=== PATIENT | female | born 1985 | race Hispanic/Latino ===

== ENCOUNTER 2019-03-11 15:58 | Outpatient (CLI) | payer BC, MEDICAID ==
[2019-03-11] MEDS ORDERED: LACTATED RINGERS 500 ML IV ONE (16:21)
[2019-03-11 16:31] VITALS: BP 105/54
[2019-03-11 16:58] LABS: Bacteria,Urine 1+ /HPF (Negative); Bilirubin,Urine NEG (Negative); Blood,Urine NEG (Negative); Calcium Oxalate Crystals,Urine FEW; Color,Urine Yellow (Yellow); Mucus,Urine FEW /HPF; Protein,Urine <15 mg/dL mg/dL (Negative); Urobilinogen,Urine < 2.0 mg/dL (<2.0)
== END 2019-03-11 18:40 | disposition home or self-care (01) ==
LOC: EDSEX → EDBD → TRG 15:58
PROVIDERS: ATTEND Obstetrics & Gynecology
DX: O26.813 Pregnancy related exhaustion and fatigue, third trimester (principal); O26.893 Other specified pregnancy related conditions, third trimester; R10.9 Unspecified abdominal pain; O09.523 Supervision of elderly multigravida, third trimester; O99.333 Smoking (tobacco) complicating pregnancy, third trimester; F17.200 Nicotine dependence, unspecified, uncomplicated; Z3A.32 32 weeks gestation of pregnancy
CPT/HCPCS: 59025; 81001; J7120; 96361

== ENCOUNTER 2019-05-01 05:32 | Inpatient (IN) | payer MEDICAID ==
[2019-05-01] MEDS ORDERED: REGLAN IV ONE (05:47)
[2019-05-01] MEDS ORDERED: BICITRA PO ONE (05:47)
[2019-05-01] MEDS ORDERED: PEPCID IV ONE (05:47)
[2019-05-01] MEDS ORDERED: CLEOCIN 900 MG/50 mL 900 MG/50 ML BAG IV NR (06:00)
[2019-05-01] MEDS ORDERED: PITOCin/NS 20 UNIT/1000ML DRIP 20 UNITS/1,000 ML BAG IV SCH ×2 (06:00→10:49)
[2019-05-01] MEDS: LACTATED RINGERS 1,000 ML IV SCH ×2 (06:26→07:02)
[2019-05-01 06:42] LABS: Basophils # (Auto) 0.2 K/mm3 (0.0-0.1); Basophils % (Auto) 1.2 % (0.0-1.8); Eosinophils # (Auto) 0.1 K/mm3 (0.0-0.4); Eosinophils % (Auto) 0.9 % (0.0-4.3); Hematocrit 27.6 % (30.3-42.9); Hemoglobin 9.4 gm/dl (10.1-14.3); Lymphocytes # (Auto) 2.5 K/mm3 (1.2-5.4); Lymphocytes % (Auto) 19.5 % (13.4-35.0); Mean Corpuscular HGB Conc 34 % (30-34); Mean Corpuscular Volume 91 fl (79-97); Monocytes # (Auto) 0.5 K/mm3 (0.0-0.8); Monocytes % (Auto) 4.2 % (0.0-7.3); Red Blood Count 3.04 M/mm3 (3.65-5.03); Red Cell Distribution Width 14.2 % (13.2-15.2)
[2019-05-01] MEDS ORDERED: DEXMEDETOMIDINE IV ONE (07:10)
[2019-05-01] MEDS ORDERED: MARCAINE 0.5% INFILTRATI ONE (07:16)
--- NOTE | 2019-05-01 07:24 | Anesthesia Day of Surgery ---
Anesthesia Day of Surgery - Day of Surgery Patient Examined: Yes Patient H&P Reviewed: Yes Patient is NPO: Yes
--- NOTE | 2019-05-01 07:24 | Anesthesia Consultation ---
Anesthesia Consult and Med Hx Date of service: 05/01/19 - Airway Anesthetic Teeth Evaluation: Good, Dentures ROM Head & Neck: Adequate Mental/Hyoid Distance: Adequate Mallampati Class: Class I Intubation Access Assessment: Good - Pulmonary Exam CTA: Yes - Cardiac Exam Cardiac Exam: RRR - Pre-Operative Health Status ASA Pre-Surgery Classification: ASA2 Proposed Anesthetic Plan: Spinal - Pulmonary Hx Smoking: No Hx Asthma: No COPD: No Hx Pneumonia: No - Cardiovascular System Hx Hypertension: No - Central Nervous System Hx Seizures: No Hx Psychiatric Problems: Yes (ANXIETY/DEPRESSION) - Endocrine Hx Renal Disease: No Hx End Stage Renal Disease: No Hx Hypothyroidism: No Hx Hyperthyroidism: No - Hematic Hx Anemia: No Hx Sickle Cell Disease: No - Other Systems Hx Alcohol Use: No
[2019-05-01] MEDS ORDERED: NACL 0.9% IR ONE (07:27)
[2019-05-01] MEDS ORDERED: NACL 0.9% IV ONE (07:30)
[2019-05-01] MEDS ORDERED: GENTAMICIN IV ONE (07:30)
--- NOTE | 2019-05-01 07:35 | History and Physical Report ---
History of Present Illness Date of examination: 05/01/19 Date of admission: 05/01/19 05:32 History of present illness: Patient admitted for repeat section. Patient informed the risks of the surgery include bleeding possibly bleeding heavy enough to require blood transfusion, infection possible damage to bowel bladder ureter. Patient understands that due to her previous surgery she is an increased risks of adjacent organ damage. Patient's questions answered. Patient understands and desires to proceed. Menstrual History Regularity: regular Menses every: 28 days Duration: 6 LMP: 07/30/2018 LMP reliability: definite LMP character: normal test type: urine test Date: 08/27/2018 BC at conception: none Planned ? yes EDC Calculations LMP: 05/06/2019 Past History : 4 Term Births: 2 Premature Births: 0 Living Children: 2 Para: 2 Mult. Births: 0 Prev : 2 Aborta: 1 Elect. Ab: 0 Spont. 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 of genital herpes: no Partner hx. of genital herpes: no Rash, Viral, or Febrile illness since last LMP? no Varicella/Chicken Pox Status: Previous Disease Genetic History ADVANCED MATERNAL AGE Congenital Heart Defect: Mom: no Dad: no Lorin Disease: Mom: no Dad: no Thalassemia Mom: no Dad: no Neural Tube Defect Mom: no Dad: no Down's Syndrome Mom: no Dad: no Damon-Sachs Mom: no Dad: no Sickle Cell Disease/Trait Mom: no Dad: no Hemophilia Mom: no Dad: no Muscular Dystrophy Mom: no Dad: no Cystic Fibrosis Mom: no Dad: no [place] Chorea Mom: no Dad: no Mental Retardation Mom: no Dad: no Fragile X Mom: no Dad: no Other Genetic/Chromosomal Disorder Mom: no Dad: no Child w/other defect Mom: no Dad: no Enviromental Exposures Xray Exposure: no Medication, drug, or alcohol use since LMP: no Chemical/Other Exposure: no Exposure to Cat Liter: no Hx of Parvovirus (Fifth Disease): no Occupational Exposure to Children: none Active Medications (reviewed today): None Current Allergies: PCN (PENICILLIN V POTASSIUM) (Critical) KEFLEX (CEPHALEXIN) (Critical) L Past History Past Medical History: other (See HPI) Past Surgical History: other (See HPI) SNOUT PULLER History: other (See HPI) Family/Genetic History: other (See HPI) Social history: other (See HPI) - Obstetrical History Expected Date of Delivery: 05/06/19 Actual Gestation: 39 Week(s) 2 Day(s) : 4 Para: 2 Hx # Term Pregnancies: 2 Number of Pregnancies: 0 Spontaneous Abortions: 1 Induced : 0 Number of Living Children: 2 Medications and Allergies Allergies Allergy/AdvReac Type Severity Reaction Status Date / Time cephalexin [From Keflex] AdvReac Severe Anaphylaxis Verified 03/11/19 16:21 Penicillins AdvReac Severe Anaphylaxis Verified 03/11/19 16:20 Home Medications Medication Instructions Recorded Confirmed Last Taken Type Ferrous Sulfate [Feosol 325 MG tab] 325 mg PO BID #60 tablet 05/01/19 Unknown Rx Ibuprofen [Motrin 800 MG tab] 800 mg PO Q6H PRN #30 tablet 05/01/19 Unknown Rx Lidocain2.5%/Prilocai2.5% [Emla] 5 gm TP ONCE #1 tube 05/01/19 Unknown Rx oxyCODONE /ACETAMINOPHEN [Percocet 1 - 2 tab PO Q4H PRN #20 tablet 05/01/19 Unknown Rx 5/325 mg] Active Meds: Active Medications Acetaminophen (Tylenol) 650 mg PO Q6H TOM Stop: 05/03/19 02:01 Hydromorphone HCl (Dilaudid) 0.5 mg IV Q5M PRN PRN Reason: Breakthrough Pain Hydromorphone HCl (Dilaudid) 0.5 mg IV Q4H PRN PRN Reason: breakthrough pain > 7/10 Clindamycin HCl (Cleocin 900 Mg/50 Ml) 900 mg in 50 mls @ 100 mls/hr IV PREOP NR; Protocol Stop: 05/01/19 23:45 Oxytocin/Sodium Chloride (Pitocin/Ns 20 Unit/1000ml Drip) 20 units in 1,000 mls @ 0 mls/hr IV TITR TOM Lactated Ringer's (Lactated Ringers) 1,000 mls @ 2,250 mls/hr IV PREOP TOM Stop: 05/02/19 06:27 Last Admin: 05/01/19 07:02 Dose: 2,250 mls/hr Documented by: Gentamicin Sulfate 90 mg/ (Sodium Chloride) 102.25 mls @ 200 mls/hr IV PREOP ONE; Protocol Stop: 05/01/19 08:00 Ketorolac Tromethamine (Toradol) 15 mg IV Q6HR [facility] Stop: 05/03/19 06:01 Nalbuphine HCl (Nubain) 10 mg IV Q2H PRN PRN Reason: Pain, Moderate (4-6) Naloxone HCl (Narcan 0.4 Mg/1 Ml) 0.2 mg IV Q2MIN PRN PRN Reason: Res Rate </= 8 or 02 SAT < 92% Ondansetron HCl (Zofran) 4 mg IV Q8H PRN PRN Reason: Nausea And Vomiting Promethazine HCl (Phenergan) 25 mg PO Q6H PRN PRN Reason: Nausea And Vomiting Promethazine HCl (Phenergan) 25 mg SC Q6H PRN PRN Reason: Nausea And Vomiting Sodium Chloride (Sodium Chloride Flush Syringe 10 Ml) 10 ml IV PRN NR - Vital Signs Vital signs: Vital Signs Temp Resp 98.5 F 18 05/01/19 06:26 05/01/19 06:26 Temp Pulse Resp BP Pulse Ox 98.5 F 71 18 105/57 05/01/19 06:26 05/01/19 06:41 05/01/19 06:26 05/01/19 06:41 - Physical Exam Breasts: Positive: deferred Cardiovascular: Regular rate Lungs: Positive: Normal air movement Abdomen: Positive: normal appearance, soft Uterus: Positive: enlarged - Obstetrical FHR: auscultation normal, category 1 Results Result Diagrams: 05/01/19 06:00 Abnormal lab results 05/01/19 Range/Units 06:00 WBC 12.8 H (4.5-11.0) K/mm3 RBC 3.04 L (3.65-5.03) M/mm3 Hgb 9.4 L (10.1-14.3) gm/dl Hct 27.6 L (30.3-42.9) % Baso # 0.2 H (0.0-0.1) K/mm3 Seg Neutrophils % 74.2 H (40.0-70.0) % Seg Neutrophils # 9.5 H (1.8-7.7) K/mm3 All other labs normal. Assessment and Plan - Patient Problems (1) Uterine scar from previous delivery Current Visit: Yes Status: Acute Plan to address problem: Patient informed the risks of the surgery include bleeding possibly bleeding heavy enough to require blood transfusion, infection possible damage to bowel bladder ureter. All questions answered. Patient agrees to proceed (2) 39 weeks gestation of Current Visit: Yes Status: Acute (3) Encounter for sterilization Current Visit: Yes Status: Acute Plan to address problem: Patient desires permanent sterilization. She declined temporary contraceptives. She understands the risks of the surgery include bleeding infection possible damage to bowel bladder or ureters. She understands that this surgery would make her permanently sterile. She also understands the approximate 1% failure rate. The patient understands all the above and desires to proceed. (4) Ulcerative colitis Current Visit: Yes Status: Chronic Qualifiers: Ulcerative colitis location: unspecified ulcerative colitis location Digestive disease complication type: without complication Qualified Code(s): K51.90 - Ulcerative colitis, unspecified, without complications
[2019-05-01 07:42] LABS: Platelet Count 237 K/mm3 (140-440)
[2019-05-01] MEDS ORDERED: TYLENOL PO SCH ×2 (08:00→09:00)
[2019-05-01] MEDS ORDERED: DILAUDID IV PRN ×2 (08:30)
[2019-05-01] MEDS ORDERED: ZOFRAN IV PRN (08:30)
[2019-05-01] MEDS ORDERED: NARCAN 0.4 MG/1 ML IV PRN ×2 (08:30→10:49)
[2019-05-01] MEDS ORDERED: NUBAIN IV PRN (08:30)
[2019-05-01] MEDS ORDERED: PHENERGAN PO PRN (08:30)
[2019-05-01] MEDS ORDERED: PHENERGAN PR PRN (08:30)
[2019-05-01] MEDS ORDERED: SODIUM CHLORIDE FLUSH SYRINGE 10 ML IV PRN (09:00)
[2019-05-01] MEDS ORDERED: ZOFRAN ONE (09:02)
--- NOTE | 2019-05-01 09:09 | Operative Report ---
Operative Report Operative Report: Date of procedure: 05/01/2019 Pre-operative diagnosis: Intrauterine at 39 weeks with previous mag checo sections and desires permanent sterilization Post-operative diagnosis: Same plus pelvic adhesive disease Procedure name(s): Repeat low transverse section with bilateral tubal ligation modified [place] type Surgeon: Santosh Pompa MD Hay Farmer: Barbi Alvarez, exercise physiologist certified Anesthesia: Spinal EBL: 800 mL Complications: None Findings: H&P with thick fascial adhesions and adhesions of the anterior uterine wall with rectus muscles in a thick band of adhesion between the right rectus muscle abdomen sidewall and uterus. Patient with filmy adhesions near cornea on both fallopian tubes. Male weight 10 lbs. 3 oz. with Apgars 8 at 1 minute and 9 at 5 minutes Specimen(s): Portion of the right and left fallopian tubes Procedure: The patient was brought to the operating room. A spinal was placed without any complications. She was then placed in left lateral tilt. Prepped and draped in the usual sterile manner. After testing for adequate anesthesia l evel, a Pfannenstiel incision was made through her previous scar. This incision was taken down to the fascia. The fascia was then nicked in the midline. This incision was extended out laterally with Rod scissors. The fascia was then sharply and bluntly from the underlying rectus muscles. The rectus muscles were bluntly and sharply . The peritoneum was then entered by grasping with hemostats and lifting high. This incision was spread vertically with care not to damage the bladder below. At this time the adhesions were noted and found to be thick both cephalically and the right sidewall. Bladder blade and Watkins retractor was in place and incision. The bladder flap was then formed sharply and bluntly with Metzenbaum scissors. A transverse incision was made in lower uterine segment. This incision was extended laterally with the operators fingers. The amniotic sac was then entered bluntly with the cinder pit crane operator's fingers. The infant was delivered from the vertex position. Bulb suction on the mother's abdomen. Cord was double clamped and cut. The infant was then passed to the nursery personnel who were in attendance. The above scores were given by the nursery personnel. The placenta was then bluntly removed. The uterus was then externalized after lysing adhesions anteriorly and the left side of the uterus very thick band of adhesion was noted on the patient's right. The uterine cavity was wiped clean remaining products. The uterine incision was closed in layers. The first incision was closed in a locking manner using 0 Vicryl. This was followed by imbricating stitch also with 0 Vicryl. Attention was then switched to the patient's fallopian tubes. Each fallopian tube was identified by its fimbriated end. After lysing the ad hesions noted A portion of each tube was grabbed with the [place] clamp approximately 2-3 cm from the cornua. Each loop was double ligated with 0 plain suture. The loop were cut with Metzenbaum scissors. Each stump was found to be hemostatic and cauterized with the Bovie. Attention was then switched back to the uterine closure. This closure was hemostatic. The bladder flap was copiously irrigated and found to be hemostatic. The pelvis was copiously irrigated and found to be hemostatic. The uterus was then placed back to the patient's abdomen. Patient did have oozing from where local anterior adhesions were lysed Surgicel was placed along that side and also place along the uterine closure. The retractors were removed. The rectus muscles were inspected and found to be hemostatic. The fascia was then closed in a running manner using 0 Vicryl. This incision was hemostatic irrigation Bovie. The skin was reapproximated with 4-0 Vicryl subcuticularly. The patient tolerated procedure well. Her urine was clear. The was admitted to the [well baby] nursery. The patient was accompanied to recovery room in good condition. Instrument count correct 3
--- NOTE | 2019-05-01 09:21 | Post Anesthesia Evaluation ---
- Post Anesthesia Evaluation Patient Participated: Yes Airway Patent: Yes Stable Respiratory Function: Yes Nausea/Vomiting: No Temp > 96.8F: Yes Pain Manageable: Yes Adequeate Hydration: Yes Anesthesia Complications: No Block Receding Appropriately: Yes
[2019-05-01] MEDS ORDERED: D5LR 1,000 ML IV ONE (09:29)
[2019-05-01] MEDS ORDERED: TYLENOL PO PRN (10:49)
[2019-05-01] MEDS ORDERED: LANSINOH TP PRN (10:49)
[2019-05-01] MEDS ORDERED: SODIUM CHLORIDE FLUSH SYRINGE 10 ML IV NR (10:49)
[2019-05-01] MEDS ORDERED: ANUCORT-HC PR PRN (10:49)
[2019-05-01] MEDS ORDERED: TUCKS PAD TP PRN (10:49)
[2019-05-01] MEDS: TORADOL IV SCH (11:34)
[2019-05-01] MEDS ORDERED: TORADOL IV SCH (12:00)
[2019-05-01] MEDS: NORCO 5/325 PO PRN ×2 (15:57→21:58)
[2019-05-01] MEDS: IBUPROFEN PO PRN ×2 (15:57→21:58)
[2019-05-01] MEDS: PRENATAL VITAMIN PO SCH (16:50)
[2019-05-01] MEDS: FEOSOL PO SCH (16:51)
[2019-05-01] MEDS: D5LR 1,000 ML IV SCH (16:53)
[2019-05-01] MEDS: CLEOCIN 600 MG/50 mL 600 MG/50 ML BAG IV SCH (18:37)
[2019-05-01 22:00] LABS: Hematocrit 21.9 % (30.3-42.9); Hemoglobin 7.5 gm/dl (10.1-14.3)
[2019-05-02] MEDS: D5LR 1,000 ML IV SCH (01:07)
[2019-05-02] MEDS: CLEOCIN 600 MG/50 mL 600 MG/50 ML BAG IV SCH (01:08)
[2019-05-02] MEDS: IBUPROFEN PO PRN ×3 (03:14→16:19)
[2019-05-02] MEDS: NORCO 5/325 PO PRN ×5 (03:15→20:22)
[2019-05-02] MEDS: PRENATAL VITAMIN PO SCH (09:26)
[2019-05-02] MEDS: FEOSOL PO SCH (09:26)
--- NOTE | 2019-05-02 11:10 | Progress Note ---
Assessment and Plan - Patient Problems (1) S/P repeat low transverse Current Visit: Yes Status: Acute Plan to address problem: -post op care/ post care -ambulate today -diet advanced to regular this am -d/c home in am if remains AFVSS and pt desires d/c to home. Subjective - Subjective Date of service: 05/02/19 Principal diagnosis: POD #1 s/p RLTCS with BTL Interval history: Pt c/o gas and incisional pain. She was encouraged to ambulate. I advised that I would review her pain med and see if anything needed to be added. Upon review it is noted pt is on adequate pain meds and will con't at this time. Pt had questions regarding circumcision which again were all addressed and answered. Patient reports: appetite normal, voiding normally, pain well controlled : doing well Objective - Vital Signs Latest vital signs: Vital Signs Temp Pulse Resp BP BP Pulse Ox 05/02/19 07:35 97.9 F 80 18 109/70 98 05/02/19 03:45 98.1 F 67 20 95/62 97 05/02/19 03:43 95/62 05/01/19 23:57 98.1 F 70 20 101/58 101/58 97 05/01/19 20:25 98.4 F 82 20 115/64 98 05/01/19 16:56 97.9 F 68 18 116/69 05/01/19 15:57 18 Intake and Output 05/01/19 05/02/19 05/02/19 22:59 06:59 14:59 Intake Total 890 1480 1000 Output Total 2300 Balance -1410 1480 1000 Intake: IV 50 1000 1000 CLEOCIN 600 MG/50 mL 600 50 mg In 50 ml @ 100 mls/hr IV Q8H TOM Rx#:[id number] D5lr 1,000 ml @ 125 mls/ 1000 1000 hr IV DIRECT TOM Rx#: [id number] Oral 840 480 Output: Urine 2300 Indwelling Catheter 2300 Other: Total, Intake Amount 120 240 Total, Output Amount 1200 1 - Exam Breasts: Present: normal Cardiovascular: Present: Normal S1, Normal S2 Lungs: Present: Clear to auscultation, Normal air movement Abdomen: Present: normal appearance, soft, normal bowel sounds. Absent: distention, tenderness, guarding Uterus: Present: normal, firm, fundal height below umbilicus. Absent: tendernes s Extremities: Present: normal. Absent: tenderness, edema Incision: Present: other (pt sitting up in chair so dressing difficult to evaluate) - Labs Labs: Abnormal lab results 05/01/19 Range/Units 21:41 Hgb 7.5 L (10.1-14.3) gm/dl Hct 21.9 L (30.3-42.9) %
[2019-05-02] MEDS: MYLICON PO PRN ×2 (11:54→20:25)
[2019-05-02] MEDS: MILK OF MAGNESIA PO PRN ×2 (12:03→23:45)
[2019-05-02] MEDS: ZOFRAN IV PRN (23:38)
[2019-05-03] MEDS ORDERED: DULCOLAX PR PRN (06:18)
--- NOTE | 2019-05-03 06:26 | Event Note ---
Date: 05/03/19 Called by RN @4719 with pt c/o emesis times one at 0100 that appeared to have bile present with emesis. Pt also expressed concerns about not having flattus. Pt refusing to take anything by mouth at this time including pain meds ordered. RN states she is not getting relief with the IV toradol. I ordered fentanyl times one dose and pt to be evaluated at this time. She has extensive h/o bowel sx with "J Pouch" in place due to complications with ulcerative colitus. No other episodes of emesis noted at this time.
--- NOTE | 2019-05-03 06:54 | Progress Note ---
Assessment and Plan Received report from RN that pt had c/o nausea and was given Zofran Pt states she vomited a lg amount and did feel better for awhile. Now she c/o severe abdominal pain when asked she states its her GI pain not the pain of the C/S. Exam reveals abdominal distention, guarding, minimal bowel sounds. Consulted with She will order imaging Pt to be NPO. Phenergan po per pt request - Patient Problems (1) delivery delivered Onset Date: ~05/01/19 Current Visit: Yes Status: Acute (2) Abdominal distention Onset Date: ~05/03/19 Current Visit: Yes Status: Acute Subjective - Subjective Date of service: 05/03/19 (pt c/o severe pain in her abdomen) Principal diagnosis: POD #2 s/p RLTCS with BTL; colitis/Jpouch Patient reports: other (pt states she has not passed gas nor has she had a BM) : doing well Objective - Vital Signs Latest vital signs: Vital Signs Temp Pulse Resp BP Pulse Ox 05/03/19 00:12 98.1 F 81 20 120/86 97 05/02/19 16:20 78 99 05/02/19 16:10 97.8 F 18 102/63 05/02/19 12:28 98.2 F 91 H 18 107/70 98 05/02/19 07:35 97.9 F 80 18 109/70 98 Intake and Output 05/02/19 05/02/19 05/03/19 14:59 22:59 06:59 Intake Total 1260 500 Balance 1260 500 Intake: IV 1000 D5lr 1,000 ml @ 125 mls/ 1000 hr IV DIRECT TOM Rx#: [id number] Oral 260 500 Other: Total, Intake Amount 260 240 # Voids Indwelling Catheter 1,000 3 Void 3 1 - Exam Breasts: Present: normal Cardiovascular: Present: Regular rate Lungs: Present: Normal air movement Abdomen: Present: normal appearance, soft, distention, tenderness, guarding, abnormal bowel sounds, other (consulted with will get imaging studies done) Uterus: Present: normal Extremities: Present: normal Deep Tendon Reflex Grade: Normal +2 Incision: Present: normal, dry, intact
[2019-05-03] MEDS ORDERED: PHENERGAN PR PRN (08:00)
[2019-05-03] MEDS: PHENERGAN PO PRN ×2 (09:50→16:43)
[2019-05-03] MEDS: FEOSOL PO SCH (10:06)
[2019-05-03] MEDS: PRENATAL VITAMIN PO SCH (10:06)
[2019-05-03 10:16] LABS: BUN/Creatinine Ratio 10; Blood Urea Nitrogen 7 mg/dL (7-17); Calcium 9.4 mg/dL (8.4-10.2); Hemolysis Index 2
[2019-05-03] MEDS: PROTONIX IV SCH (10:45)
[2019-05-03] MEDS ORDERED: SUBLIMAZE IV ONE (11:00)
--- NOTE | 2019-05-03 14:36 | Cat Scan Report ---
CT ABDOMEN AND PELVIS WITH CONTRAST INDICATION / CLINICAL INFORMATION: Vomiting, bowel obstruction, generalized abdominal pain for one da y.. TECHNIQUE: Axial CT images were obtained through the abdomen and pelvis after IV contrast. All CT scans at this location are performed using CT dose reduction for ALARA by means of automated exposure control. COMPARISON: None available. FINDINGS: LOWER CHEST: No significant abnormality. LIVER: No significant abnormality. GALLBLADDER: No significant abnormality. BILE DUCTS: No significant abnormality. PANCREAS: No significant abnormality. SPLEEN: No significant abnormality. ADRENALS: No significant abnormality. RIGHT KIDNEY and URETER: No significant abnormality. LEFT KIDNEY and URETER: No significant abnormality. GI SYSTEM: The stomach and small bowel loops are moderately dilated with multiple air-fluid levels. C olectomy changes are suspected. Ileorectal anastomosis is also suspected. Please correlate with surgi holden history. There is no obvious focal transition point, mass or bowel wall thickening. A 1.7 cm ovoi d calcified structure is identified in left lower quadrant small bowel loops of uncertain significanc e. Gallstone ileus PERITONEUM: Small ascites is identified. No free air. No fluid collection. LYMPH NODES: No significant adenopathy. AORTA and ARTERIES: No significant abnormality. IVC and VEINS: No significant abnormality. URINARY BLADDER: No significant abnormality. REPRODUCTIVE ORGANS: An enlarged uterus is identified. The adnexa are unremarkable. 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 ADDITIONAL FINDINGS: 3.0 x 2.3 cm Bartholin's gland cyst on the left side is noted. SKELETAL SYSTEM: No significant abnormality. IMPRESSION: There is diffuse dilatation and fluid throughout the stomach and small bowel loops. Colectomy change s are suspected. There is no clear transition point identified on CT. It is unclear if this represent s a distal obstructive process or a severe diffuse ileus. Small ascites. uterus. Signer Name: Kevin Larsen Jr, MD Signed: 05/03/2019 2:32 PM Workstation Name: [id number]
[2019-05-03] MEDS: ZOFRAN IV PRN (15:19)
[2019-05-03] MEDS: D5LR 1,000 ML IV SCH (15:25)
[2019-05-03] MEDS: MORPHINE IV PRN ×2 (16:26→21:00)
[2019-05-03] MEDS: TORADOL IV SCH (21:03)
[2019-05-03] MEDS ORDERED: REGLAN IV PRN (22:14)
--- NOTE | 2019-05-03 22:57 | Progress Note ---
Assessment and Plan Full consult dictated 33 y/o female POD #2 . c/o N, V and Abd pain. just had loose BM around [address] dilated small bowel in it's entirety (pt s/p total colectomy and J-pouch at the age of 6 secondary to Ulcerative Colitis. NG tube just inserted Abd 3+ distention but not tender at this time. hyperactive BS low h/h low K r/o severe post-op ileus vs sbo rec: Keep NPO NG suction IVF hyradtion K supplementation PRBC transfusion f/u abd series in am will follow Selected Entries 05/03/19 05/03/19 16:36 16:37 Temperature 98.1 F Pulse Rate 76 Respiratory 20 Rate Blood Pressure 131/81 Laboratory Tests 05/01/19 05/01/19 05/03/19 06:00 21:41 07:08 WBC 12.8 H Hgb 7.5 L Hct 21.9 L Sodium 140 Potassium 3.3 L Chloride 94.2 L Carbon Dioxide 34 H Objective Vital Signs - 12hr 05/03/19 05/03/19 16:36 16:37 Temperature 98.1 F Pulse Rate 76 Respiratory 20 Rate Blood Pressure 131/81 O2 Sat by Pulse 94 Oximetry - Labs 05/01/19 21:41 05/03/19 07:08 Diabetes panel 05/03/19 Range/Units 07:08 Sodium 140 (137-145) mmol/L Potassium 3.3 L (3.6-5.0) mmol/L Chloride 94.2 L (98-107) mmol/L Carbon Dioxide 34 H (22-30) mmol/L BUN 7 (7-17) mg/dL Creatinine 0.7 (0.7-1.2) mg/dL Glucose 91 (65-100) mg/dL Calcium 9.4 (8.4-10.2) mg/dL Calcium panel 05/03/19 Range/Units 07:08 Calcium 9.4 (8.4-10.2) mg/dL Pituitary panel 05/03/19 Range/Units 07:08 Sodium 140 (137-145) mmol/L Potassium 3.3 L (3.6-5.0) mmol/L Chloride 94.2 L (98-107) mmol/L Carbon Dioxide 34 H (22-30) mmol/L BUN 7 (7-17) mg/dL Creatinine 0.7 (0.7-1.2) mg/dL Glucose 91 (65-100) mg/dL Calcium 9.4 (8.4-10.2) mg/dL Adrenal panel 05/03/19 Range/Units 07:08 Sodium 140 (137-145) mmol/L Potassium 3.3 L (3.6-5.0) mmol/L Chloride 94.2 L (98-107) mmol/L Carbon Dioxide 34 H (22-30) mmol/L BUN 7 (7-17) mg/dL Creatinine 0.7 (0.7-1.2) mg/dL Glucose 91 (65-100) mg/dL Calcium 9.4 (8.4-10.2) mg/dL
[2019-05-03] MEDS ORDERED: NACL 0.9% 500 ML 500 ML IV ONE (23:04)
--- NOTE | 2019-05-03 23:13 | Consultation ---
REASON FOR CONSULTATION: Rule out postoperative ileus versus a bowel obstruction. HISTORY OF PRESENT ILLNESS: The patient is a 33-year-old female who is 2 days status post her third . The patient began complaining of nausea, vomiting and abdominal pain, thus the reason for my consultation. A CT scan of the abdomen done today reveals dilated small bowel loops in their entirety. It is noted that the patient is status post a total colectomy and a J-pouch secondary to ulcerative colitis back when she was 6 years old. PAST MEDICAL HISTORY: Pertinent for ulcerative colitis and previously mentioned surgery. PAST SURGICAL HISTORY: Includes her total colectomy and pouch as well as 3 C-sections. ALLERGIES: ALLERGIC TO PENICILLIN AND KEFLEX, WHICH CAUSES HER HIVES. MEDICATIONS: Takes no medications. FAMILY HISTORY: Negative. SOCIAL HISTORY: Smokes 1/2 a pack a day for approximately 12 years. Denies any ethanol intake. PHYSICAL EXAMINATION: GENERAL: At this time, reveals the patient to be awake, alert, and cooperative, in no acute distress. It is noted that NG tube has just been inserted. VITAL SIGNS: Show her to be afebrile with a temperature of 98.1, blood pressure 131/81, pulse of 76, respirations 20. ABDOMEN: Examination of the abdomen reveals to be 3+ distended, but nontender at present. Bowel sounds are hyperactive. The patient also states she had a loose bowel movement approximately 2 hours ago. IMAGING STUDIES: CT scan findings as previously mentioned. LABORATORY DATA: Lab work at present includes a CBC, which shows a white count of 12.8, H and H is low at 7.5 and 21.9. Previous one was noted to be 9.4 and 27.6, presumably prior to the . Electrolytes show a low potassium of 3.3. Chloride is also low at 94. IMPRESSION AND PLAN: 1. At this time is that of a 33-year-old female status post multiple abdominal surgeries, including a total colectomy and j-pouch secondary to ulcerative colitis. 2. Three C-sections, the last one being approximately 48 hours ago. Currently, abdominal distention, rule out severe postoperative ileus versus partial or complete small bowel obstruction. The fact that the patient has had a loose stool is a good sign. Also, it is noted she has hyperactive bowel sounds and is nontender at present. We would recommend to continue keeping the patient n.p.o. on NG suction at this time. Also, IV fluid hydration as well as potassium supplementation. We would also recommend packed RBC transfusion, especially the possibility exists that the patient may need to return to surgery. I will order a followup abdominal series in the morning and monitor clinically with you. Also, repeat CBC in the morning as well as electrolytes. JOB# [id number] ANTONIO/CHELSEA
[2019-05-03] MEDS: D5W/0.45% NACL/KCL 40 MEQ 40 MEQ/1,000 ML BAG IV SCH (23:16)
[2019-05-03] MEDS: PEPCID IV SCH (23:16)
[2019-05-03] MEDS: CEPACOL X STRENGTH MM PRN (23:17)
[2019-05-04] MEDS: MORPHINE IV PRN ×6 (00:26→23:50)
[2019-05-04] MEDS ORDERED: NACL 0.9% 500 ML 500 ML IV ONE (04:30)
[2019-05-04] MEDS: CEPACOL X STRENGTH MM PRN ×2 (06:39→10:00)
--- NOTE | 2019-05-04 09:46 | XRay Report ---
ABDOMEN 4 VIEW(S) INDICATION / CLINICAL INFORMATION: sbo. COMPARISON: CT abdomen/pelvis from yesterday FINDINGS: TUBES / LINES: NG tube in the distal stomach. BOWEL GAS PATTERN: Abnormal dilated air-filled small bowel loops suggestive of a distal bowel obstruc tion. No significant air seen distally within the colon. FREE AIR / EXTRALUMINAL GAS: None seen. ADDITIONAL FINDINGS: No significant additional findings. IMPRESSION: 1. Findings most suggestive of distal small bowel obstruction. Signer Name: Stephen Broderick MD Signed: 05/04/2019 9:41 AM Workstation Name: [email or web address]
[2019-05-04] MEDS: PEPCID IV SCH ×2 (09:59→21:59)
[2019-05-04] MEDS: PROTONIX IV SCH (09:59)
[2019-05-04] MEDS: PRENATAL VITAMIN PO SCH (10:00)
[2019-05-04] MEDS: FEOSOL PO SCH (10:00)
[2019-05-04] MEDS: D5W/0.45% NACL/KCL 40 MEQ 40 MEQ/1,000 ML BAG IV SCH ×2 (11:34→20:45)
--- NOTE | 2019-05-04 12:11 | Progress Note ---
Assessment and Plan - Patient Problems (1) S/P repeat low transverse Current Visit: Yes Status: Acute (2) Nausea and vomiting Current Visit: Yes Status: Acute Plan to address problem: -current diagnosis is ileus vs SBO. Gen. sx seeing pt with thanks. -NGT still in place and pt is npo. she denies any other epiosodes of emesis and states she is feeling better. -await futher recommendations by Sx team -con't NPO for now Subjective - Subjective Date of service: 05/04/19 Principal diagnosis: POD #2 s/p RLTCS with BTL; colitis/Jpouch in place; ?SBO Interval history: Pt states that abdomen does feel better and not as bloated today. She reports having several small (5) loose stools. She has cramping but states when she does it means " I need to go tot he bathroom." Otherwise her pain is well controlled. No emesis at this time. NGT still draining this am. No fevers or chills. Pt had several questions regarding her length of stay and d/c of the baby. 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 She expressed understanding. One unit of blood has been given. The second unit had so the type and cross had to be repeated prior to starting second unit. At the time of my visit, the second unit of blood had not been hung yet. Questions regarding the baby and d/c home were also addressed and answered. Patient reports: voiding normally, pain well controlled, bowel movement, no dizzy ambulation : doing well Objective - Vital Signs Latest vital signs: Vital Signs Temp Pulse Resp BP Pulse Ox 05/04/19 11:19 20 05/04/19 07:00 98.3 F 88 18 126/80 92 05/04/19 06:30 98.3 F 82 18 125/82 93 05/04/19 06:29 98.3 F 82 18 125/82 93 05/04/19 06:00 98.3 F 79 18 113/74 93 05/04/19 05:30 97.8 F 76 18 119/75 94 07/06/19 05:00 97.8 F 84 18 118/72 95 05/04/19 04:45 98.2 F 65 18 112/74 93 05/04/19 04:27 98.2 F 88 18 112/74 94 05/04/19 00:23 98.1 F 76 18 121/72 95 05/03/19 16:37 98.1 F 20 131/81 05/03/19 16:36 76 94 Intake and Output 05/03/19 05/04/19 05/04/19 22:59 06:59 14:59 Intake Total 0 1250 Output Total 500 Balance 0 750 Intake: IV 1000 D5W/0.45% NACL/KCL 40 MEQ 1000 40 meq In 1,000 ml @ 125 mls/hr IV DIRECT TOM Rx#:[id number] Oral 0 Blood Product 0 250 Leukoreduced Rbc Part 2 0 250 Unit [id number] Output: Gastric Drainage 500 Other: Total, Intake Amount 0 Total, Output Amount 500 # Voids Void 2 1 # Bowel Movements 1 - Exam Cardiovascular: Present: Normal S1, Normal S2 Lungs: Present: Clear to auscultation, Normal air movement Abdomen: Present: normal appearance, soft, other (decreased BS). Absent: distention, tenderness, guarding Extremities: Present: normal. Absent: tenderness, edema Deep Tendon Reflex Grade: Normal +2 Incision: Present: normal, dry, intact - Labs Labs: Abnormal lab results 05/01/19 05/04/19 Range/Units 06:00 10:00 Crossmatch See Detail See Detail
[2019-05-04 16:36] LABS: Basophils % (Auto) 0.1 % (0.0-1.8); Eosinophils # (Auto) 0.1 K/mm3 (0.0-0.4); Eosinophils % (Auto) 2.1 % (0.0-4.3); Hematocrit 25.3 % (30.3-42.9); Hemoglobin 8.8 gm/dl (10.1-14.3); Lymphocytes # (Auto) 0.9 K/mm3 (1.2-5.4); Mean Corpuscular HGB Conc 35 % (30-34); Mean Corpuscular Volume 89 fl (79-97); Monocytes # (Auto) 0.5 K/mm3 (0.0-0.8); Monocytes % (Auto) 8.2 % (0.0-7.3); Platelet Count 258 K/mm3 (140-440); Red Blood Count 2.84 M/mm3 (3.65-5.03); Red Cell Distribution Width 15.8 % (13.2-15.2)
--- NOTE | 2019-05-04 16:58 | Progress Note ---
Assessment and Plan Pt states "feeling better" Abd series minimal improvement but since films were taken, pt "has had 3 loose BM's and passed gas" Abd still distended but much improved h/h up post transfusion K 3.3 begin mineral oil thru ng tube repeat cbc, bmp and abd series in am Selected Entries 05/04/19 05/04/19 14:16 16:26 Temperature 98.8 F Pulse Rate 78 Respiratory 18 Rate Blood Pressure 119/77 Laboratory Tests 05/01/19 05/01/19 05/03/19 06:00 21:41 07:08 WBC 12.8 H Hgb 7.5 L Hct 21.9 L Potassium 3.3 L 05/04/19 15:58 WBC 6.2 Hgb 8.8 L Hct 25.3 L Potassium Objective Vital Signs - 12hr 05/04/19 05/04/19 05/04/19 05:00 05:30 06:00 Temperature 97.8 F 97.8 F 98.3 F Pulse Rate 84 76 79 Respiratory 18 18 18 Rate Blood Pressure 118/72 119/75 113/74 O2 Sat by Pulse 95 94 93 Oximetry 05/04/19 05/04/19 05/04/19 06:29 06:30 07:00 Temperature 98.3 F 98.3 F 98.3 F Pulse Rate 82 82 88 Respiratory 18 18 18 Rate Blood Pressure 125/82 125/82 126/80 O2 Sat by Pulse 93 93 92 Oximetry 05/04/19 05/04/19 05/04/19 11:19 12:22 12:31 Temperature 98.9 F 98.3 F Pulse Rate 80 75 Respiratory 20 20 16 Rate Blood Pressure 116/75 111/71 O2 Sat by Pulse 93 92 Oximetry 05/04/19 05/04/19 05/04/19 12:46 13:16 13:46 Temperature 98.4 F 99.3 F 98.6 F Pulse Rate 83 76 79 Respiratory 20 18 18 Rate Blood Pressure 115/72 115/74 132/78 O2 Sat by Pulse 94 94 98 Oximetry 05/04/19 05/04/19 14:16 16:26 Temperature 98.8 F Pulse Rate 78 Respiratory 18 18 Rate Blood Pressure 119/77 O2 Sat by Pulse Oximetry - Labs 05/04/19 15:58 05/03/19 07:08
[2019-05-04 17:17] LABS: Alanine Aminotransferase 7 units/L (7-56); Albumin 2.6 g/dL (3.9-5); BUN/Creatinine Ratio 15; Blood Urea Nitrogen 12 mg/dL (7-17); Calcium 8.5 mg/dL (8.4-10.2); Hemolysis Index 5
[2019-05-04] MEDS: MINERAL OIL FEEDTUBE SCH (20:19)
[2019-05-05] MEDS: MINERAL OIL FEEDTUBE SCH ×3 (00:04→08:56)
[2019-05-05] MEDS: D5W/0.45% NACL/KCL 40 MEQ 40 MEQ/1,000 ML BAG IV SCH ×2 (03:19→11:52)
[2019-05-05] MEDS: MORPHINE IV PRN ×4 (03:22→20:42)
[2019-05-05 05:52] LABS: Basophils % (Auto) 0.1 % (0.0-1.8); Eosinophils # (Auto) 0.2 K/mm3 (0.0-0.4); Eosinophils % (Auto) 3.2 % (0.0-4.3); Hematocrit 24.6 % (30.3-42.9); Hemoglobin 8.5 gm/dl (10.1-14.3); Lymphocytes # (Auto) 1.1 K/mm3 (1.2-5.4); Lymphocytes % (Auto) 20.1 % (13.4-35.0); Mean Corpuscular HGB Conc 35 % (30-34); Mean Corpuscular Volume 89 fl (79-97); Monocytes # (Auto) 0.5 K/mm3 (0.0-0.8); Monocytes % (Auto) 9.9 % (0.0-7.3); Platelet Count 241 K/mm3 (140-440); Red Blood Count 2.77 M/mm3 (3.65-5.03); Red Cell Distribution Width 15.7 % (13.2-15.2)
[2019-05-05 06:12] LABS: BUN/Creatinine Ratio 14; Blood Urea Nitrogen 10 mg/dL (7-17); Calcium 8.4 mg/dL (8.4-10.2); Hemolysis Index 1
[2019-05-05] MEDS: PEPCID IV SCH (10:19)
[2019-05-05] MEDS: PROTONIX IV SCH (10:19)
[2019-05-05] MEDS: FEOSOL PO SCH (10:31)
[2019-05-05] MEDS: PRENATAL VITAMIN PO SCH (10:32)
--- NOTE | 2019-05-05 10:33 | XRay Report ---
ACUTE ABDOMINAL SERIES INDICATION / CLINICAL INFORMATION: SBO. COMPARISON: Yesterday. FINDINGS: Upright and supine views of the abdomen demonstrate a nasogastric tube with the tip overlying the thi rd portion of the duodenum. Dilated small bowel loops with differential air-fluid levels have not ham[place] nged significantly. There is no evidence of free air or mass effect. The accompanying chest radiograph reveals mild bibasilar subsegmental atelectasis, greater on the rig ht. IMPRESSION: High-grade distal small bowel obstruction has not changed. Signer Name: Prieto Sue MD Signed: 05/05/2019 10:28 AM Workstation Name: [id number]
--- NOTE | 2019-05-05 13:12 | Progress Note ---
Assessment and Plan - Patient Problems (1) S/P repeat low transverse Current Visit: Yes Status: Acute (2) Nausea and vomiting Current Visit: Yes Status: Acute Plan to address problem: -current diagnosis is ileus vs SBO. sx seeing pt with thanks. -NGT still in place and pt is npo. she denies any other epiosodes of emesis and states she is feeling better. -await futher recommendations by Sx team -con't NPO for now (3) SBO (small bowel obstruction) Current Visit: Yes Status: Acute Plan to address problem: cont care as per gen sx team pt stable and understands plan of care studies today were unchanged from yesterday but pt seems clinically better. await futher recommendations. Subjective - Subjective Date of service: 05/05/19 Principal diagnosis: POD #3 s/p RLTCS with BTL; colitis/Jpouch in place; ?SBO Interval history: Pt doing well stating she is feeling much better. She denies any nausea or vomiting at this time. She is ambulating and states her pain is well controlled at this time.Abdominal series this am shows no changes in SBO noted previously. Again I d/w pt and her family the course of being patient until this resolves and that from an ob/post op standpoint she is doing well but she has to be able to tolerate diet with NGT out prior to d/c home. Pt and s/o expressed understanding and questions were addressed and answered. Patient reports: appetite normal, voiding normally, pain well controlled [place]: doing well Objective - Vital Signs Latest vital signs: Vital Signs Temp Pulse Resp BP BP Pulse Ox 05/05/19 07:48 18 05/05/19 07:29 97.4 F L 72 18 123/83 05/05/19 00:24 98.0 F 70 20 112/79 95 05/04/19 16:43 98.0 F 75 18 113/69 94 05/04/19 16:26 18 05/04/19 14:16 98.8 F 78 18 119/77 05/04/19 13:46 98.6 F 79 18 132/78 98 05/04/19 13:16 99.3 F 76 18 115/74 94 Intake and Output 05/04/19 05/05/19 05/05/19 22:59 06:59 14:59 Intake Total 1000 575.278 9738 Output Total 200 100 Balance 800 820.833 900 Intake: IV 1000 798.300 2259 D5W/0.45% NACL/KCL 40 MEQ 1000 707.774 0238 40 meq In 1,000 ml @ 125 mls/hr IV DIRECT TOM Rx#:[id number] Oral 0 Output: Gastric Drainage 200 100 Other: Total, Intake Amount 0 Total, Output Amount 200 100 # Voids Void 1 1 1 # Bowel Movements 1 1 - Exam Abdomen: Present: normal appearance, soft. Absent: tenderness, guarding Uterus: Present: normal, firm, fundal height below umbilicus. Absent: boggine ss, tenderness Incision: Present: normal, dry, intact - Labs Labs: Abnormal lab results 05/04/19 05/04/19 05/04/19 Range/Units 10:00 15:58 15:58 RBC 2.84 L (3.65-5.03) M/mm3 Hgb 8.8 L (10.1-14.3) gm/dl Hct 25.3 L (30.3-42.9) % MCHC 35 H (30-34) % RDW 15.8 H (13.2-15.2) % [place] % (Auto) 8.2 H (0.0-7.3) % Lymph # 0.9 L (1.2-5.4) K/mm3 Seg Neutrophils % 74.6 H (40.0-70.0) % Potassium 3.5 L (3.6-5.0) mmol/L Carbon Dioxide 32 H (22-30) mmol/L Glucose 105 H (65-100) mg/dL Total Protein 5.5 L (6.3-8.2) g/dL Albumin 2.6 L (3.9-5) g/dL Crossmatch See Detail 05/05/19 Range/Units 05:15 RBC 2.77 L (3.65-5.03) M/mm3 Hgb 8.5 L (10.1-14.3) gm/dl Hct 24.6 L (30.3-42.9) % MCHC 35 H (30-34) % RDW 15.7 H (13.2-15.2) % [place] % (Auto) 9.9 H (0.0-7.3) % Lymph # 1.1 L (1.2-5.4) K/mm3 Seg Neutrophils % (40.0-70.0) % Potassium (3.6-5.0) mmol/L Carbon Dioxide (22-30) mmol/L Glucose (65-100) mg/dL Total Protein (6.3-8.2) g/dL Albumin (3.9-5) g/dL Crossmatch
--- NOTE | 2019-05-05 15:06 | Progress Note ---
Assessment and Plan Pt status quo. states she's had more loose stools Abd - non tender Abd series however shows minimal, if any, improvement expressed to her that we need to begin considering re-exploration. pt does not want any surgical intervention at this time. will attempt to continue with present Rx at this time f/u abd series in am If no improvement, then have recommended to her that we should obtian CT of abd with po contrast. Selected Entries 05/05/19 05/05/19 07:29 07:48 Temperature 97.4 F L Pulse Rate 72 Respiratory 18 Rate Blood Pressure 123/83 [Left] Laboratory Tests 05/05/19 05/05/19 05:15 05:15 WBC 5.4 Hgb 8.5 L Hct 24.6 L Sodium 142 Potassium 3.8 Chloride 103.2 BUN 10 Creatinine 0.7 Objective Vital Signs - 12hr 05/05/19 05/05/19 07:29 07:48 Temperature 97.4 F L Pulse Rate 72 Respiratory 18 18 Rate Blood Pressure 123/83 [Left] - Labs 05/05/19 05:15 05/05/19 05:15 Diabetes panel 05/04/19 05/05/19 Range/Units 15:58 05:15 Sodium 142 142 (137-145) mmol/L Potassium 3.5 L 3.8 (3.6-5.0) mmol/L Chloride 100.7 103.2 (98-107) mmol/L Carbon Dioxide 32 H 29 (22-30) mmol/L BUN 12 10 (7-17) mg/dL Creatinine 0.8 0.7 (0.7-1.2) mg/dL Glucose 105 H 89 (65-100) mg/dL Calcium 8.5 8.4 (8.4-10.2) mg/dL AST 14 (5-40) units/L ALT 7 (7-56) units/L Alkaline Phosphatase 86 (35-129) units/L Total Protein 5.5 L (6.3-8.2) g/dL Albumin 2.6 L (3.9-5) g/dL Calcium panel 05/04/19 05/05/19 Range/Units 15:58 05:15 Calcium 8.5 8.4 (8.4-10.2) mg/dL Albumin 2.6 L (3.9-5) g/dL Pituitary panel 05/04/19 05/05/19 Range/Units 15:58 05:15 Sodium 142 142 (137-145) mmol/L Potassium 3.5 L 3.8 (3.6-5.0) mmol/L Chloride 100.7 103.2 (98-107) mmol/L Carbon Dioxide 32 H 29 (22-30) mmol/L BUN 12 10 (7-17) mg/dL Creatinine 0.8 0.7 (0.7-1.2) mg/dL Glucose 105 H 89 (65-100) mg/dL Calcium 8.5 8.4 (8.4-10.2) mg/dL Adrenal panel 05/04/19 05/05/19 Range/Units 15:58 05:15 Sodium 142 142 (137-145) mmol/L Potassium 3.5 L 3.8 (3.6-5.0) mmol/L Chloride 100.7 103.2 (98-107) mmol/L Carbon Dioxide 32 H 29 (22-30) mmol/L BUN 12 10 (7-17) mg/dL Creatinine 0.8 0.7 (0.7-1.2) mg/dL Glucose 105 H 89 (65-100) mg/dL Calcium 8.5 8.4 (8.4-10.2) mg/dL Total Bilirubin 0.80 (0.1-1.2) mg/dL AST 14 (5-40) units/L ALT 7 (7-56) units/L Alkaline Phosphatase 86 (35-129) units/L Total Protein 5.5 L (6.3-8.2) g/dL Albumin 2.6 L (3.9-5) g/dL
[2019-05-05] MEDS: MINERAL OIL PO SCH (15:24)
[2019-05-05] MEDS ORDERED: MINERAL OIL PO SCH (16:00)
[2019-05-05] MEDS: CEPACOL X STRENGTH MM PRN (22:00)
[2019-05-06] MEDS: MORPHINE IV PRN ×2 (00:34→08:28)
[2019-05-06] MEDS: PEPCID IV SCH ×3 (00:41→22:31)
[2019-05-06] MEDS: MINERAL OIL PO SCH ×2 (00:42→10:13)
[2019-05-06] MEDS: D5W/0.45% NACL/KCL 40 MEQ 40 MEQ/1,000 ML BAG IV SCH ×2 (00:43→10:15)
[2019-05-06] MEDS: CEPACOL X STRENGTH MM PRN (00:46)
--- NOTE | 2019-05-06 09:04 | Progress Note ---
<KAILEE OSEI - Last Filed: 05/06/19 08:57> Assessment and Plan POD 5 s/p rpt c/s. Patient resting in bed, she reports feeling "the same". She denies any additional or worsening s/s or complaints. pt reports pain is well controlled with IV pain medications. She reports ambulating frequently, no dizziness or feeling gricelda with position changes or ambulation. Fundus is firm, ML, below U. Vaginal bleeding is scant. Incision is well-approximated, healing well, no s/s infection. Steri strips in place. Excess moisture noted to incision area, hygiene care provided, abd pad places to wick moisture. DWP proper hygiene and care of incision area, s/s or infection to report. Patient understands current POC per gen sx- will f/u abd series this am, if no improvement, possibly abd CT. Pt denies any needs from OB provider at this time. Will continue to monitor and await further recommendations. - Patient Problems (1) S/P repeat low transverse Current Visit: Yes Status: Acute (2) Nausea and vomiting Current Visit: Yes Status: Acute Plan to address problem: -current diagnosis is ileus vs SBO. Gen. sx seeing pt -NGT still in place and pt is npo. she denies any other epiosodes of emesis and states she is feeling better. -await futher recommendations by Sx team -con't NPO for now (3) SBO (small bowel obstruction) Current Visit: Yes Status: Acute Plan to address problem: cont care as per gen sx team pt stable and understands plan of care abd series this AM Subjective - Subjective Date of service: 05/06/19 Principal diagnosis: POD #5 s/p RLTCS with BTL; colitis/Jpouch in place; ?SBO Patient reports: voiding normally, pain well controlled, ambulating normally [place]: doing well Objective - Vital Signs Latest vital signs: Vital Signs Temp Pulse Resp BP 05/06/19 00:00 98.7 F 76 18 114/73 05/05/19 16:18 18 05/05/19 16:01 98.2 F 66 18 132/84 Intake and Output 05/05/19 05/06/19 05/06/19 23:59 07:59 15:59 Intake Total 0 1000 Output Total 200 Balance -200 1000 Intake: IV 1000 D5W/0.45% NACL/KCL 40 MEQ 1000 40 meq In 1,000 ml @ 125 mls/hr IV DIRECT TOM Rx#:[id number] Oral 0 Output: Gastric Drainage 200 Other: Total, Intake Amount 0 Total, Output Amount 200 - Exam Breasts: Present: normal Cardiovascular: Present: Regular rate, Normal S1, Normal S2 Lungs: Present: Clear to auscultation, Normal air movement Abdomen: Present: soft, distention, normal bowel sounds. Absent: tenderness Vulva: both: normal Uterus: Present: normal, firm, fundal height below umbilicus Extremities: Present: normal Incision: Present: normal, intact, other (moist, hygiene care provided, abd pad placed to incision area) <CINDY VASQUEZ - Last Filed: 05/06/19 13:41> Assessment and Plan - Patient Problems (1) Uterine scar from previous delivery Current Visit: Yes Status: Acute (2) 39 weeks gestation of Current Visit: Yes Status: Acute (3) Encounter for sterilization Current Visit: Yes Status: Acute (4) Ulcerative colitis Current Visit: Yes Status: Chronic Qualifiers: Ulcerative colitis location: unspecified ulcerative colitis location Dige stive disease complication type: without complication Qualified Code(s): K51.90 - Ulcerative colitis, unspecified, without complications Objective - Vital Signs Latest vital signs: Vital Signs Temp Pulse Resp BP Pulse Ox 05/06/19 08:04 97.8 F 60 18 131/86 96 05/06/19 00:00 98.7 F 76 18 114/73 05/05/19 16:18 18 05/05/19 16:01 98.2 F 66 18 132/84 Intake and Output 05/05/19 05/06/19 05/06/19 22:59 06:59 14:59 Intake Total 0 1000 Output Total 200 Balance -200 1000 Intake: IV 1000 D5W/0.45% NACL/KCL 40 MEQ 1000 40 meq In 1,000 ml @ 125 mls/hr IV DIRECT TOM Rx#:[id number] Oral 0 Output: Gastric Drainage 200 Other: Total, Intake Amount 0 Total, Output Amount 200 # Voids Void 1 # Bowel Movements 1 - Addendum Date: 05/06/19 Note: Discussed with the patient present condition patient understands and evaluated by surgery with possibility of additional CT scan but of no improvement surgical intervention is indicated - Discharge Diagnoses (1) Uterine scar from previous delivery Status: Acute (2) 39 weeks gestation of Status: Acute (3) Encounter for sterilization Status: Acute (4) Ulcerative colitis Status: Chronic Qualifiers: Ulcerative colitis location: unspecified ulcerative colitis location Digestive disease complication type: without complication Qualified Code(s): K51.90 - Ulcerative colitis, unspecified, without complications
[2019-05-06] MEDS: PROTONIX IV SCH (10:13)
--- NOTE | 2019-05-06 11:54 | XRay Report ---
X-RAY ABDOMEN SUPINE AND UPRIGHT WITH CHEST X-RAY CLINICAL: Follow-up small bowel obstruction. COMPARISON: 05/05/2019 FINDINGS: Pronounced distention of small bowel loops throughout the abdomen with air-fluid levels. Th e degree of distention is slightly increased compared to the last exam. A nasogastric tube tip appear s to be within the third portion of the duodenum and it is unchanged. No definite colon gas. No pneum operitoneum. IMPRESSION: High-grade distal small bowel obstruction with slightly increased distention of bowel loo ps. No signs of perforation. Signer Name: Ruslan Bullock MD Signed: 05/06/2019 11:50 AM Workstation Name: [id number]
--- NOTE | 2019-05-06 13:55 | Progress Note ---
Assessment and Plan Pt not improving. Abd exam - unchanged Abd series - unchanged pt now finally agreeing to proceed with expl lap imp - non resolving sbo proceed with expl lap today once O.R. room available. risks, indications and complications reviewed with pt and family including possibility of bowel resection. consent signed Selected Entries 05/06/19 08:04 Temperature 97.8 F Pulse Rate 60 Respiratory 18 Rate Blood Pressure 131/86 [Left] Laboratory Tests 05/05/19 05/05/19 05:15 05:15 WBC 5.4 Hgb 8.5 L Hct 24.6 L Potassium 3.8 Objective Vital Signs - 12hr 05/06/19 08:04 Temperature 97.8 F Pulse Rate 60 Respiratory 18 Rate Blood Pressure 131/86 [Left] O2 Sat by Pulse 96 Oximetry - Labs 05/05/19 05:15 05/05/19 05:15
--- NOTE | 2019-05-06 14:49 | Anesthesia Consultation ---
Anesthesia Consult and Med Hx Date of service: 05/06/19 - Airway Anesthetic Teeth Evaluation: Good, Dentures ROM Head & Neck: Adequate Mental/Hyoid Distance: Adequate Mallampati Class: Class II Intubation Access Assessment: Good - Pre-Operative Health Status ASA Pre-Surgery Classification: ASA2, Emergency Proposed Anesthetic Plan: General - Pulmonary Hx Smoking: Yes Hx Asthma: No COPD: No Hx Pneumonia: No - Cardiovascular System Hx Hypertension: No - Central Nervous System Hx Seizures: No Hx Psychiatric Problems: Yes (ANXIETY/DEPRESSION) - Gastrointestinal Hx Ulcer: No (Ulcerative Colitis) - Endocrine Hx Renal Disease: No Hx End Stage Renal Disease: No Hx Hypothyroidism: No Hx Hyperthyroidism: No - Hematic Hx Anemia: No Hx Sickle Cell Disease: No - Other Systems Hx Alcohol Use: No - Additional Comments Anesthesia Medical History Comments: S/P C/S [id number]. NOT
[2019-05-06] MEDS ORDERED: SUBLIMAZE IV PRN (14:50)
[2019-05-06] MEDS ORDERED: ZOFRAN IV PRN ×2 (14:50→18:10)
[2019-05-06] MEDS ORDERED: TYLENOL PO ONE (14:51)
[2019-05-06] MEDS ORDERED: LACTATED RINGERS 1,000 ML ONE (14:53)
[2019-05-06] MEDS ORDERED: LACTATED RINGERS 1,000 ML IV SCH (15:00)
[2019-05-06] MEDS ORDERED: NEURONTIN PO NR (15:00)
[2019-05-06] MEDS ORDERED: VERSED IV NR (15:00)
[2019-05-06] MEDS ORDERED: DIPRIVAN 10 MG/ML IV ONE (15:14)
[2019-05-06] MEDS ORDERED: TORADOL ONE (15:14)
[2019-05-06] MEDS ORDERED: DECADRON ONE (15:14)
[2019-05-06] MEDS ORDERED: SUBLIMAZE ONE ×3 (15:14→17:44)
[2019-05-06] MEDS ORDERED: ZEMURON IV ONE (15:14)
[2019-05-06] MEDS ORDERED: ZOFRAN ONE (15:14)
[2019-05-06] MEDS ORDERED: XYLOCAINE MPF 2% ONE (15:14)
[2019-05-06] MEDS ORDERED: KETALAR ONE (15:31)
[2019-05-06] MEDS ORDERED: ANCEF ONE (15:40)
[2019-05-06] MEDS ORDERED: BRIDION IV ONE (17:40)
[2019-05-06] MEDS ORDERED: DEMEROL ONE (18:04)
[2019-05-06] MEDS ORDERED: DEMEROL IV PRN (18:10)
[2019-05-06] MEDS ORDERED: HYDROGEN PEROXIDE ONE (18:11)
[2019-05-06] MEDS: DILAUDID IV PRN ×5 (18:20→22:31)
[2019-05-06] MEDS: D5W/0.45% NACL/KCL 30 MEQ 30 MEQ/1,000 ML BAG IV SCH (20:16)
--- NOTE | 2019-05-06 20:47 | Operative Report ---
PREOPERATIVE DIAGNOSIS: Rule out small-bowel obstruction. POSTOPERATIVE DIAGNOSIS: Rule out small-bowel obstruction. PROCEDURE: Emergent exploratory laparotomy and lysis of extensive adhesions. SURGEON: Jose J Sanford MD FACULTY ADMINISTRATOR: Dr. Pompa. ANESTHESIA: General. ESTIMATED BLOOD LOSS: Minimal. DRAINS: None. COMPLICATIONS: None. INDICATIONS: Case was an extremely difficult case as the patient had had a total colectomy and J-pouch as a child secondary to ulcerative colitis. There were extensive adhesions throughout the abdomen. The small bowel was plastered to the undersurface of the peritoneum throughout. Also difficult to ascertain the anatomy due to the total colectomy and it was difficult to decide for where the actual J-pouch was. Dissection had to be very cautious and adhesions were extensive. Also, area of focal inflammation with adhesion inflammation was noted near the left fallopian tube, which may or may not have been the source of the obstruction. The small bowel itself was completely dilated throughout from the ligament of Treitz all the way down to the presumed J-pouch area. No focal area of transition could be noted, but again the bowel was adhered everywhere and twisted throughout, but no transition point seen. PROCEDURE IN DETAIL: The patient was taken to the operating room, prepped and draped in usual sterile fashion. Midline was made and the abdomen was slowly entered. Again, entrance into the abdomen was quite difficult due to the adherence of the small bowel throughout the incision. A slow and tedious dissection was carried out throughout until the abdomen was slowly entered. Multiple adhesions were noted and they were slowly lysed following the dilated bowel down to the area of the recent . The small bowel in this area was noted to be dilated, although this might also have been the J-pouch region. The incision was then extended cephalad up to the ligament of Treitz. Extensive adhesions were noted throughout and these were all slowly lysed. The small bowel was then able to be followed from the ligament of Treitz down in its entirety to the J-pouch area at the rectum. The entire bowel loops were noted to be dilated throughout. No transition points or decompressed bowel noted. Once again, the bowel was run in its entirety this time from the presumed J-pouch all the way back up to the ligament of Treitz. Again, no focal points of obstruction were seen other than the previously mentioned area by the left fallopian tube, which was somewhat inflamed and had some fibrin deposits and adhesions, but the bowel distal to this was also dilated. The NG tube was then palpated and noted to be within the stomach. The entire small bowel was then irrigated copiously and suctioned dry. Checked for any iatrogenic injuries and none were noted. The fascia was then closed with interrupted #1 Vicryl sutures as well as a few retention sutures due to the extent of small bowel dilatation. The subcutaneous tissues irrigated and skin closed with azael. Fluffs and Elastoplast was placed. Abdominal binder will also be placed. The patient tolerated the procedure well and left the OR in condition; however, the patient will be transferred to the Intermediate Care Unit as we expect a prolonged postop recovery including an extensive postoperative ileus. We will also obtain a nutrition team evaluation to begin TPN as well as continue NG suction. JOB# [id number] ANTONIO/CHELSEA RAMOS
--- NOTE | 2019-05-06 22:18 | Post Anesthesia Evaluation ---
- Post Anesthesia Evaluation Patient Participated: Yes Airway Patent: Yes Stable Respiratory Function: Yes Nausea/Vomiting: No Temp > 96.8F: Yes Pain Manageable: Yes Adequeate Hydration: Yes Anesthesia Complications: No
--- NOTE | 2019-05-06 22:18 | Anesthesia Day of Surgery ---
Anesthesia Day of Surgery - Day of Surgery Patient Examined: Yes Patient H&P Reviewed: Yes Patient is NPO: Yes
[2019-05-07] MEDS: D5W/0.45% NACL/KCL 30 MEQ 30 MEQ/1,000 ML BAG IV SCH (04:16)
[2019-05-07] MEDS: DILAUDID IV PRN ×3 (04:19→19:41)
[2019-05-07 05:26] LABS: Basophils % (Auto) 0.2 % (0.0-1.8); Eosinophils % (Auto) 0.1 % (0.0-4.3); Hematocrit 29.7 % (30.3-42.9); Hemoglobin 10.2 gm/dl (10.1-14.3); Lymphocytes # (Auto) 0.7 K/mm3 (1.2-5.4); Lymphocytes % (Auto) 6.5 % (13.4-35.0); Mean Corpuscular HGB Conc 34 % (30-34); Mean Corpuscular Volume 89 fl (79-97); Monocytes # (Auto) 0.5 K/mm3 (0.0-0.8); Monocytes % (Auto) 5.2 % (0.0-7.3); Platelet Count 314 K/mm3 (140-440); Red Blood Count 3.35 M/mm3 (3.65-5.03)
[2019-05-07 05:54] LABS: Alanine Aminotransferase 7 units/L (7-56); Albumin 2.4 g/dL (3.9-5); BUN/Creatinine Ratio 13; Blood Urea Nitrogen 9 mg/dL (7-17); Calcium 8.5 mg/dL (8.4-10.2); Hemolysis Index 3
--- NOTE | 2019-05-07 09:23 | Progress Note ---
Assessment and Plan - Patient Problems (1) delivery delivered Onset Date: ~05/01/19 Current Visit: Yes Status: Acute (2) Encounter for sterilization Current Visit: Yes Status: Acute (3) SBO (small bowel obstruction) Current Visit: Yes Status: Acute Plan to address problem: NGT to LWS continue care per Dr. Sanford (4) Ulcerative colitis Current Visit: Yes Status: Chronic Qualifiers: Ulcerative colitis location: unspecified ulcerative colitis location Digestive disease complication type: with intestinal obstruction Qualified Code(s): K51.912 - Ulcerative colitis, unspecified with intestinal obstruction Subjective - Subjective Date of service: 05/07/19 Principal diagnosis: POD #6 s/p RLTCS with BTL; colitis/Jpouch in place; ?SBO; POD#1 exl.lap Interval history: Alert and appropriately responsive, resting in bed. Objective - Vital Signs Latest vital signs: Vital Signs Temp Pulse Pulse Resp BP Pulse Ox 05/07/19 06:50 61 15 127/86 97 05/07/19 06:40 66 17 127/86 98 05/07/19 06:30 72 14 127/86 98 05/07/19 06:20 68 15 127/86 97 05/07/19 06:10 70 15 127/86 98 05/07/19 06:00 62 18 127/86 98 05/07/19 05:50 68 13 114/63 97 05/07/19 05:40 67 14 114/63 97 05/07/19 05:30 66 20 114/63 97 05/07/19 05:20 70 16 114/63 96 05/07/19 05:10 66 24 114/63 96 05/07/19 05:00 67 16 114/63 96 05/07/19 04:50 67 17 129/78 94 05/07/19 04:40 68 23 129/78 96 05/07/19 04:30 68 21 129/78 96 05/07/19 04:20 54 L 22 129/78 97 05/07/19 04:19 27 H 05/07/19 04:10 62 15 129/78 98 05/07/19 04:00 97.2 F L 55 L 66 19 129/78 97 05/07/19 03:50 64 17 125/81 97 05/07/19 03:40 61 15 131/82 98 05/07/19 03:30 61 15 131/82 98 05/07/19 03:20 60 15 131/82 98 05/07/19 03:10 57 L 18 125/81 97 05/07/19 03:00 60 15 131/82 97 05/07/19 02:50 51 L 17 131/82 97 05/07/19 02:40 62 15 131/82 97 05/07/19 02:30 61 14 131/82 97 05/07/19 02:20 63 17 131/82 97 05/07/19 02:10 62 24 131/82 98 05/07/19 02:00 58 L 17 131/82 97 05/07/19 01:50 63 14 126/81 98 05/07/19 01:40 61 14 126/81 98 05/07/19 01:30 66 14 126/81 97 05/07/19 01:20 62 14 126/81 97 05/07/19 01:10 65 15 126/81 97 05/07/19 01:00 60 15 143/77 98 05/07/19 00:50 62 16 143/77 97 05/07/19 00:40 64 13 135/86 98 05/07/19 00:30 63 13 135/86 97 05/07/19 00:20 65 16 135/86 97 05/07/19 00:10 62 16 143/77 98 05/07/19 00:00 95.7 F L 65 64 17 135/86 97 05/06/19 23:50 64 15 135/86 97 05/06/19 23:40 66 15 135/86 98 05/06/19 23:30 67 13 135/86 97 05/06/19 23:20 67 13 135/86 97 05/06/19 23:10 73 13 135/86 97 05/06/19 23:00 65 17 135/86 98 05/06/19 22:50 69 15 126/81 97 05/06/19 22:40 66 23 126/81 96 05/06/19 22:31 19 05/06/19 22:30 63 16 126/81 97 05/06/19 22:20 62 19 126/81 97 05/06/19 22:10 65 15 125/82 97 05/06/19 22:00 61 19 125/82 97 05/06/19 21:50 69 15 128/79 97 05/06/19 21:40 66 16 128/79 97 05/06/19 21:30 66 16 123/87 97 05/06/19 21:20 60 16 123/87 98 05/06/19 21:12 22 98 05/06/19 21:11 97.6 F 05/06/19 21:10 64 16 123/87 97 05/06/19 21:00 65 15 123/87 97 05/06/19 20:50 67 17 117/82 98 05/06/19 20:40 67 15 117/82 98 05/06/19 20:30 64 14 128/79 98 05/06/19 20:20 66 15 128/79 97 05/06/19 20:10 66 17 128/79 98 05/06/19 20:00 66 17 128/79 95 05/06/19 19:55 97.0 F L 66 16 117/82 96 05/06/19 19:53 117/82 05/06/19 19:45 70 15 132/87 98 05/06/19 19:30 68 16 128/76 97 05/06/19 19:20 16 05/06/19 19:15 69 17 121/79 97 05/06/19 19:10 17 05/06/19 19:00 97.8 F 68 19 114/77 98 05/06/19 18:50 7 L 05/06/19 18:45 69 20 126/80 100 05/06/19 18:40 20 05/06/19 18:30 69 19 123/80 100 05/06/19 18:20 20 05/06/19 18:15 68 20 126/84 100 05/06/19 18:10 68 20 122/67 100 05/06/19 18:05 68 25 H 114/63 100 05/06/19 17:59 97.0 F L 66 16 89/45 100 05/06/19 14:30 98.1 F 55 L 22 136/87 99 05/06/19 14:25 98.1 F 55 L 22 136/87 99 Intake and Output 05/06/19 05/07/19 05/07/19 22:59 06:59 14:59 Intake Total 800 1000 Output Total 650 Balance 150 1000 Intake: IV 800 1000 D5W/0.45% NACL/KCL 30 MEQ 1000 30 meq In 1,000 ml @ 125 mls/hr IV DIRECT TOM Rx#:[id number] Output: Urine 650 Other: Voiding Method Indwelling Catheter Indwelling Catheter - Exam Breasts: Present: normal. Absent: swelling, mass, pain, , engorged Abdomen: Present: distention Vulva: both: normal (small lochia) Uterus: Present: other (unable to palpate d/t dressing) Extremities: Present: normal. Absent: tenderness, edema Incision: Present: dressed - Labs Labs: Abnormal lab results 05/07/19 05/07/19 Range/Units 05:09 05:09 RBC 3.35 L (3.65-5.03) M/mm3 Hct 29.7 L (30.3-42.9) % Lymph % (Auto) 6.5 L (13.4-35.0) % Lymph # 0.7 L (1.2-5.4) K/mm3 Seg Neutrophils % 88.0 H (40.0-70.0) % Seg Neutrophils # 9.0 H (1.8-7.7) K/mm3 Potassium 5.1 H D (3.6-5.0) mmol/L Glucose 134 H (65-100) mg/dL Total Protein 5.2 L (6.3-8.2) g/dL Albumin 2.4 L (3.9-5) g/dL
[2019-05-07] MEDS: PEPCID IV SCH ×2 (10:22→23:07)
[2019-05-07] MEDS: PROTONIX IV SCH (10:22)
[2019-05-07] MEDS: D5/0.45NS 1,000 ML IV SCH ×2 (11:57→19:47)
[2019-05-07] MEDS: MORPHINE IV PRN ×3 (11:59→23:09)
--- NOTE | 2019-05-07 12:29 | Progress Note ---
Assessment and Plan POD # 1 Pt c/o incisional pain, otherwise doing well. VSS Abd mild incisional tenderness. dressings clean and dry surgically stable pain management OOB as laure begin TPN continue present care Selected Entries 05/07/19 05/07/19 04:00 06:50 Temperature 97.2 F L Pulse Rate 61 Respiratory 15 Rate Blood Pressure 127/86 Laboratory Tests 05/07/19 05/07/19 05:09 05:09 WBC 10.3 Hgb 10.2 Hct 29.7 L Potassium 5.1 H D Objective Vital Signs - 12hr 05/07/19 05/07/19 05/07/19 00:30 00:40 00:50 Temperature Pulse Rate 63 64 62 Pulse Rate [ From Monitor] Respiratory 13 13 16 Rate Blood Pressure 135/86 135/86 143/77 O2 Sat by Pulse 97 98 97 Oximetry 05/07/19 05/07/19 05/07/19 01:00 01:10 01:20 Temperature Pulse Rate 60 65 62 Pulse Rate [ From Monitor] Respiratory 15 15 14 Rate Blood Pressure 143/77 126/81 126/81 O2 Sat by Pulse 98 97 97 Oximetry 05/07/19 05/07/19 05/07/19 01:30 01:40 01:50 Temperature Pulse Rate 66 61 63 Pulse Rate [ From Monitor] Respiratory 14 14 14 Rate Blood Pressure 126/81 126/81 126/81 O2 Sat by Pulse 97 98 98 Oximetry 05/07/19 05/07/19 05/07/19 02:00 02:10 02:20 Temperature Pulse Rate 58 L 62 63 Pulse Rate [ From Monitor] Respiratory 17 24 17 Rate Blood Pressure 131/82 131/82 131/82 O2 Sat by Pulse 97 98 97 Oximetry 05/07/19 05/07/19 05/07/19 02:30 02:40 02:50 Temperature Pulse Rate 61 62 51 L Pulse Rate [ From Monitor] Respiratory 14 15 17 Rate Blood Pressure 131/82 131/82 131/82 O2 Sat by Pulse 97 97 97 Oximetry 05/07/19 05/07/19 05/07/19 03:00 03:10 03:20 Temperature Pulse Rate 60 57 L 60 Pulse Rate [ From Monitor] Respiratory 15 18 15 Rate Blood Pressure 131/82 125/81 131/82 O2 Sat by Pulse 97 97 98 Oximetry 05/07/19 05/07/19 05/07/19 03:30 03:40 03:50 Temperature Pulse Rate 61 61 64 Pulse Rate [ From Monitor] Respiratory 15 15 17 Rate Blood Pressure 131/82 131/82 125/81 O2 Sat by Pulse 98 98 97 Oximetry 05/07/19 05/07/19 05/07/19 04:00 04:10 04:19 Temperature 97.2 F L Pulse Rate 55 L 62 Pulse Rate [ 66 From Monitor] Respiratory 19 15 27 H Rate Blood Pressure 129/78 129/78 O2 Sat by Pulse 97 98 Oximetry 05/07/19 05/07/19 05/07/19 04:20 04:30 04:40 Temperature Pulse Rate 54 L 68 68 Pulse Rate [ From Monitor] Respiratory 22 21 23 Rate Blood Pressure 129/78 129/78 129/78 O2 Sat by Pulse 97 96 96 Oximetry 05/07/19 05/07/19 05/07/19 04:50 05:00 05:10 Temperature Pulse Rate 67 67 66 Pulse Rate [ From Monitor] Respiratory 17 16 24 Rate Blood Pressure 129/78 114/63 114/63 O2 Sat by Pulse 94 96 96 Oximetry 05/07/19 05/07/19 05/07/19 05:20 05:30 05:40 Temperature Pulse Rate 70 66 67 Pulse Rate [ From Monitor] Respiratory 16 20 14 Rate Blood Pressure 114/63 114/63 114/63 O2 Sat by Pulse 96 97 97 Oximetry 05/07/19 05/07/19 05/07/19 05:50 06:00 06:10 Temperature Pulse Rate 68 62 70 Pulse Rate [ From Monitor] Respiratory 13 18 15 Rate Blood Pressure 114/63 127/86 127/86 O2 Sat by Pulse 97 98 98 Oximetry 05/07/19 05/07/19 05/07/19 06:20 06:30 06:40 Temperature Pulse Rate 68 72 66 Pulse Rate [ From Monitor] Respiratory 15 14 17 Rate Blood Pressure 127/86 127/86 127/86 O2 Sat by Pulse 97 98 98 Oximetry 05/07/19 06:50 Temperature Pulse Rate 61 Pulse Rate [ From Monitor] Respiratory 15 Rate Blood Pressure 127/86 O2 Sat by Pulse 97 Oximetry - Labs 05/07/19 05:09 05/07/19 05:09 Diabetes panel 05/07/19 Range/Units 05:09 Sodium 140 (137-145) mmol/L Potassium 5.1 H D (3.6-5.0) mmol/L Chloride 106.3 (98-107) mmol/L Carbon Dioxide 23 (22-30) mmol/L BUN 9 (7-17) mg/dL Creatinine 0.7 (0.7-1.2) mg/dL Glucose 134 H (65-100) mg/dL Calcium 8.5 (8.4-10.2) mg/dL AST 12 (5-40) units/L ALT 7 (7-56) units/L Alkaline Phosphatase 74 (35-129) units/L Total Protein 5.2 L (6.3-8.2) g/dL Albumin 2.4 L (3.9-5) g/dL Calcium panel 05/07/19 05/07/19 Range/Units 05:09 10:22 Calcium 8.5 (8.4-10.2) mg/dL Phosphorus 3.60 (2.5-4.5) mg/dL Albumin 2.4 L (3.9-5) g/dL Pituitary panel 05/07/19 Range/Units 05:09 Sodium 140 (137-145) mmol/L Potassium 5.1 H D (3.6-5.0) mmol/L Chloride 106.3 (98-107) mmol/L Carbon Dioxide 23 (22-30) mmol/L BUN 9 (7-17) mg/dL Creatinine 0.7 (0.7-1.2) mg/dL Glucose 134 H (65-100) mg/dL Calcium 8.5 (8.4-10.2) mg/dL Adrenal panel 05/07/19 Range/Units 05:09 Sodium 140 (137-145) mmol/L Potassium 5.1 H D (3.6-5.0) mmol/L Chloride 106.3 (98-107) mmol/L Carbon Dioxide 23 (22-30) mmol/L BUN 9 (7-17) mg/dL Creatinine 0.7 (0.7-1.2) mg/dL Glucose 134 H (65-100) mg/dL Calcium 8.5 (8.4-10.2) mg/dL Total Bilirubin 0.60 (0.1-1.2) mg/dL AST 12 (5-40) units/L ALT 7 (7-56) units/L Alkaline Phosphatase 74 (35-129) units/L Total Protein 5.2 L (6.3-8.2) g/dL Albumin 2.4 L (3.9-5) g/dL
[2019-05-07] MEDS ORDERED: MORPHINE ONE (15:16)
[2019-05-07] MEDS: ZOFRAN IV PRN ×2 (17:08→23:08)
[2019-05-07] MEDS ORDERED: TPN ADULT 2,400 ML IV SCH (20:00)
[2019-05-08] MEDS: MORPHINE IV PRN ×3 (03:08→16:18)
[2019-05-08 05:16] LABS: BUN/Creatinine Ratio 16; Blood Urea Nitrogen 8 mg/dL (7-17); Calcium 8.1 mg/dL (8.4-10.2); Hemolysis Index 176
[2019-05-08 05:20] LABS: Alanine Aminotransferase 5 units/L (7-56); Albumin 2.2 g/dL (3.9-5); BUN/Creatinine Ratio 13; Blood Urea Nitrogen 8 mg/dL (7-17); Calcium 7.9 mg/dL (8.4-10.2); Hemolysis Index 9
[2019-05-08] MEDS: ZOFRAN IV PRN ×2 (07:06→16:18)
[2019-05-08 07:58] LABS: Hematocrit 27.7 % (30.3-42.9); Hemoglobin 9.7 gm/dl (10.1-14.3); Mean Corpuscular HGB Conc 35 % (30-34); Mean Corpuscular Volume 87 fl (79-97); Platelet Count 307 K/mm3 (140-440); Red Cell Distribution Width 15.1 % (13.2-15.2)
[2019-05-08 08:14] LABS: Basophils % (Auto) 0.2 % (0.0-1.8); Eosinophils # (Auto) 0.1 K/mm3 (0.0-0.4); Eosinophils % (Auto) 0.9 % (0.0-4.3); Lymphocytes % (Auto) 8.8 % (13.4-35.0); Monocytes # (Auto) 0.7 K/mm3 (0.0-0.8); Monocytes % (Auto) 6.3 % (0.0-7.3)
--- NOTE | 2019-05-08 09:35 | Progress Note ---
Assessment and Plan - Patient Problems (1) Uterine scar from previous delivery Current Visit: Yes Status: Chronic (2) 39 weeks gestation of Current Visit: Yes Status: Resolved (3) Encounter for sterilization Current Visit: Yes Status: Acute (4) Ulcerative colitis Current Visit: Yes Status: Chronic Qualifiers: Ulcerative colitis location: unspecified ulcerative colitis location Digestive disease complication type: with intestinal obstruction Qualified Code(s): K51.912 - Ulcerative colitis, unspecified with intestinal obstruction (5) Abdominal distention Onset Date: ~05/03/19 Current Visit: Yes Status: Acute Plan to address problem: Patient status post exploratory laparotomy. Patient's diet advancement will be per Dr. Choudhary's orders Subjective Date of service: 05/08/19 Principal diagnosis: POD #7 s/p RLTCS with BTL; colitis/Jpouch in place; ?SBO; POD#2 exl.lap Interval history: Patient disappointed that she had to have follow-up surgery. She denies any nausea or vomiting at present. Patient does complain of incisional pain Objective - Constitutional Vitals: Vital Signs - 12hr 05/07/19 05/07/19 05/08/19 22:00 23:00 00:00 Temperature 97.0 F L Pulse Rate 81 78 82 Pulse Rate [ 60 From Monitor] Respiratory 21 32 H 26 H Rate Blood Pressure 134/82 117/79 117/79 Blood Pressure [Left] O2 Sat by Pulse 96 96 94 Oximetry 05/08/19 05/08/19 05/08/19 01:00 02:00 03:00 Temperature Pulse Rate 79 82 80 Pulse Rate [ From Monitor] Respiratory 32 H 29 H 31 H Rate Blood Pressure 126/81 128/84 129/77 Blood Pressure [Left] O2 Sat by Pulse 94 93 93 Oximetry 05/08/19 05/08/19 05/08/19 04:00 05:00 06:00 Temperature 72 F L Pulse Rate 79 74 74 Pulse Rate [ 60 From Monitor] Respiratory 23 32 H 33 H Rate Blood Pressure 129/86 126/78 129/79 Blood Pressure 129/86 [Left] O2 Sat by Pulse 93 92 95 Oximetry 05/08/19 05/08/19 07:00 08:00 Temperature 98.3 F Pulse Rate 76 82 Pulse Rate [ From Monitor] Respiratory 34 H 28 H Rate Blood Pressure 141/88 147/78 Blood Pressure [Left] O2 Sat by Pulse 96 95 Oximetry General appearance: Present: no acute distress - Respiratory Respiratory effort: normal - Breasts Breasts: deferred - Cardiovascular Rhythm: regular Extremity abnormal: edema - Gastrointestinal General gastrointestinal: Present: distended, other (bandage on clean and dry) Rectal Exam: deferred - Genitourinary Female genitourinary: deferred - Integumentary Integumentary: clear, warm, dry - Labs CBC & Chem 7: 05/08/19 11:01 05/08/19 04:30 Labs: Abnormal lab results 05/08/19 05/08/19 05/08/19 Range/Units 04:30 04:30 06:22 RBC (3.65-5.03) M/mm3 Hgb (10.1-14.3) gm/dl Hct (30.3-42.9) % MCHC (30-34) % Lymph % (Auto) (13.4-35.0) % Lymph # (1.2-5.4) K/mm3 Seg Neutrophils % (40.0-70.0) % Seg Neutrophils # (1.8-7.7) K/mm3 Sodium 133 L (137-145) mmol/L Carbon Dioxide 20 L (22-30) mmol/L Creatinine 0.6 L 0.5 L (0.7-1.2) mg/dL Glucose 109 H 108 H (65-100) mg/dL POC Glucose 114 H (70-105) Calcium 7.9 L 8.1 L (8.4-10.2) mg/dL ALT 5 L (7-56) units/L Total Protein 4.5 L (6.3-8.2) g/dL Albumin 2.2 L (3.9-5) g/dL 05/08/19 Range/Units 07:47 RBC 3.20 L (3.65-5.03) M/mm3 Hgb 9.7 L (10.1-14.3) gm/dl Hct 27.7 L (30.3-42.9) % MCHC 35 H (30-34) % Lymph % (Auto) 8.8 L (13.4-35.0) % Lymph # 1.0 L (1.2-5.4) K/mm3 Seg Neutrophils % 83.8 H (40.0-70.0) % Seg Neutrophils # 9.1 H (1.8-7.7) K/mm3 Sodium (137-145) mmol/L Carbon Dioxide (22-30) mmol/L Creatinine (0.7-1.2) mg/dL Glucose (65-100) mg/dL POC Glucose (70-105) Calcium (8.4-10.2) mg/dL ALT (7-56) units/L Total Protein (6.3-8.2) g/dL Albumin (3.9-5) g/dL Medications & Allergies - Medications Allergies/Adverse Reactions: Allergies cephalexin [From Keflex] Adverse Reaction (Severe, Verified 03/11/19 16:21) Anaphylaxis Penicillins Adverse Reaction (Severe, Verified 03/11/19 16:20) Anaphylaxis Home Medications: Home Medications Medication Instructions Recorded Confirmed Last Taken Type Ferrous Sulfate [Feosol 325 MG tab] 325 mg PO BID #60 tablet 05/01/19 Unknown Rx Ibuprofen [Motrin 800 MG tab] 800 mg PO Q6H PRN #30 tablet 05/01/19 Unknown Rx Lidocain2.5%/Prilocai2.5% [Emla] 5 gm TP ONCE #1 tube 05/01/19 Unknown Rx oxyCODONE /ACETAMINOPHEN [Percocet 1 - 2 tab PO Q4H PRN #20 tablet 05/01/19 Unknown Rx 5/325 mg] Active Medications: Generic Name Dose Route Start Last Admin Trade Name Freq PRN Reason Stop Dose Admin Acetaminophen 650 mg 05/01/19 10:49 Tylenol PO Q4H PRN Fever >100.5/BOWMAN Benzocaine/Menthol 1 each 05/03/19 22:48 05/06/19 00:46 Cepacol X Strength MM 1 each Q2HR PRN Administration Sore Throat Famotidine 20 mg 05/03/19 23:00 05/07/19 23:07 Pepcid IV 20 mg BID TOM Administration Fentanyl 50 mcg 05/06/19 14:50 Sublimaze IV Q5MIN PRN Pain , Severe (7-10) Hydrocortisone Acetate 25 mg 05/01/19 10:49 Anucort-Hc NV BID PRN Hemorrhoids Amino Acids/Electrolytes/Dextrose 2,400 mls @ 100 mls/hr 05/07/19 20:00 05/07/19 20:00 Tpn Adult IV 05/08/19 19:59 100 mls/hr DAILY@1999 TOM Administration Protocol Magnesium Hydroxide 30 ml 05/01/19 22:00 05/02/19 12:03 Milk Of Magnesia PO 30 ml QHS PRN Administration Constip Unrelieved By Senna Morphine Sulfate 2 mg 05/03/19 16:03 05/08/19 07:07 Morphine IV 2 mg Q4H PRN Administration Pain, Moderate (4-6) Multi-Ingredient Ointment 1 applic 05/01/19 10:49 Lansinoh TP PRN PRN dryness/cracking Naloxone HCl 0.1 mg 05/01/19 10:49 Narcan 0.4 Mg/1 Ml IV Q2MIN PRN Res Rate </= 8 or 02 SAT < 92% Ondansetron HCl 4 mg 05/01/19 10:49 05/08/19 07:06 Zofran IV 4 mg Q8H PRN Administration Nausea And Vomiting Pantoprazole Sodium 40 mg 05/03/19 10:00 05/07/19 10:22 Protonix IV 40 mg QDAY TOM Administration Witch Annmarie/Glycerin 1 each 05/01/19 10:49 Tucks Pad TP PRN PRN Hemorrhoids/cleansing/soothing
[2019-05-08] MEDS: PROTONIX IV SCH (10:01)
[2019-05-08] MEDS: PEPCID IV SCH ×2 (10:01→22:12)
--- NOTE | 2019-05-08 10:28 | XRay Report ---
CHEST 1 VIEW INDICATION: PICC line placement. COMPARISON: 05/06/2019 FINDINGS: Support devices: A right arm PICC has been inserted which terminates near the cavoatrial junction. A nasogastric tube is followed to the antrum of the stomach but its distal tip is cut off the field-of- view. There is poor inspiration. Heart: Within normal limits. Lungs/Pleura: No acute air space or interstitial disease. Additional findings: None. IMPRESSION: No acute findings. Right arm PICC and nasogastric tube as described. Signer Name: Kevin Larsen Jr, MD Signed: 05/08/2019 10:24 AM Workstation Name: [id number]
--- NOTE | 2019-05-08 11:10 | Progress Note ---
Assessment and Plan POD # 2 Pt feeling slightly better. slightly less pain tachypneic slightly pale Abd - dressings dry. decreased distention stable CxR essentially wnl continue IS CPT d/c irving repeat CBC Selected Entries 05/08/19 08:00 Temperature 98.3 F Pulse Rate 82 Respiratory 28 H Rate Blood Pressure 147/78 Laboratory Tests 05/08/19 05/08/19 04:30 07:47 WBC 10.9 Hgb 9.7 L Hct 27.7 L Sodium 137 Potassium 3.8 D Chloride 104.4 Carbon Dioxide 22 BUN 8 Creatinine 0.6 L Objective Vital Signs - 12hr 05/08/19 05/08/19 05/08/19 00:00 01:00 02:00 Temperature 97.0 F L Pulse Rate 82 79 82 Pulse Rate [ 60 From Monitor] Respiratory 26 H 32 H 29 H Rate Blood Pressure 117/79 126/81 128/84 Blood Pressure [Left] O2 Sat by Pulse 94 94 93 Oximetry 05/08/19 05/08/19 05/08/19 03:00 04:00 05:00 Temperature 72 F L Pulse Rate 80 79 74 Pulse Rate [ 60 From Monitor] Respiratory 31 H 23 32 H Rate Blood Pressure 129/77 129/86 126/78 Blood Pressure 129/86 [Left] O2 Sat by Pulse 93 93 92 Oximetry 05/08/19 05/08/19 05/08/19 06:00 07:00 08:00 Temperature 98.3 F Pulse Rate 74 76 82 Pulse Rate [ From Monitor] Respiratory 33 H 34 H 28 H Rate Blood Pressure 129/79 141/88 147/78 Blood Pressure [Left] O2 Sat by Pulse 95 96 95 Oximetry - Labs 05/08/19 07:47 05/08/19 04:30 Diabetes panel 05/08/19 05/08/19 Range/Units 04:30 04:30 Sodium 137 133 L (137-145) mmol/L Potassium 3.8 D 4.3 (3.6-5.0) mmol/L Chloride 104.4 103.1 (98-107) mmol/L Carbon Dioxide 22 20 L (22-30) mmol/L BUN 8 8 (7-17) mg/dL Creatinine 0.6 L 0.5 L (0.7-1.2) mg/dL Glucose 109 H 108 H (65-100) mg/dL Calcium 7.9 L 8.1 L (8.4-10.2) mg/dL AST 10 (5-40) units/L ALT 5 L (7-56) units/L Alkaline Phosphatase 76 (35-129) units/L Total Protein 4.5 L (6.3-8.2) g/dL Albumin 2.2 L (3.9-5) g/dL Calcium panel 05/08/19 05/08/19 Range/Units 04:30 04:30 Calcium 7.9 L 8.1 L (8.4-10.2) mg/dL Phosphorus 3.90 (2.5-4.5) mg/dL Albumin 2.2 L (3.9-5) g/dL Pituitary panel 05/08/19 05/08/19 Range/Units 04:30 04:30 Sodium 137 133 L (137-145) mmol/L Potassium 3.8 D 4.3 (3.6-5.0) mmol/L Chloride 104.4 103.1 (98-107) mmol/L Carbon Dioxide 22 20 L (22-30) mmol/L BUN 8 8 (7-17) mg/dL Creatinine 0.6 L 0.5 L (0.7-1.2) mg/dL Glucose 109 H 108 H (65-100) mg/dL Calcium 7.9 L 8.1 L (8.4-10.2) mg/dL Adrenal panel 05/08/19 05/08/19 Range/Units 04:30 04:30 Sodium 137 133 L (137-145) mmol/L Potassium 3.8 D 4.3 (3.6-5.0) mmol/L Chloride 104.4 103.1 (98-107) mmol/L Carbon Dioxide 22 20 L (22-30) mmol/L BUN 8 8 (7-17) mg/dL Creatinine 0.6 L 0.5 L (0.7-1.2) mg/dL Glucose 109 H 108 H (65-100) mg/dL Calcium 7.9 L 8.1 L (8.4-10.2) mg/dL Total Bilirubin 0.60 (0.1-1.2) mg/dL AST 10 (5-40) units/L ALT 5 L (7-56) units/L Alkaline Phosphatase 76 (35-129) units/L Total Protein 4.5 L (6.3-8.2) g/dL Albumin 2.2 L (3.9-5) g/dL
[2019-05-08 11:43] LABS: Basophils % (Auto) 0.3 % (0.0-1.8); Eosinophils # (Auto) 0.1 K/mm3 (0.0-0.4); Eosinophils % (Auto) 0.8 % (0.0-4.3); Hematocrit 27.4 % (30.3-42.9); Hemoglobin 9.4 gm/dl (10.1-14.3); Lymphocytes # (Auto) 0.9 K/mm3 (1.2-5.4); Lymphocytes % (Auto) 8.5 % (13.4-35.0); Mean Corpuscular HGB Conc 34 % (30-34); Mean Corpuscular Volume 87 fl (79-97); Monocytes # (Auto) 0.6 K/mm3 (0.0-0.8); Monocytes % (Auto) 5.4 % (0.0-7.3); Platelet Count 309 K/mm3 (140-440); Red Blood Count 3.16 M/mm3 (3.65-5.03); Red Cell Distribution Width 15.1 % (13.2-15.2)
[2019-05-08] MEDS: DILAUDID IV PRN ×3 (12:10→22:12)
--- NOTE | 2019-05-08 15:38 | Progress Note ---
Assessment and Plan Assessment and plan: Patient has a history of ulcerative colitis and is status post total colectomy with a J-pouch since age 6 05/01; Repeat low transverse section with bilateral tubal ligation modified Jenise type 05/06 exploratory laparotomy with Lysis of adhesions Uterine scar from previous delivery 39 weeks gestation of Encounter for sterilization sp C/S and tubal ligation on 05/01 Ulcerative colitis with SBO sp Ex lap and олег, cont TPN, awaiting return of bowel function mgt per GS Hypokalemia repleted dvt ppx per primary team, recommend lovenox sq History Interval history: Review of systems Constitutional: No fevers, no malaise, no joint pains CVS: No chest pain, no orthopnea, no dyspnea on exertion, no pedal edema GI: Continues to complain of abdominal pain and distention, has had mild nausea Respiratory: no wheezing, no coughing Hospitalist Physical - Physical exam Narrative exam: General.: Appears well, no distress, nontoxic HEENT: Moist mucous membranes, extraocular muscles intact, no lymphadenopathy Neck: supple Cardiac: S1-S2 heard Lungs: clear to auscultation bilaterally Abdomen: soft , tender and distended Extremities: no edema clubbing or cyanosis Skin: no rash or lesions Neurologic: no gross focal deficits Psych: calm, and cooperative - Constitutional Vitals: Temp Pulse Resp BP Pulse Ox 97.7 F 74 19 137/83 94 05/08/19 12:00 05/08/19 13:00 05/08/19 13:00 05/08/19 13:00 05/08/19 13:00 General appearance: Present: no acute distress Results - Labs CBC & Chem 7: 05/11/19 10:16 05/11/19 05:35 Labs: Laboratory Last Values WBC 10.8 K/mm3 (4.5-11.0) 05/08/19 11:01 RBC 3.16 M/mm3 (3.65-5.03) L 05/08/19 11:01 Hgb 9.4 gm/dl (10.1-14.3) L 05/08/19 11:01 Hct 27.4 % (30.3-42.9) L 05/08/19 11:01 MCV 87 fl (79-97) 05/08/19 11:01 MCH 30 pg (28-32) 05/08/19 11:01 MCHC 34 % (30-34) 05/08/19 11:01 RDW 15.1 % (13.2-15.2) 05/08/19 11:01 Plt Count 309 K/mm3 (140-440) 05/08/19 11:01 Lymph % (Auto) 8.5 % (13.4-35.0) L 05/08/19 11:01 Cache % (Auto) 5.4 % (0.0-7.3) 05/08/19 11:01 Eos % (Auto) 0.8 % (0.0-4.3) 05/08/19 11:01 Baso % (Auto) 0.3 % (0.0-1.8) 05/08/19 11:01 Lymph # 0.9 K/mm3 (1.2-5.4) L 05/08/19 11:01 Cache # 0.6 K/mm3 (0.0-0.8) 05/08/19 11:01 Eos # 0.1 K/mm3 (0.0-0.4) 05/08/19 11:01 Baso # 0.0 K/mm3 (0.0-0.1) 05/08/19 11:01 Add Manual Diff Complete 05/08/19 07:47 Total Counted Cancelled 05/08/19 07:47 Seg Neutrophils % 85.0 % (40.0-70.0) H 05/08/19 11:01 Seg Neuts % (Manual) Cancelled 05/08/19 07:47 Cancelled 05/08/19 07:47 Cancelled 05/08/19 07:47 Reactive Lymphs % (Man) Cancelled 05/08/19 07:47 Cancelled 05/08/19 07:47 Cancelled 05/08/19 07:47 Cancelled 05/08/19 07:47 Cancelled 05/08/19 07:47 Cancelled 05/08/19 07:47 Cancelled 05/08/19 07:47 Cancelled 05/08/19 07:47 Nucleated RBC % Cancelled 05/08/19 07:47 Seg Neutrophils # 9.2 K/mm3 (1.8-7.7) H 05/08/19 11:01 Seg Neutrophils # Man Cancelled 05/08/19 07:47 Band Neutrophils # Cancelled 05/08/19 07:47 Cancelled 05/08/19 07:47 Abs React Lymphs (Man) Cancelled 05/08/19 07:47 Cancelled 05/08/19 07:47 Cancelled 05/08/19 07:47 Cancelled 05/08/19 07:47 Cancelled 05/08/19 07:47 Cancelled 05/08/19 07:47 Cancelled 05/08/19 07:47 Blast Cells # Cancelled 05/08/19 07:47 WBC Morphology Cancelled 05/08/19 07:47 Hypersegmented Neuts Cancelled 05/08/19 07:47 Hyposegmented Neuts Cancelled 05/08/19 07:47 Hypogranular Neuts Cancelled 05/08/19 07:47 Cancelled 05/08/19 07:47 Cancelled 05/08/19 07:47 Cancelled 05/08/19 07:47 Cancelled 05/08/19 07:47 Cancelled 05/08/19 07:47 Cancelled 05/08/19 07:47 Cancelled 05/08/19 07:47 Cancelled 05/08/19 07:47 Cancelled 05/08/19 07:47 Plt Clumps, EDTA Cancelled 05/08/19 07:47 Cancelled 05/08/19 07:47 Cancelled 05/08/19 07:47 Cancelled 05/08/19 07:47 Plt Morphology Comment Cancelled 05/08/19 07:47 RBC Morphology Cancelled 05/08/19 07:47 Dimorphic RBCs Cancelled 05/08/19 07:47 Cancelled 05/08/19 07:47 Cancelled 05/08/19 07:47 Cancelled 05/08/19 07:47 Cancelled 05/08/19 07:47 Cancelled 05/08/19 07:47 Cancelled 05/08/19 07:47 Cancelled 05/08/19 07:47 Cancelled 05/08/19 07:47 Cancelled 05/08/19 07:47 Cancelled 05/08/19 07:47 Cancelled 05/08/19 07:47 Cancelled 05/08/19 07:47 Cancelled 05/08/19 07:47 Cancelled 05/08/19 07:47 Cancelled 05/08/19 07:47 Cancelled 05/08/19 07:47 Cancelled 05/08/19 07:47 Cancelled 05/08/19 07:47 Cancelled 05/08/19 07:47 Cancelled 05/08/19 07:47 Cancelled 05/08/19 07:47 Acanthocytes (Spur) Cancelled 05/08/19 07:47 Rouleaux Cancelled 05/08/19 07:47 Cancelled 05/08/19 07:47 Cancelled 05/08/19 07:47 Cancelled 05/08/19 07:47 Cancelled 05/08/19 07:47 Hem Pathologist Commnt Cancelled 05/08/19 07:47 Sodium 133 mmol/L (137-145) L 05/08/19 04:30 Sodium 137 mmol/L (137-145) 05/08/19 04:30 Potassium 3.8 mmol/L (3.6-5.0) D 05/08/19 04:30 Potassium 4.3 mmol/L (3.6-5.0) 05/08/19 04:30 Chloride 103.1 mmol/L (98-107) 05/08/19 04:30 Chloride 104.4 mmol/L (98-107) 05/08/19 04:30 Carbon Dioxide 20 mmol/L (22-30) L 05/08/19 04:30 Carbon Dioxide 22 mmol/L (22-30) 05/08/19 04:30 14 mmol/L 05/08/19 04:30 14 mmol/L 05/08/19 04:30 BUN 8 mg/dL (7-17) 05/08/19 04:30 BUN 8 mg/dL (7-17) 05/08/19 04:30 0.5 mg/dL (0.7-1.2) L 05/08/19 04:30 0.6 mg/dL (0.7-1.2) L 05/08/19 04:30 Estimated GFR > 60 ml/min 05/08/19 04:30 Estimated GFR > 60 ml/min 05/08/19 04:30 13 % 05/08/19 04:30 16 % 05/08/19 04:30 Glucose 108 mg/dL (65-100) H 05/08/19 04:30 Glucose 109 mg/dL (65-100) H 05/08/19 04:30 POC Glucose 107 (70-105) H 05/08/19 12:18 Calcium 7.9 mg/dL (8.4-10.2) L 05/08/19 04:30 Calcium 8.1 mg/dL (8.4-10.2) L 05/08/19 04:30 Phosphorus 3.90 mg/dL (2.5-4.5) 05/08/19 04:30 Magnesium 1.80 mg/dL (1.7-2.3) 05/08/19 04:30 0.60 mg/dL (0.1-1.2) 05/08/19 04:30 AST 10 units/L (5-40) 05/08/19 04:30 ALT 5 units/L (7-56) L 05/08/19 04:30 76 units/L (35-129) 05/08/19 04:30 4.5 g/dL (6.3-8.2) L 05/08/19 04:30 2.2 g/dL (3.9-5) L 05/08/19 04:30 1.0 % 05/08/19 04:30 RPR Nonreactive (Nonreactive) 05/01/19 06:00 Blood Type O NEGATIVE 05/06/19 Unknown Antibody Screen Positive 05/06/19 Unknown Antibody Identification Anti-D (Passively Aquired) 05/06/19 Unknown Screen Negative 05/01/19 21:41 Crossmatch See Detail 05/04/19 10:00 Active Medications - Current Medications Current Medications: Generic Name Dose Route Start Last Admin Trade Name Freq PRN Reason Stop Dose Admin Acetaminophen 650 mg 05/01/19 10:49 Tylenol PO Q4H PRN Fever >100.5/BOWMAN Albuterol 2.5 mg 05/08/19 14:00 Proventil IH TIDRT TOM Benzocaine/Menthol 1 each 05/03/19 22:48 05/06/19 00:46 Cepacol X Strength MM 1 each Q2HR PRN Administration Sore Throat Famotidine 20 mg 05/03/19 23:00 05/08/19 10:01 Pepcid IV 20 mg BID TOM Administration Hydrocortisone Acetate 25 mg 05/01/19 10:49 Anucort-Hc OR BID PRN Hemorrhoids Hydromorphone HCl 1 mg 05/08/19 11:15 05/08/19 12:10 Dilaudid IV 1 mg Q3H PRN Administration Pain , Severe (7-10) Amino Acids/Electrolytes/Dextrose 2,400 mls @ 100 mls/hr 05/07/19 20:00 05/07/19 20:00 Tpn Adult IV 05/08/19 19:59 100 mls/hr DAILY@1999 TOM Administration Protocol Amino Acids/Electrolytes/Dextrose 2,400 mls @ 100 mls/hr 05/08/19 20:00 Tpn Adult IV 05/09/19 19:59 DAILY@1999 COUNTS INCLUDE 234 BEDS AT THE [facility] Protocol Magnesium Hydroxide 30 ml 05/01/19 22:00 05/02/19 12:03 Milk Of Magnesia PO 30 ml QHS PRN Administration Constip Unrelieved By Senna Morphine Sulfate 2 mg 05/03/19 16:03 05/08/19 07:07 Morphine IV 2 mg Q4H PRN Administration Pain, Moderate (4-6) Multi-Ingredient Ointment 1 applic 05/01/19 10:49 Lansinoh TP PRN PRN dryness/cracking Naloxone HCl 0.1 mg 05/01/19 10:49 Narcan 0.4 Mg/1 Ml IV Q2MIN PRN Res Rate </= 8 or 02 SAT < 92% Ondansetron HCl 4 mg 05/01/19 10:49 05/08/19 07:06 Zofran IV 4 mg Q8H PRN Administration Nausea And Vomiting Pantoprazole Sodium 40 mg 05/03/19 10:00 05/08/19 10:01 Protonix IV 40 mg QDAY TOM Administration Witch Annmarie/Glycerin 1 each 05/01/19 10:49 Tucks Pad TP PRN PRN Hemorrhoids/cleansing/soothing Nutrition/Malnutrition Assess - Dietary Evaluation Nutrition/Malnutrition Findings: Nutrition Notes Start: 05/07/19 10:35 Freq: Status: Active Protocol: Document 05/08/19 13:56 VERONIKA (Rec: 05/08/19 14:02 VERONIKA [id number] [id number]) Nutrition Notes Initial or Follow up Reassessment Other Pertinent Diagnosis Ulcerative colitis, SBO, S/P exploratory laporatory, Ceserean delivery Current Diet PPN at 100ml/hr Labs/Tests Na 133 CO2 - 20 Pertinent Medications Reviewed Height 5 ft 7 in Weight 101.605 kg [place] Body Weight (kg) 61.36 BMI 35.0 Subjective/Other Information Day 2 PPN. PICC placement scheduled today. Percent of energy/protein needs met: 59% energy 93% pro Burn Absent Trauma Absent #1 Nutrition Diagnosis Inadequate oral intake Diagnosis Progress(for reassessment Continues documentation) Is patient on ventilator? No Is Patient Ambulatory and/or Out of Bed No REE-([facility]-confined to bed) 2094.552 Kcal/Kg value to use for calculation 15 Approximate Energy Requirements Using 1524 kcal/Kg Additional Notes Pro needs 1-1.2g/kg adjBW: 81- 98g/day Fluid needs 1ml/kcal Nutrition Intervention Nutrition Support: Continue PPN at 100ml/hr: MVI, thiamine, 3.1% amino acids, 8 .3% dextrose, 175mEq Na. Osmolality: 884. Kcal 980 Protein (gm) 75 Carbohydrates (gm) 200 Fat (gm) 0 Fluid (mL) 2,400 Fiber (gm) 0 Goal #1 PN to meet nutrient needs as best possible Follow-Up By: 05/09/19 Additional Comments Labs in am: BMP, Mg, Phos
--- NOTE | 2019-05-08 16:40 | Consultation ---
History of Present Illness - History of Present Illness 33-year-old woman who is status post section at 39 weeks of gestation. has a history of ulcerative colitis since childhood. Status post total colectomy at age 6 with J-pouch placement who then developed small bowel obstruction status post ex-lap with lysis of adhesions. Medicine consulted for medical management Past History Past Medical History: other (UC) Past Surgical History: , Other (colectomy, Ex lap) Social history: lives with family Family history: other (AI diseases ) Medications and Allergies Allergies Allergy/AdvReac Type Severity Reaction Status Date / Time cephalexin [From Keflex] AdvReac Severe Anaphylaxis Verified 03/11/19 16:21 Penicillins AdvReac Severe Anaphylaxis Verified 03/11/19 16:20 Home Medications Medication Instructions Recorded Confirmed Last Taken Type Ferrous Sulfate [Feosol 325 MG tab] 325 mg PO BID #60 tablet 05/01/19 Unknown Rx Ibuprofen [Motrin 800 MG tab] 800 mg PO Q6H PRN #30 tablet 05/01/19 Unknown Rx Lidocain2.5%/Prilocai2.5% [Emla] 5 gm TP ONCE #1 tube 05/01/19 Unknown Rx oxyCODONE /ACETAMINOPHEN [Percocet 1 - 2 tab PO Q4H PRN #20 tablet 05/01/19 Unknown Rx 5/325 mg] Active Meds: Active Medications Acetaminophen (Tylenol) 650 mg PO Q4H PRN PRN Reason: Fever >100.5/BOWMAN Albuterol (Proventil) 2.5 mg IH TIDRT [facility] Benzocaine/Menthol (Cepacol X Strength) 1 each MM Q2HR PRN PRN Reason: Sore Throat Last Admin: 05/06/19 00:46 Dose: 1 each Documented by: Famotidine (Pepcid) 20 mg IV BID TOM Last Admin: 05/08/19 10:01 Dose: 20 mg Documented by: Hydrocortisone Acetate (Anucort-Hc) 25 mg MA BID PRN PRN Reason: Hemorrhoids Hydromorphone HCl (Dilaudid) 1 mg IV Q3H PRN PRN Reason: Pain , Severe (7-10) Last Admin: 05/08/19 12:10 Dose: 1 mg Documented by: Amino Acids/Electrolytes/Dextrose (Tpn Adult) 2,400 mls @ 100 mls/hr IV DAILY@2000 [facility]; Protocol Stop: 05/08/19 19:59 Last Admin: 05/07/19 20:00 Dose: 100 mls/hr Documented by: Amino Acids/Electrolytes/Dextrose (Tpn Adult) 2,400 mls @ 100 mls/hr IV DAILY@1999 [facility]; Protocol Stop: 05/09/19 19:59 Magnesium Hydroxide (Milk Of Magnesia) 30 ml PO QHS PRN PRN Reason: Constip Unrelieved By Senna Last Admin: 05/02/19 12:03 Dose: 30 ml Documented by: Morphine Sulfate (Morphine) 2 mg IV Q4H PRN PRN Reason: Pain, Moderate (4-6) Last Admin: 05/08/19 16:18 Dose: 2 mg Documented by: Multi-Ingredient Ointment (Lansinoh) 1 applic TP PRN PRN PRN Reason: dryness/cracking Naloxone HCl (Narcan 0.4 Mg/1 Ml) 0.1 mg IV Q2MIN PRN PRN Reason: Res Rate </= 8 or 02 SAT < 92% Ondansetron HCl (Zofran) 4 mg IV Q8H PRN PRN Reason: Nausea And Vomiting Last Admin: 05/08/19 16:18 Dose: 4 mg Documented by: Pantoprazole Sodium (Protonix) 40 mg IV QD [facility] Last Admin: 05/08/19 10:01 Dose: 40 mg Documented by: Roman Anguiano/Glycerin (Tucks Pad) 1 each TP PRN PRN PRN Reason: Hemorrhoids/cleansing/soothing Review of Systems All systems: negative Constitutional: anorexia Ears, nose, mouth and throat: no deferred Breasts: deferred Cardiovascular: no chest pain Respiratory: no cough Gastrointestinal: abdominal pain, nausea, no vomiting Rectal: no pain Musculoskeletal: no neck stiffness Integumentary: no rash Neurological: no head injury Psychiatric: no anxiety Endocrine: no cold intolerance Hematologic/Lymphatic: no easy bruising Exam - Physical Exam Narrative exam: General.: Appears well, no distress, nontoxic HEENT: Moist mucous membranes, extraocular muscles intact, no lymphadenopathy Neck: supple Cardiac: S1-S2 heard Lungs: clear to auscultation bilaterally Abdomen: soft , tender and distended Extremities: no edema clubbing or cyanosis Skin: no rash or lesions Neurologic: no gross focal deficits Psych: calm, and cooperative - Constitutional Vitals: Temp Pulse Resp BP Pulse Ox 98.2 F 71 26 H 124/76 97 05/08/19 16:00 05/08/19 16:00 05/08/19 16:00 05/08/19 16:00 05/08/19 16:00 Results - Labs CBC & Chem 7: 05/11/19 10:16 05/11/19 05:35 Labs: Abnormal lab results 05/08/19 05/08/19 05/08/19 Range/Units 04:30 04:30 06:22 RBC (3.65-5.03) M/mm3 Hgb (10.1-14.3) gm/dl Hct (30.3-42.9) % MCHC (30-34) % Lymph % (Auto) (13.4-35.0) % Lymph # (1.2-5.4) K/mm3 Seg Neutrophils % (40.0-70.0) % Seg Neutrophils # (1.8-7.7) K/mm3 Sodium 133 L (137-145) mmol/L Carbon Dioxide 20 L (22-30) mmol/L Creatinine 0.6 L 0.5 L (0.7-1.2) mg/dL Glucose 109 H 108 H (65-100) mg/dL POC Glucose 114 H (70-105) Calcium 7.9 L 8.1 L (8.4-10.2) mg/dL ALT 5 L (7-56) units/L Total Protein 4.5 L (6.3-8.2) g/dL Albumin 2.2 L (3.9-5) g/dL 05/08/19 05/08/19 05/08/19 Range/Units 07:47 11:01 12:18 RBC 3.20 L 3.16 L (3.65-5.03) M/mm3 Hgb 9.7 L 9.4 L (10.1-14.3) gm/dl Hct 27.7 L 27.4 L (30.3-42.9) % MCHC 35 H (30-34) % Lymph % (Auto) 8.8 L 8.5 L (13.4-35.0) % Lymph # 1.0 L 0.9 L (1.2-5.4) K/mm3 Seg Neutrophils % 83.8 H 85.0 H (40.0-70.0) % Seg Neutrophils # 9.1 H 9.2 H (1.8-7.7) K/mm3 Sodium (137-145) mmol/L Carbon Dioxide (22-30) mmol/L Creatinine (0.7-1.2) mg/dL Glucose (65-100) mg/dL POC Glucose 107 H (70-105) Calcium (8.4-10.2) mg/dL ALT (7-56) units/L Total Protein (6.3-8.2) g/dL Albumin (3.9-5) g/dL Assessment and Plan Patient has a history of ulcerative colitis and is status post total colectomy with a J-pouch since age 6 05/01; Repeat low transverse section with bilateral tubal ligation modified Jenise type 05/06 exploratory laparotomy with Lysis of adhesions Uterine scar from previous delivery 39 weeks gestation of Encounter for sterilization sp C/S and tubal ligation on 05/01 Ulcerative colitis with SBO sp Ex lap and олег, cont TPN, awaiting return of bowel function mgt per GS Hypokalemia repleted dvt ppx per primary team, recommend lovenox sq
--- NOTE | 2019-05-08 19:05 | Event Note ---
Date: 05/08/19 Patient states that she feels better than this a.m. Vital signs are stable she's afebrile Abdomen soft binder in place Yarn Sizer Indicates Approximately 200 ML from Her NG Tube Today Assessment Postop day 7 /postop day 2 exploratory laparotomy patient slowly improving Plan We will continue NG suction/advancement of diet per Dr. Choudhary
[2019-05-08] MEDS ORDERED: TPN ADULT 2,400 ML IV SCH (20:00)
[2019-05-09] MEDS: DILAUDID IV PRN ×6 (02:23→21:08)
[2019-05-09 05:18] LABS: Basophils % (Auto) 0.2 % (0.0-1.8); Eosinophils # (Auto) 0.1 K/mm3 (0.0-0.4); Eosinophils % (Auto) 1.5 % (0.0-4.3); Hematocrit 25.7 % (30.3-42.9); Hemoglobin 8.8 gm/dl (10.1-14.3); Lymphocytes # (Auto) 0.9 K/mm3 (1.2-5.4); Lymphocytes % (Auto) 10.1 % (13.4-35.0); Mean Corpuscular HGB Conc 34 % (30-34); Mean Corpuscular Volume 87 fl (79-97); Monocytes # (Auto) 0.6 K/mm3 (0.0-0.8); Monocytes % (Auto) 6.8 % (0.0-7.3); Platelet Count 286 K/mm3 (140-440); Red Blood Count 2.95 M/mm3 (3.65-5.03)
[2019-05-09 05:38] LABS: BUN/Creatinine Ratio 22; Blood Urea Nitrogen 11 mg/dL (7-17); Hemolysis Index 4
[2019-05-09] MEDS: PROVENTIL IH SCH ×4 (05:54→21:37)
--- NOTE | 2019-05-09 09:32 | Progress Note ---
Assessment and Plan Assessment and plan: Patient has a history of ulcerative colitis and is status post total colectomy with a J-pouch since age 6 05/01; Repeat low transverse section with bilateral tubal ligation modified Jenise type 05/06 exploratory laparotomy with Lysis of adhesions Uterine scar from previous delivery 39 weeks gestation of Encounter for sterilization sp C/S and tubal ligation on 05/01 Ulcerative colitis with SBO sp Ex lap and олег, cont TPN, awaiting return of bowel function mgt per GS Hypokalemia repleted dvt ppx per primary team, recommend lovenox sq History Interval history: Review of systems Constitutional: No fevers, no malaise, no joint pains CVS: No chest pain, no orthopnea, no dyspnea on exertion, no pedal edema GI: Continues to complain of abdominal pain and distention, has had mild nausea Respiratory: no wheezing, no coughing Hospitalist Physical - Physical exam Narrative exam: General.: Appears well, no distress, nontoxic HEENT: Moist mucous membranes, extraocular muscles intact, no lymphadenopathy Neck: supple Cardiac: S1-S2 heard Lungs: clear to auscultation bilaterally Abdomen: soft , tender and distended Extremities: no edema clubbing or cyanosis Skin: no rash or lesions Neurologic: no gross focal deficits Psych: calm, and cooperative - Constitutional Vitals: Temp Pulse Resp BP Pulse Ox 98.4 F 68 16 136/83 96 05/09/19 08:00 05/09/19 08:00 05/09/19 08:00 05/09/19 08:00 05/09/19 08:00 General appearance: Present: no acute distress Results - Labs CBC & Chem 7: 05/11/19 10:16 05/11/19 05:35 Labs: Laboratory Last Values WBC 8.4 K/mm3 (4.5-11.0) 05/09/19 04:55 RBC 2.95 M/mm3 (3.65-5.03) L 05/09/19 04:55 Hgb 8.8 gm/dl (10.1-14.3) L 05/09/19 04:55 Hct 25.7 % (30.3-42.9) L 05/09/19 04:55 MCV 87 fl (79-97) 05/09/19 04:55 MCH 30 pg (28-32) 05/09/19 04:55 MCHC 34 % (30-34) 05/09/19 04:55 RDW 15.0 % (13.2-15.2) 05/09/19 04:55 Plt Count 286 K/mm3 (140-440) 05/09/19 04:55 Lymph % (Auto) 10.1 % (13.4-35.0) L 05/09/19 04:55 Mclean % (Auto) 6.8 % (0.0-7.3) 05/09/19 04:55 Eos % (Auto) 1.5 % (0.0-4.3) 05/09/19 04:55 Baso % (Auto) 0.2 % (0.0-1.8) 05/09/19 04:55 Lymph # 0.9 K/mm3 (1.2-5.4) L 05/09/19 04:55 Mclean # 0.6 K/mm3 (0.0-0.8) 05/09/19 04:55 Eos # 0.1 K/mm3 (0.0-0.4) 05/09/19 04:55 Baso # 0.0 K/mm3 (0.0-0.1) 05/09/19 04:55 Add Manual Diff Complete 05/08/19 07:47 Total Counted Cancelled 05/08/19 07:47 Seg Neutrophils % 81.4 % (40.0-70.0) H 05/09/19 04:55 Seg Neuts % (Manual) Cancelled 05/08/19 07:47 Cancelled 05/08/19 07:47 Cancelled 05/08/19 07:47 Reactive Lymphs % (Man) Cancelled 05/08/19 07:47 Cancelled 05/08/19 07:47 Cancelled 05/08/19 07:47 Cancelled 05/08/19 07:47 Cancelled 05/08/19 07:47 Cancelled 05/08/19 07:47 Cancelled 05/08/19 07:47 Cancelled 05/08/19 07:47 Nucleated RBC % Cancelled 05/08/19 07:47 Seg Neutrophils # 6.9 K/mm3 (1.8-7.7) 05/09/19 04:55 Seg Neutrophils # Man Cancelled 05/08/19 07:47 Band Neutrophils # Cancelled 05/08/19 07:47 Cancelled 05/08/19 07:47 Abs React Lymphs (Man) Cancelled 05/08/19 07:47 Cancelled 05/08/19 07:47 Cancelled 05/08/19 07:47 Cancelled 05/08/19 07:47 Cancelled 05/08/19 07:47 Cancelled 05/08/19 07:47 Cancelled 05/08/19 07:47 Blast Cells # Cancelled 05/08/19 07:47 WBC Morphology Cancelled 05/08/19 07:47 Hypersegmented Neuts Cancelled 05/08/19 07:47 Hyposegmented Neuts Cancelled 05/08/19 07:47 Hypogranular Neuts Cancelled 05/08/19 07:47 Cancelled 05/08/19 07:47 Cancelled 05/08/19 07:47 Cancelled 05/08/19 07:47 Cancelled 05/08/19 07:47 Cancelled 05/08/19 07:47 Cancelled 05/08/19 07:47 Cancelled 05/08/19 07:47 Cancelled 05/08/19 07:47 Cancelled 05/08/19 07:47 Plt Clumps, EDTA Cancelled 05/08/19 07:47 Cancelled 05/08/19 07:47 Cancelled 05/08/19 07:47 Cancelled 05/08/19 07:47 Plt Morphology Comment Cancelled 05/08/19 07:47 RBC Morphology Cancelled 05/08/19 07:47 Dimorphic RBCs Cancelled 05/08/19 07:47 Cancelled 05/08/19 07:47 Cancelled 05/08/19 07:47 Cancelled 05/08/19 07:47 Cancelled 05/08/19 07:47 Cancelled 05/08/19 07:47 Cancelled 05/08/19 07:47 Cancelled 05/08/19 07:47 Cancelled 05/08/19 07:47 Cancelled 05/08/19 07:47 Cancelled 05/08/19 07:47 Cancelled 05/08/19 07:47 Cancelled 05/08/19 07:47 Cancelled 05/08/19 07:47 Cancelled 05/08/19 07:47 Cancelled 05/08/19 07:47 Cancelled 05/08/19 07:47 Cancelled 05/08/19 07:47 Cancelled 05/08/19 07:47 Cancelled 05/08/19 07:47 Cancelled 05/08/19 07:47 Cancelled 05/08/19 07:47 Acanthocytes (Spur) Cancelled 05/08/19 07:47 Rouleaux Cancelled 05/08/19 07:47 Cancelled 05/08/19 07:47 Cancelled 05/08/19 07:47 Cancelled 05/08/19 07:47 Cancelled 05/08/19 07:47 Hem Pathologist Commnt Cancelled 05/08/19 07:47 Sodium 138 mmol/L (137-145) 05/09/19 04:55 Potassium 3.2 mmol/L (3.6-5.0) L D 05/09/19 04:55 Chloride 100.7 mmol/L (98-107) 05/09/19 04:55 Carbon Dioxide 27 mmol/L (22-30) D 05/09/19 04:55 14 mmol/L 05/09/19 04:55 BUN 11 mg/dL (7-17) 05/09/19 04:55 0.5 mg/dL (0.7-1.2) L 05/09/19 04:55 Estimated GFR > 60 ml/min 05/09/19 04:55 22 % 05/09/19 04:55 Glucose 119 mg/dL (65-100) H 05/09/19 04:55 POC Glucose 110 (70-105) H 05/09/19 00:46 Calcium 8.0 mg/dL (8.4-10.2) L 05/09/19 04:55 Phosphorus 4.00 mg/dL (2.5-4.5) 05/09/19 04:55 Magnesium 1.90 mg/dL (1.7-2.3) 05/09/19 04:55 0.60 mg/dL (0.1-1.2) 05/08/19 04:30 AST 10 units/L (5-40) 05/08/19 04:30 ALT 5 units/L (7-56) L 05/08/19 04:30 76 units/L (35-129) 05/08/19 04:30 4.5 g/dL (6.3-8.2) L 05/08/19 04:30 2.2 g/dL (3.9-5) L 05/08/19 04:30 1.0 % 05/08/19 04:30 RPR Nonreactive (Nonreactive) 05/01/19 06:00 Blood Type O NEGATIVE 05/06/19 Unknown Antibody Screen Positive 05/06/19 Unknown Antibody Identification Anti-D (Passively Aquired) 05/06/19 Unknown Screen Negative 05/01/19 21:41 Crossmatch See Detail 05/04/19 10:00 Active Medications - Current Medications Current Medications: Generic Name Dose Route Start Last Admin Trade Name Freq PRN Reason Stop Dose Admin Acetaminophen 650 mg 05/01/19 10:49 Tylenol PO Q4H PRN Fever >100.5/BOWMAN Albuterol 2.5 mg 05/08/19 14:00 05/09/19 05:54 Proventil IH Not Given TIDRT [facility] Benzocaine/Menthol 1 each 05/03/19 22:48 05/06/19 00:46 Cepacol X Strength MM 1 each Q2HR PRN Administration Sore Throat Famotidine 20 mg 05/03/19 23:00 05/08/19 22:12 Pepcid IV 20 mg BID TOM Administration Hydrocortisone Acetate 25 mg 05/01/19 10:49 Anucort-Hc NM BID PRN Hemorrhoids Hydromorphone HCl 1 mg 05/08/19 11:15 05/09/19 06:05 Dilaudid IV 1 mg Q3H PRN Administration Pain , Severe (7-10) Amino Acids/Electrolytes/Dextrose 2,400 mls @ 100 mls/hr 05/08/19 20:00 05/08/19 21:11 Tpn Adult IV 05/09/19 19:59 100 mls/hr DAILY@2000 [facility] Administration Protocol Magnesium Hydroxide 30 ml 05/01/19 22:00 05/02/19 12:03 Milk Of Magnesia PO 30 ml QHS PRN Administration Constip Unrelieved By Senna Morphine Sulfate 2 mg 05/03/19 16:03 05/08/19 16:18 Morphine IV 2 mg Q4H PRN Administration Pain, Moderate (4-6) Multi-Ingredient Ointment 1 applic 05/01/19 10:49 Lansinoh TP PRN PRN dryness/cracking Naloxone HCl 0.1 mg 05/01/19 10:49 Narcan 0.4 Mg/1 Ml IV Q2MIN PRN Res Rate </= 8 or 02 SAT < 92% Ondansetron HCl 4 mg 05/01/19 10:49 05/08/19 16:18 Zofran IV 4 mg Q8H PRN Administration Nausea And Vomiting Pantoprazole Sodium 40 mg 05/03/19 10:00 05/08/19 10:01 Protonix IV 40 mg QDAY TOM Administration Witch Annmarie/Glycerin 1 each 05/01/19 10:49 Tucks Pad TP PRN PRN Hemorrhoids/cleansing/soothing Nutrition/Malnutrition Assess - Dietary Evaluation Nutrition/Malnutrition Findings: Nutrition Notes Start: 05/07/19 10:35 Freq: Status: Active Protocol: Document 05/08/19 13:56 VERONIKA (Rec: 05/08/19 14:02 VERONIKA [email or web address]) Nutrition Notes Initial or Follow up Reassessment Other Pertinent Diagnosis Ulcerative colitis, SBO, S/P exploratory laporatory, Ceserean delivery Current Diet PPN at 100ml/hr Labs/Tests Na 133 CO2 - 20 Pertinent Medications Reviewed Height 5 ft 7 in Weight 101.605 kg [place] Body Weight (kg) 61.36 BMI 35.0 Subjective/Other Information Day 2 PPN. PICC placement scheduled today. Percent of energy/protein needs met: 59% energy 93% pro Burn Absent Trauma Absent #1 Nutrition Diagnosis Inadequate oral intake Diagnosis Progress(for reassessment Continues documentation) Is patient on ventilator? No Is Patient Ambulatory and/or Out of Bed No REE-([facility]-confined to bed) 2094.552 Kcal/Kg value to use for calculation 15 Approximate Energy Requirements Using 1524 kcal/Kg Additional Notes Pro needs 1-1.2g/kg adjBW: 81- 98g/day Fluid needs 1ml/kcal Nutrition Intervention Nutrition Support: Continue PPN at 100ml/hr: MVI, thiamine, 3.1% amino acids, 8 .3% dextrose, 175mEq Na. Osmolality: 884. Kcal 980 Protein (gm) 75 Carbohydrates (gm) 200 Fat (gm) 0 Fluid (mL) 2,400 Fiber (gm) 0 Goal #1 PN to meet nutrient needs as best possible Follow-Up By: 05/09/19 Additional Comments Labs in am: Mg PEPPER Phos
[2019-05-09] MEDS: ZOFRAN IV PRN ×2 (10:01→22:05)
[2019-05-09] MEDS: PROTONIX IV SCH (10:02)
[2019-05-09] MEDS: PEPCID IV SCH ×2 (10:02→21:09)
[2019-05-09] MEDS ORDERED: KCL 40 MEQ in NACL 0.45% 500 ML IV SCH (10:30)
[2019-05-09] MEDS ORDERED: NACL 0.9% 500 ML 500 ML IV NR (12:34)
--- NOTE | 2019-05-09 13:27 | Progress Note ---
Assessment and Plan POD # 3 Pt feeling better. breathing easier. no specific compl Abd soft, dressings dry h/h slowly lowering transf I unit prbc surgically stable may transfer to surg floor telemetry from surg perspective if decided to transfer from unit repeat cbc in am Selected Entries 05/09/19 12:00 Temperature 98.2 F Pulse Rate 64 Respiratory 18 Rate Blood Pressure 125/80 Laboratory Tests 05/07/19 05/08/19 05/09/19 05:09 07:47 04:55 WBC 8.4 Hgb 10.2 9.7 L 8.8 L Hct 29.7 L 25.7 L Objective Vital Signs - 12hr 05/09/19 05/09/19 05/09/19 02:00 02:23 03:00 Temperature Pulse Rate 71 80 Pulse Rate [ From Monitor] Respiratory 25 H 30 H 23 Rate Blood Pressure 139/83 137/81 O2 Sat by Pulse 94 87 Oximetry 05/09/19 05/09/19 05/09/19 04:00 05:00 06:00 Temperature 98.1 F Pulse Rate 71 81 74 Pulse Rate [ 72 From Monitor] Respiratory 20 34 H 22 Rate Blood Pressure 150/75 132/84 136/86 O2 Sat by Pulse 95 88 96 Oximetry 05/09/19 05/09/19 05/09/19 06:05 07:00 08:00 Temperature 98.4 F Pulse Rate 71 72 Pulse Rate [ 68 From Monitor] Respiratory 26 H 18 27 H Rate Blood Pressure 127/84 136/83 O2 Sat by Pulse 93 97 Oximetry 05/09/19 05/09/19 05/09/19 09:00 09:39 10:00 Temperature Pulse Rate 72 67 Pulse Rate [ From Monitor] Respiratory 32 H 22 Rate Blood Pressure 130/78 141/87 O2 Sat by Pulse 91 95 97 Oximetry 05/09/19 05/09/19 11:00 12:00 Temperature 98.2 F Pulse Rate 65 64 Pulse Rate [ 70 From Monitor] Respiratory 13 18 Rate Blood Pressure 144/84 125/80 O2 Sat by Pulse 97 98 Oximetry - Labs 05/09/19 04:55 05/09/19 04:55 Diabetes panel 05/09/19 Range/Units 04:55 Sodium 138 (137-145) mmol/L Potassium 3.2 L D (3.6-5.0) mmol/L Chloride 100.7 (98-107) mmol/L Carbon Dioxide 27 D (22-30) mmol/L BUN 11 (7-17) mg/dL Creatinine 0.5 L (0.7-1.2) mg/dL Glucose 119 H (65-100) mg/dL Calcium 8.0 L (8.4-10.2) mg/dL Calcium panel 05/09/19 Range/Units 04:55 Calcium 8.0 L (8.4-10.2) mg/dL Phosphorus 4.00 (2.5-4.5) mg/dL Pituitary panel 05/09/19 Range/Units 04:55 Sodium 138 (137-145) mmol/L Potassium 3.2 L D (3.6-5.0) mmol/L Chloride 100.7 (98-107) mmol/L Carbon Dioxide 27 D (22-30) mmol/L BUN 11 (7-17) mg/dL Creatinine 0.5 L (0.7-1.2) mg/dL Glucose 119 H (65-100) mg/dL Calcium 8.0 L (8.4-10.2) mg/dL Adrenal panel 05/09/19 Range/Units 04:55 Sodium 138 (137-145) mmol/L Potassium 3.2 L D (3.6-5.0) mmol/L Chloride 100.7 (98-107) mmol/L Carbon Dioxide 27 D (22-30) mmol/L BUN 11 (7-17) mg/dL Creatinine 0.5 L (0.7-1.2) mg/dL Glucose 119 H (65-100) mg/dL Calcium 8.0 L (8.4-10.2) mg/dL
--- NOTE | 2019-05-09 15:23 | Progress Note ---
Assessment and Plan - Patient Problems (1) SBO (small bowel obstruction) Current Visit: Yes Status: Acute Plan to address problem: NGT to LWS continue care per Dr. Sanford (2) delivery delivered Onset Date: ~05/01/19 Current Visit: Yes Status: Acute Plan to address problem: Stable obstetrically. (3) Ulcerative colitis Current Visit: Yes Status: Chronic Qualifiers: Ulcerative colitis location: unspecified ulcerative colitis location Digestive disease complication type: with intestinal obstruction Qualified Code(s): K51.912 - Ulcerative colitis, unspecified with intestinal obstruction (4) Encounter for sterilization Current Visit: Yes Status: Acute Subjective - Subjective Date of service: 05/09/19 Principal diagnosis: POD #8 s/p RLTCS with BTL; colitis/Jpouch in place; ?SBO; POD#3 exl.lap Interval history: Alert and appropriately responsive, resting in bed. no bleeding Objective - Vital Signs Latest vital signs: Vital Signs Temp Pulse Pulse Resp BP Pulse Ox 05/09/19 14:01 77 21 145/70 91 05/09/19 13:00 68 27 H 129/82 94 05/09/19 12:00 98.2 F 64 70 18 125/80 98 05/09/19 11:00 65 13 144/84 97 05/09/19 10:00 67 22 141/87 97 05/09/19 09:39 95 05/09/19 09:00 72 32 H 130/78 91 05/09/19 08:00 98.4 F 72 68 27 H 136/83 97 05/09/19 07:00 71 18 127/84 93 05/09/19 06:05 26 H 05/09/19 06:00 74 22 136/86 96 05/09/19 05:00 81 34 H 132/84 88 05/09/19 04:00 98.1 F 71 72 20 150/75 95 05/09/19 03:00 80 23 137/81 87 05/09/19 02:23 30 H 05/09/19 02:00 71 25 H 139/83 94 05/09/19 01:00 72 18 133/88 94 05/09/19 00:01 75 17 129/84 95 05/09/19 00:00 98.2 F 77 75 20 129/84 96 05/08/19 23:00 76 19 142/88 93 05/08/19 22:12 28 H 05/08/19 22:00 76 35 H 129/83 96 05/08/19 21:00 75 30 H 139/81 95 05/08/19 20:00 99.1 F 79 79 16 124/78 95 05/08/19 19:00 79 33 H 115/79 95 05/08/19 18:00 75 24 135/82 96 05/08/19 17:00 71 25 H 125/78 97 05/08/19 16:00 98.2 F 73 71 36 H 124/76 97 Intake and Output 05/09/19 05/09/19 05/09/19 06:59 14:59 22:59 Intake Total 20 0 Output Total 600 Balance -580 0 Intake: IV 20 Right Upper arm 20 Oral 0 Output: Gastric Drainage 0 Urine 600 Void 600 Other: Total, Intake Amount 0 Total, Output Amount 600 Voiding Method Bedpan Bedpan - Labs Labs: Abnormal lab results 05/08/19 05/09/19 05/09/19 Range/Units 17:57 00:46 04:55 RBC 2.95 L (3.65-5.03) M/mm3 Hgb 8.8 L (10.1-14.3) gm/dl Hct 25.7 L (30.3-42.9) % Lymph % (Auto) 10.1 L (13.4-35.0) % Lymph # 0.9 L (1.2-5.4) K/mm3 Seg Neutrophils % 81.4 H (40.0-70.0) % Potassium (3.6-5.0) mmol/L Creatinine (0.7-1.2) mg/dL Glucose (65-100) mg/dL POC Glucose 107 H 110 H (70-105) Calcium (8.4-10.2) mg/dL Crossmatch 05/09/19 05/09/19 05/09/19 Range/Units 04:55 12:06 14:03 RBC (3.65-5.03) M/mm3 Hgb (10.1-14.3) gm/dl Hct (30.3-42.9) % Lymph % (Auto) (13.4-35.0) % Lymph # (1.2-5.4) K/mm3 Seg Neutrophils % (40.0-70.0) % Potassium 3.2 L D (3.6-5.0) mmol/L Creatinine 0.5 L (0.7-1.2) mg/dL Glucose 119 H (65-100) mg/dL POC Glucose 120 H (70-105) Calcium 8.0 L (8.4-10.2) mg/dL Crossmatch See Detail
[2019-05-09] MEDS ORDERED: TPN ADULT 2,400 ML IV SCH (20:00)
[2019-05-10] MEDS: DILAUDID IV PRN ×7 (00:41→23:18)
[2019-05-10 07:18] LABS: Hematocrit 24.4 % (30.3-42.9); Hemoglobin 8.3 gm/dl (10.1-14.3); Mean Corpuscular HGB Conc 34 % (30-34); Mean Corpuscular Volume 88 fl (79-97); Platelet Count 301 K/mm3 (140-440); Red Blood Count 2.78 M/mm3 (3.65-5.03); Red Cell Distribution Width 14.9 % (13.2-15.2)
[2019-05-10 07:42] LABS: BUN/Creatinine Ratio 25; Blood Urea Nitrogen 10 mg/dL (7-17); Calcium 8.3 mg/dL (8.4-10.2); Hemolysis Index 0
[2019-05-10 10:14] LABS: Total Cells Counted 100
[2019-05-10 10:15] LABS: Anisocytosis 1+; Band Neutrophils # (Manual) 0.1 K/mm3; Basophils % (Manual) 0 % (0.0-1.8); Hypochromasia 1+
[2019-05-10 10:16] LABS: Platelet Estimate Consistent w Auto
[2019-05-10] MEDS: PEPCID IV SCH ×2 (10:48→21:07)
[2019-05-10] MEDS: PROTONIX IV SCH (10:48)
--- NOTE | 2019-05-10 11:16 | Progress Note ---
Assessment and Plan - Patient Problems (1) S/P repeat low transverse Current Visit: Yes Status: Acute (2) Nausea and vomiting Current Visit: Yes Status: Acute (3) SBO (small bowel obstruction) Current Visit: Yes Status: Acute Plan to address problem: s/p Ex lap cleared from audit reviewer standpoint will await recommendations from gen sx regarding moving pt to surgical floor and guidance with diet advancement. Subjective - Subjective Principal diagnosis: POD #7 s/p RLTCS with BTL; colitis/Jpouch in place; ?SBO; POD#4 exl.lap Interval history: Pt states she was having some pain at time provider was at bedside at 0830 this am. She states she feels like she would like to have a BM but does not want to be on the bedpan. Pt was advised that she can ask for assistance to the toilet is she would like. She has no other c/o at this time. Patient reports: appetite normal, voiding normally Objective - Vital Signs Latest vital signs: Vital Signs Temp Pulse Pulse Pulse Resp Resp BP 05/10/19 07:41 05/10/19 06:01 64 22 145/87 05/10/19 05:01 67 21 145/87 05/10/19 04:00 98.1 F 71 70 30 H 145/87 05/10/19 03:01 64 14 136/84 05/10/19 02:01 69 13 136/84 05/10/19 01:00 75 23 136/84 05/10/19 00:00 99 F 78 73 20 136/84 05/09/19 23:01 75 12 138/83 05/09/19 22:14 73 16 138/83 05/09/19 22:01 77 22 138/83 05/09/19 21:46 67 19 05/09/19 21:42 05/09/19 21:40 66 14 05/09/19 21:01 87 30 H 138/83 05/09/19 20:00 98.8 F 74 26 H 141/82 05/09/19 19:58 71 16 05/09/19 19:39 98.8 F 05/09/19 19:00 71 16 128/61 05/09/19 18:00 73 20 137/89 05/09/19 17:00 67 22 137/82 05/09/19 16:00 98.6 F 67 69 22 136/85 05/09/19 15:00 71 21 144/78 05/09/19 14:01 77 21 145/70 05/09/19 13:00 68 27 H 129/82 05/09/19 12:00 98.2 F 64 70 18 125/80 Pulse Ox 05/10/19 07:41 93 05/10/19 06:01 93 05/10/19 05:01 90 05/10/19 04:00 95 05/10/19 03:01 97 05/10/19 02:01 97 05/10/19 01:00 94 05/10/19 00:00 95 05/09/19 23:01 97 05/09/19 22:14 96 05/09/19 22:01 87 05/09/19 21:46 05/09/19 21:42 94 05/09/19 21:40 05/09/19 21:01 92 05/09/19 20:00 88 05/09/19 19:58 99 05/09/19 19:39 05/09/19 19:00 95 05/09/19 18:00 05/09/19 17:00 92 05/09/19 16:00 96 05/09/19 15:00 97 05/09/19 14:01 91 05/09/19 13:00 94 05/09/19 12:00 98 Intake and Output 05/09/19 05/10/19 05/10/19 22:59 06:59 14:59 Intake Total 20 0 Output Total 0 Balance 20 0 Intake: IV 20 Right Upper arm 20 Oral 0 0 Output: Drainage 0 Right Anterior NARE 0 Other: Total, Intake Amount 0 0 Total, Output Amount 0 Voiding Method Bedpan Bedpan # Voids Void 2 # Bowel Movements 0 Weight 101.605 kg 101.61 kg - Exam Abdomen: Present: normal appearance, distention (mildly but difficulty to examine with bandage in place), normal bowel sounds (decreased but present). Absent: tenderness, guarding Incision: Present: dressed - Labs Labs: Abnormal lab results 05/09/19 05/09/19 05/09/19 Range/Units 12:06 14:03 18:44 RBC (3.65-5.03) M/mm3 Hgb (10.1-14.3) gm/dl Hct (30.3-42.9) % Seg Neuts % (Manual) (40.0-70.0) % Lymphocytes % (Manual) (13.4-35.0) % Lymphocytes # (Manual) (1.2-5.4) K/mm3 Creatinine (0.7-1.2) mg/dL Glucose (65-100) mg/dL POC Glucose 120 H 117 H (70-105) Calcium (8.4-10.2) mg/dL Crossmatch See Detail 05/09/19 05/10/19 05/10/19 Range/Units 23:54 05:56 06:59 RBC 2.78 L (3.65-5.03) M/mm3 Hgb 8.3 L (10.1-14.3) gm/dl Hct 24.4 L (30.3-42.9) % Seg Neuts % (Manual) 81.0 H (40.0-70.0) % Lymphocytes % (Manual) 12.0 L (13.4-35.0) % Lymphocytes # (Manual) 0.8 L (1.2-5.4) K/mm3 Creatinine (0.7-1.2) mg/dL Glucose (65-100) mg/dL POC Glucose 116 H 125 H (70-105) Calcium (8.4-10.2) mg/dL Crossmatch 05/10/19 Range/Units 06:59 RBC (3.65-5.03) M/mm3 Hgb (10.1-14.3) gm/dl Hct (30.3-42.9) % Seg Neuts % (Manual) (40.0-70.0) % Lymphocytes % (Manual) (13.4-35.0) % Lymphocytes # (Manual) (1.2-5.4) K/mm3 Creatinine 0.4 L (0.7-1.2) mg/dL Glucose 115 H (65-100) mg/dL POC Glucose (70-105) Calcium 8.3 L (8.4-10.2) mg/dL Crossmatch
--- NOTE | 2019-05-10 14:53 | Progress Note ---
Assessment and Plan POD # 4 Pt status quo. currently on bed pena. "feels bowels gurgling" Abd soft, dressings dry. high pitched BS hgb lower pt was not transfused. 2 units prbc now PT to help OOB and ambulation as laure stable continue present care Selected Entries 05/10/19 05/10/19 12:00 13:00 Temperature 98.0 F Pulse Rate 71 Respiratory 22 Rate Blood Pressure 144/90 Laboratory Tests 05/09/19 05/10/19 04:55 06:59 WBC 7.0 Hgb 8.8 L 8.3 L Hct 25.7 L 24.4 L Objective Vital Signs - 12hr 05/10/19 05/10/19 05/10/19 03:01 04:00 05:01 Temperature 98.1 F Pulse Rate 64 71 67 Pulse Rate [ 70 From Monitor] Respiratory 14 30 H 21 Rate Blood Pressure 136/84 145/87 145/87 O2 Sat by Pulse 97 95 90 Oximetry 05/10/19 05/10/19 05/10/19 06:01 07:01 07:41 Temperature Pulse Rate 64 62 Pulse Rate [ From Monitor] Respiratory 22 20 Rate Blood Pressure 145/87 145/87 O2 Sat by Pulse 93 97 93 Oximetry 05/10/19 05/10/19 05/10/19 08:00 09:00 10:00 Temperature 98 F Pulse Rate 64 67 65 Pulse Rate [ 65 From Monitor] Respiratory 21 23 14 Rate Blood Pressure 142/89 148/89 137/90 O2 Sat by Pulse 98 96 96 Oximetry 05/10/19 05/10/19 05/10/19 11:00 12:00 13:00 Temperature 98.0 F Pulse Rate 71 64 71 Pulse Rate [ 68 From Monitor] Respiratory 34 H 22 22 Rate Blood Pressure 133/89 137/83 144/90 O2 Sat by Pulse 95 97 93 Oximetry - Labs 05/10/19 06:59 05/10/19 06:59 Diabetes panel 05/10/19 Range/Units 06:59 Sodium 138 (137-145) mmol/L Potassium 3.6 (3.6-5.0) mmol/L Chloride 100.3 (98-107) mmol/L Carbon Dioxide 28 (22-30) mmol/L BUN 10 (7-17) mg/dL Creatinine 0.4 L (0.7-1.2) mg/dL Glucose 115 H (65-100) mg/dL Calcium 8.3 L (8.4-10.2) mg/dL Calcium panel 05/10/19 Range/Units 06:59 Calcium 8.3 L (8.4-10.2) mg/dL Phosphorus 4.10 (2.5-4.5) mg/dL Pituitary panel 05/10/19 Range/Units 06:59 Sodium 138 (137-145) mmol/L Potassium 3.6 (3.6-5.0) mmol/L Chloride 100.3 (98-107) mmol/L Carbon Dioxide 28 (22-30) mmol/L BUN 10 (7-17) mg/dL Creatinine 0.4 L (0.7-1.2) mg/dL Glucose 115 H (65-100) mg/dL Calcium 8.3 L (8.4-10.2) mg/dL Adrenal panel 05/10/19 Range/Units 06:59 Sodium 138 (137-145) mmol/L Potassium 3.6 (3.6-5.0) mmol/L Chloride 100.3 (98-107) mmol/L Carbon Dioxide 28 (22-30) mmol/L BUN 10 (7-17) mg/dL Creatinine 0.4 L (0.7-1.2) mg/dL Glucose 115 H (65-100) mg/dL Calcium 8.3 L (8.4-10.2) mg/dL
--- NOTE | 2019-05-10 16:02 | Progress Note ---
Assessment and Plan Assessment and plan: Patient has a history of ulcerative colitis and is status post total colectomy with a J-pouch since age 6 05/01; Repeat low transverse section with bilateral tubal ligation modified Jenise type 05/06 exploratory laparotomy with Lysis of adhesions Uterine scar from previous delivery 39 weeks gestation of Encounter for sterilization sp C/S and tubal ligation on 05/01 Ulcerative colitis with SBO sp Ex lap and олег, cont TPN, awaiting return of bowel function mgt per GS Hypokalemia repleted dvt ppx per primary team, recommend lovenox sq History Interval history: Review of systems Constitutional: No fevers, no malaise, no joint pains CVS: No chest pain, no orthopnea, no dyspnea on exertion, no pedal edema GI: Continues to complain of abdominal pain and distention, has had mild nausea Respiratory: no wheezing, no coughing Hospitalist Physical - Physical exam Narrative exam: General.: Appears well, no distress, nontoxic HEENT: Moist mucous membranes, extraocular muscles intact, no lymphadenopathy Neck: supple Cardiac: S1-S2 heard Lungs: clear to auscultation bilaterally Abdomen: soft , tender and distended Extremities: no edema clubbing or cyanosis Skin: no rash or lesions Neurologic: no gross focal deficits Psych: calm, and cooperative - Constitutional Vitals: Temp Pulse Resp BP Pulse Ox 98.0 F 71 22 144/90 93 05/10/19 12:00 05/10/19 13:00 05/10/19 13:00 05/10/19 13:00 05/10/19 13:00 General appearance: Present: no acute distress Results - Labs CBC & Chem 7: 05/11/19 10:16 05/11/19 05:35 Labs: Laboratory Last Values WBC 7.0 K/mm3 (4.5-11.0) 05/10/19 06:59 RBC 2.78 M/mm3 (3.65-5.03) L 05/10/19 06:59 Hgb 8.3 gm/dl (10.1-14.3) L 05/10/19 06:59 Hct 24.4 % (30.3-42.9) L 05/10/19 06:59 MCV 88 fl (79-97) 05/10/19 06:59 MCH 30 pg (28-32) 05/10/19 06:59 MCHC 34 % (30-34) 05/10/19 06:59 RDW 14.9 % (13.2-15.2) 05/10/19 06:59 Plt Count 301 K/mm3 (140-440) 05/10/19 06:59 Lymph % (Auto) 10.1 % (13.4-35.0) L 05/09/19 04:55 [place] % (Auto) 6.8 % (0.0-7.3) 05/09/19 04:55 Eos % (Auto) 1.5 % (0.0-4.3) 05/09/19 04:55 Baso % (Auto) 0.2 % (0.0-1.8) 05/09/19 04:55 Lymph # 0.9 K/mm3 (1.2-5.4) L 05/09/19 04:55 [place] # 0.6 K/mm3 (0.0-0.8) 05/09/19 04:55 Eos # 0.1 K/mm3 (0.0-0.4) 05/09/19 04:55 Baso # 0.0 K/mm3 (0.0-0.1) 05/09/19 04:55 Add Manual Diff Complete 05/10/19 06:59 Total Counted 100 05/10/19 06:59 Seg Neutrophils % 81.4 % (40.0-70.0) H 05/09/19 04:55 Seg Neuts % (Manual) 81.0 % (40.0-70.0) H 05/10/19 06:59 1.0 % 05/10/19 06:59 12.0 % (13.4-35.0) L 05/10/19 06:59 Reactive Lymphs % (Man) 0 % 05/10/19 06:59 5.0 % (0.0-7.3) 05/10/19 06:59 1.0 % (0.0-4.3) 05/10/19 06:59 0 % (0.0-1.8) 05/10/19 06:59 0 % 05/10/19 06:59 0 % 05/10/19 06:59 0 % 05/10/19 06:59 0 % 05/10/19 06:59 Nucleated RBC % Not Reportable 05/10/19 06:59 Seg Neutrophils # 6.9 K/mm3 (1.8-7.7) 05/09/19 04:55 Seg Neutrophils # Man 5.7 K/mm3 (1.8-7.7) 05/10/19 06:59 Band Neutrophils # 0.1 K/mm3 05/10/19 06:59 0.8 K/mm3 (1.2-5.4) L 05/10/19 06:59 Abs React Lymphs (Man) 0.0 K/mm3 05/10/19 06:59 0.4 K/mm3 (0.0-0.8) 05/10/19 06:59 0.1 K/mm3 (0.0-0.4) 05/10/19 06:59 0.0 K/mm3 (0.0-0.1) 05/10/19 06:59 0.0 K/mm3 05/10/19 06:59 0.0 K/mm3 05/10/19 06:59 0.0 K/mm3 05/10/19 06:59 Blast Cells # 0.0 K/mm3 05/10/19 06:59 WBC Morphology Not Reportable 05/10/19 06:59 Hypersegmented Neuts Not Reportable 05/10/19 06:59 Hyposegmented Neuts Not Reportable 05/10/19 06:59 Hypogranular Neuts Not Reportable 05/10/19 06:59 Cancelled 05/08/19 07:47 Not Reportable 05/10/19 06:59 Not Reportable 05/10/19 06:59 Not Reportable 05/10/19 06:59 Not Reportable 05/10/19 06:59 Not Reportable 05/10/19 06:59 Not Reportable 05/10/19 06:59 Consistent w auto 05/10/19 06:59 Not Reportable 05/10/19 06:59 Plt Clumps, EDTA Not Reportable 05/10/19 06:59 Not Reportable 05/10/19 06:59 Not Reportable 05/10/19 06:59 Not Reportable 05/10/19 06:59 Plt Morphology Comment Not Reportable 05/10/19 06:59 RBC Morphology Not Reportable 05/10/19 06:59 Dimorphic RBCs Not Reportable 05/10/19 06:59 Not Reportable 05/10/19 06:59 1+ 05/10/19 06:59 Not Reportable 05/10/19 06:59 Cancelled 05/08/19 07:47 1+ 05/10/19 06:59 1+ 05/10/19 06:59 Not Reportable 05/10/19 06:59 Not Reportable 05/10/19 06:59 Not Reportable 05/10/19 06:59 Not Reportable 05/10/19 06:59 Not Reportable 05/10/19 06:59 Not Reportable 05/10/19 06:59 Not Reportable 05/10/19 06:59 Cancelled 05/08/19 07:47 Not Reportable 05/10/19 06:59 Not Reportable 05/10/19 06:59 Not Reportable 05/10/19 06:59 Not Reportable 05/10/19 06:59 Not Reportable 05/10/19 06:59 Not Reportable 05/10/19 06:59 Not Reportable 05/10/19 06:59 Acanthocytes (Spur) Not Reportable 05/10/19 06:59 Rouleaux Not Reportable 05/10/19 06:59 Not Reportable 05/10/19 06:59 Not Reportable 05/10/19 06:59 Not Reportable 05/10/19 06:59 Not Reportable 05/10/19 06:59 Hem Pathologist Commnt No 05/10/19 06:59 Sodium 138 mmol/L (137-145) 05/10/19 06:59 Potassium 3.6 mmol/L (3.6-5.0) 05/10/19 06:59 Chloride 100.3 mmol/L (98-107) 05/10/19 06:59 Carbon Dioxide 28 mmol/L (22-30) 05/10/19 06:59 13 mmol/L 05/10/19 06:59 BUN 10 mg/dL (7-17) 05/10/19 06:59 0.4 mg/dL (0.7-1.2) L 05/10/19 06:59 Estimated GFR > 60 ml/min 05/10/19 06:59 25 % 05/10/19 06:59 Glucose 115 mg/dL (65-100) H 05/10/19 06:59 POC Glucose 120 (70-105) H 05/10/19 12:22 Calcium 8.3 mg/dL (8.4-10.2) L 05/10/19 06:59 Phosphorus 4.10 mg/dL (2.5-4.5) 05/10/19 06:59 Magnesium 1.90 mg/dL (1.7-2.3) 05/10/19 06:59 0.60 mg/dL (0.1-1.2) 05/08/19 04:30 AST 10 units/L (5-40) 05/08/19 04:30 ALT 5 units/L (7-56) L 05/08/19 04:30 76 units/L (35-129) 05/08/19 04:30 4.5 g/dL (6.3-8.2) L 05/08/19 04:30 2.2 g/dL (3.9-5) L 05/08/19 04:30 1.0 % 05/08/19 04:30 RPR Nonreactive (Nonreactive) 05/01/19 06:00 Blood Type O NEGATIVE 05/09/19 14:03 Antibody Screen Positive 05/09/19 14:03 Antibody Identification Anti-D (Passively Aquired) 05/09/19 14:03 Screen Negative 05/01/19 21:41 Crossmatch See Detail 05/09/19 14:03 Active Medications - Current Medications Current Medications: Generic Name Dose Route Start Last Admin Trade Name Freq PRN Reason Stop Dose Admin Acetaminophen 650 mg 05/01/19 10:49 Tylenol PO Q4H PRN Fever >100.5/BOWMAN Albuterol 2.5 mg 05/08/19 14:00 05/09/19 21:37 Proventil IH 2.5 mg TIDRT TOM Administration Benzocaine/Menthol 1 each 05/03/19 22:48 05/06/19 00:46 Cepacol X Strength MM 1 each Q2HR PRN Administration Sore Throat Famotidine 20 mg 05/03/19 23:00 05/10/19 10:48 Pepcid IV 20 mg BID TOM Administration Hydrocortisone Acetate 25 mg 05/01/19 10:49 Anucort-Hc CO BID PRN Hemorrhoids Hydromorphone HCl 1 mg 05/08/19 11:15 05/10/19 12:01 Dilaudid IV 1 mg Q3H PRN Administration Pain , Severe (7-10) Amino Acids/Electrolytes/Dextrose 2,400 mls @ 100 mls/hr 05/09/19 20:00 05/09/19 20:32 Tpn Adult IV 05/10/19 19:59 100 mls/hr DAILY@1999 [facility] Administration Protocol Amino Acids/Electrolytes/Dextrose 2,400 mls @ 100 mls/hr 05/10/19 20:00 Tpn Adult IV 05/11/19 19:59 DAILY@1999 [facility] Protocol Fat Emulsion Intravenous 250 mls @ 21 mls/hr 05/10/19 20:00 Intralipid 20% IV 05/11/19 08:00 DAILY@1999 [facility] Magnesium Hydroxide 30 ml 05/01/19 22:00 05/02/19 12:03 Milk Of Magnesia PO 30 ml QHS PRN Administration Constip Unrelieved By Senna Morphine Sulfate 2 mg 05/03/19 16:03 05/08/19 16:18 Morphine IV 2 mg Q4H PRN Administration Pain, Moderate (4-6) Multi-Ingredient Ointment 1 applic 05/01/19 10:49 Lansinoh TP PRN PRN dryness/cracking Naloxone HCl 0.1 mg 05/01/19 10:49 Narcan 0.4 Mg/1 Ml IV Q2MIN PRN Res Rate </= 8 or 02 SAT < 92% Ondansetron HCl 4 mg 05/01/19 10:49 05/09/19 22:05 Zofran IV 4 mg Q8H PRN Administration Nausea And Vomiting Pantoprazole Sodium 40 mg 05/03/19 10:00 05/10/19 10:48 Protonix IV 40 mg QDAY TOM Administration Witch Annmarie/Glycerin 1 each 05/01/19 10:49 Tucks Pad TP PRN PRN Hemorrhoids/cleansing/soothing Nutrition/Malnutrition Assess - Dietary Evaluation Nutrition/Malnutrition Findings: Nutrition Notes Start: 05/07/19 10:3 5 Freq: Status: Active Protocol: Document 05/10/19 14:20 LP (Rec: 05/10/19 14:29 LP [id number]) Nutrition Notes Initial or Follow up Reassessment Other Pertinent Diagnosis Ulcerative colitis, SBO, S/P exploratory laporatory, [place] delivery Current Diet PPN at 100ml/hr Labs/Tests Reviewed Pertinent Medications Reviewed Height 5 ft 7 in Weight 101.61 kg [place] Body Weight (kg) 61.36 BMI 35.1 Subjective/Other Information CPN day 4. No new changes. NGT to LIS. Percent of energy/protein needs met: 64%/93% Burn Absent Trauma Absent #1 Nutrition Diagnosis Inadequate oral intake Diagnosis Progress(for reassessment Continues documentation) Is patient on ventilator? No Is Patient Ambulatory and/or Out of Bed No REE-([place]-confined to bed) 2094.612 Kcal/Kg value to use for calculation 15 Approximate Energy Requirements Using 1524 kcal/Kg Calculation Used for Recommendations Kcal/kg Additional Notes Pro needs 1-1.2g/kg adjBW: 81- 98g/day Fluid needs 1ml/kcal Nutrition Intervention Change Diet Order: CPN Nutrition Support: Change to CPN at 100ml/hr: 10. 4% dextrose, 3.8% amino acid, MVI, lipids Osmolality: 1080 Kcal 1,710 Protein (gm) 90 Carbohydrates (gm) 250 Fat (gm) 50 Fluid (mL) 2,650 Fiber (gm) 0 Goal #1 PN to meet nutrient needs as best possible Anticipated Discharge Needs: Unable to determine at this time Follow-Up By: 05/11/19 Additional Comments Labs in AM: BMP, Mg, Phos
[2019-05-10] MEDS ORDERED: NACL 0.9% 500 ML 500 ML ONE (17:25)
[2019-05-10] MEDS ORDERED: TPN ADULT 2,400 ML IV SCH (20:00)
[2019-05-10] MEDS ORDERED: INTRALIPID 20% 250 ML IV SCH (20:00)
[2019-05-10] MEDS ORDERED: NACL 0.9% 500 ML 500 ML IV ONE (20:30)
[2019-05-10] MEDS: PROVENTIL IH SCH ×3 (20:51→20:52)
[2019-05-10] MEDS: ZOFRAN IV PRN (21:07)
[2019-05-11] MEDS: DILAUDID IV PRN ×5 (02:15→23:53)
[2019-05-11 06:29] LABS: BUN/Creatinine Ratio 25; Blood Urea Nitrogen 10 mg/dL (7-17); Calcium 8.4 mg/dL (8.4-10.2); Hemolysis Index 7
--- NOTE | 2019-05-11 10:04 | Progress Note ---
Assessment and Plan POD # 5 Pt states feeling better. slightly tachypneic Abd soft. incision clean and dry transfused yesterday, post cbc pending stable resp status as per pulm aerosol Rx's had been ordered may transfer to 3rd surgical floor with remote tele from surg perspesctive also needs PT to help ambulate down halls Selected Entries 05/11/19 05/11/19 05/11/19 05:29 06:00 08:00 Temperature 97.5 F L Respiratory 25 H 19 Rate Blood Pressure 149/84 05/11/19 09:15 Temperature Respiratory 34 H Rate Blood Pressure Objective Vital Signs - 12hr 05/10/19 05/10/19 05/10/19 22:09 23:00 23:18 Temperature Pulse Rate 82 74 Pulse Rate [ From Monitor] Respiratory 16 25 H 24 Rate Blood Pressure 145/88 140/82 O2 Sat by Pulse 96 96 Oximetry 05/10/19 05/11/19 05/11/19 23:45 00:00 00:30 Temperature 98.2 F 98.0 F 98.0 F Pulse Rate 73 72 66 Pulse Rate [ 74 From Monitor] Respiratory 18 18 22 Rate Blood Pressure 131/78 131/78 139/83 O2 Sat by Pulse 97 96 96 Oximetry 05/11/19 05/11/19 05/11/19 01:00 01:30 02:00 Temperature 98 F 98.2 F Pulse Rate 67 6 L 65 Pulse Rate [ From Monitor] Respiratory 19 16 21 Rate Blood Pressure 148/94 141/91 139/83 O2 Sat by Pulse 95 97 97 Oximetry 05/11/19 05/11/19 05/11/19 02:15 03:00 04:00 Temperature 98.2 F Pulse Rate 74 70 Pulse Rate [ 66 From Monitor] Respiratory 20 16 18 Rate Blood Pressure 135/84 134/78 O2 Sat by Pulse 97 97 Oximetry 05/11/19 05/11/19 05/11/19 05:00 05:29 06:00 Temperature Pulse Rate 69 75 Pulse Rate [ From Monitor] Respiratory 25 H 25 H 19 Rate Blood Pressure 149/101 149/84 O2 Sat by Pulse 98 95 Oximetry 05/11/19 05/11/19 08:00 09:15 Temperature 97.5 F L Pulse Rate Pulse Rate [ From Monitor] Respiratory 34 H Rate Blood Pressure O2 Sat by Pulse Oximetry - Labs 05/10/19 06:59 05/11/19 05:35 Diabetes panel 05/11/19 Range/Units 05:35 Sodium 139 (137-145) mmol/L Potassium 3.9 (3.6-5.0) mmol/L Chloride 102.0 (98-107) mmol/L Carbon Dioxide 28 (22-30) mmol/L BUN 10 (7-17) mg/dL Creatinine 0.4 L (0.7-1.2) mg/dL Glucose 104 H (65-100) mg/dL Calcium 8.4 (8.4-10.2) mg/dL Calcium panel 05/11/19 Range/Units 05:35 Calcium 8.4 (8.4-10.2) mg/dL Phosphorus 4.10 (2.5-4.5) mg/dL Pituitary panel 05/11/19 Range/Units 05:35 Sodium 139 (137-145) mmol/L Potassium 3.9 (3.6-5.0) mmol/L Chloride 102.0 (98-107) mmol/L Carbon Dioxide 28 (22-30) mmol/L BUN 10 (7-17) mg/dL Creatinine 0.4 L (0.7-1.2) mg/dL Glucose 104 H (65-100) mg/dL Calcium 8.4 (8.4-10.2) mg/dL Adrenal panel 05/11/19 Range/Units 05:35 Sodium 139 (137-145) mmol/L Potassium 3.9 (3.6-5.0) mmol/L Chloride 102.0 (98-107) mmol/L Carbon Dioxide 28 (22-30) mmol/L BUN 10 (7-17) mg/dL Creatinine 0.4 L (0.7-1.2) mg/dL Glucose 104 H (65-100) mg/dL Calcium 8.4 (8.4-10.2) mg/dL
[2019-05-11] MEDS: PEPCID IV SCH ×2 (10:31→21:45)
[2019-05-11 10:53] LABS: Hematocrit 29.2 % (30.3-42.9); Hemoglobin 10.4 gm/dl (10.1-14.3); Mean Corpuscular HGB Conc 36 % (30-34); Mean Corpuscular Volume 87 fl (79-97); Platelet Count 322 K/mm3 (140-440); Red Blood Count 3.37 M/mm3 (3.65-5.03); Red Cell Distribution Width 14.7 % (13.2-15.2)
[2019-05-11] MEDS: PROVENTIL IH SCH ×3 (11:03→20:35)
[2019-05-11] MEDS ORDERED: ZOFRAN ONE (11:41)
[2019-05-11] MEDS: ZOFRAN IV PRN ×3 (11:46→20:10)
[2019-05-11] MEDS ORDERED: DILAUDID ONE (12:10)
[2019-05-11 12:15] LABS: Basophils % (Manual) 0 % (0.0-1.8); Total Cells Counted 100
[2019-05-11 12:16] LABS: Anisocytosis 1+; Platelet Estimate Consistent w Auto
--- NOTE | 2019-05-11 12:55 | Progress Note ---
Assessment and Plan - Patient Problems (1) SBO (small bowel obstruction) Current Visit: Yes Status: Acute (2) delivery delivered Onset Date: ~05/01/19 Current Visit: Yes Status: Acute Plan to address problem: Stable obstetrically Will transfer to Surgical unit per Dr. Sanford recommendation (3) Ulcerative colitis Current Visit: Yes Status: Chronic Qualifiers: Ulcerative colitis location: unspecified ulcerative colitis location Dig estive disease complication type: with intestinal obstruction Qualified Code(s): K51.912 - Ulcerative colitis, unspecified with intestinal obstruction (4) Encounter for sterilization Current Visit: Yes Status: Acute Subjective - Subjective Date of service: 05/11/19 Principal diagnosis: POD #10 s/p RLTCS with BTL; colitis/Jpouch in place; SBO; POD#5 exl.lap Interval history: Alert and appropriately responsive, resting in bed. no bleeding, no breast problems Patient reports: voiding normally Objective - Vital Signs Latest vital signs: Vital Signs Temp Pulse Pulse Pulse Resp Resp BP 05/11/19 12:00 75 75 25 H 150/92 05/11/19 11:00 71 21 147/89 05/11/19 10:00 68 27 H 135/90 05/11/19 09:15 34 H 05/11/19 09:00 71 25 H 144/83 05/11/19 08:00 97.5 F L 80 70 16 149/91 05/11/19 07:00 74 16 148/92 05/11/19 06:00 75 19 149/84 05/11/19 05:29 25 H 05/11/19 05:00 69 25 H 149/101 05/11/19 04:00 98.2 F 70 66 18 134/78 05/11/19 03:00 74 16 135/84 05/11/19 02:15 20 05/11/19 02:00 65 21 139/83 05/11/19 01:30 98.2 F 6 L 16 141/91 05/11/19 01:00 98 F 67 19 148/94 05/11/19 00:30 98.0 F 66 22 139/83 05/11/19 00:00 98.0 F 72 74 18 131/78 05/10/19 23:45 98.2 F 73 18 131/78 05/10/19 23:18 24 05/10/19 23:00 74 25 H 140/82 05/10/19 22:09 82 16 145/88 05/10/19 22:00 79 17 145/88 05/10/19 21:46 81 24 128/99 05/10/19 21:20 69 21 05/10/19 21:00 69 24 143/86 05/10/19 20:55 66 19 05/10/19 20:00 98.7 F 81 77 32 H 136/90 05/10/19 19:58 98.1 F 69 17 129/74 05/10/19 19:55 78 34 H 159/89 05/10/19 19:51 68 30 H 159/89 05/10/19 19:45 68 27 H 159/89 05/10/19 19:41 70 28 H 147/88 05/10/19 19:35 67 25 H 147/88 05/10/19 19:00 67 26 H 146/90 05/10/19 18:05 75 24 142/86 05/10/19 18:00 67 22 142/86 05/10/19 17:56 98.6 F 05/10/19 17:55 69 24 144/81 05/10/19 17:51 70 21 144/81 05/10/19 17:45 67 20 144/81 05/10/19 17:41 67 19 144/81 05/10/19 17:35 74 24 144/81 05/10/19 17:31 70 22 144/81 05/10/19 17:25 76 22 144/81 05/10/19 17:21 74 19 144/81 05/10/19 17:15 70 18 144/81 05/10/19 17:11 70 19 144/81 05/10/19 17:05 73 22 144/81 05/10/19 17:00 71 22 144/81 05/10/19 16:01 69 27 H 134/84 05/10/19 16:00 98.3 F 66 20 05/10/19 15:00 65 23 142/82 05/10/19 14:01 64 16 134/85 05/10/19 13:00 71 22 144/90 Pulse Ox 05/11/19 12:00 95 05/11/19 11:00 94 05/11/19 10:00 95 05/11/19 09:15 05/11/19 09:00 94 05/11/19 08:00 90 05/11/19 07:00 95 05/11/19 06:00 95 05/11/19 05:29 05/11/19 05:00 98 05/11/19 04:00 97 05/11/19 03:00 97 05/11/19 02:15 05/11/19 02:00 97 05/11/19 01:30 97 05/11/19 01:00 95 05/11/19 00:30 96 05/11/19 00:00 96 05/10/19 23:45 97 05/10/19 23:18 05/10/19 23:00 96 05/10/19 22:09 96 05/10/19 22:00 97 05/10/19 21:46 98 05/10/19 21:20 05/10/19 21:00 99 05/10/19 20:55 90 05/10/19 20:00 90 05/10/19 19:58 97 05/10/19 19:55 93 05/10/19 19:51 97 05/10/19 19:45 98 05/10/19 19:41 98 05/10/19 19:35 97 05/10/19 19:00 99 05/10/19 18:05 91 05/10/19 18:00 99 05/10/19 17:56 05/10/19 17:55 98 05/10/19 17:51 95 05/10/19 17:45 97 05/10/19 17:41 98 05/10/19 17:35 97 05/10/19 17:31 97 05/10/19 17:25 91 05/10/19 17:21 91 05/10/19 17:15 94 05/10/19 17:11 97 05/10/19 17:05 97 05/10/19 17:00 97 05/10/19 16:01 100 05/10/19 16:00 97 05/10/19 15:00 97 05/10/19 14:01 98 05/10/19 13:00 93 Intake and Output 05/10/19 05/11/19 05/11/19 22:59 06:59 14:59 Intake Total 300 50 Output Total 180 Balance 120 50 Intake: Oral 0 Blood Product 250 0 Leukoreduced Red Blood 0 Cells Unit [id number] Leukoreduced Red Blood 250 Cells Unit [id number] Other 50 50 Leukoreduced Red Blood 50 Cells Unit [id number] Leukoreduced Red Blood 50 Cells Unit [id number] Output: Drainage 180 Right Anterior NARE 180 Other: Intake, Other Source Leukoreduced Red Blood Saline Solution Cells Unit [id number] Total, Intake Amount 0 Total, Output Amount 180 Voiding Method Bedpan Bedpan Bedpan # Voids Void 1 # Bowel Movements 0 - Exam Breasts: Present: normal. Absent: swelling, discharge, pain, , engorged Uterus: Present: other (has binder in place) Extremities: Present: normal Incision: Present: dressed - Labs Labs: Abnormal lab results 05/04/19 05/09/19 05/10/19 Range/Units 10:00 14:03 18:19 RBC (3.65-5.03) M/mm3 Hct (30.3-42.9) % MCHC (30-34) % Seg Neuts % (Manual) (40.0-70.0) % Lymphocytes % (Manual) (13.4-35.0) % Seg Neutrophils # Man (1.8-7.7) K/mm3 Lymphocytes # (Manual) (1.2-5.4) K/mm3 Creatinine (0.7-1.2) mg/dL Glucose (65-100) mg/dL POC Glucose 113 H (70-105) Crossmatch See Detail See Detail 05/11/19 05/11/19 05/11/19 Range/Units 00:23 05:35 10:16 RBC 3.37 L (3.65-5.03) M/mm3 Hct 29.2 L (30.3-42.9) % MCHC 36 H (30-34) % Seg Neuts % (Manual) 84.0 H (40.0-70.0) % Lymphocytes % (Manual) 9.0 L (13.4-35.0) % Seg Neutrophils # Man 8.0 H (1.8-7.7) K/mm3 Lymphocytes # (Manual) 0.9 L (1.2-5.4) K/mm3 Creatinine 0.4 L (0.7-1.2) mg/dL Glucose 104 H (65-100) mg/dL POC Glucose 137 H (70-105) Crossmatch 05/11/19 Range/Units 12:14 RBC (3.65-5.03) M/mm3 Hct (30.3-42.9) % MCHC (30-34) % Seg Neuts % (Manual) (40.0-70.0) % Lymphocytes % (Manual) (13.4-35.0) % Seg Neutrophils # Man (1.8-7.7) K/mm3 Lymphocytes # (Manual) (1.2-5.4) K/mm3 Creatinine (0.7-1.2) mg/dL Glucose (65-100) mg/dL POC Glucose 121 H (70-105) Crossmatch
[2019-05-11] MEDS: MORPHINE IV PRN ×2 (15:36→20:09)
--- NOTE | 2019-05-11 16:30 | Progress Note ---
Assessment and Plan Assessment and plan: Patient has a history of ulcerative colitis and is status post total colectomy with a J-pouch since age 6 05/01; Repeat low transverse section with bilateral tubal ligation modified Jenise type 05/06 exploratory laparotomy with Lysis of adhesions Uterine scar from previous delivery 39 weeks gestation of Encounter for sterilization sp C/S and tubal ligation on 05/01 Ulcerative colitis with SBO sp Ex lap and олег, cont TPN, awaiting return of bowel function mgt per GS Hypokalemia repleted dvt ppx per primary team, recommend lovenox sq PT consult placed per GS request History Interval history: Review of systems Constitutional: No fevers, no malaise, no joint pains CVS: No chest pain, no orthopnea, no dyspnea on exertion, no pedal edema GI: Continues to complain of abdominal pain and distention, has had mild nausea Respiratory: no wheezing, no coughing Hospitalist Physical - Physical exam Narrative exam: General.: Appears well, no distress, nontoxic HEENT: Moist mucous membranes, extraocular muscles intact, no lymphadenopathy Neck: supple Cardiac: S1-S2 heard Lungs: clear to auscultation bilaterally Abdomen: soft , tender and distended Extremities: no edema clubbing or cyanosis Skin: no rash or lesions Neurologic: no gross focal deficits Psych: calm, and cooperative - Constitutional Vitals: Temp Pulse Resp BP Pulse Ox 98.8 F 86 20 137/91 90 05/11/19 14:30 05/11/19 14:30 05/11/19 14:30 05/11/19 14:30 05/11/19 14:17 General appearance: Present: no acute distress Results - Labs CBC & Chem 7: 05/11/19 10:16 05/11/19 05:35 Labs: Laboratory Last Values WBC 9.5 K/mm3 (4.5-11.0) 05/11/19 10:16 RBC 3.37 M/mm3 (3.65-5.03) L 05/11/19 10:16 Hgb 10.4 gm/dl (10.1-14.3) 05/11/19 10:16 Hct 29.2 % (30.3-42.9) L 05/11/19 10:16 MCV 87 fl (79-97) 05/11/19 10:16 MCH 31 pg (28-32) 05/11/19 10:16 MCHC 36 % (30-34) H 05/11/19 10:16 RDW 14.7 % (13.2-15.2) 05/11/19 10:16 Plt Count 322 K/mm3 (140-440) 05/11/19 10:16 Lymph % (Auto) 10.1 % (13.4-35.0) L 05/09/19 04:55 [place] % (Auto) 6.8 % (0.0-7.3) 05/09/19 04:55 Eos % (Auto) 1.5 % (0.0-4.3) 05/09/19 04:55 Baso % (Auto) 0.2 % (0.0-1.8) 05/09/19 04:55 Lymph # 0.9 K/mm3 (1.2-5.4) L 05/09/19 04:55 Ponce # 0.6 K/mm3 (0.0-0.8) 05/09/19 04:55 Eos # 0.1 K/mm3 (0.0-0.4) 05/09/19 04:55 Baso # 0.0 K/mm3 (0.0-0.1) 05/09/19 04:55 Add Manual Diff Complete 05/11/19 10:16 Total Counted 100 05/11/19 10:16 Seg Neutrophils % 81.4 % (40.0-70.0) H 05/09/19 04:55 Seg Neuts % (Manual) 84.0 % (40.0-70.0) H 05/11/19 10:16 0 % 05/11/19 10:16 9.0 % (13.4-35.0) L 05/11/19 10:16 Reactive Lymphs % (Man) 0 % 05/11/19 10:16 3.0 % (0.0-7.3) 05/11/19 10:16 4.0 % (0.0-4.3) 05/11/19 10:16 0 % (0.0-1.8) 05/11/19 10:16 0 % 05/11/19 10:16 0 % 05/11/19 10:16 0 % 05/11/19 10:16 0 % 05/11/19 10:16 Nucleated RBC % Not Reportable 05/11/19 10:16 Seg Neutrophils # 6.9 K/mm3 (1.8-7.7) 05/09/19 04:55 Seg Neutrophils # Man 8.0 K/mm3 (1.8-7.7) H 05/11/19 10:16 Band Neutrophils # 0.0 K/mm3 05/11/19 10:16 0.9 K/mm3 (1.2-5.4) L 05/11/19 10:16 Abs React Lymphs (Man) 0.0 K/mm3 05/11/19 10:16 0.3 K/mm3 (0.0-0.8) 05/11/19 10:16 0.4 K/mm3 (0.0-0.4) 05/11/19 10:16 0.0 K/mm3 (0.0-0.1) 05/11/19 10:16 0.0 K/mm3 05/11/19 10:16 0.0 K/mm3 05/11/19 10:16 0.0 K/mm3 05/11/19 10:16 Blast Cells # 0.0 K/mm3 05/11/19 10:16 WBC Morphology Not Reportable 05/11/19 10:16 Hypersegmented Neuts Not Reportable 05/11/19 10:16 Hyposegmented Neuts Not Reportable 05/11/19 10:16 Hypogranular Neuts Not Reportable 05/11/19 10:16 Cancelled 05/08/19 07:47 Not Reportable 05/11/19 10:16 Not Reportable 05/11/19 10:16 Not Reportable 05/11/19 10:16 Not Reportable 05/11/19 10:16 Not Reportable 05/11/19 10:16 Not Reportable 05/11/19 10:16 Consistent w auto 05/11/19 10:16 Not Reportable 05/11/19 10:16 Plt Clumps, EDTA Not Reportable 05/11/19 10:16 Not Reportable 05/11/19 10:16 Not Reportable 05/11/19 10:16 Not Reportable 05/11/19 10:16 Plt Morphology Comment Not Reportable 05/11/19 10:16 RBC Morphology Not Reportable 05/11/19 10:16 Dimorphic RBCs Not Reportable 05/11/19 10:16 Not Reportable 05/11/19 10:16 Not Reportable 05/11/19 10:16 Not Reportable 05/11/19 10:16 Cancelled 05/08/19 07:47 1+ 05/11/19 10:16 Not Reportable 05/11/19 10:16 Not Reportable 05/11/19 10:16 Not Reportable 05/11/19 10:16 Not Reportable 05/11/19 10:16 Not Reportable 05/11/19 10:16 Not Reportable 05/11/19 10:16 Not Reportable 05/11/19 10:16 Not Reportable 05/11/19 10:16 Cancelled 05/08/19 07:47 Not Reportable 05/11/19 10:16 Not Reportable 05/11/19 10:16 Not Reportable 05/11/19 10:16 Not Reportable 05/11/19 10:16 Not Reportable 05/11/19 10:16 Not Reportable 05/11/19 10:16 Not Reportable 05/11/19 10:16 Acanthocytes (Spur) Not Reportable 05/11/19 10:16 Rouleaux Not Reportable 05/11/19 10:16 Not Reportable 05/11/19 10:16 Not Reportable 05/11/19 10:16 Not Reportable 05/11/19 10:16 Not Reportable 05/11/19 10:16 Hem Pathologist Commnt No 05/11/19 10:16 Sodium 139 mmol/L (137-145) 05/11/19 05:35 Potassium 3.9 mmol/L (3.6-5.0) 05/11/19 05:35 Chloride 102.0 mmol/L (98-107) 05/11/19 05:35 Carbon Dioxide 28 mmol/L (22-30) 05/11/19 05:35 13 mmol/L 05/11/19 05:35 BUN 10 mg/dL (7-17) 05/11/19 05:35 0.4 mg/dL (0.7-1.2) L 05/11/19 05:35 Estimated GFR > 60 ml/min 05/11/19 05:35 25 % 05/11/19 05:35 Glucose 104 mg/dL (65-100) H 05/11/19 05:35 POC Glucose 121 (70-105) H 05/11/19 12:14 Calcium 8.4 mg/dL (8.4-10.2) 05/11/19 05:35 Phosphorus 4.10 mg/dL (2.5-4.5) 05/11/19 05:35 Magnesium 2.00 mg/dL (1.7-2.3) 05/11/19 05:35 0.60 mg/dL (0.1-1.2) 05/08/19 04:30 AST 10 units/L (5-40) 05/08/19 04:30 ALT 5 units/L (7-56) L 05/08/19 04:30 76 units/L (35-129) 05/08/19 04:30 4.5 g/dL (6.3-8.2) L 05/08/19 04:30 2.2 g/dL (3.9-5) L 05/08/19 04:30 1.0 % 05/08/19 04:30 RPR Nonreactive (Nonreactive) 05/01/19 06:00 Blood Type O NEGATIVE 05/09/19 14:03 Antibody Screen Positive 05/09/19 14:03 Antibody Identification Anti-D (Passively Aquired) 05/09/19 14:03 Screen Negative 05/01/19 21:41 Crossmatch See Detail 05/09/19 14:03 Active Medications - Current Medications Current Medications: Generic Name Dose Route Start Last Admin Trade Name Freq PRN Reason Stop Dose Admin Albuterol 2.5 mg 05/08/19 14:00 05/11/19 11:03 Proventil IH Not Given TIDRT [facility] Benzocaine/Menthol 1 each 05/03/19 22:48 05/06/19 00:46 Cepacol X Strength MM 1 each Q2HR PRN Administration Sore Throat Enoxaparin Sodium 40 mg 05/11/19 22:00 Lovenox SUB-Q QDAY@2200 TOM Famotidine 20 mg 05/03/19 23:00 05/11/19 10:31 Pepcid IV 20 mg BID TOM Administration Hydrocortisone Acetate 25 mg 05/01/19 10:49 Anucort-Hc CA BID PRN Hemorrhoids Amino Acids/Electrolytes/Dextrose 2,400 mls @ 100 mls/hr 05/10/19 20:00 05/10/19 20:12 Tpn Adult IV 05/11/19 19:59 100 mls/hr DAILY@1999 [facility] Administration Protocol Amino Acids/Electrolytes/Dextrose 2,016 mls @ 84 mls/hr 05/11/19 20:00 Tpn Adult IV 05/12/19 19:59 DAILY@1999 [facility] Protocol Magnesium Hydroxide 30 ml 05/01/19 22:00 05/02/19 12:03 Milk Of Magnesia PO 30 ml QHS PRN Administration Constip Unrelieved By Senna Morphine Sulfate 2 mg 05/03/19 16:03 05/11/19 15:36 Morphine IV 2 mg Q4H PRN Administration Pain, Moderate (4-6) Multi-Ingredient Ointment 1 applic 05/01/19 10:49 Lansinoh TP PRN PRN dryness/cracking Naloxone HCl 0.1 mg 05/01/19 10:49 Narcan 0.4 Mg/1 Ml IV Q2MIN PRN Res Rate </= 8 or 02 SAT < 92% Ondansetron HCl 4 mg 05/01/19 10:49 05/11/19 11:46 Zofran IV 4 mg Q8H PRN Administration Nausea And Vomiting Witch Annmarie/Glycerin 1 each 05/01/19 10:49 Tucks Pad TP PRN PRN Hemorrhoids/cleansing/soothing Nutrition/Malnutrition Assess - Dietary Evaluation Nutrition/Malnutrition Findings: Nutrition Notes Start: 05/07/19 10:35 Freq: Status: Active Protocol: Document 05/11/19 14:54 VERONIKA (Rec: 05/11/19 14:58 VERONIKA [email or web address]) Nutrition Notes Initial or Follow up Reassessment Other Pertinent Diagnosis Ulcerative colitis, SBO, S/P exploratory laporatory, Ceserean delivery Current Diet PPN at 100ml/hr Labs/Tests Reviewed Pertinent Medications Reviewed Height 5 ft 7 in Weight 101.61 kg [place] Body Weight (kg) 61.36 BMI 35.1 Subjective/Other Information Day 5 CPN. She is transferring to 309 today. Percent of energy/protein needs met: 100% energy and pro Burn Absent Trauma Absent #1 Nutrition Diagnosis Inadequate oral intake Diagnosis Progress(for reassessment Continues documentation) Is patient on ventilator? No Is Patient Ambulatory and/or Out of Bed No [facility] 2094.612 Kcal/Kg value to use for calculation 15 Approximate Energy Requirements Using 1524 kcal/Kg Additional Notes Pro needs 1-1.2g/kg adjBW: 81- 98g/day Fluid needs 1ml/kcal Nutrition Intervention Nutrition Support: Decrease CPN rate to 84ml/hr: MVI, 14.9% dextrose, 4.5% amino acids. Osmolality: 1410 . Kcal 1,380 Protein (gm) 90 Carbohydrates (gm) 300 Fat (gm) 0 Fluid (mL) 2,016 Fiber (gm) 0 Goal #1 PN to meet nutrient needs as best possible Follow-Up By: 05/12/19 Additional Comments Labs in am: BMP, Mg, Christiannes
--- NOTE | 2019-05-11 17:30 | Consultation ---
History of Present Illness Consult date: 05/11/19 Requesting physician: ILAN PEACE Reason for consult: dyspnea History of present illness: 33 yo admitted for and BTL. Developed SBO afterwards which required exlap/PASCALE. Currently NPO with NGT in place, on TPN. Required O2 after surgery but weaned off today, currently on RA. States she has had SOB since in the hospital, not getting better or worse. Denies chest pain, fevers, chills, cough, sputum, hx of VTE, hx of pulmonary issues. Active Medications Albuterol (Proventil) 2.5 mg IH TIDRT [facility] Last Admin: 05/11/19 11:03 Dose: Not Given Documented by: Benzocaine/Menthol (Cepacol X Strength) 1 each MM Q2HR PRN PRN Reason: Sore Throat Last Admin: 05/06/19 00:46 Dose: 1 each Documented by: Enoxaparin Sodium (Lovenox) 40 mg SUB-Q QDAY@2200 TOM Famotidine (Pepcid) 20 mg IV BID [facility] Last Admin: 05/11/19 10:31 Dose: 20 mg Documented by: Hydrocortisone Acetate (Anucort-Hc) 25 mg IA BID PRN PRN Reason: Hemorrhoids Amino Acids/Electrolytes/Dextrose (Tpn Adult) 2,400 mls @ 100 mls/hr IV DAILY@1999 [facility]; Protocol Stop: 05/11/19 19:59 Last Admin: 05/10/19 20:12 Dose: 100 mls/hr Documented by: Amino Acids/Electrolytes/Dextrose (Tpn Adult) 2,016 mls @ 84 mls/hr IV DAILY@1999 [facility]; Protocol Stop: 05/12/19 19:59 Magnesium Hydroxide (Milk Of Magnesia) 30 ml PO QHS PRN PRN Reason: Constip Unrelieved By Senna Last Admin: 05/02/19 12:03 Dose: 30 ml Documented by: Morphine Sulfate (Morphine) 2 mg IV Q4H PRN PRN Reason: Pain, Moderate (4-6) Last Admin: 05/11/19 15:36 Dose: 2 mg Documented by: Multi-Ingredient Ointment (Lansinoh) 1 applic TP PRN PRN PRN Reason: dryness/cracking Naloxone HCl (Narcan 0.4 Mg/1 Ml) 0.1 mg IV Q2MIN PRN PRN Reason: Res Rate </= 8 or 02 SAT < 92% Ondansetron HCl (Zofran) 4 mg IV Q8H PRN PRN Reason: Nausea And Vomiting Last Admin: 05/11/19 11:46 Dose: 4 mg Documented by: Roman Anguiano/Glycerin (Tucks Pad) 1 each TP PRN PRN PRN Reason: Hemorrhoids/cleansing/soothing Past History Past Medical History: other (UC) Past Surgical History: , Other (colectomy, Ex lap) Social history: lives with family, smoking. denies: alcohol abuse, prescription drug abuse, IV drug use Family history: other (neg for pulm issues) Medications and Allergies Allergies Allergy/AdvReac Type Severity Reaction Status Date / Time cephalexin [From Keflex] AdvReac Severe Anaphylaxis Verified 03/11/19 16:21 Penicillins AdvReac Severe Anaphylaxis Verified 03/11/19 16:20 Home Medications Medication Instructions Recorded Confirmed Last Taken Type Ferrous Sulfate [Feosol 325 MG tab] 325 mg PO BID #60 tablet 05/01/19 Unknown Rx Ibuprofen [Motrin 800 MG tab] 800 mg PO Q6H PRN #30 tablet 05/01/19 Unknown Rx Lidocain2.5%/Prilocai2.5% [Emla] 5 gm TP ONCE #1 tube 05/01/19 Unknown Rx oxyCODONE /ACETAMINOPHEN [Percocet 1 - 2 tab PO Q4H PRN #20 tablet 05/01/19 Unknown Rx 5/325 mg] Active Meds: Active Medications Albuterol (Proventil) 2.5 mg IH TIDRT [facility] Last Admin: 05/11/19 11:03 Dose: Not Given Documented by: Benzocaine/Menthol (Cepacol X Strength) 1 each MM Q2HR PRN PRN Reason: Sore Throat Last Admin: 05/06/19 00:46 Dose: 1 each Documented by: Enoxaparin Sodium (Lovenox) 40 mg SUB-Q QDAY@2200 [facility] Famotidine (Pepcid) 20 mg IV BID [facility] Last Admin: 05/11/19 10:31 Dose: 20 mg Documented by: Hydrocortisone Acetate (Anucort-Hc) 25 mg IA BID PRN PRN Reason: Hemorrhoids Amino Acids/Electrolytes/Dextrose (Tpn Adult) 2,400 mls @ 100 mls/hr IV DAILY@1999 [facility]; Protocol Stop: 05/11/19 19:59 Last Admin: 05/10/19 20:12 Dose: 100 mls/hr Documented by: Amino Acids/Electrolytes/Dextrose (Tpn Adult) 2,016 mls @ 84 mls/hr IV DAILY@1999 [facility]; Protocol Stop: 05/12/19 19:59 Magnesium Hydroxide (Milk Of Magnesia) 30 ml PO QHS PRN PRN Reason: Constip Unrelieved By Senna Last Admin: 05/02/19 12:03 Dose: 30 ml Documented by: Morphine Sulfate (Morphine) 2 mg IV Q4H PRN PRN Reason: Pain, Moderate (4-6) Last Admin: 05/11/19 15:36 Dose: 2 mg Documented by: Multi-Ingredient Ointment (Lansinoh) 1 applic TP PRN PRN PRN Reason: dryness/cracking Naloxone HCl (Narcan 0.4 Mg/1 Ml) 0.1 mg IV Q2MIN PRN PRN Reason: Res Rate </= 8 or 02 SAT < 92% Ondansetron HCl (Zofran) 4 mg IV Q8H PRN PRN Reason: Nausea And Vomiting Last Admin: 05/11/19 11:46 Dose: 4 mg Documented by: Roman Anguiano/Glycerin (Tucks Pad) 1 each TP PRN PRN PRN Reason: Hemorrhoids/cleansing/soothing Review of Systems All systems: negative Physical Examination Vital signs: Vital Signs Temp Resp 98.5 F 18 05/01/19 06:26 05/01/19 06:26 Vital Signs - 24 hr 05/10/19 05/10/19 05/10/19 17:31 17:35 17:41 Temperature Pulse Rate 70 74 67 Pulse Rate [ Anterior Bilateral Throughout] Pulse Rate [ From Monitor] Respiratory 22 24 19 Rate Respiratory Rate [Anterior Bilateral Throughout] Blood Pressure 144/81 144/81 144/81 Blood Pressure [Left] O2 Sat by Pulse 97 97 98 Oximetry 05/10/19 05/10/19 05/10/19 17:45 17:51 17:55 Temperature Pulse Rate 67 70 69 Pulse Rate [ Anterior Bilateral Throughout] Pulse Rate [ From Monitor] Respiratory 20 21 24 Rate Respiratory Rate [Anterior Bilateral Throughout] Blood Pressure 144/81 144/81 144/81 Blood Pressure [Left] O2 Sat by Pulse 97 95 98 Oximetry 05/10/19 05/10/19 05/10/19 17:56 18:00 18:05 Temperature 98.6 F Pulse Rate 67 75 Pulse Rate [ Anterior Bilateral Throughout] Pulse Rate [ From Monitor] Respiratory 22 24 Rate Respiratory Rate [Anterior Bilateral Throughout] Blood Pressure 142/86 142/86 Blood Pressure [Left] O2 Sat by Pulse 99 91 Oximetry 05/10/19 05/10/19 05/10/19 19:00 19:35 19:41 Temperature Pulse Rate 67 67 70 Pulse Rate [ Anterior Bilateral Throughout] Pulse Rate [ From Monitor] Respiratory 26 H 25 H 28 H Rate Respiratory Rate [Anterior Bilateral Throughout] Blood Pressure 146/90 147/88 147/88 Blood Pressure [Left] O2 Sat by Pulse 99 97 98 Oximetry 05/10/19 05/10/19 05/10/19 19:45 19:51 19:55 Temperature Pulse Rate 68 68 78 Pulse Rate [ Anterior Bilateral Throughout] Pulse Rate [ From Monitor] Respiratory 27 H 30 H 34 H Rate Respiratory Rate [Anterior Bilateral Throughout] Blood Pressure 159/89 159/89 159/89 Blood Pressure [Left] O2 Sat by Pulse 98 97 93 Oximetry 05/10/19 05/10/19 05/10/19 19:58 20:00 20:55 Temperature 98.1 F 98.7 F Pulse Rate 69 81 Pulse Rate [ 66 Anterior Bilateral Throughout] Pulse Rate [ 77 From Monitor] Respiratory 17 32 H Rate Respiratory 19 Rate [Anterior Bilateral Throughout] Blood Pressure 129/74 136/90 Blood Pressure [Left] O2 Sat by Pulse 97 90 90 Oximetry 05/10/19 05/10/19 05/10/19 21:00 21:20 21:46 Temperature Pulse Rate 69 81 Pulse Rate [ 69 Anterior Bilateral Throughout] Pulse Rate [ From Monitor] Respiratory 24 24 Rate Respiratory 21 Rate [Anterior Bilateral Throughout] Blood Pressure 143/86 128/99 Blood Pressure [Left] O2 Sat by Pulse 99 98 Oximetry 05/10/19 05/10/19 05/10/19 22:00 22:09 23:00 Temperature Pulse Rate 79 82 74 Pulse Rate [ Anterior Bilateral Throughout] Pulse Rate [ From Monitor] Respiratory 17 16 25 H Rate Respiratory Rate [Anterior Bilateral Throughout] Blood Pressure 145/88 145/88 140/82 Blood Pressure [Left] O2 Sat by Pulse 97 96 96 Oximetry 05/10/19 05/10/19 05/11/19 23:18 23:45 00:00 Temperature 98.2 F 98.0 F Pulse Rate 73 72 Pulse Rate [ Anterior Bilateral Throughout] Pulse Rate [ 74 From Monitor] Respiratory 24 18 18 Rate Respiratory Rate [Anterior Bilateral Throughout] Blood Pressure 131/78 131/78 Blood Pressure [Left] O2 Sat by Pulse 97 96 Oximetry 05/11/19 05/11/19 05/11/19 00:30 01:00 01:30 Temperature 98.0 F 98 F 98.2 F Pulse Rate 66 67 6 L Pulse Rate [ Anterior Bilateral Throughout] Pulse Rate [ From Monitor] Respiratory 22 19 16 Rate Respiratory Rate [Anterior Bilateral Throughout] Blood Pressure 139/83 148/94 141/91 Blood Pressure [Left] O2 Sat by Pulse 96 95 97 Oximetry 05/11/19 05/11/19 05/11/19 02:00 02:15 03:00 Temperature Pulse Rate 65 74 Pulse Rate [ Anterior Bilateral Throughout] Pulse Rate [ From Monitor] Respiratory 21 20 16 Rate Respiratory Rate [Anterior Bilateral Throughout] Blood Pressure 139/83 135/84 Blood Pressure [Left] O2 Sat by Pulse 97 97 Oximetry 05/11/19 05/11/19 05/11/19 04:00 05:00 05:29 Temperature 98.2 F Pulse Rate 70 69 Pulse Rate [ Anterior Bilateral Throughout] Pulse Rate [ 66 From Monitor] Respiratory 18 25 H 25 H Rate Respiratory Rate [Anterior Bilateral Throughout] Blood Pressure 134/78 149/101 Blood Pressure [Left] O2 Sat by Pulse 97 98 Oximetry 05/11/19 05/11/19 05/11/19 06:00 07:00 08:00 Temperature 97.5 F L Pulse Rate 75 74 80 Pulse Rate [ Anterior Bilateral Throughout] Pulse Rate [ 70 From Monitor] Respiratory 19 16 16 Rate Respiratory Rate [Anterior Bilateral Throughout] Blood Pressure 149/84 148/92 149/91 Blood Pressure [Left] O2 Sat by Pulse 95 95 90 Oximetry 05/11/19 05/11/19 05/11/19 09:00 09:15 10:00 Temperature Pulse Rate 71 68 Pulse Rate [ Anterior Bilateral Throughout] Pulse Rate [ From Monitor] Respiratory 25 H 34 H 27 H Rate Respiratory Rate [Anterior Bilateral Throughout] Blood Pressure 144/83 135/90 Blood Pressure [Left] O2 Sat by Pulse 94 95 Oximetry 05/11/19 05/11/19 05/11/19 11:00 12:00 12:11 Temperature 98.4 F Pulse Rate 71 75 76 Pulse Rate [ Anterior Bilateral Throughout] Pulse Rate [ 75 From Monitor] Respiratory 21 25 H 27 H Rate Respiratory Rate [Anterior Bilateral Throughout] Blood Pressure 147/89 150/92 150/92 Blood Pressure [Left] O2 Sat by Pulse 94 95 96 Oximetry 05/11/19 05/11/19 05/11/19 12:21 12:30 12:41 Temperature Pulse Rate 76 71 76 Pulse Rate [ Anterior Bilateral Throughout] Pulse Rate [ From Monitor] Respiratory 22 26 H 22 Rate Respiratory Rate [Anterior Bilateral Throughout] Blood Pressure 150/92 142/98 150/92 Blood Pressure [Left] O2 Sat by Pulse 94 94 86 Oximetry 05/11/19 05/11/19 05/11/19 12:51 13:00 13:11 Temperature Pulse Rate 76 78 91 H Pulse Rate [ Anterior Bilateral Throughout] Pulse Rate [ From Monitor] Respiratory 24 26 H 30 H Rate Respiratory Rate [Anterior Bilateral Throughout] Blood Pressure 150/92 151/89 142/98 Blood Pressure [Left] O2 Sat by Pulse 81 L 82 L 81 L Oximetry 05/11/19 05/11/19 05/11/19 13:21 14:17 14:30 Temperature 98.8 F 98.8 F Pulse Rate 76 89 86 Pulse Rate [ Anterior Bilateral Throughout] Pulse Rate [ From Monitor] Respiratory 18 20 20 Rate Respiratory Rate [Anterior Bilateral Throughout] Blood Pressure 142/98 137/91 Blood Pressure 137/91 [Left] O2 Sat by Pulse 82 L 90 Oximetry General appearance: no acute distress, alert, other (obese) Eyes: non-icteric ENT: oropharynx moist Neck: supple Effort: other (mildly tachypneic but not labored; shallow breathing due to abd distension) Ascultation: Bilateral: diminished breath sounds (bases) Cardiovascular: regular rate and rhythm (no mrg) Gastrointestinal: absent bowel sounds, tender, other (distended) Integumentary: normal Extremities: no cyanosis, pink and warm, edema (trace bilateral LE edema) normal mental status, non-focal exam, pupils equal and round, CN II-XII normal mood appropriate, affect normal Results - Laboratory Findings CBC and BMP: 05/11/19 10:16 05/11/19 05:35 Abnormal lab findings: Abnormal Labs 05/01/19 05/01/19 05/01/19 06:00 06:00 21:41 WBC 12.8 H RBC 3.04 L Hgb 9.4 L 7.5 L Hct 27.6 L 21.9 L MCHC RDW Lymph % (Auto) [place] % (Auto) Lymph # Baso # 0.2 H Seg Neutrophils % 74.2 H Seg Neuts % (Manual) Lymphocytes % (Manual) Seg Neutrophils # 9.5 H Seg Neutrophils # Man Lymphocytes # (Manual) Sodium Potassium Chloride Carbon Dioxide Creatinine Glucose POC Glucose Calcium ALT Total Protein Albumin Crossmatch See Detail 05/03/19 05/04/19 05/04/19 07:08 10:00 15:58 WBC RBC 2.84 L Hgb 8.8 L Hct 25.3 L MCHC 35 H RDW 15.8 H Lymph % (Auto) [place] % (Auto) 8.2 H Lymph # 0.9 L Baso # Seg Neutrophils % 74.6 H Seg Neuts % (Manual) Lymphocytes % (Manual) Seg Neutrophils # Seg Neutrophils # Man Lymphocytes # (Manual) Sodium Potassium 3.3 L Chloride 94.2 L Carbon Dioxide 34 H Creatinine Glucose POC Glucose Calcium ALT Total Protein Albumin Crossmatch See Detail 05/04/19 05/05/19 05/07/19 15:58 05:15 05:09 WBC RBC 2.77 L 3.35 L Hgb 8.5 L Hct 24.6 L 29.7 L MCHC 35 H RDW 15.7 H Lymph % (Auto) 6.5 L [place] % (Auto) 9.9 H Lymph # 1.1 L 0.7 L Baso # Seg Neutrophils % 88.0 H Seg Neuts % (Manual) Lymphocytes % (Manual) Seg Neutrophils # 9.0 H Seg Neutrophils # Man Lymphocytes # (Manual) Sodium Potassium 3.5 L Chloride Carbon Dioxide 32 H Creatinine Glucose 105 H POC Glucose Calcium ALT Total Protein 5.5 L Albumin 2.6 L Crossmatch 05/07/19 05/08/19 05/08/19 05:09 04:30 04:30 WBC RBC Hgb Hct MCHC RDW Lymph % (Auto) [place] % (Auto) Lymph # Baso # Seg Neutrophils % Seg Neuts % (Manual) Lymphocytes % (Manual) Seg Neutrophils # Seg Neutrophils # Man Lymphocytes # (Manual) Sodium 133 L Potassium 5.1 H D Chloride Carbon Dioxide 20 L Creatinine 0.6 L 0.5 L Glucose 134 H 109 H 108 H POC Glucose Calcium 7.9 L 8.1 L ALT 5 L Total Protein 5.2 L 4.5 L Albumin 2.4 L 2.2 L Crossmatch 05/08/19 05/08/19 05/08/19 06:22 07:47 11:01 WBC RBC 3.20 L 3.16 L Hgb 9.7 L 9.4 L Hct 27.7 L 27.4 L MCHC 35 H RDW Lymph % (Auto) 8.8 L 8.5 L [place] % (Auto) Lymph # 1.0 L 0.9 L Baso # Seg Neutrophils % 83.8 H 85.0 H Seg Neuts % (Manual) Lymphocytes % (Manual) Seg Neutrophils # 9.1 H 9.2 H Seg Neutrophils # Man Lymphocytes # (Manual) Sodium Potassium Chloride Carbon Dioxide Creatinine Glucose POC Glucose 114 H Calcium ALT Total Protein Albumin Crossmatch 05/08/19 05/08/19 05/09/19 12:18 17:57 00:46 WBC RBC Hgb Hct MCHC RDW Lymph % (Auto) [place] % (Auto) Lymph # Baso # Seg Neutrophils % Seg Neuts % (Manual) Lymphocytes % (Manual) Seg Neutrophils # Seg Neutrophils # Man Lymphocytes # (Manual) Sodium Potassium Chloride Carbon Dioxide Creatinine Glucose POC Glucose 107 H 107 H 110 H Calcium ALT Total Protein Albumin Crossmatch 05/09/19 05/09/19 05/09/19 04:55 04:55 12:06 WBC RBC 2.95 L Hgb 8.8 L Hct 25.7 L MCHC RDW Lymph % (Auto) 10.1 L [place] % (Auto) Lymph # 0.9 L Baso # Seg Neutrophils % 81.4 H Seg Neuts % (Manual) Lymphocytes % (Manual) Seg Neutrophils # Seg Neutrophils # Man Lymphocytes # (Manual) Sodium Potassium 3.2 L D Chloride Carbon Dioxide Creatinine 0.5 L Glucose 119 H POC Glucose 120 H Calcium 8.0 L ALT Total Protein Albumin Crossmatch 05/09/19 05/09/19 05/09/19 14:03 18:44 23:54 WBC RBC Hgb Hct MCHC RDW Lymph % (Auto) [place] % (Auto) Lymph # Baso # Seg Neutrophils % Seg Neuts % (Manual) Lymphocytes % (Manual) Seg Neutrophils # Seg Neutrophils # Man Lymphocytes # (Manual) Sodium Potassium Chloride Carbon Dioxide Creatinine Glucose POC Glucose 117 H 116 H Calcium ALT Total Protein Albumin Crossmatch See Detail 05/10/19 05/10/19 05/10/19 05:56 06:59 06:59 WBC RBC 2.78 L Hgb 8.3 L Hct 24.4 L MCHC RDW Lymph % (Auto) [place] % (Auto) Lymph # Baso # Seg Neutrophils % Seg Neuts % (Manual) 81.0 H Lymphocytes % (Manual) 12.0 L Seg Neutrophils # Seg Neutrophils # Man Lymphocytes # (Manual) 0.8 L Sodium Potassium Chloride Carbon Dioxide Creatinine 0.4 L Glucose 115 H POC Glucose 125 H Calcium 8.3 L ALT Total Protein Albumin Crossmatch 05/10/19 05/10/19 05/11/19 12:22 18:19 00:23 WBC RBC Hgb Hct MCHC RDW Lymph % (Auto) [place] % (Auto) Lymph # Baso # Seg Neutrophils % Seg Neuts % (Manual) Lymphocytes % (Manual) Seg Neutrophils # Seg Neutrophils # Man Lymphocytes # (Manual) Sodium Potassium Chloride Carbon Dioxide Creatinine Glucose POC Glucose 120 H 113 H 137 H Calcium ALT Total Protein Albumin Crossmatch 05/11/19 05/11/19 05/11/19 05:35 10:16 12:14 WBC RBC 3.37 L Hgb Hct 29.2 L MCHC 36 H RDW Lymph % (Auto) [place] % (Auto) Lymph # Baso # Seg Neutrophils % Seg Neuts % (Manual) 84.0 H Lymphocytes % (Manual) 9.0 L Seg Neutrophils # Seg Neutrophils # Man 8.0 H Lymphocytes # (Manual) 0.9 L Sodium Potassium Chloride Carbon Dioxide Creatinine 0.4 L Glucose 104 H POC Glucose 121 H Calcium ALT Total Protein Albumin Crossmatch - Diagnostic Findings Chest x-ray: report reviewed, image reviewed (hypoventilation with vascular crowding) Assessment and Plan Imp: 1. s/p 2. SBO s/p exlap 3. Acute respiratory failure, hypoxia; better 4. Atelectasis due to abd distension and hypoventilation 5. Chronic nicotine dependence, cigarettes 6. UC 7. Obesity Rec: 1. Oxygenation better; monitor on RA; if worsening SOB or hypoxia repeat CXR 2. Will monitor volume status closely; diuresis prn 3. Appears DVT PPx added today; will check LE dopplers 4. Incentive [place] 5. OOB if able 6. Stop smoking 7. Further plans pending clinical course Plan of care reviewed w/ patient, she understands/agrees Thanks kindly for the consult. Will follow w/ you.
--- NOTE | 2019-05-11 19:26 | Vascular Lab Report ---
DUPLEX DOPPLER LOWER EXTREMITY VEINS, BILATERAL INDICATION / CLINICAL INFORMATION: SOB, LE edema. Lower extremity pain and swelling TECHNIQUE: Duplex doppler imaging was performed through the veins of both lower extremities using venous jennifer mally and other maneuvers. COMPARISON: None available. FINDINGS: Right Common Femoral vein: Negative. Right Femoral vein: Negative. Right Popliteal vein: Negative. Right Calf veins: Negative. Left Common Femoral vein: Negative. Left Femoral vein: Negative. Left Popliteal vein: Negative. Left Calf veins: Negative. Additional findings: None. IMPRESSION: 1. No sonographic evidence for DVT in either lower extremity. Signer Name: Yosvany Cutler MD Signed: 05/11/2019 7:21 PM Workstation Name: [id number]
[2019-05-11] MEDS ORDERED: TPN ADULT 2,016 ML IV SCH (20:00)
[2019-05-11] MEDS: LOVENOX SUB-Q SCH (21:45)
[2019-05-12] MEDS: DILAUDID IV PRN ×5 (03:59→21:42)
[2019-05-12 06:17] LABS: Hemoglobin 10.4 gm/dl (10.1-14.3); Mean Corpuscular HGB Conc 35 % (30-34); Mean Corpuscular Volume 87 fl (79-97); Platelet Count 343 K/mm3 (140-440); Red Blood Count 3.45 M/mm3 (3.65-5.03); Red Cell Distribution Width 15.1 % (13.2-15.2)
[2019-05-12 06:45] LABS: BUN/Creatinine Ratio 26; Blood Urea Nitrogen 13 mg/dL (7-17); Calcium 8.3 mg/dL (8.4-10.2); Hemolysis Index 3
[2019-05-12 07:51] LABS: Band Neutrophils # (Manual) 0.2 K/mm3; Basophils % (Manual) 0 % (0.0-1.8); Total Cells Counted 100
[2019-05-12 07:52] LABS: Anisocytosis 1+
[2019-05-12] MEDS: PEPCID IV SCH ×2 (09:11→21:40)
[2019-05-12] MEDS: PROVENTIL IH SCH ×3 (09:11→21:00)
--- NOTE | 2019-05-12 12:20 | Progress Note ---
Assessment and Plan - Patient Problems (1) delivery delivered Onset Date: ~05/01/19 Current Visit: Yes Status: Acute Plan to address problem: Stable obstetrically (2) SBO (small bowel obstruction) Current Visit: Yes Status: Acute (3) Ulcerative colitis Current Visit: Yes Status: Chronic Qualifiers: Ulcerative colitis location: unspecified ulcerative colitis location Digestive disease complication type: with intestinal obstruction Qualified Code(s): K51.912 - Ulcerative colitis, unspecified with intestinal obstruction (4) Encounter for sterilization Current Visit: Yes Status: Acute Subjective - Subjective Date of service: 05/12/19 Principal diagnosis: POD #11 s/p RLTCS with BTL; colitis/Jpouch in place; SBO; POD#6 exl.lap Interval history: Alert and appropriately responsive, resting in bed. minimal bleeding, no breast problems Objective - Vital Signs Latest vital signs: Vital Signs Temp Pulse Pulse Resp Resp BP BP 05/12/19 09:12 05/12/19 07:45 97.7 F 72 20 130/78 05/12/19 04:29 98.3 F 69 17 125/79 05/12/19 03:59 17 05/12/19 00:09 98.3 F 73 20 124/76 05/11/19 23:53 16 05/11/19 22:00 05/11/19 20:49 86 18 05/11/19 20:39 17 05/11/19 20:38 05/11/19 20:37 84 16 05/11/19 20:09 17 05/11/19 19:54 98.9 F 113 H 24 127/90 05/11/19 17:56 77 20 05/11/19 17:46 82 20 05/11/19 14:30 98.8 F 86 20 137/91 05/11/19 14:17 98.8 F 89 20 137/91 05/11/19 13:21 76 18 142/98 05/11/19 13:11 91 H 30 H 142/98 05/11/19 13:00 78 26 H 151/89 05/11/19 12:51 76 24 150/92 05/11/19 12:41 76 22 150/92 05/11/19 12:30 71 26 H 142/98 05/11/19 12:21 76 22 150/92 Pulse Ox 05/12/19 09:12 95 07/14/19 07:45 97 05/12/19 04:29 94 05/12/19 03:59 05/12/19 00:09 91 05/11/19 23:53 05/11/19 22:00 93 05/11/19 20:49 05/11/19 20:39 05/11/19 20:38 94 05/11/19 20:37 05/11/19 20:09 05/11/19 19:54 90 05/11/19 17:56 05/11/19 17:46 05/11/19 14:30 05/11/19 14:17 90 05/11/19 13:21 82 L 05/11/19 13:11 81 L 05/11/19 13:00 82 L 05/11/19 12:51 81 L 05/11/19 12:41 86 05/11/19 12:30 94 05/11/19 12:21 94 Intake and Output 05/11/19 05/12/19 05/12/19 22:59 06:59 14:59 Intake Total 0 0 Output Total 150 1000 600 Balance -150 -1000 -600 Intake: Oral 0 0 Output: Gastric Drainage 150 400 Drainage 600 Right Anterior NARE 600 Urine 600 Void 600 Other: Total, Intake Amount 0 0 Total, Output Amount 150 1000 600 Voiding Method Bedside Commode Bedside Commode # Voids Indwelling Catheter 2 Void 2 # Bowel Movements 0 Weight 101.61 kg Patient Weight 05/13/19 06:59 Weight 101.61 kg - Exam Extremities: Present: normal, edema (trace). Absent: tenderness Comments: pfannestial incision w/o /s sinfection, vertical incision dressed - Labs Labs: Abnormal lab results 05/11/19 05/12/19 05/12/19 Range/Units 18:48 05:35 05:35 RBC 3.45 L (3.65-5.03) M/mm3 Hct 30.0 L (30.3-42.9) % MCHC 35 H (30-34) % Seg Neuts % (Manual) 82.0 H (40.0-70.0) % Lymphocytes % (Manual) 9.0 L (13.4-35.0) % Lymphocytes # (Manual) 0.8 L (1.2-5.4) K/mm3 Creatinine 0.5 L (0.7-1.2) mg/dL POC Glucose 121 H (70-105) Calcium 8.3 L (8.4-10.2) mg/dL Phosphorus 4.70 H (2.5-4.5) mg/dL 05/12/19 Range/Units 11:47 RBC (3.65-5.03) M/mm3 Hct (30.3-42.9) % MCHC (30-34) % Seg Neuts % (Manual) (40.0-70.0) % Lymphocytes % (Manual) (13.4-35.0) % Lymphocytes # (Manual) (1.2-5.4) K/mm3 Creatinine (0.7-1.2) mg/dL POC Glucose 136 H (70-105) Calcium (8.4-10.2) mg/dL Phosphorus (2.5-4.5) mg/dL
--- NOTE | 2019-05-12 14:19 | Progress Note ---
Assessment and Plan Assessment and plan: Patient has a history of ulcerative colitis and is status post total colectomy with a J-pouch since age 6 05/01; Repeat low transverse section with bilateral tubal ligation modified Jenise type 05/06 exploratory laparotomy with Lysis of adhesions Uterine scar from previous delivery 39 weeks gestation of Encounter for sterilization sp C/S and tubal ligation on 05/01 Ulcerative colitis with SBO sp Ex lap and олег, cont TPN, cont NG tube to suction mgt per GS Hypokalemia repleted dvt ppx per primary team, recommend lovenox sq PT consult placed per GS request History Interval history: Review of systems Constitutional: No fevers, no malaise, no joint pains CVS: No chest pain, no orthopnea, no dyspnea on exertion, no pedal edema GI: is now having BMs, abdominal pain is resolving as is distension Respiratory: no wheezing, no coughing Hospitalist Physical - Physical exam Narrative exam: General.: Appears well, no distress, nontoxic HEENT: Moist mucous membranes, extraocular muscles intact, no lymphadenopathy Neck: supple Cardiac: S1-S2 heard Lungs: clear to auscultation bilaterally Abdomen: soft ,non tender and non distended Extremities: no edema clubbing or cyanosis Skin: no rash or lesions Neurologic: no gross focal deficits Psych: calm, and cooperative - Constitutional Vitals: Temp Pulse Resp BP Pulse Ox 97.7 F 72 20 130/78 95 05/12/19 07:45 05/12/19 07:45 05/12/19 07:45 05/12/19 07:45 05/12/19 09:12 General appearance: Present: no acute distress Results - Labs CBC & Chem 7: 05/12/19 05:35 05/13/19 05:20 Labs: Laboratory Last Values WBC 8.9 K/mm3 (4.5-11.0) 05/12/19 05:35 RBC 3.45 M/mm3 (3.65-5.03) L 05/12/19 05:35 Hgb 10.4 gm/dl (10.1-14.3) 05/12/19 05:35 Hct 30.0 % (30.3-42.9) L 05/12/19 05:35 MCV 87 fl (79-97) 05/12/19 05:35 MCH 30 pg (28-32) 05/12/19 05:35 MCHC 35 % (30-34) H 05/12/19 05:35 RDW 15.1 % (13.2-15.2) 05/12/19 05:35 Plt Count 343 K/mm3 (140-440) 05/12/19 05:35 Lymph % (Auto) 10.1 % (13.4-35.0) L 05/09/19 04:55 [place] % (Auto) 6.8 % (0.0-7.3) 05/09/19 04:55 Eos % (Auto) 1.5 % (0.0-4.3) 05/09/19 04:55 Baso % (Auto) 0.2 % (0.0-1.8) 05/09/19 04:55 Lymph # 0.9 K/mm3 (1.2-5.4) L 05/09/19 04:55 [place] # 0.6 K/mm3 (0.0-0.8) 05/09/19 04:55 Eos # 0.1 K/mm3 (0.0-0.4) 05/09/19 04:55 Baso # 0.0 K/mm3 (0.0-0.1) 05/09/19 04:55 Add Manual Diff Complete 05/12/19 05:35 Total Counted 100 05/12/19 05:35 Seg Neutrophils % 81.4 % (40.0-70.0) H 05/09/19 04:55 Seg Neuts % (Manual) 82.0 % (40.0-70.0) H 05/12/19 05:35 2.0 % 05/12/19 05:35 9.0 % (13.4-35.0) L 05/12/19 05:35 Reactive Lymphs % (Man) 0 % 05/12/19 05:35 4.0 % (0.0-7.3) 05/12/19 05:35 3.0 % (0.0-4.3) 05/12/19 05:35 0 % (0.0-1.8) 05/12/19 05:35 0 % 05/12/19 05:35 0 % 05/12/19 05:35 0 % 05/12/19 05:35 0 % 05/12/19 05:35 Nucleated RBC % Not Reportable 05/12/19 05:35 Seg Neutrophils # 6.9 K/mm3 (1.8-7.7) 05/09/19 04:55 Seg Neutrophils # Man 7.3 K/mm3 (1.8-7.7) 05/12/19 05:35 Band Neutrophils # 0.2 K/mm3 05/12/19 05:35 0.8 K/mm3 (1.2-5.4) L 05/12/19 05:35 Abs React Lymphs (Man) 0.0 K/mm3 05/12/19 05:35 0.4 K/mm3 (0.0-0.8) 05/12/19 05:35 0.3 K/mm3 (0.0-0.4) 05/12/19 05:35 0.0 K/mm3 (0.0-0.1) 05/12/19 05:35 0.0 K/mm3 05/12/19 05:35 0.0 K/mm3 05/12/19 05:35 0.0 K/mm3 05/12/19 05:35 Blast Cells # 0.0 K/mm3 05/12/19 05:35 WBC Morphology Not Reportable 05/12/19 05:35 WBC Morphology TNR 05/12/19 05:35 Hypersegmented Neuts Not Reportable 05/12/19 05:35 Hyposegmented Neuts Not Reportable 05/12/19 05:35 Hypogranular Neuts Not Reportable 05/12/19 05:35 Cancelled 05/08/19 07:47 Not Reportable 05/12/19 05:35 Not Reportable 05/12/19 05:35 Not Reportable 05/12/19 05:35 Not Reportable 05/12/19 05:35 Not Reportable 05/12/19 05:35 Not Reportable 05/12/19 05:35 Appears normal 05/12/19 05:35 Not Reportable 05/12/19 05:35 Plt Clumps, EDTA Not Reportable 05/12/19 05:35 Not Reportable 05/12/19 05:35 Not Reportable 05/12/19 05:35 Not Reportable 05/12/19 05:35 Plt Morphology Comment Not Reportable 05/12/19 05:35 RBC Morphology Not Reportable 05/12/19 05:35 Dimorphic RBCs Not Reportable 05/12/19 05:35 Few 05/12/19 05:35 Not Reportable 05/12/19 05:35 Not Reportable 05/12/19 05:35 Cancelled 05/08/19 07:47 1+ 05/12/19 05:35 Not Reportable 05/12/19 05:35 Not Reportable 05/12/19 05:35 Not Reportable 05/12/19 05:35 Not Reportable 05/12/19 05:35 Not Reportable 05/12/19 05:35 Not Reportable 05/12/19 05:35 Not Reportable 05/12/19 05:35 Not Reportable 05/12/19 05:35 Cancelled 05/08/19 07:47 Not Reportable 05/12/19 05:35 Not Reportable 05/12/19 05:35 Not Reportable 05/12/19 05:35 Not Reportable 05/12/19 05:35 Not Reportable 05/12/19 05:35 Not Reportable 05/12/19 05:35 Not Reportable 05/12/19 05:35 Acanthocytes (Spur) Not Reportable 05/12/19 05:35 Rouleaux Not Reportable 05/12/19 05:35 Not Reportable 05/12/19 05:35 Not Reportable 05/12/19 05:35 Not Reportable 05/12/19 05:35 Not Reportable 05/12/19 05:35 Hem Pathologist Commnt No 05/12/19 05:35 Sodium 142 mmol/L (137-145) 05/12/19 05:35 Potassium 3.8 mmol/L (3.6-5.0) 05/12/19 05:35 Chloride 103.4 mmol/L (98-107) 05/12/19 05:35 Carbon Dioxide 28 mmol/L (22-30) 05/12/19 05:35 14 mmol/L 05/12/19 05:35 BUN 13 mg/dL (7-17) 05/12/19 05:35 0.5 mg/dL (0.7-1.2) L 05/12/19 05:35 Estimated GFR > 60 ml/min 05/12/19 05:35 26 % 05/12/19 05:35 Glucose 98 mg/dL (65-100) 05/12/19 05:35 POC Glucose 136 (70-105) H 05/12/19 11:47 Calcium 8.3 mg/dL (8.4-10.2) L 05/12/19 05:35 Phosphorus 4.70 mg/dL (2.5-4.5) H 05/12/19 05:35 Magnesium 2.10 mg/dL (1.7-2.3) 05/12/19 05:35 0.60 mg/dL (0.1-1.2) 05/08/19 04:30 AST 10 units/L (5-40) 05/08/19 04:30 ALT 5 units/L (7-56) L 05/08/19 04:30 76 units/L (35-129) 05/08/19 04:30 4.5 g/dL (6.3-8.2) L 05/08/19 04:30 2.2 g/dL (3.9-5) L 05/08/19 04:30 1.0 % 05/08/19 04:30 RPR Nonreactive (Nonreactive) 05/01/19 06:00 Blood Type O NEGATIVE 05/09/19 14:03 Antibody Screen Positive 05/09/19 14:03 Antibody Identification Anti-D (Passively Aquired) 05/09/19 14:03 Screen Negative 05/01/19 21:41 Crossmatch See Detail 05/09/19 14:03 Active Medications - Current Medications Current Medications: Generic Name Dose Route Start Last Admin Trade Name Freq PRN Reason Stop Dose Admin Albuterol 2.5 mg 05/08/19 14:00 05/12/19 09:11 Proventil IH Not Given TIDRT [facility] Benzocaine/Menthol 1 each 05/03/19 22:48 05/06/19 00:46 Cepacol X Strength MM 1 each Q2HR PRN Administration Sore Throat Enoxaparin Sodium 40 mg 05/11/19 22:00 05/11/19 21:45 Lovenox SUB-Q 40 mg QDAY@2200 TOM Administration Famotidine 20 mg 05/03/19 23:00 05/12/19 09:11 Pepcid IV 20 mg BID TOM Administration Hydrocortisone Acetate 25 mg 05/01/19 10:49 Anucort-Hc NM BID PRN Hemorrhoids Hydromorphone HCl 1 mg 05/11/19 21:22 05/12/19 13:20 Dilaudid IV 1 mg Q4H PRN Administration Pain , Severe (7-10) Amino Acids/Electrolytes/Dextrose 2,016 mls @ 84 mls/hr 05/11/19 20:00 05/11/19 20:25 Tpn Adult IV 05/12/19 19:59 84 mls/hr DAILY@1999 [facility] Administration Protocol Amino Acids/Electrolytes/Dextrose 2,016 mls @ 84 mls/hr 05/12/19 20:00 Tpn Adult IV 05/13/19 19:59 DAILY@1999 [facility] Protocol Magnesium Hydroxide 30 ml 05/01/19 22:00 05/02/19 12:03 Milk Of Magnesia PO 30 ml QHS PRN Administration Constip Unrelieved By Senna Morphine Sulfate 2 mg 05/03/19 16:03 05/11/19 20:09 Morphine IV 2 mg Q4H PRN Administration Pain, Moderate (4-6) Multi-Ingredient Ointment 1 applic 05/01/19 10:49 Lansinoh TP PRN PRN dryness/cracking Naloxone HCl 0.1 mg 05/01/19 10:49 Narcan 0.4 Mg/1 Ml IV Q2MIN PRN Res Rate </= 8 or 02 SAT < 92% Ondansetron HCl 4 mg 05/01/19 10:49 05/11/19 20:10 Zofran IV 4 mg Q8H PRN Administration Nausea And Vomiting Witch Annmarie/Glycerin 1 each 05/01/19 10:49 Tucks Pad TP PRN PRN Hemorrhoids/cleansing/soothing Nutrition/Malnutrition Assess - Dietary Evaluation Nutrition/Malnutrition Findings: Nutrition Notes Start: 05/07/19 10:35 Freq: Status: Active Protocol: Document 05/12/19 09:27 VERONIKA (Rec: 05/12/19 09:32 VERONIKA [email or web address]) Nutrition Notes Initial or Follow up Reassessment Other Pertinent Diagnosis Ulcerative colitis, SBO, S/P exploratory laporatory, Cesere[place] delivery Current Diet PPN at 100ml/hr Labs/Tests Phos 4.7 Pertinent Medications Reviewed Height 5 ft 7 in Weight 101.61 kg [place] Body Weight (kg) 61.36 BMI 35.1 Subjective/Other Information Day 6 CPN. CPN infusing at 84ml/hr. Percent of energy/protein needs met: 91% energy 100% pro Burn Absent Trauma Absent #1 Nutrition Diagnosis Inadequate oral intake Diagnosis Progress(for reassessment Continues documentation) Is patient on ventilator? No Is Patient Ambulatory and/or Out of Bed No REE-([place]-confined to bed) 2094.612 Kcal/Kg value to use for calculation 15 Approximate Energy Requirements Using 1524 kcal/Kg Calculation Used for Recommendations Kcal/kg Additional Notes Pro needs 1-1.2g/kg adjBW: 81- 98g/day Fluid needs 1ml/kcal Nutrition Intervention Nutrition Support: Continue CPN rate at 84ml/hr: MVI, 17.4% dextrose, 4.7% amino acids, 0mmol Phos. Osmolality: 1559. Kcal 1,570 Protein (gm) 95 Carbohydrates (gm) 350 Fat (gm) 0 Fluid (mL) 2,016 Fiber (gm) 0 Goal #1 PN to meet nutrient needs as best possible Follow-Up By: 05/13/19 Additional Comments Labs in am: BMP, Mg, Phos
--- NOTE | 2019-05-12 15:39 | Progress Note ---
Assessment and Plan Imp: 1. s/p 2. SBO s/p exlap 3. Acute respiratory failure, hypoxia; better 4. Atelectasis due to abd distension and hypoventilation 5. Chronic nicotine dependence, cigarettes 6. UC 7. Obesity Rec: 1. Oxygenation better; monitor on RA; if worsening SOB or hypoxia repeat CXR 2. Will monitor volume status closely; diuresis prn 3. DVT PPx; LE dopplers negative 4. Incentive [place] 5. OOB if able 6. Stop smoking 7. Further plans pending clinical course; will monitor w/ you Plan of care reviewed w/ patient, she understands/agrees Subjective Date of service: 05/12/19 Principal diagnosis: POD #11 s/p RLTCS with BTL; colitis/Jpouch in place; SBO; POD#6 exl.lap Interval history: No events. Feels better today. Able to get out of bed. Current sats 92% RA. Denies SOB or any new complaints. Active Medications Albuterol (Proventil) 2.5 mg IH TIDRT [facility] Last Admin: 05/12/19 09:11 Dose: Not Given Documented by: Benzocaine/Menthol (Cepacol X Strength) 1 each MM Q2HR PRN PRN Reason: Sore Throat Last Admin: 05/06/19 00:46 Dose: 1 each Documented by: Enoxaparin Sodium (Lovenox) 40 mg SUB-Q QDAY@2200 [facility] Last Admin: 05/11/19 21:45 Dose: 40 mg Documented by: Famotidine (Pepcid) 20 mg IV BID [facility] Last Admin: 05/12/19 09:11 Dose: 20 mg Documented by: Hydrocortisone Acetate (Anucort-Hc) 25 mg TN BID PRN PRN Reason: Hemorrhoids Hydromorphone HCl (Dilaudid) 1 mg IV Q4H PRN PRN Reason: Pain , Severe (7-10) Last Admin: 05/12/19 13:20 Dose: 1 mg Documented by: Amino Acids/Electrolytes/Dextrose (Tpn Adult) 2,016 mls @ 84 mls/hr IV DAILY@2000 [facility]; Protocol Stop: 05/12/19 19:59 Last Admin: 05/11/19 20:25 Dose: 84 mls/hr Documented by: Amino Acids/Electrolytes/Dextrose (Tpn Adult) 2,016 mls @ 84 mls/hr IV DAILY@1999 [facility]; Protocol Stop: 05/13/19 19:59 Magnesium Hydroxide (Milk Of Magnesia) 30 ml PO QHS PRN PRN Reason: Constip Unrelieved By Senna Last Admin: 05/02/19 12:03 Dose: 30 ml Documented by: Morphine Sulfate (Morphine) 2 mg IV Q4H PRN PRN Reason: Pain, Moderate (4-6) Last Admin: 05/11/19 20:09 Dose: 2 mg Documented by: Multi-Ingredient Ointment (Lansinoh) 1 applic TP PRN PRN PRN Reason: dryness/cracking Naloxone HCl (Narcan 0.4 Mg/1 Ml) 0.1 mg IV Q2MIN PRN PRN Reason: Res Rate </= 8 or 02 SAT < 92% Ondansetron HCl (Zofran) 4 mg IV Q8H PRN PRN Reason: Nausea And Vomiting Last Admin: 05/11/19 20:10 Dose: 4 mg Documented by: Roman Anguiano/Glycerin (Tucks Pad) 1 each TP PRN PRN PRN Reason: Hemorrhoids/cleansing/soothing Objective Vital Signs - 12hr 05/12/19 05/12/19 05/12/19 03:59 04:29 07:45 Temperature 98.3 F 97.7 F Pulse Rate 69 72 Respiratory 17 17 20 Rate Blood Pressure 125/79 Blood Pressure 130/78 [Left] O2 Sat by Pulse 94 97 Oximetry 05/12/19 05/12/19 09:12 15:33 Temperature 98.7 F Pulse Rate 72 Respiratory 20 Rate Blood Pressure 134/86 Blood Pressure [Left] O2 Sat by Pulse 95 91 Oximetry Constitutional: no acute distress, alert, other (obese) Eyes: non-icteric ENT: oropharynx moist Neck: supple Effort: other (mildly tachypneic but not labored; shallow breathing due to abd distension) Ascultation: Bilateral: diminished breath sounds (bases) Cardiovascular: regular rate and rhythm (no mrg) Gastrointestinal: absent bowel sounds, tender, other (distended) Integumentary: normal Extremities: no cyanosis, pink and warm, edema (trace bilateral LE edema) Neurologic: normal mental status, non-focal exam, pupils equal and round, CN II- XII normal Psychiatric: mood appropriate, affect normal CBC and BMP: 05/12/19 05:35 05/12/19 05:35 Abnormal lab findings: Abnormal Labs 05/01/19 05/01/19 05/01/19 06:00 06:00 21:41 WBC 12.8 H RBC 3.04 L Hgb 9.4 L 7.5 L Hct 27.6 L 21.9 L MCHC RDW Lymph % (Auto) [place] % (Auto) Lymph # Baso # 0.2 H Seg Neutrophils % 74.2 H Seg Neuts % (Manual) Lymphocytes % (Manual) Seg Neutrophils # 9.5 H Seg Neutrophils # Man Lymphocytes # (Manual) Sodium Potassium Chloride Carbon Dioxide Creatinine Glucose POC Glucose Calcium Phosphorus ALT Total Protein Albumin Crossmatch See Detail 05/03/19 05/04/19 05/04/19 07:08 10:00 15:58 WBC RBC 2.84 L Hgb 8.8 L Hct 25.3 L MCHC 35 H RDW 15.8 H Lymph % (Auto) [place] % (Auto) 8.2 H Lymph # 0.9 L Baso # Seg Neutrophils % 74.6 H Seg Neuts % (Manual) Lymphocytes % (Manual) Seg Neutrophils # Seg Neutrophils # Man Lymphocytes # (Manual) Sodium Potassium 3.3 L Chloride 94.2 L Carbon Dioxide 34 H Creatinine Glucose POC Glucose Calcium Phosphorus ALT Total Protein Albumin Crossmatch See Detail 05/04/19 05/05/19 05/07/19 15:58 05:15 05:09 WBC RBC 2.77 L 3.35 L Hgb 8.5 L Hct 24.6 L 29.7 L MCHC 35 H RDW 15.7 H Lymph % (Auto) 6.[address] [place] % (Auto) 9.9 H Lymph # 1.1 L 0.7 L Baso # Seg Neutrophils % 88.0 H Seg Neuts % (Manual) Lymphocytes % (Manual) Seg Neutrophils # 9.0 H Seg Neutrophils # Man Lymphocytes # (Manual) Sodium Potassium 3.5 L Chloride Carbon Dioxide 32 H Creatinine Glucose 105 H POC Glucose Calcium Phosphorus ALT Total Protein 5.5 L Albumin 2.6 L Crossmatch 05/07/19 05/08/19 05/08/19 05:09 04:30 04:30 WBC RBC Hgb Hct MCHC RDW Lymph % (Auto) [place] % (Auto) Lymph # Baso # Seg Neutrophils % Seg Neuts % (Manual) Lymphocytes % (Manual) Seg Neutrophils # Seg Neutrophils # Man Lymphocytes # (Manual) Sodium 133 L Potassium 5.1 H D Chloride Carbon Dioxide 20 L Creatinine 0.6 L 0.5 L Glucose 134 H 109 H 108 H POC Glucose Calcium 7.9 L 8.1 L Phosphorus ALT 5 L Total Protein 5.2 L 4.5 L Albumin 2.4 L 2.2 L Crossmatch 05/08/19 05/08/19 05/08/19 06:22 07:47 11:01 WBC RBC 3.20 L 3.16 L Hgb 9.7 L 9.4 L Hct 27.7 L 27.4 L MCHC 35 H RDW Lymph % (Auto) 8.[address] [place] % (Auto) Lymph # 1.0 L 0.9 L Baso # Seg Neutrophils % 83.8 H 85.0 H Seg Neuts % (Manual) Lymphocytes % (Manual) Seg Neutrophils # 9.1 H 9.2 H Seg Neutrophils # Man Lymphocytes # (Manual) Sodium Potassium Chloride Carbon Dioxide Creatinine Glucose POC Glucose 114 H Calcium Phosphorus ALT Total Protein Albumin Crossmatch 05/08/19 05/08/19 05/09/19 12:18 17:57 00:46 WBC RBC Hgb Hct MCHC RDW Lymph % (Auto) [place] % (Auto) Lymph # Baso # Seg Neutrophils % Seg Neuts % (Manual) Lymphocytes % (Manual) Seg Neutrophils # Seg Neutrophils # Man Lymphocytes # (Manual) Sodium Potassium Chloride Carbon Dioxide Creatinine Glucose POC Glucose 107 H 107 H 110 H Calcium Phosphorus ALT Total Protein Albumin Crossmatch 05/09/19 05/09/19 05/09/19 04:55 04:55 12:06 WBC RBC 2.95 L Hgb 8.8 L Hct 25.7 L MCHC RDW Lymph % (Auto) 10.[address] [place] % (Auto) Lymph # 0.9 L Baso # Seg Neutrophils % 81.4 H Seg Neuts % (Manual) Lymphocytes % (Manual) Seg Neutrophils # Seg Neutrophils # Man Lymphocytes # (Manual) Sodium Potassium 3.2 L D Chloride Carbon Dioxide Creatinine 0.5 L Glucose 119 H POC Glucose 120 H Calcium 8.0 L Phosphorus ALT Total Protein Albumin Crossmatch 05/09/19 05/09/19 05/09/19 14:03 18:44 23:54 WBC RBC Hgb Hct MCHC RDW Lymph % (Auto) [place] % (Auto) Lymph # Baso # Seg Neutrophils % Seg Neuts % (Manual) Lymphocytes % (Manual) Seg Neutrophils # Seg Neutrophils # Man Lymphocytes # (Manual) Sodium Potassium Chloride Carbon Dioxide Creatinine Glucose POC Glucose 117 H 116 H Calcium Phosphorus ALT Total Protein Albumin Crossmatch See Detail 05/10/19 05/10/19 05/10/19 05:56 06:59 06:59 WBC RBC 2.78 L Hgb 8.3 L Hct 24.4 L MCHC RDW Lymph % (Auto) [place] % (Auto) Lymph # Baso # Seg Neutrophils % Seg Neuts % (Manual) 81.0 H Lymphocytes % (Manual) 12.0 L Seg Neutrophils # Seg Neutrophils # Man Lymphocytes # (Manual) 0.8 L Sodium Potassium Chloride Carbon Dioxide Creatinine 0.4 L Glucose 115 H POC Glucose 125 H Calcium 8.3 L Phosphorus ALT Total Protein Albumin Crossmatch 05/10/19 05/10/19 05/11/19 12:22 18:19 00:23 WBC RBC Hgb Hct MCHC RDW Lymph % (Auto) [place] % (Auto) Lymph # Baso # Seg Neutrophils % Seg Neuts % (Manual) Lymphocytes % (Manual) Seg Neutrophils # Seg Neutrophils # Man Lymphocytes # (Manual) Sodium Potassium Chloride Carbon Dioxide Creatinine Glucose POC Glucose 120 H 113 H 137 H Calcium Phosphorus ALT Total Protein Albumin Crossmatch 05/11/19 05/11/19 05/11/19 05:35 10:16 12:14 WBC RBC 3.37 L Hgb Hct 29.2 L MCHC 36 H RDW Lymph % (Auto) [place] % (Auto) Lymph # Baso # Seg Neutrophils % Seg Neuts % (Manual) 84.0 H Lymphocytes % (Manual) 9.0 L Seg Neutrophils # Seg Neutrophils # Man 8.0 H Lymphocytes # (Manual) 0.9 L Sodium Potassium Chloride Carbon Dioxide Creatinine 0.4 L Glucose 104 H POC Glucose 121 H Calcium Phosphorus ALT Total Protein Albumin Crossmatch 05/11/19 05/12/19 05/12/19 18:48 05:35 05:35 WBC RBC 3.45 L Hgb Hct 30.0 L MCHC 35 H RDW Lymph % (Auto) [place] % (Auto) Lymph # Baso # Seg Neutrophils % Seg Neuts % (Manual) 82.0 H Lymphocytes % (Manual) 9.0 L Seg Neutrophils # Seg Neutrophils # Man Lymphocytes # (Manual) 0.8 L Sodium Potassium Chloride Carbon Dioxide Creatinine 0.5 L Glucose POC Glucose 121 H Calcium 8.3 L Phosphorus 4.70 H ALT Total Protein Albumin Crossmatch 05/12/19 11:47 WBC RBC Hgb Hct MCHC RDW Lymph % (Auto) [place] % (Auto) Lymph # Baso # Seg Neutrophils % Seg Neuts % (Manual) Lymphocytes % (Manual) Seg Neutrophils # Seg Neutrophils # Man Lymphocytes # (Manual) Sodium Potassium Chloride Carbon Dioxide Creatinine Glucose POC Glucose 136 H Calcium Phosphorus ALT Total Protein Albumin Crossmatch Chest x-ray: report reviewed, image reviewed
[2019-05-12] MEDS ORDERED: TPN ADULT 2,016 ML IV SCH (20:00)
[2019-05-12] MEDS: ZOFRAN IV PRN (21:40)
[2019-05-12] MEDS: LOVENOX SUB-Q SCH (21:45)
[2019-05-13] MEDS: DILAUDID IV PRN ×6 (01:49→22:52)
[2019-05-13 05:54] LABS: BUN/Creatinine Ratio 23; Blood Urea Nitrogen 14 mg/dL (7-17); Calcium 8.4 mg/dL (8.4-10.2); Hemolysis Index 4
[2019-05-13] MEDS: PEPCID IV SCH ×2 (10:23→21:58)
--- NOTE | 2019-05-13 11:07 | Progress Note ---
Assessment and Plan 33 y/o female s/p with acute respiratory failure, resolving. 1. PRN diuresis, attempt daily net negative state 2. IS to bedside 3. Ambulate as tolerated when surgery permits. Up in chair as well 4. Will continue to follow along with you. Subjective Date of service: 05/13/19 Principal diagnosis: POD #11 s/p RLTCS with BTL; colitis/Jpouch in place; SBO; POD#6 exl.lap Interval history: No acute events. Remains on Room air although documented as being on 2 liters. Asleep with NG tube in nose. No apparent distress. Objective Vital Signs - 12hr 05/13/19 05/13/19 05/13/19 00:21 01:49 02:19 Temperature 98 F Pulse Rate 73 Respiratory 17 17 16 Rate Blood Pressure 132/79 [Left] O2 Sat by Pulse 90 Oximetry 05/13/19 05/13/19 04:43 05:40 Temperature 97.5 F L Pulse Rate 73 Respiratory 17 16 Rate Blood Pressure 128/90 [Left] O2 Sat by Pulse 94 Oximetry Constitutional: no acute distress, alert, other (obese) Eyes: non-icteric ENT: oropharynx moist Neck: supple Effort: other (mildly tachypneic but not labored; shallow breathing due to abd distension) Ascultation: Bilateral: diminished breath sounds (bases) Cardiovascular: regular rate and rhythm (no mrg) Gastrointestinal: absent bowel sounds, tender, other (distended) Integumentary: normal Extremities: no cyanosis, pink and warm, edema (trace bilateral LE edema) Neurologic: normal mental status, non-focal exam, pupils equal and round, CN II- XII normal Psychiatric: mood appropriate, affect normal CBC and BMP: 05/12/19 05:35 05/13/19 05:20 Abnormal lab findings: Abnormal Labs 05/01/19 05/01/19 05/01/19 06:00 06:00 21:41 WBC 12.8 H RBC 3.04 L Hgb 9.4 L 7.5 L Hct 27.6 L 21.9 L MCHC RDW Lymph % (Auto) Emanuel % (Auto) Lymph # Baso # 0.2 H Seg Neutrophils % 74.2 H Seg Neuts % (Manual) Lymphocytes % (Manual) Seg Neutrophils # 9.5 H Seg Neutrophils # Man Lymphocytes # (Manual) Sodium Potassium Chloride Carbon Dioxide Creatinine Glucose POC Glucose Calcium Phosphorus ALT Total Protein Albumin Crossmatch See Detail 05/03/19 05/04/19 05/04/19 07:08 10:00 15:58 WBC RBC 2.84 L Hgb 8.8 L Hct 25.3 L MCHC 35 H RDW 15.8 H Lymph % (Auto) Emanuel % (Auto) 8.2 H Lymph # 0.9 L Baso # Seg Neutrophils % 74.6 H Seg Neuts % (Manual) Lymphocytes % (Manual) Seg Neutrophils # Seg Neutrophils # Man Lymphocytes # (Manual) Sodium Potassium 3.3 L Chloride 94.2 L Carbon Dioxide 34 H Creatinine Glucose POC Glucose Calcium Phosphorus ALT Total Protein Albumin Crossmatch See Detail 05/04/19 05/05/19 05/07/19 15:58 05:15 05:09 WBC RBC 2.77 L 3.35 L Hgb 8.5 L Hct 24.6 L 29.7 L MCHC 35 H RDW 15.7 H Lymph % (Auto) 6.5 L Emanuel % (Auto) 9.9 H Lymph # 1.1 L 0.7 L Baso # Seg Neutrophils % 88.0 H Seg Neuts % (Manual) Lymphocytes % (Manual) Seg Neutrophils # 9.0 H Seg Neutrophils # Man Lymphocytes # (Manual) Sodium Potassium 3.5 L Chloride Carbon Dioxide 32 H Creatinine Glucose 105 H POC Glucose Calcium Phosphorus ALT Total Protein 5.5 L Albumin 2.6 L Crossmatch 05/07/19 05/08/19 05/08/19 05:09 04:30 04:30 WBC RBC Hgb Hct MCHC RDW Lymph % (Auto) Emanuel % (Auto) Lymph # Baso # Seg Neutrophils % Seg Neuts % (Manual) Lymphocytes % (Manual) Seg Neutrophils # Seg Neutrophils # Man Lymphocytes # (Manual) Sodium 133 L Potassium 5.1 H D Chloride Carbon Dioxide 20 L Creatinine 0.6 L 0.5 L Glucose 134 H 109 H 108 H POC Glucose Calcium 7.9 L 8.1 L Phosphorus ALT 5 L Total Protein 5.2 L 4.5 L Albumin 2.4 L 2.2 L Crossmatch 05/08/19 05/08/19 05/08/19 06:22 07:47 11:01 WBC RBC 3.20 L 3.16 L Hgb 9.7 L 9.4 L Hct 27.7 L 27.4 L MCHC 35 H RDW Lymph % (Auto) 8.8 L 8.5 L Emanuel % (Auto) Lymph # 1.0 L 0.9 L Baso # Seg Neutrophils % 83.8 H 85.0 H Seg Neuts % (Manual) Lymphocytes % (Manual) Seg Neutrophils # 9.1 H 9.2 H Seg Neutrophils # Man Lymphocytes # (Manual) Sodium Potassium Chloride Carbon Dioxide Creatinine Glucose POC Glucose 114 H Calcium Phosphorus ALT Total Protein Albumin Crossmatch 05/08/19 05/08/19 05/09/19 12:18 17:57 00:46 WBC RBC Hgb Hct MCHC RDW Lymph % (Auto) Emanuel % (Auto) Lymph # Baso # Seg Neutrophils % Seg Neuts % (Manual) Lymphocytes % (Manual) Seg Neutrophils # Seg Neutrophils # Man Lymphocytes # (Manual) Sodium Potassium Chloride Carbon Dioxide Creatinine Glucose POC Glucose 107 H 107 H 110 H Calcium Phosphorus ALT Total Protein Albumin Crossmatch 05/09/19 05/09/19 05/09/19 04:55 04:55 12:06 WBC RBC 2.95 L Hgb 8.8 L Hct 25.7 L MCHC RDW Lymph % (Auto) 10.1 L Emanuel % (Auto) Lymph # 0.9 L Baso # Seg Neutrophils % 81.4 H Seg Neuts % (Manual) Lymphocytes % (Manual) Seg Neutrophils # Seg Neutrophils # Man Lymphocytes # (Manual) Sodium Potassium 3.2 L D Chloride Carbon Dioxide Creatinine 0.5 L Glucose 119 H POC Glucose 120 H Calcium 8.0 L Phosphorus ALT Total Protein Albumin Crossmatch 05/09/19 05/09/19 05/09/19 14:03 18:44 23:54 WBC RBC Hgb Hct MCHC RDW Lymph % (Auto) Emanuel % (Auto) Lymph # Baso # Seg Neutrophils % Seg Neuts % (Manual) Lymphocytes % (Manual) Seg Neutrophils # Seg Neutrophils # Man Lymphocytes # (Manual) Sodium Potassium Chloride Carbon Dioxide Creatinine Glucose POC Glucose 117 H 116 H Calcium Phosphorus ALT Total Protein Albumin Crossmatch See Detail 05/10/19 05/10/19 05/10/19 05:56 06:59 06:59 WBC RBC 2.78 L Hgb 8.3 L Hct 24.4 L MCHC RDW Lymph % (Auto) Emanuel % (Auto) Lymph # Baso # Seg Neutrophils % Seg Neuts % (Manual) 81.0 H Lymphocytes % (Manual) 12.0 L Seg Neutrophils # Seg Neutrophils # Man Lymphocytes # (Manual) 0.8 L Sodium Potassium Chloride Carbon Dioxide Creatinine 0.4 L Glucose 115 H POC Glucose 125 H Calcium 8.3 L Phosphorus ALT Total Protein Albumin Crossmatch 05/10/19 05/10/19 05/11/19 12:22 18:19 00:23 WBC RBC Hgb Hct MCHC RDW Lymph % (Auto) Emanuel % (Auto) Lymph # Baso # Seg Neutrophils % Seg Neuts % (Manual) Lymphocytes % (Manual) Seg Neutrophils # Seg Neutrophils # Man Lymphocytes # (Manual) Sodium Potassium Chloride Carbon Dioxide Creatinine Glucose POC Glucose 120 H 113 H 137 H Calcium Phosphorus ALT Total Protein Albumin Crossmatch 05/11/19 05/11/19 05/11/19 05:35 10:16 12:14 WBC RBC 3.37 L Hgb Hct 29.2 L MCHC 36 H RDW Lymph % (Auto) Emanuel % (Auto) Lymph # Baso # Seg Neutrophils % Seg Neuts % (Manual) 84.0 H Lymphocytes % (Manual) 9.0 L Seg Neutrophils # Seg Neutrophils # Man 8.0 H Lymphocytes # (Manual) 0.9 L Sodium Potassium Chloride Carbon Dioxide Creatinine 0.4 L Glucose 104 H POC Glucose 121 H Calcium Phosphorus ALT Total Protein Albumin Crossmatch 05/11/19 05/12/19 05/12/19 18:48 05:35 05:35 WBC RBC 3.45 L Hgb Hct 30.0 L MCHC 35 H RDW Lymph % (Auto) Emanuel % (Auto) Lymph # Baso # Seg Neutrophils % Seg Neuts % (Manual) 82.0 H Lymphocytes % (Manual) 9.0 L Seg Neutrophils # Seg Neutrophils # Man Lymphocytes # (Manual) 0.8 L Sodium Potassium Chloride Carbon Dioxide Creatinine 0.5 L Glucose POC Glucose 121 H Calcium 8.3 L Phosphorus 4.70 H ALT Total Protein Albumin Crossmatch 05/12/19 05/13/19 05/13/19 11:47 01:00 05:20 WBC RBC Hgb Hct MCHC RDW Lymph % (Auto) Emanuel % (Auto) Lymph # Baso # Seg Neutrophils % Seg Neuts % (Manual) Lymphocytes % (Manual) Seg Neutrophils # Seg Neutrophils # Man Lymphocytes # (Manual) Sodium Potassium Chloride Carbon Dioxide Creatinine 0.6 L Glucose POC Glucose 136 H 140 H Calcium Phosphorus 4.60 H ALT Total Protein Albumin Crossmatch 05/13/19 08:03 WBC RBC Hgb Hct MCHC RDW Lymph % (Auto) Emanuel % (Auto) Lymph # Baso # Seg Neutrophils % Seg Neuts % (Manual) Lymphocytes % (Manual) Seg Neutrophils # Seg Neutrophils # Man Lymphocytes # (Manual) Sodium Potassium Chloride Carbon Dioxide Creatinine Glucose POC Glucose 128 H Calcium Phosphorus ALT Total Protein Albumin Crossmatch
--- NOTE | 2019-05-13 11:30 | Progress Note ---
Assessment and Plan Assessment and plan: Patient has a history of ulcerative colitis and is status post total colectomy with a J-pouch since age 6 05/01; Repeat low transverse section with bilateral tubal ligation modified Jenise type 05/06 exploratory laparotomy with Lysis of adhesions Uterine scar from previous delivery 39 weeks gestation of Encounter for sterilization sp C/S and tubal ligation on 05/01 Ulcerative colitis with SBO sp Ex lap and олег, cont TPN, cont NG tube to suction mgt per GS Hypokalemia repleted dvt ppx per primary team, recommend lovenox sq PT consult placed per GS request History Interval history: Review of systems Constitutional: No fevers, no malaise, no joint pains CVS: No chest pain, no orthopnea, no dyspnea on exertion, no pedal edema GI: is now having BMs, abdominal pain is resolving as is distension NG suction is still putting out a lot of billous liquid Respiratory: no wheezing, no coughing Hospitalist Physical - Physical exam Narrative exam: General.: Appears well, no distress, nontoxic HEENT: Moist mucous membranes, extraocular muscles intact, no lymphadenopathy Neck: supple Cardiac: S1-S2 heard Lungs: clear to auscultation bilaterally Abdomen: soft ,non tender and non distended Extremities: no edema clubbing or cyanosis Skin: no rash or lesions Neurologic: no gross focal deficits Psych: calm, and cooperative - Constitutional Vitals: Temp Pulse Resp BP Pulse Ox 97.5 F L 73 16 128/90 94 05/13/19 04:43 05/13/19 04:43 05/13/19 05:40 05/13/19 04:43 05/13/19 04:43 General appearance: Present: no acute distress Results - Labs CBC & Chem 7: 05/12/19 05:35 05/13/19 05:20 Labs: Laboratory Last Values WBC 8.9 K/mm3 (4.5-11.0) 05/12/19 05:35 RBC 3.45 M/mm3 (3.65-5.03) L 05/12/19 05:35 Hgb 10.4 gm/dl (10.1-14.3) 05/12/19 05:35 Hct 30.0 % (30.3-42.9) L 05/12/19 05:35 MCV 87 fl (79-97) 05/12/19 05:35 MCH 30 pg (28-32) 05/12/19 05:35 MCHC 35 % (30-34) H 05/12/19 05:35 RDW 15.1 % (13.2-15.2) 05/12/19 05:35 Plt Count 343 K/mm3 (140-440) 05/12/19 05:35 Lymph % (Auto) 10.1 % (13.4-35.0) L 05/09/19 04:55 Hodgeman % (Auto) 6.8 % (0.0-7.3) 05/09/19 04:55 Eos % (Auto) 1.5 % (0.0-4.3) 05/09/19 04:55 Baso % (Auto) 0.2 % (0.0-1.8) 05/09/19 04:55 Lymph # 0.9 K/mm3 (1.2-5.4) L 05/09/19 04:55 Hodgeman # 0.6 K/mm3 (0.0-0.8) 05/09/19 04:55 Eos # 0.1 K/mm3 (0.0-0.4) 05/09/19 04:55 Baso # 0.0 K/mm3 (0.0-0.1) 05/09/19 04:55 Add Manual Diff Complete 05/12/19 05:35 Total Counted 100 05/12/19 05:35 Seg Neutrophils % 81.4 % (40.0-70.0) H 05/09/19 04:55 Seg Neuts % (Manual) 82.0 % (40.0-70.0) H 05/12/19 05:35 2.0 % 05/12/19 05:35 9.0 % (13.4-35.0) L 05/12/19 05:35 Reactive Lymphs % (Man) 0 % 05/12/19 05:35 4.0 % (0.0-7.3) 05/12/19 05:35 3.0 % (0.0-4.3) 05/12/19 05:35 0 % (0.0-1.8) 05/12/19 05:35 0 % 05/12/19 05:35 0 % 05/12/19 05:35 0 % 05/12/19 05:35 0 % 05/12/19 05:35 Nucleated RBC % Not Reportable 05/12/19 05:35 Seg Neutrophils # 6.9 K/mm3 (1.8-7.7) 05/09/19 04:55 Seg Neutrophils # Man 7.3 K/mm3 (1.8-7.7) 05/12/19 05:35 Band Neutrophils # 0.2 K/mm3 05/12/19 05:35 0.8 K/mm3 (1.2-5.4) L 05/12/19 05:35 Abs React Lymphs (Man) 0.0 K/mm3 05/12/19 05:35 0.4 K/mm3 (0.0-0.8) 05/12/19 05:35 0.3 K/mm3 (0.0-0.4) 05/12/19 05:35 0.0 K/mm3 (0.0-0.1) 05/12/19 05:35 0.0 K/mm3 05/12/19 05:35 0.0 K/mm3 05/12/19 05:35 0.0 K/mm3 05/12/19 05:35 Blast Cells # 0.0 K/mm3 05/12/19 05:35 WBC Morphology Not Reportable 05/12/19 05:35 WBC Morphology TNR 05/12/19 05:35 Hypersegmented Neuts Not Reportable 05/12/19 05:35 Hyposegmented Neuts Not Reportable 05/12/19 05:35 Hypogranular Neuts Not Reportable 05/12/19 05:35 Cancelled 05/08/19 07:47 Not Reportable 05/12/19 05:35 Not Reportable 05/12/19 05:35 Not Reportable 05/12/19 05:35 Not Reportable 05/12/19 05:35 Not Reportable 05/12/19 05:35 Not Reportable 05/12/19 05:35 Appears normal 05/12/19 05:35 Not Reportable 05/12/19 05:35 Plt Clumps, EDTA Not Reportable 05/12/19 05:35 Not Reportable 05/12/19 05:35 Not Reportable 05/12/19 05:35 Not Reportable 05/12/19 05:35 Plt Morphology Comment Not Reportable 05/12/19 05:35 RBC Morphology Not Reportable 05/12/19 05:35 Dimorphic RBCs Not Reportable 05/12/19 05:35 Few 05/12/19 05:35 Not Reportable 05/12/19 05:35 Not Reportable 05/12/19 05:35 Cancelled 05/08/19 07:47 1+ 05/12/19 05:35 Not Reportable 05/12/19 05:35 Not Reportable 05/12/19 05:35 Not Reportable 05/12/19 05:35 Not Reportable 05/12/19 05:35 Not Reportable 05/12/19 05:35 Not Reportable 05/12/19 05:35 Not Reportable 05/12/19 05:35 Not Reportable 05/12/19 05:35 Cancelled 05/08/19 07:47 Not Reportable 05/12/19 05:35 Not Reportable 05/12/19 05:35 Not Reportable 05/12/19 05:35 Not Reportable 05/12/19 05:35 Not Reportable 05/12/19 05:35 Not Reportable 05/12/19 05:35 Not Reportable 05/12/19 05:35 Acanthocytes (Spur) Not Reportable 05/12/19 05:35 Rouleaux Not Reportable 05/12/19 05:35 Not Reportable 05/12/19 05:35 Not Reportable 05/12/19 05:35 Not Reportable 05/12/19 05:35 Not Reportable 05/12/19 05:35 Hem Pathologist Commnt No 05/12/19 05:35 Sodium 140 mmol/L (137-145) 05/13/19 05:20 Potassium 3.9 mmol/L (3.6-5.0) 05/13/19 05:20 Chloride 103.6 mmol/L (98-107) 05/13/19 05:20 Carbon Dioxide 27 mmol/L (22-30) 05/13/19 05:20 13 mmol/L 05/13/19 05:20 BUN 14 mg/dL (7-17) 05/13/19 05:20 0.6 mg/dL (0.7-1.2) L 05/13/19 05:20 Estimated GFR > 60 ml/min 05/13/19 05:20 23 % 05/13/19 05:20 Glucose 91 mg/dL (65-100) 05/13/19 05:20 POC Glucose 128 (70-105) H 05/13/19 08:03 Calcium 8.4 mg/dL (8.4-10.2) 05/13/19 05:20 Phosphorus 4.60 mg/dL (2.5-4.5) H 05/13/19 05:20 Magnesium 2.10 mg/dL (1.7-2.3) 05/13/19 05:20 0.60 mg/dL (0.1-1.2) 05/08/19 04:30 AST 10 units/L (5-40) 05/08/19 04:30 ALT 5 units/L (7-56) L 05/08/19 04:30 76 units/L (35-129) 05/08/19 04:30 4.5 g/dL (6.3-8.2) L 05/08/19 04:30 2.2 g/dL (3.9-5) L 05/08/19 04:30 1.0 % 05/08/19 04:30 RPR Nonreactive (Nonreactive) 05/01/19 06:00 Blood Type O NEGATIVE 05/09/19 14:03 Antibody Screen Positive 05/09/19 14:03 Antibody Identification Anti-D (Passively Aquired) 05/09/19 14:03 Screen Negative 05/01/19 21:41 Crossmatch See Detail 05/09/19 14:03 Active Medications - Current Medications Current Medications: Generic Name Dose Route Start Last Admin Trade Name Freq PRN Reason Stop Dose Admin Albuterol 2.5 mg 05/08/19 14:00 05/12/19 21:00 Proventil IH Not Given TIDRT [facility] Benzocaine/Menthol 1 each 05/03/19 22:48 05/06/19 00:46 Cepacol X Strength MM 1 each Q2HR PRN Administration Sore Throat Enoxaparin Sodium 40 mg 05/11/19 22:00 05/12/19 21:45 Lovenox SUB-Q 40 mg QDAY@2200 TOM Administration Famotidine 20 mg 05/03/19 23:00 05/13/19 10:23 Pepcid IV 20 mg BID TOM Administration Hydrocortisone Acetate 25 mg 05/01/19 10:49 Anucort-Hc HI BID PRN Hemorrhoids Hydromorphone HCl 1 mg 05/11/19 21:22 05/13/19 10:23 Dilaudid IV 1 mg Q4H PRN Administration Pain , Severe (7-10) Amino Acids/Electrolytes/Dextrose 2,016 mls @ 84 mls/hr 05/12/19 20:00 05/12/19 21:48 Tpn Adult IV 05/13/19 19:59 84 mls/hr DAILY@2000 TOM Administration Protocol Magnesium Hydroxide 30 ml 05/01/19 22:00 05/02/19 12:03 Milk Of Magnesia PO 30 ml QHS PRN Administration Constip Unrelieved By Senna Morphine Sulfate 2 mg 05/03/19 16:03 05/11/19 20:09 Morphine IV 2 mg Q4H PRN Administration Pain, Moderate (4-6) Multi-Ingredient Ointment 1 applic 05/01/19 10:49 Lansinoh TP PRN PRN dryness/cracking Naloxone HCl 0.1 mg 05/01/19 10:49 Narcan 0.4 Mg/1 Ml IV Q2MIN PRN Res Rate </= 8 or 02 SAT < 92% Ondansetron HCl 4 mg 05/01/19 10:49 05/12/19 21:40 Zofran IV 4 mg Q8H PRN Administration Nausea And Vomiting Witch Annmarie/Glycerin 1 each 05/01/19 10:49 Tucks Pad TP PRN PRN Hemorrhoids/cleansing/soothing Nutrition/Malnutrition Assess - Dietary Evaluation Nutrition/Malnutrition Findings: Nutrition Notes Start: 05/07/19 10:35 Freq: Status: Active Protocol: Document 05/12/19 09:27 VERONIKA (Rec: 05/12/19 09:32 [facility] [id number] CES1) Nutrition Notes Initial or Follow up Reassessment Other Pertinent Diagnosis Ulcerative colitis, SBO, S/P exploratory laporatory, Ceserean delivery Current Diet PPN at 100ml/hr Labs/Tests Phos 4.7 Pertinent Medications Reviewed Height 5 ft 7 in Weight 101.61 kg [place] Body Weight (kg) 61.36 BMI 35.1 Subjective/Other Information Day 6 CPN. CPN infusing at 84ml/hr. Percent of energy/protein needs met: 91% energy 100% pro Burn Absent Trauma Absent #1 Nutrition Diagnosis Inadequate oral intake Diagnosis Progress(for reassessment Continues documentation) Is patient on ventilator? No Is Patient Ambulatory and/or Out of Bed No REE-([facility]-confined to bed) 2094.612 Kcal/Kg value to use for calculation 15 Approximate Energy Requirements Using 1524 kcal/Kg Calculation Used for Recommendations Kcal/kg Additional Notes Pro needs 1-1.2g/kg adjBW: 81- 98g/day Fluid needs 1ml/kcal Nutrition Intervention Nutrition Support: Continue CPN rate at 84ml/hr: MVI, 17.4% dextrose, 4.7% amino acids, 0mmol Phos. Osmolality: 1559. Kcal 1,570 Protein (gm) 95 Carbohydrates (gm) 350 Fat (gm) 0 Fluid (mL) 2,016 Fiber (gm) 0 Goal #1 PN to meet nutrient needs as best possible Follow-Up By: 05/13/19 Additional Comments Labs in am: BMP, Mg, Phos
--- NOTE | 2019-05-13 12:12 | XRay Report ---
ABDOMINAL SERIES WITH CHEST X-RAY INDICATION / CLINICAL INFORMATION: post surgical assessment. Follow-up small bowel obstruction after surgery. COMPARISON: 05/06/2019 FINDINGS: Nasogastric tube terminates in the descending duodenum. Midline surgical azael are identified consi stent with interval surgery. There is moderate gas throughout small and large bowel loops suggestive of a postoperative ileus. No obvious transition point is appreciated. Small bowel obstruction pattern has significantly improved since the previous exam. There is no evidence for free air. No pathologic calcifications. Single view of the chest demonstrates normal heart size and clear lungs. A right arm PICC terminates in the superior right atrium. IMPRESSION: Findings consistent with a postoperative ileus. Signer Name: Kevin Larsen Jr, MD Signed: 05/13/2019 12:08 PM Workstation Name: [id number]
--- NOTE | 2019-05-13 13:37 | Progress Note ---
Assessment and Plan POD #7 Pt feeling well. minimal flatus Abd soft, non tender. hypoactive BS h/h stable abd series - improving but still ileus pattern continue ng suction and ambulation constinue TPN and present care Selected Entries 05/13/19 12:25 Temperature 98.7 F Respiratory 18 Rate O2 Sat by Pulse 95 Oximetry Blood Pressure 132/80 Laboratory Tests 05/12/19 05/13/19 05:35 05:20 WBC 8.9 Hgb 10.4 Hct 30.0 L Potassium 3.9 Objective Vital Signs - 12hr 05/13/19 05/13/19 05/13/19 01:49 02:19 04:43 Temperature 97.5 F L Pulse Rate 73 Respiratory 17 16 17 Rate Blood Pressure Blood Pressure 128/90 [Left] O2 Sat by Pulse 94 Oximetry 05/13/19 05/13/19 05:40 12:25 Temperature 98.7 F Pulse Rate 79 Respiratory 16 18 Rate Blood Pressure 132/80 Blood Pressure [Left] O2 Sat by Pulse 95 Oximetry - Labs 05/12/19 05:35 05/13/19 05:20 Diabetes panel 05/13/19 Range/Units 05:20 Sodium 140 (137-145) mmol/L Potassium 3.9 (3.6-5.0) mmol/L Chloride 103.6 (98-107) mmol/L Carbon Dioxide 27 (22-30) mmol/L BUN 14 (7-17) mg/dL Creatinine 0.6 L (0.7-1.2) mg/dL Glucose 91 (65-100) mg/dL Calcium 8.4 (8.4-10.2) mg/dL Calcium panel 05/13/19 Range/Units 05:20 Calcium 8.4 (8.4-10.2) mg/dL Phosphorus 4.60 H (2.5-4.5) mg/dL Pituitary panel 05/13/19 Range/Units 05:20 Sodium 140 (137-145) mmol/L Potassium 3.9 (3.6-5.0) mmol/L Chloride 103.6 (98-107) mmol/L Carbon Dioxide 27 (22-30) mmol/L BUN 14 (7-17) mg/dL Creatinine 0.6 L (0.7-1.2) mg/dL Glucose 91 (65-100) mg/dL Calcium 8.4 (8.4-10.2) mg/dL Adrenal panel 05/13/19 Range/Units 05:20 Sodium 140 (137-145) mmol/L Potassium 3.9 (3.6-5.0) mmol/L Chloride 103.6 (98-107) mmol/L Carbon Dioxide 27 (22-30) mmol/L BUN 14 (7-17) mg/dL Creatinine 0.6 L (0.7-1.2) mg/dL Glucose 91 (65-100) mg/dL Calcium 8.4 (8.4-10.2) mg/dL
[2019-05-13] MEDS ORDERED: TPN ADULT 2,016 ML IV SCH (20:00)
--- NOTE | 2019-05-13 20:03 | Event Note ---
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 SBO on abdominal series is improving. Pt is AFVSS. Pt requesting ice chips or throat lozengers. I again advised pt and that I would have to defer to general surgeon as it related to taking things by mouth as she is still npo. Pt expressed understanding and questions were addressed and answered. RN at beside during discussion. Abdominal binder in place and midline incision covered. What is seen of c/s incision is c/d/i.Will con't NGT to suction as per Dr. Rocha.
[2019-05-13] MEDS: PROVENTIL IH SCH (21:24)
[2019-05-13] MEDS: LOVENOX SUB-Q SCH (21:57)
[2019-05-14] MEDS: DILAUDID IV PRN ×5 (02:49→20:31)
--- NOTE | 2019-05-14 05:53 | Event Note ---
Date: 05/14/19 (Digital Community Manager Note) Pt OOB to toilet during my rounds. "I must be getting better I itch all around the incision." Pt reports there is still a large amt of drainage from gastric tube. BP 140-130/90-80. Pt is now bottle feeding only. No reports of encouragement. OB standpoint stable. Will consult with .
[2019-05-14] MEDS: ZOFRAN IV PRN (06:02)
[2019-05-14] MEDS: CEPACOL X STRENGTH MM PRN ×2 (06:03→16:07)
[2019-05-14 06:28] LABS: BUN/Creatinine Ratio 22; Blood Urea Nitrogen 13 mg/dL (7-17); Calcium 9.1 mg/dL (8.4-10.2); Hemolysis Index 0
--- NOTE | 2019-05-14 07:39 | Progress Note ---
Assessment and Plan Assessment and plan: Patient has a history of ulcerative colitis and is status post total colectomy with a J-pouch since age 6 05/01; Repeat low transverse section with bilateral tubal ligation modified Jneise type 05/06 exploratory laparotomy with Lysis of adhesions Uterine scar from previous delivery 39 weeks gestation of Encounter for sterilization sp C/S and tubal ligation on 05/01 Ulcerative colitis with SBO sp Ex lap and олег, cont TPN, cont NG tube to suction mgt per GS Hypokalemia repleted dvt ppx per primary team, recommend lovenox sq PT consult placed per GS request History Interval history: Patient was seen and divided this morning, patient said no abdominal pain. Hospitalist Physical - Physical exam Narrative exam: Not in cardiopulmonary distress. NG tube in place The patient appeared well nourished and normally developed. Vital signs as documented. Head exam is unremarkable. No scleral icterus . Neck is without jugular venous distension, thyromegaly, or carotid bruits. Lungs are clear to auscultation. Cardiac exam reveals regular rate and Rhythm. Abdominal exam clean dressing in the abdomen. Extremities are nonedematous and both femoral and pedal pulses are normal. 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 - Constitutional Vitals: Temp Pulse Resp BP Pulse Ox 98.2 F 69 17 141/86 93 05/14/19 05:19 05/14/19 05:19 05/14/19 05:19 05/14/19 05:19 05/14/19 05:19 General appearance: Present: no acute distress Results - Labs CBC & Chem 7: 05/12/19 05:35 05/14/19 Unknown Labs: Laboratory Last Values WBC 8.9 K/mm3 (4.5-11.0) 05/12/19 05:35 RBC 3.45 M/mm3 (3.65-5.03) L 05/12/19 05:35 Hgb 10.4 gm/dl (10.1-14.3) 05/12/19 05:35 Hct 30.0 % (30.3-42.9) L 05/12/19 05:35 MCV 87 fl (79-97) 05/12/19 05:35 MCH 30 pg (28-32) 05/12/19 05:35 MCHC 35 % (30-34) H 05/12/19 05:35 RDW 15.1 % (13.2-15.2) 05/12/19 05:35 Plt Count 343 K/mm3 (140-440) 05/12/19 05:35 Lymph % (Auto) 10.1 % (13.4-35.0) L 05/09/19 04:55 Alexander % (Auto) 6.8 % (0.0-7.3) 05/09/19 04:55 Eos % (Auto) 1.5 % (0.0-4.3) 05/09/19 04:55 Baso % (Auto) 0.2 % (0.0-1.8) 05/09/19 04:55 Lymph # 0.9 K/mm3 (1.2-5.4) L 05/09/19 04:55 Alexander # 0.6 K/mm3 (0.0-0.8) 05/09/19 04:55 Eos # 0.1 K/mm3 (0.0-0.4) 05/09/19 04:55 Baso # 0.0 K/mm3 (0.0-0.1) 05/09/19 04:55 Add Manual Diff Complete 05/12/19 05:35 Total Counted 100 05/12/19 05:35 Seg Neutrophils % 81.4 % (40.0-70.0) H 05/09/19 04:55 Seg Neuts % (Manual) 82.0 % (40.0-70.0) H 05/12/19 05:35 2.0 % 05/12/19 05:35 9.0 % (13.4-35.0) L 05/12/19 05:35 Reactive Lymphs % (Man) 0 % 05/12/19 05:35 4.0 % (0.0-7.3) 05/12/19 05:35 3.0 % (0.0-4.3) 05/12/19 05:35 0 % (0.0-1.8) 05/12/19 05:35 0 % 05/12/19 05:35 0 % 05/12/19 05:35 0 % 05/12/19 05:35 0 % 05/12/19 05:35 Nucleated RBC % Not Reportable 05/12/19 05:35 Seg Neutrophils # 6.9 K/mm3 (1.8-7.7) 05/09/19 04:55 Seg Neutrophils # Man 7.3 K/mm3 (1.8-7.7) 05/12/19 05:35 Band Neutrophils # 0.2 K/mm3 05/12/19 05:35 0.8 K/mm3 (1.2-5.4) L 05/12/19 05:35 Abs React Lymphs (Man) 0.0 K/mm3 05/12/19 05:35 0.4 K/mm3 (0.0-0.8) 05/12/19 05:35 0.3 K/mm3 (0.0-0.4) 05/12/19 05:35 0.0 K/mm3 (0.0-0.1) 05/12/19 05:35 0.0 K/mm3 05/12/19 05:35 0.0 K/mm3 05/12/19 05:35 0.0 K/mm3 05/12/19 05:35 Blast Cells # 0.0 K/mm3 05/12/19 05:35 WBC Morphology Not Reportable 05/12/19 05:35 WBC Morphology TNR 05/12/19 05:35 Hypersegmented Neuts Not Reportable 05/12/19 05:35 Hyposegmented Neuts Not Reportable 05/12/19 05:35 Hypogranular Neuts Not Reportable 05/12/19 05:35 Cancelled 05/08/19 07:47 Not Reportable 05/12/19 05:35 Not Reportable 05/12/19 05:35 Not Reportable 05/12/19 05:35 Not Reportable 05/12/19 05:35 Not Reportable 05/12/19 05:35 Not Reportable 05/12/19 05:35 Appears normal 05/12/19 05:35 Not Reportable 05/12/19 05:35 Plt Clumps, EDTA Not Reportable 05/12/19 05:35 Not Reportable 05/12/19 05:35 Not Reportable 05/12/19 05:35 Not Reportable 05/12/19 05:35 Plt Morphology Comment Not Reportable 05/12/19 05:35 RBC Morphology Not Reportable 05/12/19 05:35 Dimorphic RBCs Not Reportable 05/12/19 05:35 Few 05/12/19 05:35 Not Reportable 05/12/19 05:35 Not Reportable 05/12/19 05:35 Cancelled 05/08/19 07:47 1+ 05/12/19 05:35 Not Reportable 05/12/19 05:35 Not Reportable 05/12/19 05:35 Not Reportable 05/12/19 05:35 Not Reportable 05/12/19 05:35 Not Reportable 05/12/19 05:35 Not Reportable 05/12/19 05:35 Not Reportable 05/12/19 05:35 Not Reportable 05/12/19 05:35 Cancelled 05/08/19 07:47 Not Reportable 05/12/19 05:35 Not Reportable 05/12/19 05:35 Not Reportable 05/12/19 05:35 Not Reportable 05/12/19 05:35 Not Reportable 05/12/19 05:35 Not Reportable 05/12/19 05:35 Not Reportable 05/12/19 05:35 Acanthocytes (Spur) Not Reportable 05/12/19 05:35 Rouleaux Not Reportable 05/12/19 05:35 Not Reportable 05/12/19 05:35 Not Reportable 05/12/19 05:35 Not Reportable 05/12/19 05:35 Not Reportable 05/12/19 05:35 Hem Pathologist Commnt No 05/12/19 05:35 Sodium 141 mmol/L (137-145) 05/14/19 Unknown Potassium 4.2 mmol/L (3.6-5.0) 05/14/19 Unknown Chloride 102.6 mmol/L (98-107) 05/14/19 Unknown Carbon Dioxide 27 mmol/L (22-30) 05/14/19 Unknown 16 mmol/L 05/14/19 Unknown BUN 13 mg/dL (7-17) 05/14/19 Unknown 0.6 mg/dL (0.7-1.2) L 05/14/19 Unknown Estimated GFR > 60 ml/min 05/14/19 Unknown 22 % 05/14/19 Unknown Glucose 83 mg/dL (65-100) 05/14/19 Unknown POC Glucose 109 (70-105) H 05/14/19 05:34 Calcium 9.1 mg/dL (8.4-10.2) 05/14/19 Unknown Phosphorus 4.40 mg/dL (2.5-4.5) 05/14/19 Unknown Magnesium 2.00 mg/dL (1.7-2.3) 05/14/19 Unknown 0.60 mg/dL (0.1-1.2) 05/08/19 04:30 AST 10 units/L (5-40) 05/08/19 04:30 ALT 5 units/L (7-56) L 05/08/19 04:30 76 units/L (35-129) 05/08/19 04:30 4.5 g/dL (6.3-8.2) L 05/08/19 04:30 2.2 g/dL (3.9-5) L 05/08/19 04:30 1.0 % 05/08/19 04:30 RPR Nonreactive (Nonreactive) 05/01/19 06:00 Blood Type O NEGATIVE 05/09/19 14:03 Antibody Screen Positive 05/09/19 14:03 Antibody Identification Anti-D (Passively Aquired) 05/09/19 14:03 Screen Negative 05/01/19 21:41 Crossmatch See Detail 05/09/19 14:03 Active Medications - Current Medications Current Medications: Generic Name Dose Route Start Last Admin Trade Name Freq PRN Reason Stop Dose Admin Albuterol 2.5 mg 05/08/19 14:00 05/13/19 21:24 Proventil IH Not Given TIDRT TOM Benzocaine/Menthol 1 each 05/03/19 22:48 05/14/19 06:03 Cepacol X Strength MM 1 each Q2HR PRN Administration Sore Throat Enoxaparin Sodium 40 mg 05/11/19 22:00 05/13/19 21:57 Lovenox SUB-Q 40 mg QDAY@2200 TOM Administration Famotidine 20 mg 05/03/19 23:00 05/13/19 21:58 Pepcid IV 20 mg BID TOM Administration Hydrocortisone Acetate 25 mg 05/01/19 10:49 Anucort-Hc RI BID PRN Hemorrhoids Hydromorphone HCl 1 mg 05/11/19 21:22 05/14/19 02:49 Dilaudid IV 1 mg Q4H PRN Administration Pain , Severe (7-10) Amino Acids/Electrolytes/Dextrose 2,016 mls @ 84 mls/hr 05/13/19 20:00 05/13/19 20:04 Tpn Adult IV 05/14/19 19:59 84 mls/hr DAILY@1999 TOM Administration Protocol Magnesium Hydroxide 30 ml 05/01/19 22:00 05/02/19 12:03 Milk Of Magnesia PO 30 ml QHS PRN Administration Constip Unrelieved By Senna Morphine Sulfate 2 mg 05/03/19 16:03 05/11/19 20:09 Morphine IV 2 mg Q4H PRN Administration Pain, Moderate (4-6) Multi-Ingredient Ointment 1 applic 05/01/19 10:49 Lansinoh TP PRN PRN dryness/cracking Naloxone HCl 0.1 mg 05/01/19 10:49 Narcan 0.4 Mg/1 Ml IV Q2MIN PRN Res Rate </= 8 or 02 SAT < 92% Ondansetron HCl 4 mg 05/01/19 10:49 05/14/19 06:02 Zofran IV 4 mg Q8H PRN Administration Nausea And Vomiting Witch Annmarie/Glycerin 1 each 05/01/19 10:49 Tucks Pad TP PRN PRN Hemorrhoids/cleansing/soothing Nutrition/Malnutrition Assess - Dietary Evaluation Nutrition/Malnutrition Findings: Nutrition Notes Start: 05/07/19 10:35 Freq: Status: Active Protocol: Document 05/13/19 11:56 LP (Rec: 05/13/19 12:07 LP [id number]) Nutrition Notes Initial or Follow up Reassessment Other Pertinent Diagnosis Ulcerative colitis, SBO, S/P exploratory laporatory, C[place] delivery Current Diet CPN at 100ml/hr Labs/Tests Phos 4.6 Pertinent Medications Reviewed Height 5 ft 7 in Weight 101.61 kg [place] Body Weight (kg) 61.36 BMI 35.1 Subjective/Other Information Day 7 CPN. pt noted with hypoactive BS. Percent of energy/protein needs met: 100%/100% Burn Absent Trauma Absent #1 Nutrition Diagnosis Inadequate oral intake Diagnosis Progress(for reassessment Continues documentation) Is patient on ventilator? No Is Patient Ambulatory and/or Out of Bed No REE-([facility]-confined to bed) 2094.612 Kcal/Kg value to use for calculation 15 Approximate Energy Requirements Using 1524 kcal/Kg Calculation Used for Recommendations Kcal/kg Additional Notes Pro needs 1-1.2g/kg adjBW: 81- 98g/day Fluid needs 1ml/kcal Nutrition Intervention Change Diet Order: CPN Nutrition Support: Continue CPN rate at 84ml/hr: MVI, Osmolality: 1559. Kcal 1,570 Protein (gm) 95 Carbohydrates (gm) 350 Fat (gm) 0 Fluid (mL) 2,016 Fiber (gm) 0 Goal #1 PN to meet nutrient needs as best possible Anticipated Discharge Needs: Unable to determine at this time Follow-Up By: 05/14/19 Additional Comments Labs in AM: BMP, Mg, Phos
[2019-05-14] MEDS: PROVENTIL IH SCH ×3 (08:50→21:44)
[2019-05-14] MEDS: PEPCID IV SCH ×2 (11:17→22:22)
--- NOTE | 2019-05-14 12:21 | Progress Note ---
Assessment and Plan 33 y/o female s/p with acute respiratory failure, resolving. No new recs for today. Will continue to follow with you. Stable pulm status. 1. PRN diuresis, attempt daily net negative state 2. IS to bedside 3. Ambulate as tolerated when surgery permits. Up in chair as well 4. Will continue to follow along with you. Subjective Date of service: 05/14/19 Principal diagnosis: POD #11 s/p RLTCS with BTL; colitis/Jpouch in place; SBO; POD#6 exl.lap Interval history: No acute events from a pulmonary standpoint. Objective Vital Signs - 12hr 05/14/19 05/14/19 05/14/19 02:49 03:19 05:19 Temperature 98.2 F Pulse Rate 69 Respiratory 17 17 17 Rate Blood Pressure Blood Pressure 141/86 [Left] O2 Sat by Pulse 93 Oximetry 05/14/19 05/14/19 05/14/19 07:35 08:03 08:33 Temperature 97.7 F Pulse Rate 64 Respiratory 20 20 20 Rate Blood Pressure 154/90 Blood Pressure [Left] O2 Sat by Pulse 96 Oximetry 05/14/19 12:08 Temperature Pulse Rate Respiratory 20 Rate Blood Pressure Blood Pressure [Left] O2 Sat by Pulse Oximetry Constitutional: no acute distress, alert, other (obese) Eyes: non-icteric ENT: oropharynx moist Neck: supple Effort: other (mildly tachypneic but not labored; shallow breathing due to abd distension) Ascultation: Bilateral: diminished breath sounds (bases) Cardiovascular: regular rate and rhythm (no mrg) Gastrointestinal: absent bowel sounds, tender, other (distended) Integumentary: normal Extremities: no cyanosis, pink and warm, edema (trace bilateral LE edema) Neurologic: normal mental status, non-focal exam, pupils equal and round, CN II- XII normal Psychiatric: mood appropriate, affect normal CBC and BMP: 05/12/19 05:35 05/14/19 Unknown Abnormal lab findings: Abnormal Labs 05/01/19 05/01/19 05/01/19 06:00 06:00 21:41 WBC 12.8 H RBC 3.04 L Hgb 9.4 L 7.5 L Hct 27.6 L 21.9 L MCHC RDW Lymph % (Auto) [place] % (Auto) Lymph # Baso # 0.2 H Seg Neutrophils % 74.2 H Seg Neuts % (Manual) Lymphocytes % (Manual) Seg Neutrophils # 9.5 H Seg Neutrophils # Man Lymphocytes # (Manual) Sodium Potassium Chloride Carbon Dioxide Creatinine Glucose POC Glucose Calcium Phosphorus ALT Total Protein Albumin Crossmatch See Detail 05/03/19 05/04/19 05/04/19 07:08 10:00 15:58 WBC RBC 2.84 L Hgb 8.8 L Hct 25.3 L MCHC 35 H RDW 15.8 H Lymph % (Auto) [place] % (Auto) 8.2 H Lymph # 0.9 L Baso # Seg Neutrophils % 74.6 H Seg Neuts % (Manual) Lymphocytes % (Manual) Seg Neutrophils # Seg Neutrophils # Man Lymphocytes # (Manual) Sodium Potassium 3.3 L Chloride 94.2 L Carbon Dioxide 34 H Creatinine Glucose POC Glucose Calcium Phosphorus ALT Total Protein Albumin Crossmatch See Detail 05/04/19 05/05/19 05/07/19 15:58 05:15 05:09 WBC RBC 2.77 L 3.35 L Hgb 8.5 L Hct 24.6 L 29.7 L MCHC 35 H RDW 15.7 H Lymph % (Auto) 6.5 L [place] % (Auto) 9.9 H Lymph # 1.1 L 0.7 L Baso # Seg Neutrophils % 88.0 H Seg Neuts % (Manual) Lymphocytes % (Manual) Seg Neutrophils # 9.0 H Seg Neutrophils # Man Lymphocytes # (Manual) Sodium Potassium 3.5 L Chloride Carbon Dioxide 32 H Creatinine Glucose 105 H POC Glucose Calcium Phosphorus ALT Total Protein 5.5 L Albumin 2.6 L Crossmatch 05/07/19 05/08/19 05/08/19 05:09 04:30 04:30 WBC RBC Hgb Hct MCHC RDW Lymph % (Auto) [place] % (Auto) Lymph # Baso # Seg Neutrophils % Seg Neuts % (Manual) Lymphocytes % (Manual) Seg Neutrophils # Seg Neutrophils # Man Lymphocytes # (Manual) Sodium 133 L Potassium 5.1 H D Chloride Carbon Dioxide 20 L Creatinine 0.6 L 0.5 L Glucose 134 H 109 H 108 H POC Glucose Calcium 7.9 L 8.1 L Phosphorus ALT 5 L Total Protein 5.2 L 4.5 L Albumin 2.4 L 2.2 L Crossmatch 05/08/19 05/08/19 05/08/19 06:22 07:47 11:01 WBC RBC 3.20 L 3.16 L Hgb 9.7 L 9.4 L Hct 27.7 L 27.4 L MCHC 35 H RDW Lymph % (Auto) 8.8 L 8.5 L [place] % (Auto) Lymph # 1.0 L 0.9 L Baso # Seg Neutrophils % 83.8 H 85.0 H Seg Neuts % (Manual) Lymphocytes % (Manual) Seg Neutrophils # 9.1 H 9.2 H Seg Neutrophils # Man Lymphocytes # (Manual) Sodium Potassium Chloride Carbon Dioxide Creatinine Glucose POC Glucose 114 H Calcium Phosphorus ALT Total Protein Albumin Crossmatch 05/08/19 05/08/19 05/09/19 12:18 17:57 00:46 WBC RBC Hgb Hct MCHC RDW Lymph % (Auto) [place] % (Auto) Lymph # Baso # Seg Neutrophils % Seg Neuts % (Manual) Lymphocytes % (Manual) Seg Neutrophils # Seg Neutrophils # Man Lymphocytes # (Manual) Sodium Potassium Chloride Carbon Dioxide Creatinine Glucose POC Glucose 107 H 107 H 110 H Calcium Phosphorus ALT Total Protein Albumin Crossmatch 05/09/19 05/09/19 05/09/19 04:55 04:55 12:06 WBC RBC 2.95 L Hgb 8.8 L Hct 25.7 L MCHC RDW Lymph % (Auto) 10.1 L [place] % (Auto) Lymph # 0.9 L Baso # Seg Neutrophils % 81.4 H Seg Neuts % (Manual) Lymphocytes % (Manual) Seg Neutrophils # Seg Neutrophils # Man Lymphocytes # (Manual) Sodium Potassium 3.2 L D Chloride Carbon Dioxide Creatinine 0.5 L Glucose 119 H POC Glucose 120 H Calcium 8.0 L Phosphorus ALT Total Protein Albumin Crossmatch 05/09/19 05/09/19 05/09/19 14:03 18:44 23:54 WBC RBC Hgb Hct MCHC RDW Lymph % (Auto) [place] % (Auto) Lymph # Baso # Seg Neutrophils % Seg Neuts % (Manual) Lymphocytes % (Manual) Seg Neutrophils # Seg Neutrophils # Man Lymphocytes # (Manual) Sodium Potassium Chloride Carbon Dioxide Creatinine Glucose POC Glucose 117 H 116 H Calcium Phosphorus ALT Total Protein Albumin Crossmatch See Detail 05/10/19 05/10/19 05/10/19 05:56 06:59 06:59 WBC RBC 2.78 L Hgb 8.3 L Hct 24.4 L MCHC RDW Lymph % (Auto) [place] % (Auto) Lymph # Baso # Seg Neutrophils % Seg Neuts % (Manual) 81.0 H Lymphocytes % (Manual) 12.0 L Seg Neutrophils # Seg Neutrophils # Man Lymphocytes # (Manual) 0.8 L Sodium Potassium Chloride Carbon Dioxide Creatinine 0.4 L Glucose 115 H POC Glucose 125 H Calcium 8.3 L Phosphorus ALT Total Protein Albumin Crossmatch 05/10/19 05/10/19 05/11/19 12:22 18:19 00:23 WBC RBC Hgb Hct MCHC RDW Lymph % (Auto) [place] % (Auto) Lymph # Baso # Seg Neutrophils % Seg Neuts % (Manual) Lymphocytes % (Manual) Seg Neutrophils # Seg Neutrophils # Man Lymphocytes # (Manual) Sodium Potassium Chloride Carbon Dioxide Creatinine Glucose POC Glucose 120 H 113 H 137 H Calcium Phosphorus ALT Total Protein Albumin Crossmatch 05/11/19 05/11/19 05/11/19 05:35 10:16 12:14 WBC RBC 3.37 L Hgb Hct 29.2 L MCHC 36 H RDW Lymph % (Auto) [place] % (Auto) Lymph # Baso # Seg Neutrophils % Seg Neuts % (Manual) 84.0 H Lymphocytes % (Manual) 9.0 L Seg Neutrophils # Seg Neutrophils # Man 8.0 H Lymphocytes # (Manual) 0.9 L Sodium Potassium Chloride Carbon Dioxide Creatinine 0.4 L Glucose 104 H POC Glucose 121 H Calcium Phosphorus ALT Total Protein Albumin Crossmatch 05/11/19 05/12/19 05/12/19 18:48 05:35 05:35 WBC RBC 3.45 L Hgb Hct 30.0 L MCHC 35 H RDW Lymph % (Auto) [place] % (Auto) Lymph # Baso # Seg Neutrophils % Seg Neuts % (Manual) 82.0 H Lymphocytes % (Manual) 9.0 L Seg Neutrophils # Seg Neutrophils # Man Lymphocytes # (Manual) 0.8 L Sodium Potassium Chloride Carbon Dioxide Creatinine 0.5 L Glucose POC Glucose 121 H Calcium 8.3 L Phosphorus 4.70 H ALT Total Protein Albumin Crossmatch 05/12/19 05/13/19 05/13/19 11:47 01:00 05:20 WBC RBC Hgb Hct MCHC RDW Lymph % (Auto) [place] % (Auto) Lymph # Baso # Seg Neutrophils % Seg Neuts % (Manual) Lymphocytes % (Manual) Seg Neutrophils # Seg Neutrophils # Man Lymphocytes # (Manual) Sodium Potassium Chloride Carbon Dioxide Creatinine 0.6 L Glucose POC Glucose 136 H 140 H Calcium Phosphorus 4.60 H ALT Total Protein Albumin Crossmatch 05/13/19 05/13/19 05/13/19 08:03 16:44 23:11 WBC RBC Hgb Hct MCHC RDW Lymph % (Auto) [place] % (Auto) Lymph # Baso # Seg Neutrophils % Seg Neuts % (Manual) Lymphocytes % (Manual) Seg Neutrophils # Seg Neutrophils # Man Lymphocytes # (Manual) Sodium Potassium Chloride Carbon Dioxide Creatinine Glucose POC Glucose 128 H 121 H 118 H Calcium Phosphorus ALT Total Protein Albumin Crossmatch 05/14/19 05/14/19 05:34 Unknown WBC RBC Hgb Hct MCHC RDW Lymph % (Auto) [place] % (Auto) Lymph # Baso # Seg Neutrophils % Seg Neuts % (Manual) Lymphocytes % (Manual) Seg Neutrophils # Seg Neutrophils # Man Lymphocytes # (Manual) Sodium Potassium Chloride Carbon Dioxide Creatinine 0.6 L Glucose POC Glucose 109 H Calcium Phosphorus ALT Total Protein Albumin Crossmatch
--- NOTE | 2019-05-14 13:36 | Progress Note ---
Assessment and Plan POD # 8 Pt status quo. appears somewhat depressed. no specific compl. neg flatus Abd soft. incision clean and dry surgically stable mental health eval d/c azael. keep retention sutures (reviewed with RN) continue present care Selected Entries 05/14/19 05/14/19 12:04 12:08 Temperature 97.7 F Respiratory 20 Rate Blood Pressure 130/98 [Left] Objective Vital Signs - 12hr 05/14/19 05/14/19 05/14/19 02:49 03:19 05:19 Temperature 98.2 F Pulse Rate 69 Respiratory 17 17 17 Rate Blood Pressure Blood Pressure 141/86 [Left] O2 Sat by Pulse 93 Oximetry 05/14/19 05/14/19 05/14/19 07:35 08:03 08:33 Temperature 97.7 F Pulse Rate 64 Respiratory 20 20 20 Rate Blood Pressure 154/90 Blood Pressure [Left] O2 Sat by Pulse 96 Oximetry 05/14/19 05/14/19 12:04 12:08 Temperature 97.7 F Pulse Rate 72 Respiratory 20 20 Rate Blood Pressure Blood Pressure 130/98 [Left] O2 Sat by Pulse 94 Oximetry - Labs 05/12/19 05:35 05/14/19 Unknown Diabetes panel 05/14/19 Range/Units Unknown Sodium 141 (137-145) mmol/L Potassium 4.2 (3.6-5.0) mmol/L Chloride 102.6 (98-107) mmol/L Carbon Dioxide 27 (22-30) mmol/L BUN 13 (7-17) mg/dL Creatinine 0.6 L (0.7-1.2) mg/dL Glucose 83 (65-100) mg/dL Calcium 9.1 (8.4-10.2) mg/dL Calcium panel 05/14/19 Range/Units Unknown Calcium 9.1 (8.4-10.2) mg/dL Phosphorus 4.40 (2.5-4.5) mg/dL Pituitary panel 05/14/19 Range/Units Unknown Sodium 141 (137-145) mmol/L Potassium 4.2 (3.6-5.0) mmol/L Chloride 102.6 (98-107) mmol/L Carbon Dioxide 27 (22-30) mmol/L BUN 13 (7-17) mg/dL Creatinine 0.6 L (0.7-1.2) mg/dL Glucose 83 (65-100) mg/dL Calcium 9.1 (8.4-10.2) mg/dL Adrenal panel 05/14/19 Range/Units Unknown Sodium 141 (137-145) mmol/L Potassium 4.2 (3.6-5.0) mmol/L Chloride 102.6 (98-107) mmol/L Carbon Dioxide 27 (22-30) mmol/L BUN 13 (7-17) mg/dL Creatinine 0.6 L (0.7-1.2) mg/dL Glucose 83 (65-100) mg/dL Calcium 9.1 (8.4-10.2) mg/dL
[2019-05-14] MEDS ORDERED: TPN ADULT 2,016 ML IV SCH (20:00)
[2019-05-14] MEDS: LOVENOX SUB-Q SCH (22:22)
[2019-05-15] MEDS: DILAUDID IV PRN ×5 (00:38→22:41)
[2019-05-15] MEDS: PROVENTIL IH SCH ×4 (01:03→21:31)
[2019-05-15] MEDS: MORPHINE IV PRN (04:44)
[2019-05-15 06:06] LABS: Basophils % (Auto) 0.1 % (0.0-1.8); Eosinophils # (Auto) 0.7 K/mm3 (0.0-0.4); Eosinophils % (Auto) 6.9 % (0.0-4.3); Hematocrit 31.6 % (30.3-42.9); Hemoglobin 10.8 gm/dl (10.1-14.3); Lymphocytes # (Auto) 1.3 K/mm3 (1.2-5.4); Lymphocytes % (Auto) 13.4 % (13.4-35.0); Mean Corpuscular HGB Conc 34 % (30-34); Mean Corpuscular Volume 88 fl (79-97); Monocytes # (Auto) 0.5 K/mm3 (0.0-0.8); Monocytes % (Auto) 5.7 % (0.0-7.3); Platelet Count 419 K/mm3 (140-440); Red Blood Count 3.61 M/mm3 (3.65-5.03); Red Cell Distribution Width 15.1 % (13.2-15.2)
[2019-05-15 06:49] LABS: Alanine Aminotransferase 33 units/L (7-56); Albumin 2.8 g/dL (3.9-5); BUN/Creatinine Ratio 23; Blood Urea Nitrogen 14 mg/dL (7-17); Calcium 9.1 mg/dL (8.4-10.2); Hemolysis Index 1
[2019-05-15] MEDS: ZOFRAN IV PRN ×2 (08:52→22:42)
[2019-05-15] MEDS: PEPCID IV SCH ×2 (09:00→21:13)
--- NOTE | 2019-05-15 11:41 | Progress Note ---
Assessment and Plan 33 y/o female s/p with acute respiratory failure, resolving. No new recs for today. Will see PRN. Stable pulm status. 1. PRN diuresis, attempt daily net negative state 2. IS to bedside 3. Ambulate as tolerated when surgery permits. Up in chair as well Subjective Date of service: 05/15/19 Principal diagnosis: POD #11 s/p RLTCS with BTL; colitis/Jpouch in place; SBO; POD#6 exl.lap Interval history: No acute events. Remains on Room air. Objective Vital Signs - 12hr 05/15/19 05/15/19 05/15/19 00:11 04:56 07:43 Temperature 97.7 F 97.5 F L Pulse Rate 76 71 Respiratory 18 22 Rate Blood Pressure 138/90 135/87 O2 Sat by Pulse 92 90 97 Oximetry 05/15/19 05/15/19 07:45 11:31 Temperature 98.2 F 98.3 F Pulse Rate 72 71 Respiratory 20 18 Rate Blood Pressure 140/84 137/91 O2 Sat by Pulse 93 93 Oximetry Constitutional: no acute distress, alert, other (obese) Eyes: non-icteric ENT: oropharynx moist Neck: supple Effort: other (mildly tachypneic but not labored; shallow breathing due to abd distension) Ascultation: Bilateral: diminished breath sounds (bases) Cardiovascular: regular rate and rhythm (no mrg) Gastrointestinal: absent bowel sounds, tender, other (distended) Integumentary: normal Extremities: no cyanosis, pink and warm, edema (trace bilateral LE edema) Neurologic: normal mental status, non-focal exam, pupils equal and round, CN II- XII normal Psychiatric: mood appropriate, affect normal CBC and BMP: 05/15/19 05:30 05/15/19 05:30 Abnormal lab findings: Abnormal Labs 05/01/19 05/01/19 05/01/19 06:00 06:00 21:41 WBC 12.8 H RBC 3.04 L Hgb 9.4 L 7.5 L Hct 27.6 L 21.9 L MCHC RDW Lymph % (Auto) [place] % (Auto) Eos % (Auto) Lymph # Eos # Baso # 0.2 H Seg Neutrophils % 74.2 H Seg Neuts % (Manual) Lymphocytes % (Manual) Seg Neutrophils # 9.5 H Seg Neutrophils # Man Lymphocytes # (Manual) Sodium Potassium Chloride Carbon Dioxide Creatinine Glucose POC Glucose Calcium Phosphorus AST ALT Alkaline Phosphatase Total Protein Albumin Crossmatch See Detail 05/03/19 05/04/19 05/04/19 07:08 10:00 15:58 WBC RBC 2.84 L Hgb 8.8 L Hct 25.3 L MCHC 35 H RDW 15.8 H Lymph % (Auto) [place] % (Auto) 8.2 H Eos % (Auto) Lymph # 0.9 L Eos # Baso # Seg Neutrophils % 74.6 H Seg Neuts % (Manual) Lymphocytes % (Manual) Seg Neutrophils # Seg Neutrophils # Man Lymphocytes # (Manual) Sodium Potassium 3.3 L Chloride 94.2 L Carbon Dioxide 34 H Creatinine Glucose POC Glucose Calcium Phosphorus AST ALT Alkaline Phosphatase Total Protein Albumin Crossmatch See Detail 05/04/19 05/05/19 05/07/19 15:58 05:15 05:09 WBC RBC 2.77 L 3.35 L Hgb 8.5 L Hct 24.6 L 29.7 L MCHC 35 H RDW 15.7 H Lymph % (Auto) 6.5 L [place] % (Auto) 9.9 H Eos % (Auto) Lymph # 1.1 L 0.7 L Eos # Baso # Seg Neutrophils % 88.0 H Seg Neuts % (Manual) Lymphocytes % (Manual) Seg Neutrophils # 9.0 H Seg Neutrophils # Man Lymphocytes # (Manual) Sodium Potassium 3.5 L Chloride Carbon Dioxide 32 H Creatinine Glucose 105 H POC Glucose Calcium Phosphorus AST ALT Alkaline Phosphatase Total Protein 5.5 L Albumin 2.6 L Crossmatch 05/07/19 05/08/19 05/08/19 05:09 04:30 04:30 WBC RBC Hgb Hct MCHC RDW Lymph % (Auto) [place] % (Auto) Eos % (Auto) Lymph # Eos # Baso # Seg Neutrophils % Seg Neuts % (Manual) Lymphocytes % (Manual) Seg Neutrophils # Seg Neutrophils # Man Lymphocytes # (Manual) Sodium 133 L Potassium 5.1 H D Chloride Carbon Dioxide 20 L Creatinine 0.6 L 0.5 L Glucose 134 H 109 H 108 H POC Glucose Calcium 7.9 L 8.1 L Phosphorus AST ALT 5 L Alkaline Phosphatase Total Protein 5.2 L 4.5 L Albumin 2.4 L 2.2 L Crossmatch 07/10/19 07/10/19 07/10/19 06:22 07:47 11:01 WBC RBC 3.20 L 3.16 L Hgb 9.7 L 9.4 L Hct 27.7 L 27.4 L MCHC 35 H RDW Lymph % (Auto) 8.8 L 8.5 L [place] % (Auto) Eos % (Auto) Lymph # 1.0 L 0.9 L Eos # Baso # Seg Neutrophils % 83.8 H 85.0 H Seg Neuts % (Manual) Lymphocytes % (Manual) Seg Neutrophils # 9.1 H 9.2 H Seg Neutrophils # Man Lymphocytes # (Manual) Sodium Potassium Chloride Carbon Dioxide Creatinine Glucose POC Glucose 114 H Calcium Phosphorus AST ALT Alkaline Phosphatase Total Protein Albumin Crossmatch 05/08/19 05/08/19 05/09/19 12:18 17:57 00:46 WBC RBC Hgb Hct MCHC RDW Lymph % (Auto) [place] % (Auto) Eos % (Auto) Lymph # Eos # Baso # Seg Neutrophils % Seg Neuts % (Manual) Lymphocytes % (Manual) Seg Neutrophils # Seg Neutrophils # Man Lymphocytes # (Manual) Sodium Potassium Chloride Carbon Dioxide Creatinine Glucose POC Glucose 107 H 107 H 110 H Calcium Phosphorus AST ALT Alkaline Phosphatase Total Protein Albumin Crossmatch 05/09/19 05/09/19 05/09/19 04:55 04:55 12:06 WBC RBC 2.95 L Hgb 8.8 L Hct 25.7 L MCHC RDW Lymph % (Auto) 10.1 L [place] % (Auto) Eos % (Auto) Lymph # 0.9 L Eos # Baso # Seg Neutrophils % 81.4 H Seg Neuts % (Manual) Lymphocytes % (Manual) Seg Neutrophils # Seg Neutrophils # Man Lymphocytes # (Manual) Sodium Potassium 3.2 L D Chloride Carbon Dioxide Creatinine 0.5 L Glucose 119 H POC Glucose 120 H Calcium 8.0 L Phosphorus AST ALT Alkaline Phosphatase Total Protein Albumin Crossmatch 05/09/19 05/09/19 05/09/19 14:03 18:44 23:54 WBC RBC Hgb Hct MCHC RDW Lymph % (Auto) [place] % (Auto) Eos % (Auto) Lymph # Eos # Baso # Seg Neutrophils % Seg Neuts % (Manual) Lymphocytes % (Manual) Seg Neutrophils # Seg Neutrophils # Man Lymphocytes # (Manual) Sodium Potassium Chloride Carbon Dioxide Creatinine Glucose POC Glucose 117 H 116 H Calcium Phosphorus AST ALT Alkaline Phosphatase Total Protein Albumin Crossmatch See Detail 05/10/19 05/10/19 05/10/19 05:56 06:59 06:59 WBC RBC 2.78 L Hgb 8.3 L Hct 24.4 L MCHC RDW Lymph % (Auto) [place] % (Auto) Eos % (Auto) Lymph # Eos # Baso # Seg Neutrophils % Seg Neuts % (Manual) 81.0 H Lymphocytes % (Manual) 12.0 L Seg Neutrophils # Seg Neutrophils # Man Lymphocytes # (Manual) 0.8 L Sodium Potassium Chloride Carbon Dioxide Creatinine 0.4 L Glucose 115 H POC Glucose 125 H Calcium 8.3 L Phosphorus AST ALT Alkaline Phosphatase Total Protein Albumin Crossmatch 05/10/19 05/10/19 05/11/19 12:22 18:19 00:23 WBC RBC Hgb Hct MCHC RDW Lymph % (Auto) [place] % (Auto) Eos % (Auto) Lymph # Eos # Baso # Seg Neutrophils % Seg Neuts % (Manual) Lymphocytes % (Manual) Seg Neutrophils # Seg Neutrophils # Man Lymphocytes # (Manual) Sodium Potassium Chloride Carbon Dioxide Creatinine Glucose POC Glucose 120 H 113 H 137 H Calcium Phosphorus AST ALT Alkaline Phosphatase Total Protein Albumin Crossmatch 05/11/19 05/11/19 05/11/19 05:35 10:16 12:14 WBC RBC 3.37 L Hgb Hct 29.2 L MCHC 36 H RDW Lymph % (Auto) [place] % (Auto) Eos % (Auto) Lymph # Eos # Baso # Seg Neutrophils % Seg Neuts % (Manual) 84.0 H Lymphocytes % (Manual) 9.0 L Seg Neutrophils # Seg Neutrophils # Man 8.0 H Lymphocytes # (Manual) 0.9 L Sodium Potassium Chloride Carbon Dioxide Creatinine 0.4 L Glucose 104 H POC Glucose 121 H Calcium Phosphorus AST ALT Alkaline Phosphatase Total Protein Albumin Crossmatch 05/11/19 05/12/19 05/12/19 18:48 05:35 05:35 WBC RBC 3.45 L Hgb Hct 30.0 L MCHC 35 H RDW Lymph % (Auto) [place] % (Auto) Eos % (Auto) Lymph # Eos # Baso # Seg Neutrophils % Seg Neuts % (Manual) 82.0 H Lymphocytes % (Manual) 9.0 L Seg Neutrophils # Seg Neutrophils # Man Lymphocytes # (Manual) 0.8 L Sodium Potassium Chloride Carbon Dioxide Creatinine 0.5 L Glucose POC Glucose 121 H Calcium 8.3 L Phosphorus 4.70 H AST ALT Alkaline Phosphatase Total Protein Albumin Crossmatch 05/12/19 05/13/19 05/13/19 11:47 01:00 05:20 WBC RBC Hgb Hct MCHC RDW Lymph % (Auto) [place] % (Auto) Eos % (Auto) Lymph # Eos # Baso # Seg Neutrophils % Seg Neuts % (Manual) Lymphocytes % (Manual) Seg Neutrophils # Seg Neutrophils # Man Lymphocytes # (Manual) Sodium Potassium Chloride Carbon Dioxide Creatinine 0.6 L Glucose POC Glucose 136 H 140 H Calcium Phosphorus 4.60 H AST ALT Alkaline Phosphatase Total Protein Albumin Crossmatch 05/13/19 05/13/19 05/13/19 08:03 16:44 23:11 WBC RBC Hgb Hct MCHC RDW Lymph % (Auto) [place] % (Auto) Eos % (Auto) Lymph # Eos # Baso # Seg Neutrophils % Seg Neuts % (Manual) Lymphocytes % (Manual) Seg Neutrophils # Seg Neutrophils # Man Lymphocytes # (Manual) Sodium Potassium Chloride Carbon Dioxide Creatinine Glucose POC Glucose 128 H 121 H 118 H Calcium Phosphorus AST ALT Alkaline Phosphatase Total Protein Albumin Crossmatch 05/14/19 05/14/19 05/14/19 05:34 18:11 Unknown WBC RBC Hgb Hct MCHC RDW Lymph % (Auto) [place] % (Auto) Eos % (Auto) Lymph # Eos # Baso # Seg Neutrophils % Seg Neuts % (Manual) Lymphocytes % (Manual) Seg Neutrophils # Seg Neutrophils # Man Lymphocytes # (Manual) Sodium Potassium Chloride Carbon Dioxide Creatinine 0.6 L Glucose POC Glucose 109 H 108 H Calcium Phosphorus AST ALT Alkaline Phosphatase Total Protein Albumin Crossmatch 05/15/19 05/15/19 05/15/19 00:21 05:30 05:30 WBC RBC 3.61 L Hgb Hct MCHC RDW Lymph % (Auto) [place] % (Auto) Eos % (Auto) 6.9 H Lymph # Eos # 0.7 H Baso # Seg Neutrophils % 73.9 H Seg Neuts % (Manual) Lymphocytes % (Manual) Seg Neutrophils # Seg Neutrophils # Man Lymphocytes # (Manual) Sodium Potassium Chloride Carbon Dioxide Creatinine 0.6 L Glucose POC Glucose 116 H Calcium Phosphorus AST 44 H ALT Alkaline Phosphatase 206 H Total Protein Albumin 2.8 L Crossmatch 05/15/19 06:24 WBC RBC Hgb Hct MCHC RDW Lymph % (Auto) [place] % (Auto) Eos % (Auto) Lymph # Eos # Baso # Seg Neutrophils % Seg Neuts % (Manual) Lymphocytes % (Manual) Seg Neutrophils # Seg Neutrophils # Man Lymphocytes # (Manual) Sodium Potassium Chloride Carbon Dioxide Creatinine Glucose POC Glucose 120 H Calcium Phosphorus AST ALT Alkaline Phosphatase Total Protein Albumin Crossmatch
--- NOTE | 2019-05-15 12:57 | Progress Note ---
Assessment and Plan POD # 9 Pt status quo. still appears somewhat depressed. small BM Abd soft. incision clean and dry stable h/h surgically stable awaiting mental health eval clamp ng tube x 24 hrs f/u abd series in am will possibly d/c ng in am pending abd x-ray findings Selected Entries 05/15/19 11:31 Temperature 98.3 F Pulse Rate 71 Respiratory 18 Rate Blood Pressure 137/91 Laboratory Tests 05/15/19 05:30 WBC 9.5 Hgb 10.8 Hct 31.6 Objective Vital Signs - 12hr 05/15/19 05/15/19 05/15/19 04:56 07:43 07:45 Temperature 97.5 F L 98.2 F Pulse Rate 71 72 Respiratory 22 20 Rate Blood Pressure 135/87 140/84 O2 Sat by Pulse 90 97 93 Oximetry 05/15/19 11:31 Temperature 98.3 F Pulse Rate 71 Respiratory 18 Rate Blood Pressure 137/91 O2 Sat by Pulse 93 Oximetry - Labs 05/15/19 05:30 05/15/19 05:30 Diabetes panel 05/15/19 Range/Units 05:30 Sodium 140 (137-145) mmol/L Potassium 4.2 (3.6-5.0) mmol/L Chloride 102.1 (98-107) mmol/L Carbon Dioxide 27 (22-30) mmol/L BUN 14 (7-17) mg/dL Creatinine 0.6 L (0.7-1.2) mg/dL Glucose 82 (65-100) mg/dL Calcium 9.1 (8.4-10.2) mg/dL AST 44 H (5-40) units/L ALT 33 (7-56) units/L Alkaline Phosphatase 206 H (35-129) units/L Total Protein 6.6 (6.3-8.2) g/dL Albumin 2.8 L (3.9-5) g/dL Calcium panel 05/15/19 Range/Units 05:30 Calcium 9.1 (8.4-10.2) mg/dL Albumin 2.8 L (3.9-5) g/dL Pituitary panel 05/15/19 Range/Units 05:30 Sodium 140 (137-145) mmol/L Potassium 4.2 (3.6-5.0) mmol/L Chloride 102.1 (98-107) mmol/L Carbon Dioxide 27 (22-30) mmol/L BUN 14 (7-17) mg/dL Creatinine 0.6 L (0.7-1.2) mg/dL Glucose 82 (65-100) mg/dL Calcium 9.1 (8.4-10.2) mg/dL Adrenal panel 05/15/19 Range/Units 05:30 Sodium 140 (137-145) mmol/L Potassium 4.2 (3.6-5.0) mmol/L Chloride 102.1 (98-107) mmol/L Carbon Dioxide 27 (22-30) mmol/L BUN 14 (7-17) mg/dL Creatinine 0.6 L (0.7-1.2) mg/dL Glucose 82 (65-100) mg/dL Calcium 9.1 (8.4-10.2) mg/dL Total Bilirubin 0.90 (0.1-1.2) mg/dL AST 44 H (5-40) units/L ALT 33 (7-56) units/L Alkaline Phosphatase 206 H (35-129) units/L Total Protein 6.6 (6.3-8.2) g/dL Albumin 2.8 L (3.9-5) g/dL
--- NOTE | 2019-05-15 13:23 | Consultation ---
History of Present Illness - Reason for Consult Consult date: 05/15/19 Reason for consult: Initial Psychiatric Evaluation - Chief Complaint Chief complaint: " I had my son on May 01" - History of Present Psychiatric Illness Patient is a 33 year old female that was admitted to the hospital for a repeat section. Psychiatry was consulted because of depression. Patient has a PPHx of MDD and GAGE. Today the patient is calm and cooperative during the assessment. She states, " I had a baby May 01. I had surgery the following Monday. I haven't been home. I've been here 14 days. I've only been able to spend 4 days with my son. My son is with my aunt and they're 2 hours away. Prior to coming in here I had depression. I stopped taking medication when I found out I was . In the past, I've tried 2 antidepressants they didn't work because of the side effects. I've taken propranolol . " Patient is tearful throughout the assessment. She reports anhedonia, appropriate appetite, energy fluctuations, and decrease sleep. She denies SI/HI's, A/VH's, and delusions. Patient reports that she will not breast feed. Psychiatric Medications: klonopin and propranolol Past Medication Trials: Zoloft and Celexa - " they upset my stomach too much." Past Psychiatric History: MDD (2014)and GAGE (2015); no inpatient psychiatric hospitalizations; no outpatient psychiatrist; no previous suicide attempt. History of Alcohol Abuse/Drugs: Patient denies alcohol abuse and drugs. History of Trauma/Abuse: Patient denies hx of trauma. Also she denies hx of sexual, physical, and mental abuse. Social History: Associate's Degree in Healthcare Administration; unemployed- no source of income; x 2 years; 3 children; lives with , 2 children in [place], [place]. Family History of Psychiatric Illness/Substance Abuse: Mother- " depressed." Medications and Allergies Allergies Allergy/AdvReac Type Severity Reaction Status Date / Time cephalexin [From Keflex] AdvReac Severe Anaphylaxis Verified 03/11/19 16:21 Penicillins AdvReac Severe Anaphylaxis Verified 03/11/19 16:20 Home Medications Medication Instructions Recorded Confirmed Last Taken Type Ferrous Sulfate [Feosol 325 MG tab] 325 mg PO BID #60 tablet 05/01/19 Unknown Rx Ibuprofen [Motrin 800 MG tab] 800 mg PO Q6H PRN #30 tablet 05/01/19 Unknown Rx Lidocain2.5%/Prilocai2.5% [Emla] 5 gm TP ONCE #1 tube 05/01/19 Unknown Rx oxyCODONE /ACETAMINOPHEN [Percocet 1 - 2 tab PO Q4H PRN #20 tablet 05/01/19 Unknown Rx 5/325 mg] Active Meds: Active Medications Albuterol (Proventil) 2.5 mg IH TIDRT [facility] Last Admin: 05/15/19 07:43 Dose: Not Given Documented by: Benzocaine/Menthol (Cepacol X Strength) 1 each MM Q2HR PRN PRN Reason: Sore Throat Last Admin: 05/14/19 16:07 Dose: 1 each Documented by: Enoxaparin Sodium (Lovenox) 40 mg SUB-Q QDAY@2200 [facility] Last Admin: 05/14/19 22:22 Dose: 40 mg Documented by: Famotidine (Pepcid) 20 mg IV BID [facility] Last Admin: 05/15/19 09:00 Dose: 20 mg Documented by: Hydrocortisone Acetate (Anucort-Hc) 25 mg VT BID PRN PRN Reason: Hemorrhoids Hydromorphone HCl (Dilaudid) 1 mg IV Q4H PRN PRN Reason: Pain , Severe (7-10) Last Admin: 05/15/19 08:52 Dose: 1 mg Documented by: Amino Acids/Electrolytes/Dextrose (Tpn Adult) 2,016 mls @ 84 mls/hr IV DAILY@1999 [facility]; Protocol Stop: 05/15/19 19:59 Last Admin: 05/14/19 22:18 Dose: 84 mls/hr Documented by: Amino Acids/Electrolytes/Dextrose (Tpn Adult) 2,016 mls @ 84 mls/hr IV DAILY@1999 [facility]; Protocol Stop: 05/16/19 19:59 Fat Emulsion Intravenous (Intralipid 20%) 250 mls @ 21 mls/hr IV DAILY@1999 [facility] Stop: 05/16/19 08:00 Magnesium Hydroxide (Milk Of Magnesia) 30 ml PO QHS PRN PRN Reason: Constip Unrelieved By Senna Last Admin: 05/02/19 12:03 Dose: 30 ml Documented by: Morphine Sulfate (Morphine) 2 mg IV Q4H PRN PRN Reason: Pain, Moderate (4-6) Last Admin: 05/15/19 04:44 Dose: 2 mg Documented by: Multi-Ingredient Ointment (Lansinoh) 1 applic TP PRN PRN PRN Reason: dryness/cracking Naloxone HCl (Narcan 0.4 Mg/1 Ml) 0.1 mg IV Q2MIN PRN PRN Reason: Res Rate </= 8 or 02 SAT < 92% Ondansetron HCl (Zofran) 4 mg IV Q8H PRN PRN Reason: Nausea And Vomiting Last Admin: 05/15/19 08:52 Dose: 4 mg Documented by: Roman Anguiano/Glycerin (Tucks Pad) 1 each TP PRN PRN PRN Reason: Hemorrhoids/cleansing/soothing Mental Status Exam - Vital signs Last Vital Signs Temp 98.3 F 05/15/19 11:31 Pulse 71 05/15/19 11:31 Resp 18 05/15/19 11:31 BP 137/91 05/15/19 11:31 Pulse Ox 93 05/15/19 11:31 - Exam Narrative exam: Mental Status Exam Appearance: calm, cooperative Behavior: good eye contact Speech: regular rate and tone Mood: "today has been a good day"; depressed, anxious Affect: congruent to mood Thought Process: organized Thought Content: denies SI/HI's, A/VH's, and delusions Motor Activity: ambulatory Cognition: A/O x 3 Insight: fair Judgment: fair Results Result Diagrams: 05/15/19 05:30 05/15/19 05:30 Abnormal lab results 05/14/19 05/15/19 05/15/19 Range/Units 18:11 00:21 05:30 RBC (3.65-5.03) M/mm3 Eos % (Auto) (0.0-4.3) % Eos # (0.0-0.4) K/mm3 Seg Neutrophils % (40.0-70.0) % Creatinine 0.6 L (0.7-1.2) mg/dL POC Glucose 108 H 116 H (70-105) AST 44 H (5-40) units/L Alkaline Phosphatase 206 H (35-129) units/L Albumin 2.8 L (3.9-5) g/dL 05/15/19 05/15/1919 Range/Units 05:30 06:24 11:43 RBC 3.61 L (3.65-5.03) M/mm3 Eos % (Auto) 6.9 H (0.0-4.3) % Eos # 0.7 H (0.0-0.4) K/mm3 Seg Neutrophils % 73.9 H (40.0-70.0) % Creatinine (0.7-1.2) mg/dL POC Glucose 120 H 118 H (70-105) AST (5-40) units/L Alkaline Phosphatase (35-129) units/L Albumin (3.9-5) g/dL All other labs normal. Assessment and Plan Assessment and plan: Impression: MDD, recurrent, severe without psychosis, GAGE. Today the patient is calm and cooperative during the assessment. She denies SI/HI's, A/VH's, and delusions. Recommendation/Plan: 1. Will assess patient is 24 hours for medication management. 2. Start Wellbutrin 75 mg po QAM depression. Discussed the possible side effects of increase suicidal ideations. Start Vistaril 25mg po TID PRN anxiety. Discuss ed anti-cholinergic side effects. Patient verbalizes full understanding. Disposition: Will reassess in 24 hours[address] Will staff with Dr Emily Kendall.
--- NOTE | 2019-05-15 14:46 | Progress Note ---
Assessment and Plan Assessment and plan: Patient has a history of ulcerative colitis and is status post total colectomy with a J-pouch since age 6 05/01; Repeat low transverse section with bilateral tubal ligation modified Jenise type 05/06 exploratory laparotomy with Lysis of adhesions Uterine scar from previous delivery 39 weeks gestation of Encounter for sterilization sp C/S and tubal ligation on 05/01 Ulcerative colitis with SBO sp Ex lap and олег, cont TPN, cont NG tube to suction mgt per GS Hypokalemia repleted dvt ppx per primary team, recommend lovenox sq PT consult placed per GS request History Interval history: Patient was seen and divided this morning, patient said no abdominal pain. Hospitalist Physical - Physical exam Narrative exam: Not in cardiopulmonary distress. NG tube in place The patient appeared well nourished and normally developed. Vital signs as documented. Head exam is unremarkable. No scleral icterus . Neck is without jugular venous distension, thyromegaly, or carotid bruits. Lungs are clear to auscultation. Cardiac exam reveals regular rate and Rhythm. Abdominal exam clean dressing in the abdomen. Extremities are nonedematous and both femoral and pedal pulses are normal. 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 - Constitutional Vitals: Temp Pulse Resp BP Pulse Ox 98.3 F 71 18 137/91 93 05/15/19 11:31 05/15/19 11:31 05/15/19 11:31 05/15/19 11:31 05/15/19 11:31 General appearance: Present: no acute distress Results - Labs CBC & Chem 7: 05/15/19 05:30 05/15/19 05:30 Labs: Laboratory Last Values WBC 9.5 K/mm3 (4.5-11.0) 05/15/19 05:30 RBC 3.61 M/mm3 (3.65-5.03) L 05/15/19 05:30 Hgb 10.8 gm/dl (10.1-14.3) 05/15/19 05:30 Hct 31.6 % (30.3-42.9) 05/15/19 05:30 MCV 88 fl (79-97) 05/15/19 05:30 MCH 30 pg (28-32) 05/15/19 05:30 MCHC 34 % (30-34) 05/15/19 05:30 RDW 15.1 % (13.2-15.2) 05/15/19 05:30 Plt Count 419 K/mm3 (140-440) 05/15/19 05:30 Lymph % (Auto) 13.4 % (13.4-35.0) 05/15/19 05:30 [place] % (Auto) 5.7 % (0.0-7.3) 05/15/19 05:30 Eos % (Auto) 6.9 % (0.0-4.3) H 05/15/19 05:30 Baso % (Auto) 0.1 % (0.0-1.8) 05/15/19 05:30 Lymph # 1.3 K/mm3 (1.2-5.4) 05/15/19 05:30 [place] # 0.5 K/mm3 (0.0-0.8) 05/15/19 05:30 Eos # 0.7 K/mm3 (0.0-0.4) H 05/15/19 05:30 Baso # 0.0 K/mm3 (0.0-0.1) 05/15/19 05:30 Add Manual Diff Complete 05/12/19 05:35 Total Counted 100 05/12/19 05:35 Seg Neutrophils % 73.9 % (40.0-70.0) H 05/15/19 05:30 Seg Neuts % (Manual) 82.0 % (40.0-70.0) H 05/12/19 05:35 2.0 % 05/12/19 05:35 9.0 % (13.4-35.0) L 05/12/19 05:35 Reactive Lymphs % (Man) 0 % 05/12/19 05:35 4.0 % (0.0-7.3) 05/12/19 05:35 3.0 % (0.0-4.3) 05/12/19 05:35 0 % (0.0-1.8) 05/12/19 05:35 0 % 05/12/19 05:35 0 % 05/12/19 05:35 0 % 05/12/19 05:35 0 % 05/12/19 05:35 Nucleated RBC % Not Reportable 05/12/19 05:35 Seg Neutrophils # 7.0 K/mm3 (1.8-7.7) 05/15/19 05:30 Seg Neutrophils # Man 7.3 K/mm3 (1.8-7.7) 05/12/19 05:35 Band Neutrophils # 0.2 K/mm3 05/12/19 05:35 0.8 K/mm3 (1.2-5.4) L 05/12/19 05:35 Abs React Lymphs (Man) 0.0 K/mm3 05/12/19 05:35 0.4 K/mm3 (0.0-0.8) 05/12/19 05:35 0.3 K/mm3 (0.0-0.4) 05/12/19 05:35 0.0 K/mm3 (0.0-0.1) 05/12/19 05:35 0.0 K/mm3 05/12/19 05:35 0.0 K/mm3 05/12/19 05:35 0.0 K/mm3 05/12/19 05:35 Blast Cells # 0.0 K/mm3 05/12/19 05:35 WBC Morphology Not Reportable 05/12/19 05:35 WBC Morphology TNR 05/12/19 05:35 Hypersegmented Neuts Not Reportable 05/12/19 05:35 Hyposegmented Neuts Not Reportable 05/12/19 05:35 Hypogranular Neuts Not Reportable 05/12/19 05:35 Cancelled 05/08/19 07:47 Not Reportable 05/12/19 05:35 Not Reportable 05/12/19 05:35 Not Reportable 05/12/19 05:35 Not Reportable 05/12/19 05:35 Not Reportable 05/12/19 05:35 Not Reportable 05/12/19 05:35 Appears normal 05/12/19 05:35 Not Reportable 05/12/19 05:35 Plt Clumps, EDTA Not Reportable 05/12/19 05:35 Not Reportable 05/12/19 05:35 Not Reportable 05/12/19 05:35 Not Reportable 05/12/19 05:35 Plt Morphology Comment Not Reportable 05/12/19 05:35 RBC Morphology Not Reportable 05/12/19 05:35 Dimorphic RBCs Not Reportable 05/12/19 05:35 Few 05/12/19 05:35 Not Reportable 05/12/19 05:35 Not Reportable 05/12/19 05:35 Cancelled 05/08/19 07:47 1+ 05/12/19 05:35 Not Reportable 05/12/19 05:35 Not Reportable 05/12/19 05:35 Not Reportable 05/12/19 05:35 Not Reportable 05/12/19 05:35 Not Reportable 05/12/19 05:35 Not Reportable 05/12/19 05:35 Not Reportable 05/12/19 05:35 Not Reportable 05/12/19 05:35 Cancelled 05/08/19 07:47 Not Reportable 05/12/19 05:35 Not Reportable 05/12/19 05:35 Not Reportable 05/12/19 05:35 Not Reportable 05/12/19 05:35 Not Reportable 05/12/19 05:35 Not Reportable 05/12/19 05:35 Not Reportable 05/12/19 05:35 Acanthocytes (Spur) Not Reportable 05/12/19 05:35 Rouleaux Not Reportable 05/12/19 05:35 Not Reportable 05/12/19 05:35 Not Reportable 05/12/19 05:35 Not Reportable 05/12/19 05:35 Not Reportable 05/12/19 05:35 Hem Pathologist Commnt No 05/12/19 05:35 Sodium 140 mmol/L (137-145) 05/15/19 05:30 Potassium 4.2 mmol/L (3.6-5.0) 05/15/19 05:30 Chloride 102.1 mmol/L (98-107) 05/15/19 05:30 Carbon Dioxide 27 mmol/L (22-30) 05/15/19 05:30 15 mmol/L 05/15/19 05:30 BUN 14 mg/dL (7-17) 05/15/19 05:30 0.6 mg/dL (0.7-1.2) L 05/15/19 05:30 Estimated GFR > 60 ml/min 05/15/19 05:30 23 % 05/15/19 05:30 Glucose 82 mg/dL (65-100) 05/15/19 05:30 POC Glucose 118 (70-105) H 05/15/19 11:43 Calcium 9.1 mg/dL (8.4-10.2) 05/15/19 05:30 Phosphorus 4.40 mg/dL (2.5-4.5) 05/14/19 Unknown Magnesium 2.00 mg/dL (1.7-2.3) 05/14/19 Unknown 0.90 mg/dL (0.1-1.2) 05/15/19 05:30 AST 44 units/L (5-40) H 05/15/19 05:30 ALT 33 units/L (7-56) 05/15/19 05:30 206 units/L (35-129) H 05/15/19 05:30 6.6 g/dL (6.3-8.2) 05/15/19 05:30 2.8 g/dL (3.9-5) L 05/15/19 05:30 0.7 % 05/15/19 05:30 RPR Nonreactive (Nonreactive) 05/01/19 06:00 Blood Type O NEGATIVE 05/09/19 14:03 Antibody Screen Positive 05/09/19 14:03 Antibody Identification Anti-D (Passively Aquired) 05/09/19 14:03 Screen Negative 05/01/19 21:41 Crossmatch See Detail 05/09/19 14:03 Active Medications - Current Medications Current Medications: Generic Name Dose Route Start Last Admin Trade Name Freq PRN Reason Stop Dose Admin Albuterol 2.5 mg 05/08/19 14:00 05/15/19 07:43 Proventil IH Not Given TIDRT [facility] Benzocaine/Menthol 1 each 05/03/19 22:48 05/14/19 16:07 Cepacol X Strength MM 1 each Q2HR PRN Administration Sore Throat Enoxaparin Sodium 40 mg 05/11/19 22:00 05/14/19 22:22 Lovenox SUB-Q 40 mg QDAY@2200 TOM Administration Famotidine 20 mg 05/03/19 23:00 05/15/19 09:00 Pepcid IV 20 mg BID TOM Administration Hydrocortisone Acetate 25 mg 05/01/19 10:49 Anucort-Hc FL BID PRN Hemorrhoids Hydromorphone HCl 1 mg 05/11/19 21:22 05/15/19 13:24 Dilaudid IV 1 mg Q4H PRN Administration Pain , Severe (7-10) Amino Acids/Electrolytes/Dextrose 2,016 mls @ 84 mls/hr 05/14/19 20:00 05/14/19 22:18 Tpn Adult IV 05/15/19 19:59 84 mls/hr DAILY@1999 [facility] Administration Protocol Amino Acids/Electrolytes/Dextrose 2,016 mls @ 84 mls/hr 05/15/19 20:00 Tpn Adult IV 05/16/19 19:59 DAILY@1999 [facility] Protocol Fat Emulsion Intravenous 250 mls @ 21 mls/hr 05/15/19 20:00 Intralipid 20% IV 05/16/19 08:00 DAILY@1999 [facility] Magnesium Hydroxide 30 ml 05/01/19 22:00 05/02/19 12:03 Milk Of Magnesia PO 30 ml QHS PRN Administration Constip Unrelieved By Senna Morphine Sulfate 2 mg 05/03/19 16:03 05/15/19 04:44 Morphine IV 2 mg Q4H PRN Administration Pain, Moderate (4-6) Multi-Ingredient Ointment 1 applic 05/01/19 10:49 Lansinoh TP PRN PRN dryness/cracking Naloxone HCl 0.1 mg 05/01/19 10:49 Narcan 0.4 Mg/1 Ml IV Q2MIN PRN Res Rate </= 8 or 02 SAT < 92% Ondansetron HCl 4 mg 05/01/19 10:49 05/15/19 08:52 Zofran IV 4 mg Q8H PRN Administration Nausea And Vomiting Witch Annmarie/Glycerin 1 each 05/01/19 10:49 Tucks Pad TP PRN PRN Hemorrhoids/cleansing/soothing Nutrition/Malnutrition Assess - Dietary Evaluation Nutrition/Malnutrition Findings: Nutrition Notes Start: 05/07/19 10:35 Freq: Status: Active Protocol: Document 05/15/19 08:12 LP (Rec: 05/15/19 08:15 LP [id number]) Nutrition Notes Initial or Follow up Reassessment Other Pertinent Diagnosis Ulcerative colitis, SBO, S/P exploratory laporatory, Ceserean delivery Current Diet CPN at 100ml/hr Labs/Tests Reviewed Pertinent Medications Reviewed Height 5 ft 7 in Weight 101.61 kg [place] Body Weight (kg) 61.36 BMI 35.1 Subjective/Other Information Day 9 CPN. No new changes. Percent of energy/protein needs met: 100%/100% Burn Absent Trauma Absent #1 Nutrition Diagnosis Inadequate oral intake Diagnosis Progress(for reassessment Continues documentation) Is patient on ventilator? No Is Patient Ambulatory and/or Out of Bed No REE-([place]-confined to bed) 2094.612 Kcal/Kg value to use for calculation 15 Approximate Energy Requirements Using 1524 kcal/Kg Calculation Used for Recommendations Kcal/kg Additional Notes Pro needs 1-1.2g/kg adjBW: 81- 98g/day Fluid needs 1ml/kcal Nutrition Intervention Change Diet Order: CPN Nutrition Support: Continue CPN rate at 84ml/hr: MVI, lipids Osmolality: 1539. Kcal 2,070 Protein (gm) 95 Carbohydrates (gm) 350 Fat (gm) 50 Fluid (mL) 2,266 Fiber (gm) 0 Goal #1 PN to meet nutrient needs as best possible Anticipated Discharge Needs: Unable to determine at this time Follow-Up By: 05/16/19 Additional Comments No labs in AM
--- NOTE | 2019-05-15 18:32 | Progress Note ---
Assessment and Plan - Patient Problems (1) S/P repeat low transverse Current Visit: Yes Status: Acute Plan to address problem: no c/o from traffic control specialist [place] will d/c home when cleared by sx (2) Nausea and vomiting Current Visit: Yes Status: Acute Plan to address problem: -resolved (3) SBO (small bowel obstruction) Current Visit: Yes Status: Acute Plan to address problem: s/p Ex lap cleared from traffic control specialist standpoint will await recommendations from gen sx regarding guidance with diet advancement and removal of NGT. Subjective - Subjective Principal diagnosis: POD #14 s/p RLTCS with BTL; colitis/Jpouch in place; SBO; POD#9 exl.lap Interval history: pt states she is feeling much better. She reports some ambulation to the bathroom. No vaginal bleeding. no c/o regarding incisions. Patient reports: appetite normal, voiding normally, pain well controlled, flatus, bowel movement, ambulating normally, no dizzy ambulation, no nauseated Objective - Vital Signs Latest vital signs: Vital Signs Temp Pulse Resp BP Pulse Ox 05/15/19 15:23 98.2 F 68 20 148/85 93 05/15/19 11:31 98.3 F 71 18 137/91 93 05/15/19 07:45 98.2 F 72 20 140/84 93 05/15/19 07:43 97 05/15/19 04:56 97.5 F L 71 22 135/87 90 05/15/19 00:11 97.7 F 76 18 138/90 92 05/14/19 21:18 94 05/14/19 20:31 18 05/14/19 19:32 98.1 F 65 18 144/91 94 Intake and Output 05/15/19 05/15/19 05/15/19 06:59 14:59 22:59 Intake Total 0 0 Output Total 400 400 Balance -400 -400 Intake: Oral 0 0 Output: Drainage 400 400 Right Anterior NARE 400 400 Other: Total, Intake Amount 0 0 Total, Output Amount 400 400 # Voids Indwelling Catheter 0 Void 3 1 # Bowel Movements 1 Weight 101.61 kg Patient Weight 05/16/19 06:59 Weight 101.61 kg - Exam Lungs: Present: Normal air movement Abdomen: Present: normal appearance, soft. Absent: tenderness, guarding Extremities: Present: normal. Absent: tenderness, edema Deep Tendon Reflex Grade: Normal +2 - Labs Labs: Abnormal lab results 05/15/19 05/15/19 05/15/19 Range/Units 00:21 05:30 05:30 RBC 3.61 L (3.65-5.03) M/mm3 Eos % (Auto) 6.9 H (0.0-4.3) % Eos # 0.7 H (0.0-0.4) K/mm3 Seg Neutrophils % 73.9 H (40.0-70.0) % Creatinine 0.6 L (0.7-1.2) mg/dL POC Glucose 116 H (70-105) AST 44 H (5-40) units/L Alkaline Phosphatase 206 H (35-129) units/L Albumin 2.8 L (3.9-5) g/dL 05/15/19 05/15/19 Range/Units 06:24 11:43 RBC (3.65-5.03) M/mm3 Eos % (Auto) (0.0-4.3) % Eos # (0.0-0.4) K/mm3 Seg Neutrophils % (40.0-70.0) % Creatinine (0.7-1.2) mg/dL POC Glucose 120 H 118 H (70-105) AST (5-40) units/L Alkaline Phosphatase (35-129) units/L Albumin (3.9-5) g/dL
[2019-05-15] MEDS ORDERED: INTRALIPID 20% 250 ML IV SCH (20:00)
[2019-05-15] MEDS ORDERED: TPN ADULT 2,016 ML IV SCH (20:00)
[2019-05-15] MEDS: LOVENOX SUB-Q SCH (21:13)
[2019-05-16] MEDS: DILAUDID IV PRN ×4 (06:10→20:57)
--- NOTE | 2019-05-16 08:21 | XRay Report ---
PROCEDURE: ABDOMEN FLAT AND UPRIGHT WITH SINGLE VIEW CHEST HISTORY: Postop or small bowel obstruction. COMPARISON: 05/13/2019 TECHNIQUE: Supine and upright abdominal as well as single view chest radiographs obtained. FINDINGS: Lungs: The lungs are clear. The lung volumes are normal. Pleural Effusion: No evidence of a pleural effusion is seen. Pneumothorax: No evidence of pneumothorax is seen. Cardiac: The heart size is normal. Mediastinal silhouette: The mediastinal silhouette is normal. Hilar regions: The hilar regions are normal in appearance. Pulmonary vascularity: The pulmonary vascularity is normal in appearance. Trachea: The trachea is midline. Skeletal structures: The skeletal structures are normal in appearance. Support hardware: Right PICC line tip is in the distal SVC. Additional findings: None. Bowel: Mildly dilated proximal small bowel loops with air-fluid levels in the midline but decreased p roximal small bowel dilatation compared to the previous exam. Moderate dilatation of mid and distal s mall bowel loops which is slightly increased. No colon gas identified. No evidence of free air is grady ntified. Calcifications: No abnormal calcifications over the kidneys or along the course of the ureters are se en. No phleboliths in the pelvis are seen. Osseous Structures: The skeletal structures are unremarkable in appearance. Additional findings: A nasogastric tube tip is in good position in the second portion of the duodenum . Some midline skin azael have been removed since the last exam. IMPRESSION: 1. Negative chest. 2. Persistent moderate small bowel ileus. Signer Name: Ruslan Bullock MD Signed: 05/16/2019 8:17 AM Workstation Name: [id number]
[2019-05-16] MEDS: PROVENTIL IH SCH (08:39)
[2019-05-16] MEDS ORDERED: PROVENTIL IH PRN (09:30)
[2019-05-16] MEDS: ZOFRAN IV PRN (10:58)
[2019-05-16] MEDS: PEPCID IV SCH ×2 (11:15→21:05)
--- NOTE | 2019-05-16 13:32 | Progress Note ---
Assessment and Plan - Patient Problems (1) Uterine scar from previous delivery Current Visit: Yes Status: Chronic (2) 39 weeks gestation of Current Visit: Yes Status: Resolved (3) Encounter for sterilization Current Visit: Yes Status: Acute (4) Ulcerative colitis Current Visit: Yes Status: Chronic Qualifiers: Ulcerative colitis location: unspecified ulcerative colitis location Digestive disease complication type: with intestinal obstruction Qualified Code(s): K51.912 - Ulcerative colitis, unspecified with intestinal obstruction (5) Abdominal distention Onset Date: ~05/03/19 Current Visit: Yes Status: Acute (6) Ileus Current Visit: Yes Status: Acute Plan to address problem: Improving s/p NGT clamping. Discussed x-ray resolves. Advancing of diet and retention of NGT per Dr. Sanford (7) delivery delivered Onset Date: ~05/01/19 Current Visit: Yes Status: Acute Plan to address problem: During well from obstetrical standpoint Subjective - Subjective Date of service: 05/16/19 Principal diagnosis: POD #15 s/p RLTCS with BTL; colitis/Jpouch in place; SBO; POD#10 exl.lap Interval history: Patient states has had BM Patient reports: pain well controlled, bowel movement Objective - Vital Signs Latest vital signs: Vital Signs Temp Pulse Resp BP Pulse Ox 05/16/19 11:11 98.0 F 80 18 136/88 91 05/16/19 08:40 93 05/16/19 07:25 94 05/16/19 07:24 98.4 F 75 18 138/85 91 05/16/19 00:03 98.2 F 75 18 133/84 93 05/15/19 20:56 98.4 F 70 18 139/82 88 05/15/19 15:23 98.2 F 68 20 148/85 93 Intake and Output 05/15/19 05/16/19 05/16/19 22:59 06:59 14:59 Intake Total 0 Output Total 400 Balance -400 Intake: Oral 0 Output: Drainage 400 Right Anterior NARE 400 Other: Intake, Other Source Saline Solution Total, Intake Amount 0 Total, Output Amount 400 Voiding Method Toilet # Voids Indwelling Catheter 0 Void 1 # Bowel Movements 1 Weight 224 lb 0.187 oz Patient Weight 05/17/19 06:59 Weight 224 lb 0.187 oz - Exam Breasts: Present: deferred Cardiovascular: Present: Regular rate Abdomen: Present: soft, distention Incision: Present: dry, intact, dressed - Labs Labs: Abnormal lab results 05/15/19 Range/Units 23:50 POC Glucose 114 H (70-105)
--- NOTE | 2019-05-16 13:43 | Progress Note ---
Subjective - Reason for Consult Consult date: 05/16/19 Reason for consult: Psychiatry Follow-up - Chief Complaint Chief complaint: "I'm feeling better" 3 year old female that was admitted to the hospital for a repeat section. Today the patient was calm and cooperative during the assessment. She stated that she plan to follow up with outpatient psy service when discharged. She stated that she look forward to seeing her . She denies being depressed when asked. She stated that she has a good support system at home. She denies SI/HI's and AVH's. Mental Status Exam - Vital signs Last Vital Signs Temp 98.0 F 05/16/19 11:11 Pulse 80 05/16/19 11:11 Resp 18 05/16/19 11:11 BP 136/88 05/16/19 11:11 Pulse Ox 91 05/16/19 11:11 - Exam Narrative exam: MSE: Appearance: calm, cooperative Behavior: regular eye contact Speech: regular rate and tone Mood: 'okay" Affect: congruent to mood Thought Process: linear Thought Content: denies SI/HI's and AVH's Motor Activity: ambulatory Cognition: A/O x 3 Insight: appropriate Judgment: appropriate Assessment and Plan Impression: Hx of Depression/GAGE. Today patient was calm and cooperative during the assessment. The patient is NPO (TPN). Recommendation/Plan: Risks/Benefits discussed with the patient reference antidepressants, she verbalized understanding. She stated that she will follow up with a psychiatrist once discharged for possible medication management if indicated. Also, the patient isn't sure if she will breastfeed her . Psy sign off. Dispo: The patient was given a referral to [facility] for outpatient psy services. Staffed with Dr Emily Kendall.
[2019-05-16] MEDS: CEPACOL X STRENGTH MM PRN (14:38)
--- NOTE | 2019-05-16 14:39 | Progress Note ---
Assessment and Plan POD # 10 Pt feeling well without compl. mental health eval appreciated. Has laure clamping of ng without incident. states 3 BM's today. Abd soft Abd series - persistent ileus pattern stable d/c NG keep NPO Selected Entries 05/16/19 11:11 Temperature 98.0 F Pulse Rate 80 Respiratory 18 Rate Blood Pressure 136/88 Objective Vital Signs - 12hr 05/16/19 05/16/19 05/16/19 07:24 07:25 08:40 Temperature 98.4 F Pulse Rate 75 Respiratory 18 Rate Blood Pressure 138/85 O2 Sat by Pulse 91 94 93 Oximetry 05/16/19 11:11 Temperature 98.0 F Pulse Rate 80 Respiratory 18 Rate Blood Pressure 136/88 O2 Sat by Pulse 91 Oximetry - Labs 05/15/19 05:30 05/15/19 05:30
--- NOTE | 2019-05-16 16:52 | Progress Note ---
Assessment and Plan Assessment and plan: Patient has a history of ulcerative colitis and is status post total colectomy with a J-pouch since age 6 05/01; Repeat low transverse section with bilateral tubal ligation modified Jenise type 05/06 exploratory laparotomy with Lysis of adhesions Uterine scar from previous delivery 39 weeks gestation of Encounter for sterilization sp C/S and tubal ligation on 05/01 Ulcerative colitis with SBO sp Ex lap and олег, cont TPN, cont NG tube to suction mgt per GS Hypokalemia repleted dvt ppx per primary team, recommend lovenox sq PT consult placed per GS request History Interval history: Patient was seen and divided this morning, patient said no abdominal pain. Hospitalist Physical - Physical exam Narrative exam: Not in cardiopulmonary distress. NG tube in place The patient appeared well nourished and normally developed. Vital signs as documented. Head exam is unremarkable. No scleral icterus . Neck is without jugular venous distension, thyromegaly, or carotid bruits. Lungs are clear to auscultation. Cardiac exam reveals regular rate and Rhythm. Abdominal exam clean dressing in the abdomen. Extremities are nonedematous and both femoral and pedal pulses are normal. 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 - Constitutional Vitals: Temp Pulse Resp BP Pulse Ox 98.4 F 77 18 131/83 91 05/16/19 15:37 05/16/19 15:37 05/16/19 15:37 05/16/19 15:37 05/16/19 15:37 General appearance: Present: no acute distress Results - Labs CBC & Chem 7: 05/15/19 05:30 05/15/19 05:30 Labs: Laboratory Last Values WBC 9.5 K/mm3 (4.5-11.0) 05/15/19 05:30 RBC 3.61 M/mm3 (3.65-5.03) L 05/15/19 05:30 Hgb 10.8 gm/dl (10.1-14.3) 05/15/19 05:30 Hct 31.6 % (30.3-42.9) 05/15/19 05:30 MCV 88 fl (79-97) 05/15/19 05:30 MCH 30 pg (28-32) 05/15/19 05:30 MCHC 34 % (30-34) 05/15/19 05:30 RDW 15.1 % (13.2-15.2) 05/15/19 05:30 Plt Count 419 K/mm3 (140-440) 05/15/19 05:30 Lymph % (Auto) 13.4 % (13.4-35.0) 05/15/19 05:30 [place] % (Auto) 5.7 % (0.0-7.3) 05/15/19 05:30 Eos % (Auto) 6.9 % (0.0-4.3) H 05/15/19 05:30 Baso % (Auto) 0.1 % (0.0-1.8) 05/15/19 05:30 Lymph # 1.3 K/mm3 (1.2-5.4) 05/15/19 05:30 [place] # 0.5 K/mm3 (0.0-0.8) 05/15/19 05:30 Eos # 0.7 K/mm3 (0.0-0.4) H 05/15/19 05:30 Baso # 0.0 K/mm3 (0.0-0.1) 05/15/19 05:30 Add Manual Diff Complete 05/12/19 05:35 Total Counted 100 05/12/19 05:35 Seg Neutrophils % 73.9 % (40.0-70.0) H 05/15/19 05:30 Seg Neuts % (Manual) 82.0 % (40.0-70.0) H 05/12/19 05:35 2.0 % 05/12/19 05:35 9.0 % (13.4-35.0) L 05/12/19 05:35 Reactive Lymphs % (Man) 0 % 05/12/19 05:35 4.0 % (0.0-7.3) 05/12/19 05:35 3.0 % (0.0-4.3) 05/12/19 05:35 0 % (0.0-1.8) 05/12/19 05:35 0 % 05/12/19 05:35 0 % 05/12/19 05:35 0 % 05/12/19 05:35 0 % 05/12/19 05:35 Nucleated RBC % Not Reportable 05/12/19 05:35 Seg Neutrophils # 7.0 K/mm3 (1.8-7.7) 05/15/19 05:30 Seg Neutrophils # Man 7.3 K/mm3 (1.8-7.7) 05/12/19 05:35 Band Neutrophils # 0.2 K/mm3 05/12/19 05:35 0.8 K/mm3 (1.2-5.4) L 05/12/19 05:35 Abs React Lymphs (Man) 0.0 K/mm3 05/12/19 05:35 0.4 K/mm3 (0.0-0.8) 05/12/19 05:35 0.3 K/mm3 (0.0-0.4) 05/12/19 05:35 0.0 K/mm3 (0.0-0.1) 05/12/19 05:35 0.0 K/mm3 05/12/19 05:35 0.0 K/mm3 05/12/19 05:35 0.0 K/mm3 05/12/19 05:35 Blast Cells # 0.0 K/mm3 05/12/19 05:35 WBC Morphology Not Reportable 05/12/19 05:35 WBC Morphology TNR 05/12/19 05:35 Hypersegmented Neuts Not Reportable 05/12/19 05:35 Hyposegmented Neuts Not Reportable 05/12/19 05:35 Hypogranular Neuts Not Reportable 05/12/19 05:35 Cancelled 05/08/19 07:47 Not Reportable 05/12/19 05:35 Not Reportable 05/12/19 05:35 Not Reportable 05/12/19 05:35 Not Reportable 05/12/19 05:35 Not Reportable 05/12/19 05:35 Not Reportable 05/12/19 05:35 Appears normal 05/12/19 05:35 Not Reportable 05/12/19 05:35 Plt Clumps, EDTA Not Reportable 05/12/19 05:35 Not Reportable 05/12/19 05:35 Not Reportable 05/12/19 05:35 Not Reportable 05/12/19 05:35 Plt Morphology Comment Not Reportable 05/12/19 05:35 RBC Morphology Not Reportable 05/12/19 05:35 Dimorphic RBCs Not Reportable 05/12/19 05:35 Few 05/12/19 05:35 Not Reportable 05/12/19 05:35 Not Reportable 05/12/19 05:35 Cancelled 05/08/19 07:47 1+ 05/12/19 05:35 Not Reportable 05/12/19 05:35 Not Reportable 05/12/19 05:35 Not Reportable 05/12/19 05:35 Not Reportable 05/12/19 05:35 Not Reportable 05/12/19 05:35 Not Reportable 05/12/19 05:35 Not Reportable 05/12/19 05:35 Not Reportable 05/12/19 05:35 Cancelled 05/08/19 07:47 Not Reportable 05/12/19 05:35 Not Reportable 05/12/19 05:35 Not Reportable 05/12/19 05:35 Not Reportable 05/12/19 05:35 Not Reportable 05/12/19 05:35 Not Reportable 05/12/19 05:35 Not Reportable 05/12/19 05:35 Acanthocytes (Spur) Not Reportable 05/12/19 05:35 Rouleaux Not Reportable 05/12/19 05:35 Not Reportable 05/12/19 05:35 Not Reportable 05/12/19 05:35 Not Reportable 05/12/19 05:35 Not Reportable 05/12/19 05:35 Hem Pathologist Commnt No 05/12/19 05:35 Sodium 140 mmol/L (137-145) 05/15/19 05:30 Potassium 4.2 mmol/L (3.6-5.0) 05/15/19 05:30 Chloride 102.1 mmol/L (98-107) 05/15/19 05:30 Carbon Dioxide 27 mmol/L (22-30) 05/15/19 05:30 15 mmol/L 05/15/19 05:30 BUN 14 mg/dL (7-17) 05/15/19 05:30 0.6 mg/dL (0.7-1.2) L 05/15/19 05:30 Estimated GFR > 60 ml/min 05/15/19 05:30 23 % 05/15/19 05:30 Glucose 82 mg/dL (65-100) 05/15/19 05:30 POC Glucose 104 (70-105) 05/16/19 06:32 Calcium 9.1 mg/dL (8.4-10.2) 05/15/19 05:30 Phosphorus 4.40 mg/dL (2.5-4.5) 05/14/19 Unknown Magnesium 2.00 mg/dL (1.7-2.3) 05/14/19 Unknown 0.90 mg/dL (0.1-1.2) 05/15/19 05:30 AST 44 units/L (5-40) H 05/15/19 05:30 ALT 33 units/L (7-56) 05/15/19 05:30 206 units/L (35-129) H 05/15/19 05:30 6.6 g/dL (6.3-8.2) 05/15/19 05:30 2.8 g/dL (3.9-5) L 05/15/19 05:30 0.7 % 05/15/19 05:30 RPR Nonreactive (Nonreactive) 05/01/19 06:00 Blood Type O NEGATIVE 05/09/19 14:03 Antibody Screen Positive 05/09/19 14:03 Antibody Identification Anti-D (Passively Aquired) 05/09/19 14:03 Screen Negative 05/01/19 21:41 Crossmatch See Detail 05/09/19 14:03 Active Medications - Current Medications Current Medications: Generic Name Dose Route Start Last Admin Trade Name Freq PRN Reason Stop Dose Admin Albuterol 2.5 mg 05/16/19 09:30 Proventil IH DAILY PRN Shortness Of Breath Benzocaine/Menthol 1 each 05/03/19 22:48 05/16/19 14:38 Cepacol X Strength MM 1 each Q2HR PRN Administration Sore Throat Enoxaparin Sodium 40 mg 05/11/19 22:00 05/15/19 21:13 Lovenox SUB-Q 40 mg QDAY@2200 TOM Administration Famotidine 20 mg 05/03/19 23:00 05/16/19 11:15 Pepcid IV 20 mg BID TOM Administration Hydrocortisone Acetate 25 mg 05/01/19 10:49 Anucort-Hc MI BID PRN Hemorrhoids Hydromorphone HCl 1 mg 05/11/19 21:22 05/16/19 15:27 Dilaudid IV 1 mg Q4H PRN Administration Pain , Severe (7-10) Amino Acids/Electrolytes/Dextrose 2,016 mls @ 84 mls/hr 05/15/19 20:00 05/15/19 20:50 Tpn Adult IV 05/16/19 19:59 84 mls/hr DAILY@1999 [facility] Administration Protocol Amino Acids/Electrolytes/Dextrose 2,016 mls @ 84 mls/hr 05/16/19 20:00 Tpn Adult IV 05/17/19 19:59 DAILY@1999 [facility] Protocol Magnesium Hydroxide 30 ml 05/01/19 22:00 05/02/19 12:03 Milk Of Magnesia PO 30 ml QHS PRN Administration Constip Unrelieved By Senna Morphine Sulfate 2 mg 05/03/19 16:03 05/15/19 04:44 Morphine IV 2 mg Q4H PRN Administration Pain, Moderate (4-6) Multi-Ingredient Ointment 1 applic 05/01/19 10:49 Lansinoh TP PRN PRN dryness/cracking Naloxone HCl 0.1 mg 05/01/19 10:49 Narcan 0.4 Mg/1 Ml IV Q2MIN PRN Res Rate </= 8 or 02 SAT < 92% Ondansetron HCl 4 mg 05/01/19 10:49 05/16/19 10:58 Zofran IV 4 mg Q8H PRN Administration Nausea And Vomiting Witch Annmarie/Glycerin 1 each 05/01/19 10:49 Tucks Pad TP PRN PRN Hemorrhoids/cleansing/soothing Nutrition/Malnutrition Assess - Dietary Evaluation Nutrition/Malnutrition Findings: Nutrition Notes Start: 05/07/19 10:35 Freq: Status: Active Protocol: Document 05/16/19 13:02 LP (Rec: 05/16/19 13:04 LP [id number]) Nutrition Notes Initial or Follow up Reassessment Other Pertinent Diagnosis Ulcerative colitis, SBO, S/P exploratory laporatory, [place] delivery Current Diet CPN at 100ml/hr Labs/Tests Reviewed Pertinent Medications Reviewed Height 5 ft 7 in Weight 101.61 kg [place] Body Weight (kg) 61.36 BMI 35.1 Subjective/Other Information Day 10 CPN. Possible D/C of NGT Percent of energy/protein needs met: 100%/100% Burn Absent Trauma Absent #1 Nutrition Diagnosis Inadequate oral intake Diagnosis Progress(for reassessment Continues documentation) Is patient on ventilator? No Is Patient Ambulatory and/or Out of Bed No REE-([place]-confined to bed) 2094.612 Kcal/Kg value to use for calculation 15 Approximate Energy Requirements Using 1524 kcal/Kg Calculation Used for Recommendations Kcal/kg Additional Notes Pro needs 1-1.2g/kg adjBW: 81- 98g/day Fluid needs 1ml/kcal Nutrition Intervention Change Diet Order: CPN Nutrition Support: Continue CPN rate at 84ml/hr: MVI,MTE Osmolality: 1539. Kcal 1,570 Protein (gm) 95 Carbohydrates (gm) 350 Fat (gm) 0 Fluid (mL) 2,016 Fiber (gm) 0 Goal #1 PN to meet nutrient needs as best possible Anticipated Discharge Needs: Unable to determine at this time Follow-Up By: 05/17/19 Additional Comments Labs in AM: BMP, Mg, Phos
[2019-05-16] MEDS ORDERED: TPN ADULT 2,016 ML IV SCH (20:00)
[2019-05-16] MEDS: LOVENOX SUB-Q SCH (21:05)
[2019-05-17] MEDS: MORPHINE IV PRN (03:28)
[2019-05-17] MEDS: ZOFRAN IV PRN (03:31)
[2019-05-17 05:54] LABS: BUN/Creatinine Ratio 24; Blood Urea Nitrogen 17 mg/dL (7-17); Hemolysis Index 2
--- NOTE | 2019-05-17 08:43 | XRay Report ---
ABDOMINAL SERIES WITH CHEST X-RAY HISTORY: Follow-up small bowel obstruction, postoperative ileus FINDINGS: Compared to 05/16/2019. The nasogastric tube has been removed. The right arm PICC remains in good position. Single view the chest remains normal. Supine and upright views of the abdomen demonst rate persistent gas-filled loops of bowel throughout the abdomen consistent with an ileus. Mild impro vement is suspected since the previous exam. No new acute process. IMPRESSION: Minimal improvement in the postoperative ileus since yesterday's exam. The nasogastric tube has been removed. Signer Name: Kevin Larsen Jr, MD Signed: 05/17/2019 8:38 AM Workstation Name: [id number]
[2019-05-17] MEDS: DILAUDID IV PRN ×3 (09:25→20:20)
[2019-05-17] MEDS: PEPCID IV SCH ×2 (09:26→22:56)
--- NOTE | 2019-05-17 10:31 | Progress Note ---
Assessment and Plan Pt status quo. feeling well. states +flatus Abd soft. hypoactive BS. Abd series - minimal improvement clinically stable but persistent ileus. may have ice chips and po meds may consider d/c on continued NPO and TPN home regimen Selected Entries 05/17/19 03:39 Temperature 97.8 F Pulse Rate 72 Respiratory 19 Rate Blood Pressure 129/70 Objective Vital Signs - 12hr 05/17/19 05/17/19 05/17/19 00:11 03:38 03:39 Temperature 98.1 F 97.8 F 97.8 F Pulse Rate 71 72 Respiratory 20 19 Rate Blood Pressure 131/80 129/70 O2 Sat by Pulse 93 92 Oximetry - Labs 05/15/19 05:30 05/17/19 05:00 Diabetes panel 05/17/19 Range/Units 05:00 Sodium 140 (137-145) mmol/L Potassium 4.3 (3.6-5.0) mmol/L Chloride 101.6 (98-107) mmol/L Carbon Dioxide 27 (22-30) mmol/L BUN 17 (7-17) mg/dL Creatinine 0.7 (0.7-1.2) mg/dL Glucose 93 (65-100) mg/dL Calcium 9.0 (8.4-10.2) mg/dL Calcium panel 05/17/19 Range/Units 05:00 Calcium 9.0 (8.4-10.2) mg/dL Phosphorus 5.10 H (2.5-4.5) mg/dL Pituitary panel 05/17/19 Range/Units 05:00 Sodium 140 (137-145) mmol/L Potassium 4.3 (3.6-5.0) mmol/L Chloride 101.6 (98-107) mmol/L Carbon Dioxide 27 (22-30) mmol/L BUN 17 (7-17) mg/dL Creatinine 0.7 (0.7-1.2) mg/dL Glucose 93 (65-100) mg/dL Calcium 9.0 (8.4-10.2) mg/dL Adrenal panel 05/17/19 Range/Units 05:00 Sodium 140 (137-145) mmol/L Potassium 4.3 (3.6-5.0) mmol/L Chloride 101.6 (98-107) mmol/L Carbon Dioxide 27 (22-30) mmol/L BUN 17 (7-17) mg/dL Creatinine 0.7 (0.7-1.2) mg/dL Glucose 93 (65-100) mg/dL Calcium 9.0 (8.4-10.2) mg/dL
--- NOTE | 2019-05-17 12:54 | Progress Note ---
Assessment and Plan 33 y/o female s/p with acute respiratory failure, resolving. No new recs for today. Will see PRN. Stable pulm status. 1. PRN diuresis, attempt daily net negative state 2. IS to bedside 3. Ambulate as tolerated when surgery permits. Up in chair as well Subjective Date of service: 05/17/19 Principal diagnosis: POD #15 s/p RLTCS with BTL; colitis/Jpouch in place; SBO; POD#10 exl.lap Interval history: No acute events. Remains on Room air. Objective Vital Signs - 12hr 05/17/19 05/17/19 03:38 03:39 Temperature 97.8 F 97.8 F Pulse Rate 72 Respiratory 19 Rate Blood Pressure 129/70 O2 Sat by Pulse 92 Oximetry Constitutional: no acute distress, alert, other (obese) Eyes: non-icteric ENT: oropharynx moist Neck: supple Effort: other (mildly tachypneic but not labored; shallow breathing due to abd distension) Ascultation: Bilateral: diminished breath sounds (bases) Cardiovascular: regular rate and rhythm (no mrg) Gastrointestinal: absent bowel sounds, tender, other (distended) Integumentary: normal Extremities: no cyanosis, pink and warm, edema (trace bilateral LE edema) Neurologic: normal mental status, non-focal exam, pupils equal and round, CN II- XII normal Psychiatric: mood appropriate, affect normal CBC and BMP: 05/15/19 05:30 05/17/19 05:00 Abnormal lab findings: Abnormal Labs 05/01/19 05/01/19 05/01/19 06:00 06:00 21:41 WBC 12.8 H RBC 3.04 L Hgb 9.4 L 7.5 L Hct 27.6 L 21.9 L MCHC RDW Lymph % (Auto) [place] % (Auto) Eos % (Auto) Lymph # Eos # Baso # 0.2 H Seg Neutrophils % 74.2 H Seg Neuts % (Manual) Lymphocytes % (Manual) Seg Neutrophils # 9.5 H Seg Neutrophils # Man Lymphocytes # (Manual) Sodium Potassium Chloride Carbon Dioxide Creatinine Glucose POC Glucose Calcium Phosphorus AST ALT Alkaline Phosphatase Total Protein Albumin Crossmatch See Detail 05/03/19 05/04/19 05/04/19 07:08 10:00 15:58 WBC RBC 2.84 L Hgb 8.8 L Hct 25.3 L MCHC 35 H RDW 15.8 H Lymph % (Auto) [place] % (Auto) 8.2 H Eos % (Auto) Lymph # 0.9 L Eos # Baso # Seg Neutrophils % 74.6 H Seg Neuts % (Manual) Lymphocytes % (Manual) Seg Neutrophils # Seg Neutrophils # Man Lymphocytes # (Manual) Sodium Potassium 3.3 L Chloride 94.2 L Carbon Dioxide 34 H Creatinine Glucose POC Glucose Calcium Phosphorus AST ALT Alkaline Phosphatase Total Protein Albumin Crossmatch See Detail 05/04/19 05/05/19 05/07/19 15:58 05:15 05:09 WBC RBC 2.77 L 3.35 L Hgb 8.5 L Hct 24.6 L 29.7 L MCHC 35 H RDW 15.7 H Lymph % (Auto) 6.5 L [place] % (Auto) 9.9 H Eos % (Auto) Lymph # 1.1 L 0.7 L Eos # Baso # Seg Neutrophils % 88.0 H Seg Neuts % (Manual) Lymphocytes % (Manual) Seg Neutrophils # 9.0 H Seg Neutrophils # Man Lymphocytes # (Manual) Sodium Potassium 3.5 L Chloride Carbon Dioxide 32 H Creatinine Glucose 105 H POC Glucose Calcium Phosphorus AST ALT Alkaline Phosphatase Total Protein 5.5 L Albumin 2.6 L Crossmatch 05/07/19 05/08/19 05/08/19 05:09 04:30 04:30 WBC RBC Hgb Hct MCHC RDW Lymph % (Auto) [place] % (Auto) Eos % (Auto) Lymph # Eos # Baso # Seg Neutrophils % Seg Neuts % (Manual) Lymphocytes % (Manual) Seg Neutrophils # Seg Neutrophils # Man Lymphocytes # (Manual) Sodium 133 L Potassium 5.1 H D Chloride Carbon Dioxide 20 L Creatinine 0.6 L 0.5 L Glucose 134 H 109 H 108 H POC Glucose Calcium 7.9 L 8.1 L Phosphorus AST ALT 5 L Alkaline Phosphatase Total Protein 5.2 L 4.5 L Albumin 2.4 L 2.2 L Crossmatch 05/08/19 05/08/19 05/08/19 06:22 07:47 11:01 WBC RBC 3.20 L 3.16 L Hgb 9.7 L 9.4 L Hct 27.7 L 27.4 L MCHC 35 H RDW Lymph % (Auto) 8.8 L 8.5 L [place] % (Auto) Eos % (Auto) Lymph # 1.0 L 0.9 L Eos # Baso # Seg Neutrophils % 83.8 H 85.0 H Seg Neuts % (Manual) Lymphocytes % (Manual) Seg Neutrophils # 9.1 H 9.2 H Seg Neutrophils # Man Lymphocytes # (Manual) Sodium Potassium Chloride Carbon Dioxide Creatinine Glucose POC Glucose 114 H Calcium Phosphorus AST ALT Alkaline Phosphatase Total Protein Albumin Crossmatch 05/08/19 05/08/19 05/09/19 12:18 17:57 00:46 WBC RBC Hgb Hct MCHC RDW Lymph % (Auto) [place] % (Auto) Eos % (Auto) Lymph # Eos # Baso # Seg Neutrophils % Seg Neuts % (Manual) Lymphocytes % (Manual) Seg Neutrophils # Seg Neutrophils # Man Lymphocytes # (Manual) Sodium Potassium Chloride Carbon Dioxide Creatinine Glucose POC Glucose 107 H 107 H 110 H Calcium Phosphorus AST ALT Alkaline Phosphatase Total Protein Albumin Crossmatch 05/09/19 05/09/19 05/09/19 04:55 04:55 12:06 WBC RBC 2.95 L Hgb 8.8 L Hct 25.7 L MCHC RDW Lymph % (Auto) 10.1 L [place] % (Auto) Eos % (Auto) Lymph # 0.9 L Eos # Baso # Seg Neutrophils % 81.4 H Seg Neuts % (Manual) Lymphocytes % (Manual) Seg Neutrophils # Seg Neutrophils # Man Lymphocytes # (Manual) Sodium Potassium 3.2 L D Chloride Carbon Dioxide Creatinine 0.5 L Glucose 119 H POC Glucose 120 H Calcium 8.0 L Phosphorus AST ALT Alkaline Phosphatase Total Protein Albumin Crossmatch 05/09/19 05/09/19 05/09/19 14:03 18:44 23:54 WBC RBC Hgb Hct MCHC RDW Lymph % (Auto) [place] % (Auto) Eos % (Auto) Lymph # Eos # Baso # Seg Neutrophils % Seg Neuts % (Manual) Lymphocytes % (Manual) Seg Neutrophils # Seg Neutrophils # Man Lymphocytes # (Manual) Sodium Potassium Chloride Carbon Dioxide Creatinine Glucose POC Glucose 117 H 116 H Calcium Phosphorus AST ALT Alkaline Phosphatase Total Protein Albumin Crossmatch See Detail 05/10/19 05/10/19 05/10/19 05:56 06:59 06:59 WBC RBC 2.78 L Hgb 8.3 L Hct 24.4 L MCHC RDW Lymph % (Auto) [place] % (Auto) Eos % (Auto) Lymph # Eos # Baso # Seg Neutrophils % Seg Neuts % (Manual) 81.0 H Lymphocytes % (Manual) 12.0 L Seg Neutrophils # Seg Neutrophils # Man Lymphocytes # (Manual) 0.8 L Sodium Potassium Chloride Carbon Dioxide Creatinine 0.4 L Glucose 115 H POC Glucose 125 H Calcium 8.3 L Phosphorus AST ALT Alkaline Phosphatase Total Protein Albumin Crossmatch 05/10/19 05/10/19 05/11/19 12:22 18:19 00:23 WBC RBC Hgb Hct MCHC RDW Lymph % (Auto) [place] % (Auto) Eos % (Auto) Lymph # Eos # Baso # Seg Neutrophils % Seg Neuts % (Manual) Lymphocytes % (Manual) Seg Neutrophils # Seg Neutrophils # Man Lymphocytes # (Manual) Sodium Potassium Chloride Carbon Dioxide Creatinine Glucose POC Glucose 120 H 113 H 137 H Calcium Phosphorus AST ALT Alkaline Phosphatase Total Protein Albumin Crossmatch 05/11/19 05/11/19 05/11/19 05:35 10:16 12:14 WBC RBC 3.37 L Hgb Hct 29.2 L MCHC 36 H RDW Lymph % (Auto) [place] % (Auto) Eos % (Auto) Lymph # Eos # Baso # Seg Neutrophils % Seg Neuts % (Manual) 84.0 H Lymphocytes % (Manual) 9.0 L Seg Neutrophils # Seg Neutrophils # Man 8.0 H Lymphocytes # (Manual) 0.9 L Sodium Potassium Chloride Carbon Dioxide Creatinine 0.4 L Glucose 104 H POC Glucose 121 H Calcium Phosphorus AST ALT Alkaline Phosphatase Total Protein Albumin Crossmatch 05/11/19 05/12/19 05/12/19 18:48 05:35 05:35 WBC RBC 3.45 L Hgb Hct 30.0 L MCHC 35 H RDW Lymph % (Auto) [place] % (Auto) Eos % (Auto) Lymph # Eos # Baso # Seg Neutrophils % Seg Neuts % (Manual) 82.0 H Lymphocytes % (Manual) 9.0 L Seg Neutrophils # Seg Neutrophils # Man Lymphocytes # (Manual) 0.8 L Sodium Potassium Chloride Carbon Dioxide Creatinine 0.5 L Glucose POC Glucose 121 H Calcium 8.3 L Phosphorus 4.70 H AST ALT Alkaline Phosphatase Total Protein Albumin Crossmatch 05/12/19 05/13/19 05/13/19 11:47 01:00 05:20 WBC RBC Hgb Hct MCHC RDW Lymph % (Auto) [place] % (Auto) Eos % (Auto) Lymph # Eos # Baso # Seg Neutrophils % Seg Neuts % (Manual) Lymphocytes % (Manual) Seg Neutrophils # Seg Neutrophils # Man Lymphocytes # (Manual) Sodium Potassium Chloride Carbon Dioxide Creatinine 0.6 L Glucose POC Glucose 136 H 140 H Calcium Phosphorus 4.60 H AST ALT Alkaline Phosphatase Total Protein Albumin Crossmatch 05/13/19 05/13/19 05/13/19 08:03 16:44 23:11 WBC RBC Hgb Hct MCHC RDW Lymph % (Auto) [place] % (Auto) Eos % (Auto) Lymph # Eos # Baso # Seg Neutrophils % Seg Neuts % (Manual) Lymphocytes % (Manual) Seg Neutrophils # Seg Neutrophils # Man Lymphocytes # (Manual) Sodium Potassium Chloride Carbon Dioxide Creatinine Glucose POC Glucose 128 H 121 H 118 H Calcium Phosphorus AST ALT Alkaline Phosphatase Total Protein Albumin Crossmatch 05/14/19 05/14/19 05/14/19 05:34 18:11 Unknown WBC RBC Hgb Hct MCHC RDW Lymph % (Auto) [place] % (Auto) Eos % (Auto) Lymph # Eos # Baso # Seg Neutrophils % Seg Neuts % (Manual) Lymphocytes % (Manual) Seg Neutrophils # Seg Neutrophils # Man Lymphocytes # (Manual) Sodium Potassium Chloride Carbon Dioxide Creatinine 0.6 L Glucose POC Glucose 109 H 108 H Calcium Phosphorus AST ALT Alkaline Phosphatase Total Protein Albumin Crossmatch 05/15/19 05/15/19 05/15/19 00:21 05:30 05:30 WBC RBC 3.61 L Hgb Hct MCHC RDW Lymph % (Auto) [place] % (Auto) Eos % (Auto) 6.9 H Lymph # Eos # 0.7 H Baso # Seg Neutrophils % 73.9 H Seg Neuts % (Manual) Lymphocytes % (Manual) Seg Neutrophils # Seg Neutrophils # Man Lymphocytes # (Manual) Sodium Potassium Chloride Carbon Dioxide Creatinine 0.6 L Glucose POC Glucose 116 H Calcium Phosphorus AST 44 H ALT Alkaline Phosphatase 206 H Total Protein Albumin 2.8 L Crossmatch 05/15/19 05/15/19 05/15/19 06:24 11:43 23:50 WBC RBC Hgb Hct MCHC RDW Lymph % (Auto) [place] % (Auto) Eos % (Auto) Lymph # Eos # Baso # Seg Neutrophils % Seg Neuts % (Manual) Lymphocytes % (Manual) Seg Neutrophils # Seg Neutrophils # Man Lymphocytes # (Manual) Sodium Potassium Chloride Carbon Dioxide Creatinine Glucose POC Glucose 120 H 118 H 114 H Calcium Phosphorus AST ALT Alkaline Phosphatase Total Protein Albumin Crossmatch 05/17/19 05/17/19 05/17/19 05:00 06:10 08:09 WBC RBC Hgb Hct MCHC RDW Lymph % (Auto) [place] % (Auto) Eos % (Auto) Lymph # Eos # Baso # Seg Neutrophils % Seg Neuts % (Manual) Lymphocytes % (Manual) Seg Neutrophils # Seg Neutrophils # Man Lymphocytes # (Manual) Sodium Potassium Chloride Carbon Dioxide Creatinine Glucose POC Glucose 106 H 115 H Calcium Phosphorus 5.10 H AST ALT Alkaline Phosphatase Total Protein Albumin Crossmatch
--- NOTE | 2019-05-17 15:27 | Progress Note ---
Assessment and Plan Assessment and plan: Patient has a history of ulcerative colitis and is status post total colectomy with a J-pouch since age 6 05/01; Repeat low transverse section with bilateral tubal ligation modified Jenise type 05/06 exploratory laparotomy with Lysis of adhesions Uterine scar from previous delivery 39 weeks gestation of Encounter for sterilization sp C/S and tubal ligation on 05/01 Ulcerative colitis with SBO sp Ex lap and олег, cont TPN, cont NG tube to suction mgt per GS Hypokalemia repleted dvt ppx per primary team, recommend lovenox sq PT consult placed per GS request History Interval history: Patient was seen and divided this morning, patient said no abdominal pain. Patient id off the NG tube. Hospitalist Physical - Physical exam Narrative exam: Not in cardiopulmonary distress. NG tube in place The patient appeared well nourished and normally developed. Vital signs as documented. Head exam is unremarkable. No scleral icterus . Neck is without jugular venous distension, thyromegaly, or carotid bruits. Lungs are clear to auscultation. Cardiac exam reveals regular rate and Rhythm. Abdominal exam clean dressing in the abdomen. Extremities are nonedematous and both femoral and pedal pulses are normal. 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 - Constitutional Vitals: Temp Pulse Resp BP Pulse Ox 97.8 F 72 19 129/70 92 05/17/19 03:39 05/17/19 03:39 05/17/19 03:39 05/17/19 03:39 05/17/19 03:39 General appearance: Present: no acute distress Results - Labs CBC & Chem 7: 05/15/19 05:30 05/17/19 05:00 Labs: Laboratory Last Values WBC 9.5 K/mm3 (4.5-11.0) 05/15/19 05:30 RBC 3.61 M/mm3 (3.65-5.03) L 05/15/19 05:30 Hgb 10.8 gm/dl (10.1-14.3) 05/15/19 05:30 Hct 31.6 % (30.3-42.9) 05/15/19 05:30 MCV 88 fl (79-97) 05/15/19 05:30 MCH 30 pg (28-32) 05/15/19 05:30 MCHC 34 % (30-34) 05/15/19 05:30 RDW 15.1 % (13.2-15.2) 05/15/19 05:30 Plt Count 419 K/mm3 (140-440) 05/15/19 05:30 Lymph % (Auto) 13.4 % (13.4-35.0) 05/15/19 05:30 Weber % (Auto) 5.7 % (0.0-7.3) 05/15/19 05:30 Eos % (Auto) 6.9 % (0.0-4.3) H 05/15/19 05:30 Baso % (Auto) 0.1 % (0.0-1.8) 05/15/19 05:30 Lymph # 1.3 K/mm3 (1.2-5.4) 05/15/19 05:30 Weber # 0.5 K/mm3 (0.0-0.8) 05/15/19 05:30 Eos # 0.7 K/mm3 (0.0-0.4) H 05/15/19 05:30 Baso # 0.0 K/mm3 (0.0-0.1) 05/15/19 05:30 Add Manual Diff Complete 05/12/19 05:35 Total Counted 100 05/12/19 05:35 Seg Neutrophils % 73.9 % (40.0-70.0) H 05/15/19 05:30 Seg Neuts % (Manual) 82.0 % (40.0-70.0) H 05/12/19 05:35 2.0 % 05/12/19 05:35 9.0 % (13.4-35.0) L 05/12/19 05:35 Reactive Lymphs % (Man) 0 % 05/12/19 05:35 4.0 % (0.0-7.3) 05/12/19 05:35 3.0 % (0.0-4.3) 05/12/19 05:35 0 % (0.0-1.8) 05/12/19 05:35 0 % 05/12/19 05:35 0 % 05/12/19 05:35 0 % 05/12/19 05:35 0 % 05/12/19 05:35 Nucleated RBC % Not Reportable 05/12/19 05:35 Seg Neutrophils # 7.0 K/mm3 (1.8-7.7) 05/15/19 05:30 Seg Neutrophils # Man 7.3 K/mm3 (1.8-7.7) 05/12/19 05:35 Band Neutrophils # 0.2 K/mm3 05/12/19 05:35 0.8 K/mm3 (1.2-5.4) L 05/12/19 05:35 Abs React Lymphs (Man) 0.0 K/mm3 05/12/19 05:35 0.4 K/mm3 (0.0-0.8) 05/12/19 05:35 0.3 K/mm3 (0.0-0.4) 05/12/19 05:35 0.0 K/mm3 (0.0-0.1) 05/12/19 05:35 0.0 K/mm3 05/12/19 05:35 0.0 K/mm3 05/12/19 05:35 0.0 K/mm3 05/12/19 05:35 Blast Cells # 0.0 K/mm3 05/12/19 05:35 WBC Morphology Not Reportable 05/12/19 05:35 WBC Morphology TNR 05/12/19 05:35 Hypersegmented Neuts Not Reportable 05/12/19 05:35 Hyposegmented Neuts Not Reportable 05/12/19 05:35 Hypogranular Neuts Not Reportable 05/12/19 05:35 Cancelled 05/08/19 07:47 Not Reportable 05/12/19 05:35 Not Reportable 05/12/19 05:35 Not Reportable 05/12/19 05:35 Not Reportable 05/12/19 05:35 Not Reportable 05/12/19 05:35 Not Reportable 05/12/19 05:35 Appears normal 05/12/19 05:35 Not Reportable 05/12/19 05:35 Plt Clumps, EDTA Not Reportable 05/12/19 05:35 Not Reportable 05/12/19 05:35 Not Reportable 05/12/19 05:35 Not Reportable 05/12/19 05:35 Plt Morphology Comment Not Reportable 05/12/19 05:35 RBC Morphology Not Reportable 05/12/19 05:35 Dimorphic RBCs Not Reportable 05/12/19 05:35 Few 05/12/19 05:35 Not Reportable 05/12/19 05:35 Not Reportable 05/12/19 05:35 Cancelled 05/08/19 07:47 1+ 05/12/19 05:35 Not Reportable 05/12/19 05:35 Not Reportable 05/12/19 05:35 Not Reportable 05/12/19 05:35 Not Reportable 05/12/19 05:35 Not Reportable 05/12/19 05:35 Not Reportable 05/12/19 05:35 Not Reportable 05/12/19 05:35 Not Reportable 05/12/19 05:35 Cancelled 05/08/19 07:47 Not Reportable 05/12/19 05:35 Not Reportable 05/12/19 05:35 Not Reportable 05/12/19 05:35 Not Reportable 05/12/19 05:35 Not Reportable 05/12/19 05:35 Not Reportable 05/12/19 05:35 Not Reportable 05/12/19 05:35 Acanthocytes (Spur) Not Reportable 05/12/19 05:35 Rouleaux Not Reportable 05/12/19 05:35 Not Reportable 05/12/19 05:35 Not Reportable 05/12/19 05:35 Not Reportable 05/12/19 05:35 Not Reportable 05/12/19 05:35 Hem Pathologist Commnt No 05/12/19 05:35 Sodium 140 mmol/L (137-145) 05/17/19 05:00 Potassium 4.3 mmol/L (3.6-5.0) 05/17/19 05:00 Chloride 101.6 mmol/L (98-107) 05/17/19 05:00 Carbon Dioxide 27 mmol/L (22-30) 05/17/19 05:00 16 mmol/L 05/17/19 05:00 BUN 17 mg/dL (7-17) 05/17/19 05:00 0.7 mg/dL (0.7-1.2) 05/17/19 05:00 Estimated GFR > 60 ml/min 05/17/19 05:00 24 % 05/17/19 05:00 Glucose 93 mg/dL (65-100) 05/17/19 05:00 POC Glucose 115 (70-105) H 05/17/19 08:09 Calcium 9.0 mg/dL (8.4-10.2) 05/17/19 05:00 Phosphorus 5.10 mg/dL (2.5-4.5) H 05/17/19 05:00 Magnesium 2.00 mg/dL (1.7-2.3) 05/17/19 05:00 0.90 mg/dL (0.1-1.2) 05/15/19 05:30 AST 44 units/L (5-40) H 05/15/19 05:30 ALT 33 units/L (7-56) 05/15/19 05:30 206 units/L (35-129) H 05/15/19 05:30 6.6 g/dL (6.3-8.2) 05/15/19 05:30 2.8 g/dL (3.9-5) L 05/15/19 05:30 0.7 % 05/15/19 05:30 RPR Nonreactive (Nonreactive) 05/01/19 06:00 Blood Type O NEGATIVE 05/09/19 14:03 Antibody Screen Positive 05/09/19 14:03 Antibody Identification Anti-D (Passively Aquired) 05/09/19 14:03 Screen Negative 05/01/19 21:41 Crossmatch See Detail 05/09/19 14:03 Active Medications - Current Medications Current Medications: Generic Name Dose Route Start Last Admin Trade Name Freq PRN Reason Stop Dose Admin Albuterol 2.5 mg 05/16/19 09:30 Proventil IH DAILY PRN Shortness Of Breath Benzocaine/Menthol 1 each 05/03/19 22:48 05/16/19 14:38 Cepacol X Strength MM 1 each Q2HR PRN Administration Sore Throat Enoxaparin Sodium 40 mg 05/11/19 22:00 05/16/19 21:05 Lovenox SUB-Q 40 mg QDAY@2200 TOM Administration Famotidine 20 mg 05/03/19 23:00 05/17/19 09:26 Pepcid IV 20 mg BID TOM Administration Hydrocortisone Acetate 25 mg 05/01/19 10:49 Anucort-Hc RI BID PRN Hemorrhoids Hydromorphone HCl 1 mg 05/11/19 21:22 05/17/19 14:38 Dilaudid IV 1 mg Q4H PRN Administration Pain , Severe (7-10) Amino Acids/Electrolytes/Dextrose 2,016 mls @ 84 mls/hr 05/16/19 20:00 05/16/19 21:26 Tpn Adult IV 05/17/19 19:59 84 mls/hr DAILY@[facility] Administration Protocol Amino Acids/Electrolytes/Dextrose 2,016 mls @ 84 mls/hr 05/17/19 20:00 Tpn Adult IV 05/18/19 19:59 DAILY@[facility] Protocol Fat Emulsion Intravenous 250 mls @ 21 mls/hr 05/17/19 20:00 Intralipid 20% IV 05/18/19 08:00 DAILY@[facility] Magnesium Hydroxide 30 ml 05/01/19 22:00 05/02/19 12:03 Milk Of Magnesia PO 30 ml QHS PRN Administration Constip Unrelieved By Senna Morphine Sulfate 2 mg 05/03/19 16:03 05/17/19 03:28 Morphine IV 2 mg Q4H PRN Administration Pain, Moderate (4-6) Multi-Ingredient Ointment 1 applic 05/01/19 10:49 Lansinoh TP PRN PRN dryness/cracking Naloxone HCl 0.1 mg 05/01/19 10:49 Narcan 0.4 Mg/1 Ml IV Q2MIN PRN Res Rate </= 8 or 02 SAT < 92% Ondansetron HCl 4 mg 05/01/19 10:49 05/17/19 03:31 Zofran IV 4 mg Q8H PRN Administration Nausea And Vomiting Witch Annmarie/Glycerin 1 each 05/01/19 10:49 Tucks Pad TP PRN PRN Hemorrhoids/cleansing/soothing Nutrition/Malnutrition Assess - Dietary Evaluation Nutrition/Malnutrition Findings: Nutrition Notes Start: 05/07/19 10:35 Freq: Status: Active Protocol: Document 05/17/19 09:36 LP (Rec: 05/17/19 09:43 LP [id number]) Nutrition Notes Initial or Follow up Reassessment Other Pertinent Diagnosis Ulcerative colitis, SBO, S/P exploratory laporatory, Ceserean delivery Current Diet CPN at 100ml/hr Labs/Tests Reviewed Pertinent Medications Reviewed Height 5 ft 7 in Weight 101.61 kg [place] Body Weight (kg) 61.36 BMI 35.1 Subjective/Other Information Day 11 CPN. Pt had 3 BMs yesterday. Percent of energy/protein needs met: 100%/100% Burn Absent Trauma Absent #1 Nutrition Diagnosis Inadequate oral intake Diagnosis Progress(for reassessment Continues documentation) Is patient on ventilator? No Is Patient Ambulatory and/or Out of Bed No REE-([facility]confined to bed) 2094.612 Kcal/Kg value to use for calculation 15 Approximate Energy Requirements Using 1524 kcal/Kg Calculation Used for Recommendations Kcal/kg Additional Notes Pro needs 1-1.2g/kg adjBW: 81- 98g/day Fluid needs 1ml/kcal Nutrition Intervention Change Diet Order: CPN Nutrition Support: Continue CPN rate at 84ml/hr: MVI, Lipids Osmolality: 1539. Kcal 2,070 Protein (gm) 95 Carbohydrates (gm) 350 Fat (gm) 50 Fluid (mL) 2,266 Fiber (gm) 0 Goal #1 PN to meet nutrient needs as best possible Anticipated Discharge Needs: Unable to determine at this time Follow-Up By: 05/18/19 Additional Comments Labs in AM: BMP, Mg, Phos
[2019-05-17] MEDS ORDERED: INTRALIPID 20% 250 ML IV SCH (20:00)
[2019-05-17] MEDS ORDERED: TPN ADULT 2,016 ML IV SCH (20:00)
[2019-05-17] MEDS: LOVENOX SUB-Q SCH (22:56)
--- NOTE | 2019-05-18 | Progress Note ---
Assessment and Plan Will consult case management to arrange C for TPN - Patient Problems (1) delivery delivered Onset Date: ~05/01/19 Current Visit: Yes Status: Acute (2) SBO (small bowel obstruction) Current Visit: Yes Status: Acute (3) Ulcerative colitis Current Visit: Yes Status: Chronic Qualifiers: Ulcerative colitis location: unspecified ulcerative colitis location Digestive disease complication type: with intestinal obstruction Qualified Code(s): K51.912 - Ulcerative colitis, unspecified with intestinal obstruction (4) Encounter for sterilization Current Visit: Yes Status: Acute Subjective - Subjective Date of service: 05/17/19 Principal diagnosis: POD #16 s/p RLTCS with BTL; colitis/Jpouch in place; SBO; POD#10 exl.lap Interval history: Alert and appropriately responsive, resting in bed. minimal bleeding, no breast problems Objective - Vital Signs Latest vital signs: Vital Signs Temp Pulse Resp BP BP Pulse Ox 05/17/19 20:49 97.4 F L 67 18 131/83 94 05/17/19 20:20 18 05/17/19 17:00 98.7 F 68 20 131/82 93 05/17/19 12:00 98.5 F 74 20 121/81 95 05/17/19 03:39 97.8 F 72 19 129/70 92 05/17/19 03:38 97.8 F 05/17/19 00:11 98.1 F 71 20 131/80 93 Intake and Output 05/17/19 05/17/19 05/18/19 14:59 22:59 06:59 Other: Weight 101.61 kg Patient Weight 05/18/19 06:59 Weight 101.61 kg - Exam Breasts: Present: normal. Absent: engorged Abdomen: Present: normal appearance, soft. Absent: distention Incision: Present: normal, dry, intact - Labs Labs: Abnormal lab results 05/17/19 05/17/19 05/17/19 Range/Units 05:00 06:10 08:09 POC Glucose 106 H 115 H (70-105) Phosphorus 5.10 H (2.5-4.5) mg/dL 05/17/19 05/17/19 Range/Units 16:51 21:40 POC Glucose 111 H 119 H (70-105) Phosphorus (2.5-4.5) mg/dL
[2019-05-18] MEDS: ZOFRAN IV PRN (00:22)
[2019-05-18] MEDS: DILAUDID IV PRN ×6 (00:22→21:53)
[2019-05-18] MEDS: PEPCID IV SCH ×2 (09:39→21:51)
--- NOTE | 2019-05-18 12:59 | Progress Note ---
Assessment and Plan Assessment and plan: Patient has a history of ulcerative colitis and is status post total colectomy with a J-pouch since age 6 05/01; Repeat low transverse section with bilateral tubal ligation modified Jenise type 05/06 exploratory laparotomy with Lysis of adhesions Uterine scar from previous delivery 39 weeks gestation of Encounter for sterilization sp C/S and tubal ligation on 05/01 Ulcerative colitis with SBO sp Ex lap and олег, cont TPN, Ok to take PO meds mgt per GS No BM Hypokalemia repleted dvt ppx per primary team, recommend lovenox sq PT consult placed per GS request History Interval history: Patient was seen and divided this morning, patient said no abdominal pain. Patient is off the NG tube. Hospitalist Physical - Physical exam Narrative exam: Not in cardiopulmonary distress. NG tube in place The patient appeared well nourished and normally developed. Vital signs as documented. Head exam is unremarkable. No scleral icterus . Neck is without jugular venous distension, thyromegaly, or carotid bruits. Lungs are clear to auscultation. Cardiac exam reveals regular rate and Rhythm. Abdominal exam clean dressing in the abdomen. Extremities are nonedematous and both femoral and pedal pulses are normal. 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 - Constitutional Vitals: Temp Pulse Resp BP Pulse Ox 98.8 F 62 18 135/91 94 05/18/19 07:57 05/18/19 07:57 05/18/19 10:09 05/18/19 07:57 05/18/19 07:57 General appearance: Present: no acute distress Results - Labs CBC & Chem 7: 05/15/19 05:30 05/17/19 05:00 Labs: Laboratory Last Values WBC 9.5 K/mm3 (4.5-11.0) 05/15/19 05:30 RBC 3.61 M/mm3 (3.65-5.03) L 05/15/19 05:30 Hgb 10.8 gm/dl (10.1-14.3) 05/15/19 05:30 Hct 31.6 % (30.3-42.9) 05/15/19 05:30 MCV 88 fl (79-97) 05/15/19 05:30 MCH 30 pg (28-32) 05/15/19 05:30 MCHC 34 % (30-34) 05/15/19 05:30 RDW 15.1 % (13.2-15.2) 05/15/19 05:30 Plt Count 419 K/mm3 (140-440) 05/15/19 05:30 Lymph % (Auto) 13.4 % (13.4-35.0) 05/15/19 05:30 [place] % (Auto) 5.7 % (0.0-7.3) 05/15/19 05:30 Eos % (Auto) 6.9 % (0.0-4.3) H 05/15/19 05:30 Baso % (Auto) 0.1 % (0.0-1.8) 05/15/19 05:30 Lymph # 1.3 K/mm3 (1.2-5.4) 05/15/19 05:30 [place] # 0.5 K/mm3 (0.0-0.8) 05/15/19 05:30 Eos # 0.7 K/mm3 (0.0-0.4) H 05/15/19 05:30 Baso # 0.0 K/mm3 (0.0-0.1) 05/15/19 05:30 Add Manual Diff Complete 05/12/19 05:35 Total Counted 100 05/12/19 05:35 Seg Neutrophils % 73.9 % (40.0-70.0) H 05/15/19 05:30 Seg Neuts % (Manual) 82.0 % (40.0-70.0) H 05/12/19 05:35 2.0 % 05/12/19 05:35 9.0 % (13.4-35.0) L 05/12/19 05:35 Reactive Lymphs % (Man) 0 % 05/12/19 05:35 4.0 % (0.0-7.3) 05/12/19 05:35 3.0 % (0.0-4.3) 05/12/19 05:35 0 % (0.0-1.8) 05/12/19 05:35 0 % 05/12/19 05:35 0 % 05/12/19 05:35 0 % 05/12/19 05:35 0 % 05/12/19 05:35 Nucleated RBC % Not Reportable 05/12/19 05:35 Seg Neutrophils # 7.0 K/mm3 (1.8-7.7) 05/15/19 05:30 Seg Neutrophils # Man 7.3 K/mm3 (1.8-7.7) 05/12/19 05:35 Band Neutrophils # 0.2 K/mm3 05/12/19 05:35 0.8 K/mm3 (1.2-5.4) L 05/12/19 05:35 Abs React Lymphs (Man) 0.0 K/mm3 05/12/19 05:35 0.4 K/mm3 (0.0-0.8) 05/12/19 05:35 0.3 K/mm3 (0.0-0.4) 05/12/19 05:35 0.0 K/mm3 (0.0-0.1) 05/12/19 05:35 0.0 K/mm3 05/12/19 05:35 0.0 K/mm3 05/12/19 05:35 0.0 K/mm3 05/12/19 05:35 Blast Cells # 0.0 K/mm3 05/12/19 05:35 WBC Morphology Not Reportable 05/12/19 05:35 WBC Morphology TNR 05/12/19 05:35 Hypersegmented Neuts Not Reportable 05/12/19 05:35 Hyposegmented Neuts Not Reportable 05/12/19 05:35 Hypogranular Neuts Not Reportable 05/12/19 05:35 Cancelled 05/08/19 07:47 Not Reportable 05/12/19 05:35 Not Reportable 05/12/19 05:35 Not Reportable 05/12/19 05:35 Not Reportable 05/12/19 05:35 Not Reportable 05/12/19 05:35 Not Reportable 05/12/19 05:35 Appears normal 05/12/19 05:35 Not Reportable 05/12/19 05:35 Plt Clumps, EDTA Not Reportable 05/12/19 05:35 Not Reportable 05/12/19 05:35 Not Reportable 05/12/19 05:35 Not Reportable 05/12/19 05:35 Plt Morphology Comment Not Reportable 05/12/19 05:35 RBC Morphology Not Reportable 05/12/19 05:35 Dimorphic RBCs Not Reportable 05/12/19 05:35 Few 05/12/19 05:35 Not Reportable 05/12/19 05:35 Not Reportable 05/12/19 05:35 Cancelled 05/08/19 07:47 1+ 05/12/19 05:35 Not Reportable 05/12/19 05:35 Not Reportable 05/12/19 05:35 Not Reportable 05/12/19 05:35 Not Reportable 05/12/19 05:35 Not Reportable 05/12/19 05:35 Not Reportable 05/12/19 05:35 Not Reportable 05/12/19 05:35 Not Reportable 05/12/19 05:35 Cancelled 05/08/19 07:47 Not Reportable 05/12/19 05:35 Not Reportable 05/12/19 05:35 Not Reportable 05/12/19 05:35 Not Reportable 05/12/19 05:35 Not Reportable 05/12/19 05:35 Not Reportable 05/12/19 05:35 Not Reportable 05/12/19 05:35 Acanthocytes (Spur) Not Reportable 05/12/19 05:35 Rouleaux Not Reportable 05/12/19 05:35 Not Reportable 05/12/19 05:35 Not Reportable 05/12/19 05:35 Not Reportable 05/12/19 05:35 Not Reportable 05/12/19 05:35 Hem Pathologist Commnt No 05/12/19 05:35 Sodium 140 mmol/L (137-145) 05/17/19 05:00 Potassium 4.3 mmol/L (3.6-5.0) 05/17/19 05:00 Chloride 101.6 mmol/L (98-107) 05/17/19 05:00 Carbon Dioxide 27 mmol/L (22-30) 05/17/19 05:00 16 mmol/L 05/17/19 05:00 BUN 17 mg/dL (7-17) 05/17/19 05:00 0.7 mg/dL (0.7-1.2) 05/17/19 05:00 Estimated GFR > 60 ml/min 05/17/19 05:00 24 % 05/17/19 05:00 Glucose 93 mg/dL (65-100) 05/17/19 05:00 POC Glucose 111 (70-105) H 05/18/19 12:25 Calcium 9.0 mg/dL (8.4-10.2) 05/17/19 05:00 Phosphorus 5.10 mg/dL (2.5-4.5) H 05/17/19 05:00 Magnesium 2.00 mg/dL (1.7-2.3) 05/17/19 05:00 0.90 mg/dL (0.1-1.2) 05/15/19 05:30 AST 44 units/L (5-40) H 05/15/19 05:30 ALT 33 units/L (7-56) 05/15/19 05:30 206 units/L (35-129) H 05/15/19 05:30 6.6 g/dL (6.3-8.2) 05/15/19 05:30 2.8 g/dL (3.9-5) L 05/15/19 05:30 0.7 % 05/15/19 05:30 RPR Nonreactive (Nonreactive) 05/01/19 06:00 Blood Type O NEGATIVE 05/09/19 14:03 Antibody Screen Positive 05/09/19 14:03 Antibody Identification Anti-D (Passively Aquired) 05/09/19 14:03 Screen Negative 05/01/19 21:41 Crossmatch See Detail 05/09/19 14:03 Active Medications - Current Medications Current Medications: Generic Name Dose Route Start Last Admin Trade Name Freq PRN Reason Stop Dose Admin Albuterol 2.5 mg 05/16/19 09:30 Proventil IH DAILY PRN Shortness Of Breath Benzocaine/Menthol 1 each 05/03/19 22:48 05/16/19 14:38 Cepacol X Strength MM 1 each Q2HR PRN Administration Sore Throat Enoxaparin Sodium 40 mg 05/11/19 22:00 05/17/19 22:56 Lovenox SUB-Q 40 mg QDAY@2200 TOM Administration Famotidine 20 mg 05/03/19 23:00 05/18/19 09:39 Pepcid IV 20 mg BID TOM Administration Hydrocortisone Acetate 25 mg 05/01/19 10:49 Anucort-Hc TX BID PRN Hemorrhoids Hydromorphone HCl 1 mg 05/11/19 21:22 05/18/19 09:39 Dilaudid IV 1 mg Q4H PRN Administration Pain , Severe (7-10) Amino Acids/Electrolytes/Dextrose 2,016 mls @ 84 mls/hr 05/17/19 20:00 05/17/19 20:00 Tpn Adult IV 05/18/19 19:59 84 mls/hr DAILY@1999 [facility] Administration Protocol Amino Acids/Electrolytes/Dextrose 2,016 mls @ 84 mls/hr 05/18/19 20:00 Tpn Adult IV 05/19/19 19:59 DAILY@1999 [facility] Protocol Magnesium Hydroxide 30 ml 05/01/19 22:00 05/02/19 12:03 Milk Of Magnesia PO 30 ml QHS PRN Administration Constip Unrelieved By Senna Morphine Sulfate 2 mg 05/03/19 16:03 05/17/19 03:28 Morphine IV 2 mg Q4H PRN Administration Pain, Moderate (4-6) Multi-Ingredient Ointment 1 applic 05/01/19 10:49 Lansinoh TP PRN PRN dryness/cracking Naloxone HCl 0.1 mg 05/01/19 10:49 Narcan 0.4 Mg/1 Ml IV Q2MIN PRN Res Rate </= 8 or 02 SAT < 92% Ondansetron HCl 4 mg 05/01/19 10:49 05/18/19 00:22 Zofran IV 4 mg Q8H PRN Administration Nausea And Vomiting Witch Annmarie/Glycerin 1 each 05/01/19 10:49 Tucks Pad TP PRN PRN Hemorrhoids/cleansing/soothing Nutrition/Malnutrition Assess - Dietary Evaluation Nutrition/Malnutrition Findings: Nutrition Notes Start: 05/07/19 10:35 Freq: Status: Active Protocol: Document 05/18/19 11:03 LP (Rec: 05/18/19 11:08 LP [id number]) Nutrition Notes Initial or Follow up Reassessment Other Pertinent Diagnosis Ulcerative colitis, SBO, S/P exploratory laporatory, Ceserean delivery Current Diet CPN at 100ml/hr Labs/Tests Reviewed Pertinent Medications Reviewed Height 5 ft 7 in Weight 101.61 kg [place] Body Weight (kg) 61.36 BMI 35.1 Subjective/Other Information Day 12 CPN. No new changes. Percent of energy/protein needs met: 100%/100% Burn Absent Trauma Absent #1 Nutrition Diagnosis Inadequate oral intake Diagnosis Progress(for reassessment Continues documentation) Is patient on ventilator? No Is Patient Ambulatory and/or Out of Bed No REE-([facility]-confined to bed) 2094.612 Kcal/Kg value to use for calculation 15 Approximate Energy Requirements Using 1524 kcal/Kg Calculation Used for Recommendations Kcal/kg Additional Notes Pro needs 1-1.2g/kg adjBW: 81- 98g/day Fluid needs 1ml/kcal Nutrition Intervention Change Diet Order: CPN Nutrition Support: Continue CPN rate at 84ml/hr: MVI, Lipids Osmolality: 1539. Kcal 1,570 Protein (gm) 95 Carbohydrates (gm) 350 Fat (gm) 0 Fluid (mL) 2,016 Fiber (gm) 0 Goal #1 PN to meet nutrient needs as best possible Anticipated Discharge Needs: Unable to determine at this time Follow-Up By: 05/19/19 Additional Comments Labs in AM: BMP, Mg, Phos
--- NOTE | 2019-05-18 14:12 | Progress Note ---
Assessment and Plan - Patient Problems (1) Uterine scar from previous delivery Current Visit: Yes Status: Chronic (2) 39 weeks gestation of Current Visit: Yes Status: Resolved (3) Encounter for sterilization Current Visit: Yes Status: Acute (4) Ulcerative colitis Current Visit: Yes Status: Chronic Qualifiers: Ulcerative colitis location: unspecified ulcerative colitis location Digestive disease complication type: with intestinal obstruction Qualified Code(s): K51.912 - Ulcerative colitis, unspecified with intestinal obstruction (5) Abdominal distention Onset Date: ~05/03/19 Current Visit: Yes Status: Acute (6) Ileus Current Visit: Yes Status: Acute Plan to address problem: Patient now without NG tube to tolerate ice chips. Arrangements are being made for patient to be discharged with home TPN. Waiting for arrangements to be completed. Dr. Choudhary to see patient (7) delivery delivered Onset Date: ~05/01/19 Current Visit: Yes Status: Acute Subjective - Subjective Principal diagnosis: POD #17 s/p RLTCS with BTL; colitis/Jpouch in place; SBO; POD#11 exl.lap Patient reports: voiding normally, pain well controlled, ambulating normally, no flatus, no nauseated : other (at home) Objective - Vital Signs Latest vital signs: Vital Signs Temp Pulse Resp BP BP Pulse Ox 05/18/19 10:09 18 05/18/19 09:39 18 05/18/19 07:57 98.8 F 62 18 135/91 94 05/18/19 05:05 98.9 F 69 16 132/84 89 05/18/19 04:55 18 05/18/19 00:46 98.3 F 71 16 132/82 93 05/17/19 22:00 18 05/17/19 20:49 97.4 F L 67 18 131/83 94 05/17/19 20:20 18 05/17/19 17:00 98.7 F 68 20 131/82 93 Intake and Output 05/17/19 05/18/19 05/18/19 22:59 06:59 14:59 Other: Intake, Other Source Saline Solution Voiding Method Toilet Toilet Weight 224 lb 0.187 oz Patient Weight 05/19/19 06:59 Weight 224 lb 0.187 oz - Exam Breasts: Present: deferred Cardiovascular: Present: Regular rate Lungs: Present: Normal air movement Abdomen: Present: soft, distention (mildly) Incision: Present: dry, intact, dressed - Labs Labs: Abnormal lab results 05/17/19 05/17/19 05/18/19 Range/Units 16:51 21:40 05:54 POC Glucose 111 H 119 H 109 H (70-105) 05/18/19 Range/Units 12:25 POC Glucose 111 H (70-105) - Allied health notes Allied health notes reviewed: case management (pending)
[2019-05-18] MEDS ORDERED: TPN ADULT 2,016 ML IV SCH (20:00)
[2019-05-18] MEDS: LOVENOX SUB-Q SCH ×2 (21:51→21:58)
[2019-05-19] MEDS: DILAUDID IV PRN ×3 (02:14→15:03)
[2019-05-19] MEDS: MORPHINE IV PRN (06:24)
[2019-05-19] MEDS: ZOFRAN IV PRN (06:28)
[2019-05-19 06:31] LABS: BUN/Creatinine Ratio 23; Blood Urea Nitrogen 16 mg/dL (7-17); Calcium 9.4 mg/dL (8.4-10.2); Hemolysis Index 12
[2019-05-19] MEDS: PEPCID IV SCH ×2 (10:36→21:24)
--- NOTE | 2019-05-19 12:05 | Progress Note ---
Assessment and Plan patient w/o complaints, she is tolerating ice chips PO and receiving TPN. waiting on home ben[facility]ict to set up home TPN- case management consult ordered 05/18/[address] Ortega. Per RN Amelia, Case management is aware and coordinating services. Celestina curran, c/s incision D&I. Discussed circumcision for her son - advised he needs to be 10lbs or less to have procedure in our office, otherwise she is to contact her peds for a referral. All questions addressed, pt is hopeful she will be d/c'd home today to tomorrow once her TPN is established. - Patient Problems (1) delivery delivered Onset Date: ~05/01/19 Current Visit: Yes Status: Acute Plan to address problem: pt instructed to call office to schedule postop appointment after d/c home Incision healing well. (2) Ulcerative colitis Current Visit: Yes Status: Chronic Qualifiers: Ulcerative colitis location: unspecified ulcerative colitis location Digestive disease complication type: with intestinal obstruction Qualified Code(s): K51.912 - Ulcerative colitis, unspecified with intestinal obstruction Subjective - Subjective Date of service: 05/19/19 Principal diagnosis: POD #18 s/p RLTCS with BTL; colitis/Jpouch in place; SBO; POD#12 exl.lap Patient reports: voiding normally, pain well controlled, ambulating normally [place]: doing well (being cared for at home) Objective - Vital Signs Latest vital signs: Vital Signs Temp Pulse Resp BP BP Pulse Ox 05/19/19 10:35 20 05/19/19 08:17 63 96 05/19/19 08:00 98.5 F 57 L 18 115/84 05/19/19 04:29 98.1 F 61 18 131/75 93 05/18/19 23:57 98.6 F 61 18 130/75 94 05/18/19 19:18 98.7 F 66 18 143/80 94 05/18/19 17:00 85 93 05/18/19 16:58 98.5 F 18 124/88 05/18/19 14:36 18 05/18/19 12:00 98.7 F 88 18 134/86 94 Intake and Output 05/18/19 05/19/19 05/19/19 23:59 07:59 15:59 Intake Total 2266 0 Balance 2266 0 Intake: IV 2266 Intralipid 20% 250 ml @ 250 21 mls/hr IV DAILY@1999 [facility] Rx#:[id number] TPN Adult 2,016 ml @ 84 2016 mls/hr IV DAILY@1999 [facility] Rx#:[id number] Oral 0 Other: Intake, Other Source Saline Solution Total, Intake Amount 0 Voiding Method Toilet Toilet Toilet # Voids Void 3 4 # Bowel Movements 1 0 Weight 101.61 kg Patient Weight 05/19/19 23:59 Weight 101.61 kg - Exam Breasts: Present: normal Cardiovascular: Present: Regular rate, Normal S1 Lungs: Present: Clear to auscultation, Normal air movement Abdomen: Present: soft Vulva: both: normal Uterus: Present: normal, firm, fundal height below umbilicus Extremities: Present: normal Deep Tendon Reflex Grade: Normal +2 Incision: Present: normal, dry, intact - Labs Labs: Abnormal lab results 05/18/19 05/18/19 05/19/19 Range/Units 12:25 17:05 00:06 POC Glucose 111 H 107 H 114 H (70-105) Phosphorus (2.5-4.5) mg/dL 05/19/19 Range/Units 05:32 POC Glucose (70-105) Phosphorus 5.10 H (2.5-4.5) mg/dL
--- NOTE | 2019-05-19 12:56 | Progress Note ---
Assessment and Plan 33 y/o female s/p with acute respiratory failure, resolving. No new recs for today. Stable pulm status. Will sign off. Call if questions. Subjective Date of service: 05/19/19 Principal diagnosis: POD #18 s/p RLTCS with BTL; colitis/Jpouch in place; SBO; POD#12 exl.lap Interval history: No acute events. Remains on room air. Stable. Objective Vital Signs - 12hr 05/19/19 05/19/19 05/19/19 04:29 08:00 08:17 Temperature 98.1 F 98.5 F Pulse Rate 61 57 L 63 Respiratory 18 18 Rate Blood Pressure 131/75 Blood Pressure 115/84 [Left] O2 Sat by Pulse 93 96 Oximetry 05/19/19 10:35 Temperature Pulse Rate Respiratory 20 Rate Blood Pressure Blood Pressure [Left] O2 Sat by Pulse Oximetry Constitutional: no acute distress, alert, other (obese) Eyes: non-icteric ENT: oropharynx moist Neck: supple Effort: other (mildly tachypneic but not labored; shallow breathing due to abd distension) Ascultation: Bilateral: diminished breath sounds (bases) Cardiovascular: regular rate and rhythm (no mrg) Gastrointestinal: absent bowel sounds, tender, other (distended) Integumentary: normal Extremities: no cyanosis, pink and warm, edema (trace bilateral LE edema) Neurologic: normal mental status, non-focal exam, pupils equal and round, CN II- XII normal Psychiatric: mood appropriate, affect normal CBC and BMP: 05/15/19 05:30 05/19/19 05:32 Abnormal lab findings: Abnormal Labs 05/01/19 05/01/19 05/01/19 06:00 06:00 21:41 WBC 12.8 H RBC 3.04 L Hgb 9.4 L 7.5 L Hct 27.6 L 21.9 L MCHC RDW Lymph % (Auto) [place] % (Auto) Eos % (Auto) Lymph # Eos # Baso # 0.2 H Seg Neutrophils % 74.2 H Seg Neuts % (Manual) Lymphocytes % (Manual) Seg Neutrophils # 9.5 H Seg Neutrophils # Man Lymphocytes # (Manual) Sodium Potassium Chloride Carbon Dioxide Creatinine Glucose POC Glucose Calcium Phosphorus AST ALT Alkaline Phosphatase Total Protein Albumin Crossmatch See Detail 0705/04/19 05/04/19 07:08 10:00 15:58 WBC RBC 2.84 L Hgb 8.8 L Hct 25.3 L MCHC 35 H RDW 15.8 H Lymph % (Auto) [place] % (Auto) 8.2 H Eos % (Auto) Lymph # 0.9 L Eos # Baso # Seg Neutrophils % 74.6 H Seg Neuts % (Manual) Lymphocytes % (Manual) Seg Neutrophils # Seg Neutrophils # Man Lymphocytes # (Manual) Sodium Potassium 3.3 L Chloride 94.2 L Carbon Dioxide 34 H Creatinine Glucose POC Glucose Calcium Phosphorus AST ALT Alkaline Phosphatase Total Protein Albumin Crossmatch See Detail 05/04/19 05/05/19 05/07/19 15:58 05:15 05:09 WBC RBC 2.77 L 3.35 L Hgb 8.5 L Hct 24.6 L 29.7 L MCHC 35 H RDW 15.7 H Lymph % (Auto) 6.5 L [place] % (Auto) 9.9 H Eos % (Auto) Lymph # 1.1 L 0.7 L Eos # Baso # Seg Neutrophils % 88.0 H Seg Neuts % (Manual) Lymphocytes % (Manual) Seg Neutrophils # 9.0 H Seg Neutrophils # Man Lymphocytes # (Manual) Sodium Potassium 3.5 L Chloride Carbon Dioxide 32 H Creatinine Glucose 105 H POC Glucose Calcium Phosphorus AST ALT Alkaline Phosphatase Total Protein 5.5 L Albumin 2.6 L Crossmatch 05/07/19 05/08/19 05/08/19 05:09 04:30 04:30 WBC RBC Hgb Hct MCHC RDW Lymph % (Auto) [place] % (Auto) Eos % (Auto) Lymph # Eos # Baso # Seg Neutrophils % Seg Neuts % (Manual) Lymphocytes % (Manual) Seg Neutrophils # Seg Neutrophils # Man Lymphocytes # (Manual) Sodium 133 L Potassium 5.1 H D Chloride Carbon Dioxide 20 L Creatinine 0.6 L 0.5 L Glucose 134 H 109 H 108 H POC Glucose Calcium 7.9 L 8.1 L Phosphorus AST ALT 5 L Alkaline Phosphatase Total Protein 5.2 L 4.5 L Albumin 2.4 L 2.2 L Crossmatch 05/08/19 05/08/19 05/08/19 06:22 07:47 11:01 WBC RBC 3.20 L 3.16 L Hgb 9.7 L 9.4 L Hct 27.7 L 27.4 L MCHC 35 H RDW Lymph % (Auto) 8.8 L 8.5 L [place] % (Auto) Eos % (Auto) Lymph # 1.0 L 0.9 L Eos # Baso # Seg Neutrophils % 83.8 H 85.0 H Seg Neuts % (Manual) Lymphocytes % (Manual) Seg Neutrophils # 9.1 H 9.2 H Seg Neutrophils # Man Lymphocytes # (Manual) Sodium Potassium Chloride Carbon Dioxide Creatinine Glucose POC Glucose 114 H Calcium Phosphorus AST ALT Alkaline Phosphatase Total Protein Albumin Crossmatch 05/08/19 05/08/19 05/09/19 12:18 17:57 00:46 WBC RBC Hgb Hct MCHC RDW Lymph % (Auto) [place] % (Auto) Eos % (Auto) Lymph # Eos # Baso # Seg Neutrophils % Seg Neuts % (Manual) Lymphocytes % (Manual) Seg Neutrophils # Seg Neutrophils # Man Lymphocytes # (Manual) Sodium Potassium Chloride Carbon Dioxide Creatinine Glucose POC Glucose 107 H 107 H 110 H Calcium Phosphorus AST ALT Alkaline Phosphatase Total Protein Albumin Crossmatch 05/09/19 05/09/19 05/09/19 04:55 04:55 12:06 WBC RBC 2.95 L Hgb 8.8 L Hct 25.7 L MCHC RDW Lymph % (Auto) 10.1 L [place] % (Auto) Eos % (Auto) Lymph # 0.9 L Eos # Baso # Seg Neutrophils % 81.4 H Seg Neuts % (Manual) Lymphocytes % (Manual) Seg Neutrophils # Seg Neutrophils # Man Lymphocytes # (Manual) Sodium Potassium 3.2 L D Chloride Carbon Dioxide Creatinine 0.5 L Glucose 119 H POC Glucose 120 H Calcium 8.0 L Phosphorus AST ALT Alkaline Phosphatase Total Protein Albumin Crossmatch 05/09/19 05/09/19 05/09/19 14:03 18:44 23:54 WBC RBC Hgb Hct MCHC RDW Lymph % (Auto) [place] % (Auto) Eos % (Auto) Lymph # Eos # Baso # Seg Neutrophils % Seg Neuts % (Manual) Lymphocytes % (Manual) Seg Neutrophils # Seg Neutrophils # Man Lymphocytes # (Manual) Sodium Potassium Chloride Carbon Dioxide Creatinine Glucose POC Glucose 117 H 116 H Calcium Phosphorus AST ALT Alkaline Phosphatase Total Protein Albumin Crossmatch See Detail 05/10/19 05/10/19 05/10/19 05:56 06:59 06:59 WBC RBC 2.78 L Hgb 8.3 L Hct 24.4 L MCHC RDW Lymph % (Auto) [place] % (Auto) Eos % (Auto) Lymph # Eos # Baso # Seg Neutrophils % Seg Neuts % (Manual) 81.0 H Lymphocytes % (Manual) 12.0 L Seg Neutrophils # Seg Neutrophils # Man Lymphocytes # (Manual) 0.8 L Sodium Potassium Chloride Carbon Dioxide Creatinine 0.4 L Glucose 115 H POC Glucose 125 H Calcium 8.3 L Phosphorus AST ALT Alkaline Phosphatase Total Protein Albumin Crossmatch 05/10/19 05/10/19 05/11/19 12:22 18:19 00:23 WBC RBC Hgb Hct MCHC RDW Lymph % (Auto) [place] % (Auto) Eos % (Auto) Lymph # Eos # Baso # Seg Neutrophils % Seg Neuts % (Manual) Lymphocytes % (Manual) Seg Neutrophils # Seg Neutrophils # Man Lymphocytes # (Manual) Sodium Potassium Chloride Carbon Dioxide Creatinine Glucose POC Glucose 120 H 113 H 137 H Calcium Phosphorus AST ALT Alkaline Phosphatase Total Protein Albumin Crossmatch 05/11/19 05/11/19 05/11/19 05:35 10:16 12:14 WBC RBC 3.37 L Hgb Hct 29.2 L MCHC 36 H RDW Lymph % (Auto) [place] % (Auto) Eos % (Auto) Lymph # Eos # Baso # Seg Neutrophils % Seg Neuts % (Manual) 84.0 H Lymphocytes % (Manual) 9.0 L Seg Neutrophils # Seg Neutrophils # Man 8.0 H Lymphocytes # (Manual) 0.9 L Sodium Potassium Chloride Carbon Dioxide Creatinine 0.4 L Glucose 104 H POC Glucose 121 H Calcium Phosphorus AST ALT Alkaline Phosphatase Total Protein Albumin Crossmatch 05/11/19 05/12/19 05/12/19 18:48 05:35 05:35 WBC RBC 3.45 L Hgb Hct 30.0 L MCHC 35 H RDW Lymph % (Auto) [place] % (Auto) Eos % (Auto) Lymph # Eos # Baso # Seg Neutrophils % Seg Neuts % (Manual) 82.0 H Lymphocytes % (Manual) 9.0 L Seg Neutrophils # Seg Neutrophils # Man Lymphocytes # (Manual) 0.8 L Sodium Potassium Chloride Carbon Dioxide Creatinine 0.5 L Glucose POC Glucose 121 H Calcium 8.3 L Phosphorus 4.70 H AST ALT Alkaline Phosphatase Total Protein Albumin Crossmatch 05/12/19 05/13/19 05/13/19 11:47 01:00 05:20 WBC RBC Hgb Hct MCHC RDW Lymph % (Auto) [place] % (Auto) Eos % (Auto) Lymph # Eos # Baso # Seg Neutrophils % Seg Neuts % (Manual) Lymphocytes % (Manual) Seg Neutrophils # Seg Neutrophils # Man Lymphocytes # (Manual) Sodium Potassium Chloride Carbon Dioxide Creatinine 0.6 L Glucose POC Glucose 136 H 140 H Calcium Phosphorus 4.60 H AST ALT Alkaline Phosphatase Total Protein Albumin Crossmatch 05/13/19 05/13/19 05/13/19 08:03 16:44 23:11 WBC RBC Hgb Hct MCHC RDW Lymph % (Auto) [place] % (Auto) Eos % (Auto) Lymph # Eos # Baso # Seg Neutrophils % Seg Neuts % (Manual) Lymphocytes % (Manual) Seg Neutrophils # Seg Neutrophils # Man Lymphocytes # (Manual) Sodium Potassium Chloride Carbon Dioxide Creatinine Glucose POC Glucose 128 H 121 H 118 H Calcium Phosphorus AST ALT Alkaline Phosphatase Total Protein Albumin Crossmatch 05/14/19 05/14/19 05/14/19 05:34 18:11 Unknown WBC RBC Hgb Hct MCHC RDW Lymph % (Auto) [place] % (Auto) Eos % (Auto) Lymph # Eos # Baso # Seg Neutrophils % Seg Neuts % (Manual) Lymphocytes % (Manual) Seg Neutrophils # Seg Neutrophils # Man Lymphocytes # (Manual) Sodium Potassium Chloride Carbon Dioxide Creatinine 0.6 L Glucose POC Glucose 109 H 108 H Calcium Phosphorus AST ALT Alkaline Phosphatase Total Protein Albumin Crossmatch 05/15/19 05/15/19 05/15/19 00:21 05:30 05:30 WBC RBC 3.61 L Hgb Hct MCHC RDW Lymph % (Auto) [place] % (Auto) Eos % (Auto) 6.9 H Lymph # Eos # 0.7 H Baso # Seg Neutrophils % 73.9 H Seg Neuts % (Manual) Lymphocytes % (Manual) Seg Neutrophils # Seg Neutrophils # Man Lymphocytes # (Manual) Sodium Potassium Chloride Carbon Dioxide Creatinine 0.6 L Glucose POC Glucose 116 H Calcium Phosphorus AST 44 H ALT Alkaline Phosphatase 206 H Total Protein Albumin 2.8 L Crossmatch 05/15/19 05/15/19 05/15/19 06:24 11:43 23:50 WBC RBC Hgb Hct MCHC RDW Lymph % (Auto) [place] % (Auto) Eos % (Auto) Lymph # Eos # Baso # Seg Neutrophils % Seg Neuts % (Manual) Lymphocytes % (Manual) Seg Neutrophils # Seg Neutrophils # Man Lymphocytes # (Manual) Sodium Potassium Chloride Carbon Dioxide Creatinine Glucose POC Glucose 120 H 118 H 114 H Calcium Phosphorus AST ALT Alkaline Phosphatase Total Protein Albumin Crossmatch 05/17/19 05/17/19 05/17/19 05:00 06:10 08:09 WBC RBC Hgb Hct MCHC RDW Lymph % (Auto) [place] % (Auto) Eos % (Auto) Lymph # Eos # Baso # Seg Neutrophils % Seg Neuts % (Manual) Lymphocytes % (Manual) Seg Neutrophils # Seg Neutrophils # Man Lymphocytes # (Manual) Sodium Potassium Chloride Carbon Dioxide Creatinine Glucose POC Glucose 106 H 115 H Calcium Phosphorus 5.10 H AST ALT Alkaline Phosphatase Total Protein Albumin Crossmatch 05/17/19 05/17/19 05/18/19 16:51 21:40 05:54 WBC RBC Hgb Hct MCHC RDW Lymph % (Auto) [place] % (Auto) Eos % (Auto) Lymph # Eos # Baso # Seg Neutrophils % Seg Neuts % (Manual) Lymphocytes % (Manual) Seg Neutrophils # Seg Neutrophils # Man Lymphocytes # (Manual) Sodium Potassium Chloride Carbon Dioxide Creatinine Glucose POC Glucose 111 H 119 H 109 H Calcium Phosphorus AST ALT Alkaline Phosphatase Total Protein Albumin Crossmatch 05/18/19 05/18/19 05/19/19 12:25 17:05 00:06 WBC RBC Hgb Hct MCHC RDW Lymph % (Auto) [place] % (Auto) Eos % (Auto) Lymph # Eos # Baso # Seg Neutrophils % Seg Neuts % (Manual) Lymphocytes % (Manual) Seg Neutrophils # Seg Neutrophils # Man Lymphocytes # (Manual) Sodium Potassium Chloride Carbon Dioxide Creatinine Glucose POC Glucose 111 H 107 H 114 H Calcium Phosphorus AST ALT Alkaline Phosphatase Total Protein Albumin Crossmatch 05/19/19 05:32 WBC RBC Hgb Hct MCHC RDW Lymph % (Auto) [place] % (Auto) Eos % (Auto) Lymph # Eos # Baso # Seg Neutrophils % Seg Neuts % (Manual) Lymphocytes % (Manual) Seg Neutrophils # Seg Neutrophils # Man Lymphocytes # (Manual) Sodium Potassium Chloride Carbon Dioxide Creatinine Glucose POC Glucose Calcium Phosphorus 5.10 H AST ALT Alkaline Phosphatase Total Protein Albumin Crossmatch Allied health notes reviewed: case management (pending)
--- NOTE | 2019-05-19 16:28 | Progress Note ---
Assessment and Plan Assessment and plan: Patient has a history of ulcerative colitis and is status post total colectomy with a J-pouch since age 6 05/01; Repeat low transverse section with bilateral tubal ligation modified Jenise type 05/06 exploratory laparotomy with Lysis of adhesions Uterine scar from previous delivery 39 weeks gestation of Encounter for sterilization sp C/S and tubal ligation on 05/01 Ulcerative colitis with SBO sp Ex lap and олег, cont TPN, ADAT per GS mgt per GS Hypokalemia repleted Acute hypoxic resp failure after C/s now resolved dvt ppx per primary team, recommend lovenox sq PT consult placed per GS request History Interval history: Review of systems Constitutional: No fevers, no malaise, no joint pains CVS: No chest pain, no orthopnea, no dyspnea on exertion, no pedal edema GI: is now having BMs, abdominal pain is resolving as is distension NG suction is still putting out a lot of billous liquid Respiratory: no wheezing, no coughing Hospitalist Physical - Physical exam Narrative exam: General.: Appears well, no distress, nontoxic HEENT: Moist mucous membranes, extraocular muscles intact, no lymphadenopathy Neck: supple Cardiac: S1-S2 heard Lungs: clear to auscultation bilaterally Abdomen: soft ,non tender and non distended Extremities: no edema clubbing or cyanosis Skin: no rash or lesions Neurologic: no gross focal deficits Psych: calm, and cooperative - Constitutional Vitals: Temp Pulse Resp BP Pulse Ox 98.5 F 63 20 115/84 96 05/19/19 08:00 05/19/19 08:17 05/19/19 15:03 05/19/19 08:00 05/19/19 08:17 General appearance: Present: no acute distress Results - Labs CBC & Chem 7: 05/15/19 05:30 05/19/19 05:32 Labs: Laboratory Last Values WBC 9.5 K/mm3 (4.5-11.0) 05/15/19 05:30 RBC 3.61 M/mm3 (3.65-5.03) L 05/15/19 05:30 Hgb 10.8 gm/dl (10.1-14.3) 05/15/19 05:30 Hct 31.6 % (30.3-42.9) 05/15/19 05:30 MCV 88 fl (79-97) 05/15/19 05:30 MCH 30 pg (28-32) 05/15/19 05:30 MCHC 34 % (30-34) 05/15/19 05:30 RDW 15.1 % (13.2-15.2) 05/15/19 05:30 Plt Count 419 K/mm3 (140-440) 05/15/19 05:30 Lymph % (Auto) 13.4 % (13.4-35.0) 05/15/19 05:30 [place] % (Auto) 5.7 % (0.0-7.3) 05/15/19 05:30 Eos % (Auto) 6.9 % (0.0-4.3) H 05/15/19 05:30 Baso % (Auto) 0.1 % (0.0-1.8) 05/15/19 05:30 Lymph # 1.3 K/mm3 (1.2-5.4) 05/15/19 05:30 [place] # 0.5 K/mm3 (0.0-0.8) 05/15/19 05:30 Eos # 0.7 K/mm3 (0.0-0.4) H 05/15/19 05:30 Baso # 0.0 K/mm3 (0.0-0.1) 05/15/19 05:30 Add Manual Diff Complete 05/12/19 05:35 Total Counted 100 05/12/19 05:35 Seg Neutrophils % 73.9 % (40.0-70.0) H 05/15/19 05:30 Seg Neuts % (Manual) 82.0 % (40.0-70.0) H 05/12/19 05:35 2.0 % 05/12/19 05:35 9.0 % (13.4-35.0) L 05/12/19 05:35 Reactive Lymphs % (Man) 0 % 05/12/19 05:35 4.0 % (0.0-7.3) 05/12/19 05:35 3.0 % (0.0-4.3) 05/12/19 05:35 0 % (0.0-1.8) 05/12/19 05:35 0 % 05/12/19 05:35 0 % 05/12/19 05:35 0 % 05/12/19 05:35 0 % 05/12/19 05:35 Nucleated RBC % Not Reportable 05/12/19 05:35 Seg Neutrophils # 7.0 K/mm3 (1.8-7.7) 05/15/19 05:30 Seg Neutrophils # Man 7.3 K/mm3 (1.8-7.7) 05/12/19 05:35 Band Neutrophils # 0.2 K/mm3 05/12/19 05:35 0.8 K/mm3 (1.2-5.4) L 05/12/19 05:35 Abs React Lymphs (Man) 0.0 K/mm3 05/12/19 05:35 0.4 K/mm3 (0.0-0.8) 05/12/19 05:35 0.3 K/mm3 (0.0-0.4) 05/12/19 05:35 0.0 K/mm3 (0.0-0.1) 05/12/19 05:35 0.0 K/mm3 05/12/19 05:35 0.0 K/mm3 05/12/19 05:35 0.0 K/mm3 05/12/19 05:35 Blast Cells # 0.0 K/mm3 05/12/19 05:35 WBC Morphology Not Reportable 05/12/19 05:35 WBC Morphology TNR 05/12/19 05:35 Hypersegmented Neuts Not Reportable 05/12/19 05:35 Hyposegmented Neuts Not Reportable 05/12/19 05:35 Hypogranular Neuts Not Reportable 05/12/19 05:35 Cancelled 05/08/19 07:47 Not Reportable 05/12/19 05:35 Not Reportable 05/12/19 05:35 Not Reportable 05/12/19 05:35 Not Reportable 05/12/19 05:35 Not Reportable 05/12/19 05:35 Not Reportable 05/12/19 05:35 Appears normal 05/12/19 05:35 Not Reportable 05/12/19 05:35 Plt Clumps, EDTA Not Reportable 05/12/19 05:35 Not Reportable 05/12/19 05:35 Not Reportable 05/12/19 05:35 Not Reportable 05/12/19 05:35 Plt Morphology Comment Not Reportable 05/12/19 05:35 RBC Morphology Not Reportable 05/12/19 05:35 Dimorphic RBCs Not Reportable 05/12/19 05:35 Few 05/12/19 05:35 Not Reportable 05/12/19 05:35 Not Reportable 05/12/19 05:35 Cancelled 05/08/19 07:47 1+ 05/12/19 05:35 Not Reportable 05/12/19 05:35 Not Reportable 05/12/19 05:35 Not Reportable 05/12/19 05:35 Not Reportable 05/12/19 05:35 Not Reportable 05/12/19 05:35 Not Reportable 05/12/19 05:35 Not Reportable 05/12/19 05:35 Not Reportable 05/12/19 05:35 Cancelled 05/08/19 07:47 Not Reportable 05/12/19 05:35 Not Reportable 05/12/19 05:35 Not Reportable 05/12/19 05:35 Not Reportable 05/12/19 05:35 Not Reportable 05/12/19 05:35 Not Reportable 05/12/19 05:35 Not Reportable 05/12/19 05:35 Acanthocytes (Spur) Not Reportable 05/12/19 05:35 Rouleaux Not Reportable 05/12/19 05:35 Not Reportable 05/12/19 05:35 Not Reportable 05/12/19 05:35 Not Reportable 05/12/19 05:35 Not Reportable 05/12/19 05:35 Hem Pathologist Commnt No 05/12/19 05:35 Sodium 139 mmol/L (137-145) 05/19/19 05:32 Potassium 4.4 mmol/L (3.6-5.0) 05/19/19 05:32 Chloride 99.2 mmol/L (98-107) 05/19/19 05:32 Carbon Dioxide 27 mmol/L (22-30) 05/19/19 05:32 17 mmol/L 05/19/19 05:32 BUN 16 mg/dL (7-17) 05/19/19 05:32 0.7 mg/dL (0.7-1.2) 05/19/19 05:32 Estimated GFR > 60 ml/min 05/19/19 05:32 23 % 05/19/19 05:32 Glucose 90 mg/dL (65-100) 05/19/19 05:32 POC Glucose 103 (70-105) 05/19/19 11:31 Calcium 9.4 mg/dL (8.4-10.2) 05/19/19 05:32 Phosphorus 5.10 mg/dL (2.5-4.5) H 05/19/19 05:32 Magnesium 2.10 mg/dL (1.7-2.3) 05/19/19 05:32 0.90 mg/dL (0.1-1.2) 05/15/19 05:30 AST 44 units/L (5-40) H 05/15/19 05:30 ALT 33 units/L (7-56) 05/15/19 05:30 206 units/L (35-129) H 05/15/19 05:30 6.6 g/dL (6.3-8.2) 05/15/19 05:30 2.8 g/dL (3.9-5) L 05/15/19 05:30 0.7 % 05/15/19 05:30 RPR Nonreactive (Nonreactive) 05/01/19 06:00 Blood Type O NEGATIVE 05/09/19 14:03 Antibody Screen Positive 05/09/19 14:03 Antibody Identification Anti-D (Passively Aquired) 05/09/19 14:03 Screen Negative 05/01/19 21:41 Crossmatch See Detail 05/09/19 14:03 Active Medications - Current Medications Current Medications: Generic Name Dose Route Start Last Admin Trade Name Freq PRN Reason Stop Dose Admin Albuterol 2.5 mg 05/16/19 09:30 Proventil IH DAILY PRN Shortness Of Breath Benzocaine/Menthol 1 each 05/03/19 22:48 05/16/19 14:38 Cepacol X Strength MM 1 each Q2HR PRN Administration Sore Throat Enoxaparin Sodium 40 mg 05/11/19 22:00 05/18/19 21:58 Lovenox SUB-Q Not Given QDAY@2200 [facility] Famotidine 20 mg 05/03/19 23:00 05/19/19 10:36 Pepcid IV 20 mg BID TOM Administration Hydrocortisone Acetate 25 mg 05/01/19 10:49 Anucort-Hc WA BID PRN Hemorrhoids Amino Acids/Electrolytes/Dextrose 2,016 mls @ 84 mls/hr 05/18/19 20:00 05/18/19 20:10 Tpn Adult IV 05/19/19 19:59 84 mls/hr DAILY@1999 [facility] Administration Protocol Amino Acids/Electrolytes/Dextrose 2,016 mls @ 84 mls/hr 05/19/19 20:00 Tpn Adult IV 05/20/19 19:59 DAILY@1999 [facility] Protocol Magnesium Hydroxide 30 ml 05/01/19 22:00 05/02/19 12:03 Milk Of Magnesia PO 30 ml QHS PRN Administration Constip Unrelieved By Senna Morphine Sulfate 2 mg 05/03/19 16:03 05/19/19 06:24 Morphine IV 05/19/19 17:00 2 mg Q4H PRN Administration Pain, Moderate (4-6) Multi-Ingredient Ointment 1 applic 05/01/19 10:49 Lansinoh TP PRN PRN dryness/cracking Naloxone HCl 0.1 mg 05/01/19 10:49 Narcan 0.4 Mg/1 Ml IV Q2MIN PRN Res Rate </= 8 or 02 SAT < 92% Ondansetron HCl 4 mg 05/01/19 10:49 05/19/19 06:28 Zofran IV 4 mg Q8H PRN Administration Nausea And Vomiting Oxycodone/Acetaminophen 2 tab 05/19/19 15:02 Percocet 5/325 PO Q6H PRN Pain, Moderate (4-6) Witch Annmarie/Glycerin 1 each 05/01/19 10:49 Tucks Pad TP PRN PRN Hemorrhoids/cleansing/soothing Nutrition/Malnutrition Assess - Dietary Evaluation Nutrition/Malnutrition Findings: Nutrition Notes Start: 05/07/19 10:35 Freq: Status: Active Protocol: Document 05/19/19 09:27 LP (Rec: 05/19/19 09:29 LP [id number]) Nutrition Notes Initial or Follow up Reassessment Other Pertinent Diagnosis Ulcerative colitis, SBO, S/P exploratory laporatory, [place] delivery Current Diet CPN at 100ml/hr Labs/Tests Phos 5.1 Pertinent Medications Reviewed Height 5 ft 7 in Weight 101.61 kg [place] Body Weight (kg) 61.36 BMI 35.1 Subjective/Other Information Day 13 CPN. No new changes. Percent of energy/protein needs met: 100%/100% Burn Absent Trauma Absent #1 Nutrition Diagnosis Inadequate oral intake Diagnosis Progress(for reassessment Continues documentation) Is patient on ventilator? No Is Patient Ambulatory and/or Out of Bed No REE-([facility]-confined to bed) 2094.612 Kcal/Kg value to use for calculation 15 Approximate Energy Requirements Using 1524 kcal/Kg Calculation Used for Recommendations Kcal/kg Additional Notes Pro needs 1-1.2g/kg adjBW: 81- 98g/day Fluid needs 1ml/kcal Nutrition Intervention Change Diet Order: CPN Nutrition Support: Continue CPN rate at 84ml/hr: MVI, Osmolality: 1539. Kcal 1,570 Protein (gm) 95 Carbohydrates (gm) 350 Fat (gm) 0 Fluid (mL) 2,016 Fiber (gm) 0 Goal #1 PN to meet nutrient needs as best possible Anticipated Discharge Needs: Unable to determine at this time Follow-Up By: 05/20/19 Additional Comments Labs in AM: BMP, Mg, Phos
[2019-05-19] MEDS: PERCOCET 5/325 PO PRN (18:52)
[2019-05-19] MEDS ORDERED: TPN ADULT 2,016 ML IV SCH (20:00)
[2019-05-19] MEDS: LOVENOX SUB-Q SCH (21:24)
[2019-05-20] MEDS: PERCOCET 5/325 PO PRN ×3 (04:59→20:47)
[2019-05-20 08:00] LABS: BUN/Creatinine Ratio 27; Blood Urea Nitrogen 19 mg/dL (7-17); Calcium 9.5 mg/dL (8.4-10.2); Hemolysis Index 6
[2019-05-20] MEDS: PEPCID IV SCH ×2 (09:17→21:08)
--- NOTE | 2019-05-20 14:56 | Progress Note ---
Assessment and Plan Assessment and plan: Patient has a history of ulcerative colitis and is status post total colectomy with a J-pouch since age 6 05/01; Repeat low transverse section with bilateral tubal ligation modified Jenise type 05/06 exploratory laparotomy with Lysis of adhesions Uterine scar from previous delivery 39 weeks gestation of Encounter for sterilization sp C/S and tubal ligation on 05/01 Ulcerative colitis with SBO sp Ex lap and олег, cont TPN, ADAT per GS mgt per GS, TPN ordered for home, will be dc by primary team when available Hypokalemia repleted Acute hypoxic resp failure after C/s now resolved dvt ppx per primary team, recommend lovenox sq PT consult placed per GS request History Interval history: Review of systems Constitutional: No fevers, no malaise, no joint pains CVS: No chest pain, no orthopnea, no dyspnea on exertion, no pedal edema GI: is now having BMs, abdominal pain is resolving as is distension NG suction is still putting out a lot of billous liquid Respiratory: no wheezing, no coughing Hospitalist Physical - Physical exam Narrative exam: General.: Appears well, no distress, nontoxic HEENT: Moist mucous membranes, extraocular muscles intact, no lymphadenopathy Neck: supple Cardiac: S1-S2 heard Lungs: clear to auscultation bilaterally Abdomen: soft ,non tender and non distended Extremities: no edema clubbing or cyanosis Skin: no rash or lesions Neurologic: no gross focal deficits Psych: calm, and cooperative - Constitutional Vitals: Temp Pulse Resp BP Pulse Ox 98.9 F 55 L 20 121/76 96 05/20/19 07:10 05/20/19 07:00 05/20/19 13:29 05/20/19 07:10 05/20/19 07:10 General appearance: Present: no acute distress Results - Labs CBC & Chem 7: 05/15/19 05:30 05/20/19 07:01 Labs: Laboratory Last Values WBC 9.5 K/mm3 (4.5-11.0) 05/15/19 05:30 RBC 3.61 M/mm3 (3.65-5.03) L 05/15/19 05:30 Hgb 10.8 gm/dl (10.1-14.3) 05/15/19 05:30 Hct 31.6 % (30.3-42.9) 05/15/19 05:30 MCV 88 fl (79-97) 05/15/19 05:30 MCH 30 pg (28-32) 05/15/19 05:30 MCHC 34 % (30-34) 05/15/19 05:30 RDW 15.1 % (13.2-15.2) 05/15/19 05:30 Plt Count 419 K/mm3 (140-440) 05/15/19 05:30 Lymph % (Auto) 13.4 % (13.4-35.0) 05/15/19 05:30 [place] % (Auto) 5.7 % (0.0-7.3) 05/15/19 05:30 Eos % (Auto) 6.9 % (0.0-4.3) H 05/15/19 05:30 Baso % (Auto) 0.1 % (0.0-1.8) 05/15/19 05:30 Lymph # 1.3 K/mm3 (1.2-5.4) 05/15/19 05:30 [place] # 0.5 K/mm3 (0.0-0.8) 05/15/19 05:30 Eos # 0.7 K/mm3 (0.0-0.4) H 05/15/19 05:30 Baso # 0.0 K/mm3 (0.0-0.1) 05/15/19 05:30 Add Manual Diff Complete 05/12/19 05:35 Total Counted 100 05/12/19 05:35 Seg Neutrophils % 73.9 % (40.0-70.0) H 05/15/19 05:30 Seg Neuts % (Manual) 82.0 % (40.0-70.0) H 05/12/19 05:35 2.0 % 05/12/19 05:35 9.0 % (13.4-35.0) L 05/12/19 05:35 Reactive Lymphs % (Man) 0 % 05/12/19 05:35 4.0 % (0.0-7.3) 05/12/19 05:35 3.0 % (0.0-4.3) 05/12/19 05:35 0 % (0.0-1.8) 05/12/19 05:35 0 % 07/14/19 05:35 0 % 05/12/19 05:35 0 % 05/12/19 05:35 0 % 05/12/19 05:35 Nucleated RBC % Not Reportable 05/12/19 05:35 Seg Neutrophils # 7.0 K/mm3 (1.8-7.7) 05/15/19 05:30 Seg Neutrophils # Man 7.3 K/mm3 (1.8-7.7) 05/12/19 05:35 Band Neutrophils # 0.2 K/mm3 05/12/19 05:35 0.8 K/mm3 (1.2-5.4) L 05/12/19 05:35 Abs React Lymphs (Man) 0.0 K/mm3 05/12/19 05:35 0.4 K/mm3 (0.0-0.8) 05/12/19 05:35 0.3 K/mm3 (0.0-0.4) 05/12/19 05:35 0.0 K/mm3 (0.0-0.1) 05/12/19 05:35 0.0 K/mm3 05/12/19 05:35 0.0 K/mm3 05/12/19 05:35 0.0 K/mm3 05/12/19 05:35 Blast Cells # 0.0 K/mm3 05/12/19 05:35 WBC Morphology Not Reportable 05/12/19 05:35 WBC Morphology TNR 05/12/19 05:35 Hypersegmented Neuts Not Reportable 05/12/19 05:35 Hyposegmented Neuts Not Reportable 05/12/19 05:35 Hypogranular Neuts Not Reportable 05/12/19 05:35 Cancelled 05/08/19 07:47 Not Reportable 05/12/19 05:35 Not Reportable 05/12/19 05:35 Not Reportable 05/12/19 05:35 Not Reportable 05/12/19 05:35 Not Reportable 05/12/19 05:35 Not Reportable 05/12/19 05:35 Appears normal 05/12/19 05:35 Not Reportable 05/12/19 05:35 Plt Clumps, EDTA Not Reportable 05/12/19 05:35 Not Reportable 05/12/19 05:35 Not Reportable 05/12/19 05:35 Not Reportable 05/12/19 05:35 Plt Morphology Comment Not Reportable 05/12/19 05:35 RBC Morphology Not Reportable 05/12/19 05:35 Dimorphic RBCs Not Reportable 05/12/19 05:35 Few 05/12/19 05:35 Not Reportable 05/12/19 05:35 Not Reportable 05/12/19 05:35 Cancelled 05/08/19 07:47 1+ 05/12/19 05:35 Not Reportable 05/12/19 05:35 Not Reportable 05/12/19 05:35 Not Reportable 05/12/19 05:35 Not Reportable 05/12/19 05:35 Not Reportable 05/12/19 05:35 Not Reportable 05/12/19 05:35 Not Reportable 05/12/19 05:35 Not Reportable 05/12/19 05:35 Cancelled 05/08/19 07:47 Not Reportable 05/12/19 05:35 Not Reportable 05/12/19 05:35 Not Reportable 05/12/19 05:35 Not Reportable 05/12/19 05:35 Not Reportable 05/12/19 05:35 Not Reportable 05/12/19 05:35 Not Reportable 05/12/19 05:35 Acanthocytes (Spur) Not Reportable 05/12/19 05:35 Rouleaux Not Reportable 05/12/19 05:35 Not Reportable 05/12/19 05:35 Not Reportable 05/12/19 05:35 Not Reportable 05/12/19 05:35 Not Reportable 05/12/19 05:35 Hem Pathologist Commnt No 05/12/19 05:35 Sodium 138 mmol/L (137-145) 05/20/19 07:01 Potassium 4.6 mmol/L (3.6-5.0) 05/20/19 07:01 Chloride 98.7 mmol/L (98-107) 05/20/19 07:01 Carbon Dioxide 27 mmol/L (22-30) 05/20/19 07:01 17 mmol/L 05/20/19 07:01 BUN 19 mg/dL (7-17) H 05/20/19 07:01 0.7 mg/dL (0.7-1.2) 05/20/19 07:01 Estimated GFR > 60 ml/min 05/20/19 07:01 27 % 05/20/19 07:01 Glucose 106 mg/dL (65-100) H 05/20/19 07:01 POC Glucose 118 (70-105) H 05/20/19 00:13 Calcium 9.5 mg/dL (8.4-10.2) 05/20/19 07:01 Phosphorus 4.90 mg/dL (2.5-4.5) H 05/20/19 07:01 Magnesium 2.00 mg/dL (1.7-2.3) 05/20/19 07:01 0.90 mg/dL (0.1-1.2) 05/15/19 05:30 AST 44 units/L (5-40) H 05/15/19 05:30 ALT 33 units/L (7-56) 05/15/19 05:30 206 units/L (35-129) H 05/15/19 05:30 6.6 g/dL (6.3-8.2) 05/15/19 05:30 2.8 g/dL (3.9-5) L 05/15/19 05:30 0.7 % 05/15/19 05:30 RPR Nonreactive (Nonreactive) 05/01/19 06:00 Blood Type O NEGATIVE 05/09/19 14:03 Antibody Screen Positive 05/09/19 14:03 Antibody Identification Anti-D (Passively Aquired) 05/09/19 14:03 Screen Negative 05/01/19 21:41 Crossmatch See Detail 05/09/19 14:03 Active Medications - Current Medications Current Medications: Generic Name Dose Route Start Last Admin Trade Name Freq PRN Reason Stop Dose Admin Albuterol 2.5 mg 05/16/19 09:30 Proventil IH DAILY PRN Shortness Of Breath Benzocaine/Menthol 1 each 05/03/19 22:48 05/16/19 14:38 Cepacol X Strength MM 1 each Q2HR PRN Administration Sore Throat Enoxaparin Sodium 40 mg 05/11/19 22:00 05/19/19 21:24 Lovenox SUB-Q Not Given QDAY@2200 [facility] Famotidine 20 mg 05/03/19 23:00 05/20/19 09:17 Pepcid IV 20 mg BID TOM Administration Hydrocortisone Acetate 25 mg 05/01/19 10:49 Anucort-Hc AK BID PRN Hemorrhoids Amino Acids/Electrolytes/Dextrose 2,016 mls @ 84 mls/hr 05/19/19 20:00 05/19/19 20:50 Tpn Adult IV 05/20/19 19:59 84 mls/hr DAILY@1999 TOM Administration Protocol Amino Acids/Electrolytes/Dextrose 2,016 mls @ 84 mls/hr 05/20/19 20:00 Tpn Adult IV 05/21/19 19:59 DAILY@1999 [facility] Protocol Magnesium Hydroxide 30 ml 05/01/19 22:00 05/02/19 12:03 Milk Of Magnesia PO 30 ml QHS PRN Administration Constip Unrelieved By Senna Multi-Ingredient Ointment 1 applic 05/01/19 10:49 Lansinoh TP PRN PRN dryness/cracking Naloxone HCl 0.1 mg 05/01/19 10:49 Narcan 0.4 Mg/1 Ml IV Q2MIN PRN Res Rate </= 8 or 02 SAT < 92% Ondansetron HCl 4 mg 05/01/19 10:49 05/19/19 06:28 Zofran IV 4 mg Q8H PRN Administration Nausea And Vomiting Oxycodone/Acetaminophen 2 tab 05/19/19 15:02 05/20/19 13:29 Percocet 5/325 PO 2 tab Q6H PRN Administration Pain, Moderate (4-6) Witch Annmarie/Glycerin 1 each 05/01/19 10:49 Tucks Pad TP PRN PRN Hemorrhoids/cleansing/soothing Nutrition/Malnutrition Assess - Dietary Evaluation Nutrition/Malnutrition Findings: Nutrition Notes Start: 05/07/19 10:35 Freq: Status: Active Protocol: Document 05/19/19 09:27 LP (Rec: 05/19/19 09:29 LP [id number]) Nutrition Notes Initial or Follow up Reassessment Other Pertinent Diagnosis Ulcerative colitis, SBO, S/P exploratory laporatory, Ceserean delivery Current Diet CPN at 100ml/hr Labs/Tests Phos 5.1 Pertinent Medications Reviewed Height 5 ft 7 in Weight 101.61 kg [place] Body Weight (kg) 61.36 BMI 35.1 Subjective/Other Information Day 13 CPN. No new changes. Percent of energy/protein needs met: 100%/100% Burn Absent Trauma Absent #1 Nutrition Diagnosis Inadequate oral intake Diagnosis Progress(for reassessment Continues documentation) Is patient on ventilator? No Is Patient Ambulatory and/or Out of Bed No REE-([facility]-confined to bed) 2094.612 Kcal/Kg value to use for calculation 15 Approximate Energy Requirements Using 1524 kcal/Kg Calculation Used for Recommendations Kcal/kg Additional Notes Pro needs 1-1.2g/kg adjBW: 81- 98g/day Fluid needs 1ml/kcal Nutrition Intervention Change Diet Order: CPN Nutrition Support: Continue CPN rate at 84ml/hr: MVI, Osmolality: 1539. Kcal 1,570 Protein (gm) 95 Carbohydrates (gm) 350 Fat (gm) 0 Fluid (mL) 2,016 Fiber (gm) 0 Goal #1 PN to meet nutrient needs as best possible Anticipated Discharge Needs: Unable to determine at this time Follow-Up By: 05/20/19 Additional Comments Labs in AM: BMP, Mg, Phos
--- NOTE | 2019-05-20 15:01 | Progress Note ---
Assessment and Plan Pt feeling well. eager to go home. Abd soft, non tender Abd series - unfortunately unchanged persistent generalized ileus may d/c NPO on TPN from surgical perspective will f/u in office this Fri f/u abd series as outpt this thurs Objective Vital Signs - 12hr 05/20/19 05/20/19 05/20/19 04:07 07:00 07:10 Temperature 97.8 F 98.9 F 98.9 F Pulse Rate 77 55 L Respiratory 18 16 20 Rate Blood Pressure 114/79 121/76 Blood Pressure 121/76 [Left] O2 Sat by Pulse 94 96 96 Oximetry 05/20/19 13:29 Temperature Pulse Rate Respiratory 20 Rate Blood Pressure Blood Pressure [Left] O2 Sat by Pulse Oximetry - Labs 05/15/19 05:30 05/20/19 07:01 Diabetes panel 05/20/19 Range/Units 07:01 Sodium 138 (137-145) mmol/L Potassium 4.6 (3.6-5.0) mmol/L Chloride 98.7 (98-107) mmol/L Carbon Dioxide 27 (22-30) mmol/L BUN 19 H (7-17) mg/dL Creatinine 0.7 (0.7-1.2) mg/dL Glucose 106 H (65-100) mg/dL Calcium 9.5 (8.4-10.2) mg/dL Calcium panel 05/20/19 Range/Units 07:01 Calcium 9.5 (8.4-10.2) mg/dL Phosphorus 4.90 H (2.5-4.5) mg/dL Pituitary panel 05/20/19 Range/Units 07:01 Sodium 138 (137-145) mmol/L Potassium 4.6 (3.6-5.0) mmol/L Chloride 98.7 (98-107) mmol/L Carbon Dioxide 27 (22-30) mmol/L BUN 19 H (7-17) mg/dL Creatinine 0.7 (0.7-1.2) mg/dL Glucose 106 H (65-100) mg/dL Calcium 9.5 (8.4-10.2) mg/dL Adrenal panel 05/20/19 Range/Units 07:01 Sodium 138 (137-145) mmol/L Potassium 4.6 (3.6-5.0) mmol/L Chloride 98.7 (98-107) mmol/L Carbon Dioxide 27 (22-30) mmol/L BUN 19 H (7-17) mg/dL Creatinine 0.7 (0.7-1.2) mg/dL Glucose 106 H (65-100) mg/dL Calcium 9.5 (8.4-10.2) mg/dL
--- NOTE | 2019-05-20 15:05 | XRay Report ---
ABDOMEN 2 VIEW(S) INDICATION / CLINICAL INFORMATION: REVIEW ABDOMEN. COMPARISON: Previous abdominal radiographs on 05/17/2019 and 05/16/2019. FINDINGS: TUBES / LINES: None. BOWEL GAS PATTERN/EXTRALUMINAL GAS: Stable mild gaseous distention of small and large bowel. No pneum atosis or secondary signs of free air. ADDITIONAL FINDINGS: No significant additional findings. IMPRESSION: 1. Relatively stable mild gaseous distention of the small and large bowel most likely reflecting adyn amic ileus. Signer Name: Rob Trejo MD Signed: 05/20/2019 3:00 PM Workstation Name: [id number]
--- NOTE | 2019-05-20 17:06 | Discharge Summary ---
Providers - Providers Date of Admission: 05/01/19 05:32 Date of discharge: 05/21/19 Attending physician: CINDY VASQUEZ 05/03/19 15:33 Consult to Physician [CONS] Urgent Comment: Consulting Provider: ILAN SANFORD Physician Instructions: Reason For Exam: s/p , vomiting, h/o bowel surgery 05/06/19 17:52 Consult to Dietitian/Nutrition [CONS] Routine Physician Instructions: TPN Reason For Exam: TPN Reason for Consult: Write/Manage TPN/PPN 05/06/19 17:53 Consult to PICC Line RN [CONS] Routine Reason For Exam: prolonged npo Type Line:: PICC 05/06/19 17:54 Consult to Physician [CONS] Routine Comment: Consulting Provider: MATTEO MELCHOR Physician Instructions: Reason For Exam: medical management 05/11/19 10:05 Physical Therapy Evaluation and Treat [CONS] Routine Comment: Reason For Exam: ambulate down halls with assistance 05/11/19 16:29 Physical Therapy Evaluation and Treat [CONS] Routine Comment: Reason For Exam: ataxia 05/14/19 13:32 Consult to Mental Health [CONS] Routine Reason For Exam: depression Place consult to:: mental health Notified:: notified 05/18/19 08:00 Consult to Case Management [CONS] Routine Services Needed at Discharge: Home Health Services Notified:: yes Phone number called:: [phone] Was contact made?: Yes If yes, spoke with:: nursing home social worker Time called:: 12:55 Additional Physician Instructions: manage TPN Primary care physician: CINDY VASQUEZ Hospitalization Reason for admission: IUP at 39 weeks with previous sections and desire permanent steril Condition: Good Procedures: Repeat low transverse section with bilateral tubal ligation Radiological abdominal imaging Exploratory laparotomy General surgery consult Hospital course: Please see patient's chart for details. Patient was admitted and underwent a repeat low transverse section bilateral lateral tubal ligation without complications. Patient's postoperative course was complicated with abdominal distention. Patient states she's had this complications at the age of previous sections due to her colectomy done as a child due to ulcerative colitis. Patient had extensive thumb bowel dilatation and had a nasogastric tube placed and general surgery, so done to rule out possible obstruction. Dr. Sanford was consulted and followed a patient with initial conservative treatment, but without improvement decision was made to move to exploratory laparotomy to rule out small bowel obstruction and possible release of her obstruction. Laparotomy did not reveal any obstruction just severe ileus. Postoperatively the patient was started on TPN. The rest of the patient's stay showed slow imp rovement of her bowel functions but at time of delivery the patient was still receiving TPN and was discharge on TPN with close follow-up with both Gen. surgery in our office. Disposition: - TO HOME OR SELFCARE - Discharge Diagnoses (1) Uterine scar from previous delivery Status: Chronic (2) 39 weeks gestation of Status: Resolved (3) Encounter for sterilization Status: Acute (4) Ulcerative colitis Status: Chronic Qualifiers: Ulcerative colitis location: unspecified ulcerative colitis location Digestive disease complication type: with intestinal obstruction Qualified Code(s): K51.912 - Ulcerative colitis, unspecified with intestinal obstruction (5) Abdominal distention Status: Acute (6) Ileus Status: Acute (7) delivery delivered Status: Acute Core Measure Documentation - Palliative Care Palliative Care/ Comfort Measures: Not Applicable - Core Measures Any of the following diagnoses?: none Exam - Constitutional Vitals: Temp Pulse Resp BP Pulse Ox 97.9 F 63 18 121/63 95 05/20/19 16:15 05/20/19 16:15 05/20/19 16:15 05/20/19 16:15 05/20/19 16:15 General appearance: Present: no acute distress - Respiratory Respiratory effort: normal - Cardiovascular Rhythm: regular - Extremities Extremities: no ischemia - Abdominal General gastrointestinal: Present: soft, tender (appropriate postop), distended (slightly), hypoactive bowel sounds Female genitourinary: Present: deferred - Rectal Rectal Exam: deferred - Integumentary Integumentary: Present: clear, warm, dry Plan Activity: advance as tolerated, no driving until cleared by PCP Diet: other (ice chips patient on outpatient TPN) Wound: open to air, per your surgeon's advice Additional Instructions: Patient called office for fever chills nausea vomiting or pain not relieved by pain medication. Patient's follow with Dr. Sanford in 2- 3 days and in our office in 1 week Follow up with: [facility] [Outside] - 3 Days (Monday - Monday 8:00am - 5:00pm. Walk-In only Must arrive at 7:45 as available slots are first come, first served. To be eligible for services, you must bring the following with you: 1. Proof of Identity 2. Proof of Residence 3. Proof of Income 4. Insurance Cards 5. Referral documents and/or hospital discharge papers.) CINDY VASQUEZ MD [Primary Care Provider] - 7 Days Prescriptions: Lidocain2.5%/Prilocai2.5% [Emla] 5 gm TP ONCE #1 tube Ferrous Sulfate [Feosol 325 MG tab] 325 mg PO BID #60 tablet Ibuprofen [Motrin 800 MG tab] 800 mg PO Q6H PRN #30 tablet PRN Reason: Pain oxyCODONE /ACETAMINOPHEN [Percocet 5/325 mg] 1 - 2 tab PO Q4H PRN #20 tablet PRN Reason: Pain, Moderate Other Discharge Orders: XR abd series w cxr 1V Time Frame: 3 Days, Location: None Selected
[2019-05-20] MEDS ORDERED: TPN ADULT 2,016 ML IV SCH (20:00)
[2019-05-20] MEDS: LOVENOX SUB-Q SCH (21:07)
[2019-05-21 05:58] LABS: BUN/Creatinine Ratio 23; Blood Urea Nitrogen 16 mg/dL (7-17); Calcium 9.4 mg/dL (8.4-10.2); Hemolysis Index 2
[2019-05-21 07:54] VITALS: BP 117/72
[2019-05-21] MEDS: PEPCID IV SCH (09:40)
== END 2019-05-21 12:40 | disposition home or self-care (01) | DRG 765 ==
LOC: APU 05:32 → OB 10:22 → IMCU 05-06 17:25 → 3B-SURG 05-11 14:27
PROVIDERS: ADMIT Obstetrics & Gynecology; ATTEND Obstetrics & Gynecology
PROC: 10D00Z1 Extraction of Products of Conception, Low, Open Approach (ICD-10-PCS; principal; 2019-05-01)
PROC: 0UB70ZZ Excision of Bilateral Fallopian Tubes, Open Approach (ICD-10-PCS; 2019-05-01)
PROC: 3E0234Z Introduction of Serum, Toxoid and Vaccine into Muscle, Percutaneous Approach (ICD-10-PCS; 2019-05-02)
PROC: 30233N1 Transfusion of Nonautologous Red Blood Cells into Peripheral Vein, Percutaneous Approach (ICD-10-PCS; 2019-05-04)
PROC: 0DN80ZZ Release Small Intestine, Open Approach (ICD-10-PCS; 2019-05-06)
PROC: 6A550ZT Pheresis of Cord Blood Stem Cells, Single (ICD-10-PCS; 2019-05-08)
PROC: 3E0436Z Introduction of Nutritional Substance into Central Vein, Percutaneous Approach (ICD-10-PCS; 2019-05-08)
PROC: 02HV33Z Insertion of Infusion Device into Superior Vena Cava, Percutaneous Approach (ICD-10-PCS; 2019-05-08)
DX: O34.211 Maternal care for low transverse scar from previous cesarean delivery (principal); J96.00 Acute respiratory failure, unspecified whether with hypoxia or hypercapnia; O99.344 Other mental disorders complicating childbirth; O99.62 Diseases of the digestive system complicating childbirth; O99.285 Endocrine, nutritional and metabolic diseases complicating the puerperium; O99.53 Diseases of the respiratory system complicating the puerperium; O99.63 Diseases of the digestive system complicating the puerperium; O99.334 Smoking (tobacco) complicating childbirth; F41.8 Other specified anxiety disorders; K66.0 Peritoneal adhesions (postprocedural) (postinfection); K51.912 Ulcerative colitis, unspecified with intestinal obstruction; E87.6 Hypokalemia; J98.11 Atelectasis; F17.210 Nicotine dependence, cigarettes, uncomplicated; O99.214 Obesity complicating childbirth; E66.9 Obesity, unspecified; Z37.0 Single live birth; Z3A.39 39 weeks gestation of pregnancy
CPT/HCPCS: 36415; 71045; 74019; 74022; 74177; 80048; 80053; 82962; 83735; 84100; 84478; 85007; 85014; 85018; 85025; 85461; 86592; 86850; 86870; 86900; 86901; 86920; 87086; 88302; 93970; 94640; 94760; G0378; C9113; J0690; J1100; J1170; J1580; J1650; J1885; J2175; J2270; J2405; J2590; J2704; J2765; J2790; J3010; J3480; J3490; J7040; J7120; J7121; P9016; Q9967

== ENCOUNTER 2019-05-23 14:01 | Outpatient (CLI) | payer MEDICAID ==
--- NOTE | 2019-05-23 15:01 | XRay Report ---
ABDOMINAL SERIES WITH UPRIGHT CHEST CLINICAL: Follow-up bowel obstruction. FINDINGS: Chest: Normal with no free air under the diaphragm. Right PICC line tip is in the distal SVC. ABDOMEN: Moderate distention of proximal and mid small bowel with right colon gas identified. No free air. IMPRESSION: Adynamic ileus with slight improvement. No signs of perforation. Signer Name: Ruslan Bullock MD Signed: 05/23/2019 2:57 PM Workstation Name: [id number]
== END 2019-05-23 14:02 | disposition home or self-care (01) ==
LOC: XRAY 14:01
PROVIDERS: ATTEND Surgery
DX: K56.0 Paralytic ileus (principal); R14.0 Abdominal distension (gaseous)
CPT/HCPCS: 74022

== ENCOUNTER 2019-05-30 10:07 | Outpatient (CLI) | payer MEDICAID ==
--- NOTE | 2019-05-30 11:54 | XRay Report ---
CLINICAL DATA: ILEUS TECHNICAL DATA: PA chest, AP supine abdomen and upright abdomen. FINDINGS: The cardiac silhouette and pulmonary vasculature are normal. The lungs are clear and well expanded. T here is no evidence of focal consolidation, pneumothorax, or pleural effusion. A right PICC line tip is in the distal SVC. No pneumothorax. Slightly greater distention of small bowel loops with air-fluid levels. Minimal if any colon gas. The re is no free intraperitoneal air. There are no abnormal calcifications. IMPRESSION:. Negative chest. Slightly greater small bowel distention and minimal colon gas is consistent with a sm all bowel obstruction. No evidence of perforation. Signer Name: Ruslan Bullock MD Signed: 05/30/2019 11:49 AM Workstation Name: [id number]
== END 2019-05-30 10:08 | disposition home or self-care (01) ==
LOC: XRAY 10:07 → EDBD 10:07 → EDSEX 10:07 → XRAY 10:08
PROVIDERS: ATTEND Obstetrics & Gynecology
DX: R14.0 Abdominal distension (gaseous) (principal)
CPT/HCPCS: 74022

== ENCOUNTER 2019-06-10 11:37 | Outpatient (CLI) | payer MEDICAID ==
--- NOTE | 2019-06-10 13:44 | XRay Report ---
ABDOMEN 1 VIEW(S) INDICATION / CLINICAL INFORMATION: Ileus. COMPARISON: None available. FINDINGS: TUBES / LINES: None. BOWEL GAS PATTERN: Mild improvement in gaseous distention of bowel loops and fluid levels is demonstr ated since 05/30/2019. FREE AIR / EXTRALUMINAL GAS: None seen. ADDITIONAL FINDINGS: No significant additional findings. IMPRESSION: Mild improvement in the ileus pattern. Signer Name: Kevin Larsen Jr, MD Signed: 06/10/2019 1:40 PM Workstation Name: [id number]
== END 2019-06-10 11:38 | disposition home or self-care (01) ==
LOC: FLUORO 11:37
PROVIDERS: ATTEND Surgery
DX: K56.7 Ileus, unspecified (principal)
CPT/HCPCS: 74018